=== PATIENT | male | born 1950 | race Caucasian/White ===

== ENCOUNTER → 2016-11-15 | Outpatient (CLI) | payer MEDICARE ==
[~2016-11-15] MED LIST: ALLO100T PO; ASPI81TA85 PO; BENZ100C5 PO; BISO10TA6 PO; BISO5TAB5 PO; CALC600T21 PO; CARV12.5 PO; CLON-412 PO; CO Q10CA PO; COUM1TAB17 PO; CRES20TA PO; DEMA20TA6 PO; DIGO0.12 PO; DILT30TA PO; DOXY100T16 PO; DRIS50002 PO; FURO1TAB15 PO; INSUH10VL SC; INSULANT SC; JANT5TAB PO; LEVO25TA5 PO; LOSA100T36 PO; LOVE0.6I2 SC; MULT1TAB8 PO; NITR4TASL SL; OMEG100011 PO; PANT40TA2 PO; PAXI10TA2 PO; PRED10TA PO; PREG50CA PO; PROA1AER INH; VITA100041 PO
[2016-11-15 13:31] LABS: INR 1.44
== END ==
LOC: M SMT 08:10
PROVIDERS: ATTEND Nurse Practitioner Family
DX: Z51.81 Encounter for therapeutic drug level monitoring (principal); Z79.01 Long term (current) use of anticoagulants; I48.92 Unspecified atrial flutter

== ENCOUNTER → 2017-01-04 | Outpatient (CLI) | payer MEDICARE ==
[2017-01-04 17:58] LABS: INR 1.5
== END ==
LOC: M SMT 13:55
PROVIDERS: ATTEND Internal Medicine Cardiovascular Disease
DX: Z51.81 Encounter for therapeutic drug level monitoring (principal); Z79.01 Long term (current) use of anticoagulants; I48.92 Unspecified atrial flutter

== ENCOUNTER 2017-01-10 18:31 | Emergency (ER) | payer MEDICARE ==
[~2017-01-10] VITALS: Ht 170.2 cm; Wt 117.9 kg
[2017-01-10] MEDS ORDERED: VITA1DRO SL (18:51)
[2017-01-10 19:29] LABS: CALCIUM LEVEL 8.9 MG/DL (8.8-10.2); CREATININE FOR GFR 3.27 MG/DL (0.70-1.30); GLOMERULAR FILTRATION RATE 20.3 (>49); POTASSIUM SERUM 4.5 MEQ/L (3.5-5.1)
[2017-01-10 19:32] LABS: MEAN CORPUSCULAR VOLUME 93.7 fl (80.0-96.0); PLATELET COUNT, AUTOMATED 158 k/mm3 (150-450); RED CELL DISTRIBUTION WIDTH 16.6 % (11.5-14.5); WHITE BLOOD COUNT 2.6 K/mm3 (4.0-10.0)
[2017-01-10] MEDS: IPRATROPIUM 0.5MG/ALBUTEROL 2.5MG INH SOL UD 3ML (DUONEB)(J7620) NEB SCH ×3 (20:04→20:30)
[2017-01-10 20:28] LABS: VENOUS O2 SATURATION 83.7 % (60.0-80.0); VENOUS PARTIAL PRESSURE CO2 62.7 mmHg (38.0-50.0); VENOUS PARTIAL PRESSURE O2 54.9 mmHg (30.0-50.0); VENOUS STANDARD HCO3 28.7 MEQ/L; VENOUS TOTAL CO2 33.9 MEQ/L (24.0-28.0)
[2017-01-10 20:49] LABS: ANISOCYTOSIS 1+; BANDS 1 % (< 11); EOSINOPHILS 3 % (0-5); HYPOCHROMASIA 1+; NUCLEATED RED BLOOD CELL 1 % (0-0); OVALOCYTES 1+; POLYCHROMASIA 1+; TARGET CELLS 1+
[2017-01-10 20:50] LABS: POIKILOCYTOSIS 1+
[2017-01-10] MEDS ORDERED: predniSONE 20 MG TAB PO ONE (22:15)
[2017-01-10 23:06] VITALS: O2SAT 93
[2017-01-10] MEDS ORDERED: PRED10TA PO (23:27)
[2017-01-10] MEDS ORDERED: ALBU83IN INH (23:27)
[2017-01-10 23:37] VITALS: BP 202/82
--- NOTE | 2017-01-11 08:02 | REP ---
Clinical: Shortness of breath. Comparison: 11/16/2015. Technique: PA and lateral. Findings: Stable cardiomegaly and evidence for prior sternotomy CABG and stenting noted. The lung hinojosa demonstrate indistinct pulmonary vasculature and increased interstitial markings as well as subtle basilar infiltrates and small pleural effusions. Differential diagnosis includes multifocal pneumonia and pulmonary vascular congestion. Impression: Multifocal pneumonia with pleural effusion versus pulmonary vascular congestion. Signed by Norman Ty MD 01/11/2017 07:54 A
--- NOTE | 2017-01-11 11:52 | ED PDOC ---
Post-Departure Follow-Up formal CXR noted. spoke to ED typewriter tester - Ventura Osorio. He will contact pt and assess on phone. if symptomatic to recommend fu w pcp and/or return to ED Jonathan Krishna MD Jan 11, 2017 11:51
--- NOTE | 2017-01-11 16:36 | ECGEPIP ---
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
== END 2017-01-10 23:43 | disposition home or self-care (01) ==
LOC: M ED 19:51
DX: J45.901 Unspecified asthma with (acute) exacerbation (principal); Z79.899 Other long term (current) drug therapy; Z79.82 Long term (current) use of aspirin; Z79.4 Long term (current) use of insulin; Z79.01 Long term (current) use of anticoagulants

== ENCOUNTER 2017-01-23 10:42 | Inpatient (IN) | payer MEDICARE ==
[~2017-01-23] VITALS: Ht 170.2 cm; Wt 121.5 kg
[~2017-01-23 10:42] MED LIST changes: +ALBU83IN INH; +VITA1DRO SL
[2017-01-23] MEDS ORDERED: ALBUTEROL SULFATE 2.5 MG/0.5 ML INH NEB SOLN NEB ONE (12:15)
--- NOTE | 2017-01-23 12:39 | REP ---
AP PORTABLE CHEST: 01/23/2017 COMPARISON: 01/10/2017 CLINICAL HISTORY: Dyspnea and cough. FINDINGS: Sternotomy wires and clips from prior CABG noted. Heart size mildly prominent. There is no pulmonary edema. Some underlying interstitial fibrotic changes without dense consolidation. Some minor lateral pleural thickening on the left more than right. No gross effusion. I do not see parenchymal mass or widened mediastinum. Aorta mildly tortuous and calcified without aneurysm. Airway intact. IMPRESSION: 1. Some mild cardiomegaly without pulmonary edema or definite effusion. 2. Minor lateral pleural thickening on the left with some underlying fibrosis and COPD. Prior CABG. 3. No definite consolidation or mass. Signed by Mateo Reyna MD 01/23/2017 01:47 P
[2017-01-23 12:48] LABS: INR 1.88
[2017-01-23 12:50] LABS: DIFF SLIDE NUMBER 213; MEAN CORPUSCULAR HEMOGLOBIN 29.3 pg (27.0-33.0); MEAN CORPUSCULAR VOLUME 91.7 fl (80.0-96.0); PLATELET COUNT, AUTOMATED 141 k/mm3 (150-450); RED CELL DISTRIBUTION WIDTH 16.6 % (11.5-14.5)
[2017-01-23 12:55] LABS: ABG BASE EXCESS 5.6 (-2.0-2.0); ABG HCO3 30.9 MEQ/L (22.0-26.0); ABG PARTIAL PRESSURE CO2 49.1 mmHg (35.0-45.0); ABG PARTIAL PRESSURE O2 59.4 mmHg (75.0-100.0); ABG STANDARD HCO3 29.4 MEQ/L (22.0-26.0); ABG TOTAL CO2 32.4 MEQ/L (23.0-31.0); ABG pH (ARTERIAL) 7.417 UNITS (7.350-7.450)
[2017-01-23 13:14] LABS: ALBUMIN 2.9 GM/DL (3.2-5.2); ALBUMIN/GLOBULIN RATIO 0.94 (1.00-1.93); BILIRUBIN,DIRECT 0.1 MG/DL (0.0-0.2); BILIRUBIN,TOTAL 0.4 MG/DL (0.2-1.0); CALCIUM LEVEL 8.1 MG/DL (8.8-10.2); CREATININE FOR GFR 3.47 MG/DL (0.70-1.30)
[2017-01-23 13:16] LABS: ANISOCYTOSIS 2+; BANDS 4 % (< 11); HYPOCHROMASIA 1+; MICROCYTOSIS 1+
[2017-01-23 13:18] LABS: POIKILOCYTOSIS 1+
[2017-01-23 13:26] LABS: DIGOXIN LEVEL 1.4 NG/ML (0.5-2.0); POTASSIUM SERUM 5.2 MEQ/L (3.5-5.1)
--- NOTE | 2017-01-23 14:03 | ECGEPIP ---
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 Order Number: [id number] Reading MD: Ame Perdomo Measurements Intervals [place] Rate: 54 P: 25 VT: 193 QRS: -4 QRSD: 91 T: 72 QT: 428 QTc: 409 Interpretive Statements SINUS BRADYCARDIA NONSPECIFIC ST & T-WAVE ABNORMALITY SIMILAR 01/10/17 Electronically Signed On 01-23-2017 14:03:38 EDT by Ame Perdomo
[2017-01-23] MEDS ORDERED: WARF-21 PO (15:44)
[2017-01-23] MEDS ORDERED: B-122000 PO (15:48)
[2017-01-23] MEDS ORDERED: ALLO100T PO (15:48)
[2017-01-23] MEDS ORDERED: DIGO0.12 PO (15:49)
[2017-01-23] MEDS ORDERED: DILT30TA PO (15:51)
[2017-01-23] MEDS ORDERED: FISH5CAP PO (15:56)
[2017-01-23] MEDS ORDERED: LEVO75TA34 PO (15:56)
[2017-01-23] MEDS ORDERED: FINA5TAB2 PO (15:56)
[2017-01-23] MEDS ORDERED: FLOM5CAP PO (15:56)
[2017-01-23] MEDS ORDERED: ROCA0.25 PO (15:56)
[2017-01-23] MEDS ORDERED: VITMTA PO (15:56)
[2017-01-23] MEDS ORDERED: TORS20TA2 PO (15:56)
[2017-01-23] MEDS ORDERED: FENT50PA TD (15:59)
[2017-01-23] MEDS ORDERED: PERC10TA17 PO (16:00)
[2017-01-23] MEDS ORDERED: ALBU83IN INH (16:05)
[2017-01-23 20:40] VITALS: BP 182/70
[2017-01-23] MEDS ORDERED: GLUCOSE 4 GM CHEW TABLET PO PRN (20:45)
[2017-01-23] MEDS ORDERED: ALBUTEROL SULFATE 2.5 MG/0.5 ML INH NEB SOLN INH PRN (20:45)
[2017-01-23] MEDS ORDERED: DEXTROSE 50% 50 ML SYRINGE IV PRN (20:45)
[2017-01-23] MEDS ORDERED: NITROGLYCERIN 0.4 MG SUBL TABLET SL PRN (20:45)
[2017-01-23] MEDS ORDERED: IPRATROPIUM 0.5MG/ALBUTEROL 2.5MG INH SOL UD 3ML (DUONEB)(J7620) NEB PRN (20:45)
[2017-01-23] MEDS ORDERED: GLUCAGON FOR INJ 1 MG VIAL (J1610) SC PRN (20:45)
[2017-01-23] MEDS ORDERED: DIGOXIN 0.125 MG TAB PO ONE (21:00)
[2017-01-23] MEDS: BISOPROLOL FUMARATE 10 MG TAB PO SCH (21:40)
[2017-01-23] MEDS: WARFARIN SOD 7.5 MG TAB PO SCH (21:41)
[2017-01-23] MEDS: CYANOCOBALAMIN 500 MCG TAB PO SCH (21:41)
[2017-01-23] MEDS: ROSUVASTATIN 10 MG TAB (CRESTOR) PO SCH (21:41)
[2017-01-23] MEDS: HumaLOG INSULIN (NovoLOG) PER UNIT SC SCH (21:42)
[2017-01-23] MEDS: LEVEMIR (INSULIN DETEMIR) 1 UNITS/0.01ML SC SCH (21:42)
[2017-01-23] MEDS: TAMSULOSIN 0.4 MG CAP PO SCH (21:42)
[2017-01-23] MEDS: PARoxetine 10MG TABLET PO SCH (22:12)
--- NOTE | 2017-01-23 23:12 | HPE ---
DATE OF ADMISSION: 01/23/2017 PRIMARY CARE PROVIDER: Dr. Rubio ATTENDING PHYSICIAN: Dr. Burns REASON FOR ADMISSION: Hypoxia. HISTORY OF PRESENT ILLNESS: Patient is a 66-year-old male with past medical history significant for atrial flutter, coronary artery disease (CAD), cervical nerve impingement, history of hairy cell leukemia, chronic kidney disease, congestive heart failure, diabetes, hypertension, hyperlipidemia, presented to the emergency room complaining of hypoxia. The patient stated he started to feel short of breath a few weeks ago, he went to see his primary care provider and he was found to have a low oxygen saturation. He normally follows up with Dr. Lake. He was admitted here in the past and was seen by Dr. Lake who arranged an outpatient sleep study that showed that he has obstructive sleep apnea and he had BiPap that he uses at home at night with 5 liters of oxygen but no oxygen during the day. Today, upon presentation to the emergency room the patient had a pulse oximetry of 81% on room air. He was admitted under hospitalist service. The patient was also found to be anemic with a hemoglobin of 7.7. Occult blood was negative. He was transfused 1 unit of blood. He denies any chest pain at this time. Denies any nausea, vomiting or diarrhea. Denies any other symptoms. No fevers or cough. Right now he has good oxygen saturation on 2 liters of oxygen saturating at 97%. Chest x-ray was done in the emergency room which showed some mild cardiomegaly without pulmonary edema or effusion, some underlying fibrosis and chronic obstructive pulmonary disease (COPD) but no definite consolidation or mass. The patient was admitted under hospitalist service. REVIEW OF SYSTEMS: 12-point review of systems was obtained all which was negative except for those mentioned above. PAST MEDICAL HISTORY: Significant for atrial flutter, the patient is on Coumadin, bypass surgery, cervical nerve impingement, the patient follows up with neurology, history of hairy cell leukemia, chronic kidney disease, congestive heart failure, hypertension, hyperlipidemia, diabetes. PAST SURGICAL HISTORY: Significant for coronary artery bypass graft (CABG), stents, and cataract surgery. SOCIAL HISTORY: The patient denies alcohol or tobacco use. Lives at home with his . ALLERGIES: No known drug allergies. HOME MEDICATIONS: Include: - albuterol 2.5 mg inhaled every 4 hours as needed for shortness of breath - allopurinol 200 mg by mouth daily - aspirin 81 mg by mouth daily - bisoprolol 10 mg by mouth twice a day - Rocaltrol 0.25 mcg by mouth daily - calcium 600 mg by mouth nightly - vitamin D3 1000 units at bedtime - vitamin B12 2000 mcg by mouth at bedtime - digoxin 0.125 mg three times a week, Saturday, Saturday, Saturday - diltiazem 30 mg by mouth twice a day - Fentanyl patch every third day - finasteride 5 mg daily - fish oil one capsule by mouth twice a day - insulin sliding scale before meals and at bedtime - Lantus 28 units twice a day - Levoxyl 75 mcg by mouth daily - multivitamin one tablet by mouth daily - nitroglycerin 0.4 mg as needed for chest pain - Percocet one tablet as needed for pain - Paxil 10 mg at bedtime - Crestor 20 mg at bedtime - Flomax 0.4 mg at bedtime - torsemide 40 mg by mouth twice a day - vitamin D every 2 weeks - Coumadin 5 mg Wednesdays and Saturdays, 7.5 mg Saturday, Saturday, Saturday, Saturday and Saturday FAMILY HISTORY: Noncontributory. PHYSICAL FINDINGS: VITAL SIGNS: Reviewed. HEENT: Pupils equal, round, reactive to light and accommodation. NECK: Supple. No jugular venous distention (JVD). LUNGS: Clear to auscultation bilaterally. ABDOMEN: Soft, nontender, nondistended. EXTREMITIES: Trace edema bilaterally. LABORATORY FINDINGS: Reviewed. ASSESSMENT/PLAN: 1. Hypoxia which resolved with 2 liters nasal cannula. The patient normally does not use oxygen during the day, he only uses BiPap at 5 liters at night after he was diagnosed with sleep apnea. He follows up with Dr. Lake. We will continue oxygen to keep saturations above 98%. The patient might have history of chronic obstructive pulmonary disease (COPD) but not officially diagnosed with pulmonary function testing. We will defer to primary care team if need for pulmonary services. Continue DuoNebs as needed and scheduled. 2. History of atrial fibrillation, currently sinus rhythm. Continue the patient's digoxin and Coumadin. 3. History of diabetes. Continue the patient's Levemir insulin sliding scale. 4. History of hyperlipidemia. Continue Crestor 20 mg at bedtime. 5. History of congestive heart failure. Will continue the patient's torsemide 40 mg by mouth twice a day. 6. History of hypothyroidism. 7. History of coronary artery disease. Continue diltiazem 30 mg by mouth twice a day. Continue aspirin 81 mg by mouth daily. Continue bisoprolol 10 mg by mouth twice a day. Continue Crestor. 8. History of BPH. Continue the patient's finasteride 5 mg by mouth daily. 9. Deep venous thrombosis (DVT) prophylaxis. The patient is on Coumadin.
[2017-01-23] MEDS: IPRATROPIUM 0.5MG/ALBUTEROL 2.5MG INH SOL UD 3ML (DUONEB)(J7620) NEB SCH (23:24)
[2017-01-24] VITALS (7 sets, daily range): BP systolic 152–195; BP diastolic 62–84
[2017-01-24] MEDS: IPRATROPIUM 0.5MG/ALBUTEROL 2.5MG INH SOL UD 3ML (DUONEB)(J7620) NEB SCH ×5 (02:53→20:00)
[2017-01-24 03:13] LABS: MEAN CORPUSCULAR HEMOGLOBIN 29.2 pg (27.0-33.0); MEAN CORPUSCULAR HGB CONC 31.3 g/dl (32.0-36.5); MEAN CORPUSCULAR VOLUME 93.3 fl (80.0-96.0); RED CELL DISTRIBUTION WIDTH 16.1 % (11.5-14.5); WHITE BLOOD COUNT 4.2 K/mm3 (4.0-10.0)
[2017-01-24 03:16] LABS: INR 1.82
[2017-01-24 03:33] LABS: ALBUMIN 2.8 GM/DL (3.2-5.2); ALBUMIN/GLOBULIN RATIO 0.78 (1.00-1.93); BILIRUBIN,TOTAL 0.4 MG/DL (0.2-1.0); CALCIUM LEVEL 7.6 MG/DL (8.8-10.2); CREATININE FOR GFR 3.75 MG/DL (0.70-1.30); GLOMERULAR FILTRATION RATE 17.4 (>49); MAGNESIUM LEVEL 2.2 MG/DL (1.8-2.4); TOTAL PROTEIN 6.4 GM/DL (6.4-8.2)
[2017-01-24] MEDS: LEVOTHYROXINE 0.075 MG TAB (75 MCG) PO SCH (06:41)
[2017-01-24] MEDS: HumaLOG INSULIN (NovoLOG) PER UNIT SC SCH ×4 (08:14→21:54)
[2017-01-24] MEDS: BISOPROLOL FUMARATE 10 MG TAB PO SCH ×2 (08:17→21:39)
[2017-01-24] MEDS: CALCITRIOL 0.25 MCG CAP (S0169) PO SCH (08:17)
[2017-01-24] MEDS: ASPIRIN 81 MG ENTERIC TAB PO SCH (08:18)
[2017-01-24] MEDS: MULTIVITAMINS/MINERALS THERAP 1 TAB PO SCH (08:18)
[2017-01-24] MEDS: FINASTERIDE 5 MG TAB PO SCH (08:18)
[2017-01-24] MEDS: ALLOPURINOL 100 MG TAB PO SCH (08:18)
[2017-01-24] MEDS: LEVEMIR (INSULIN DETEMIR) 1 UNITS/0.01ML SC SCH ×2 (08:21→21:40)
[2017-01-24] MEDS ORDERED: TORSEMIDE 20 MG TAB PO SCH (09:00)
[2017-01-24] MEDS: PERCOCET 5MG/325MG TAB PO PRN ×3 (09:47→23:14)
[2017-01-24] MEDS: TORSEMIDE 20 MG TAB PO SCH (16:47)
[2017-01-24] MEDS: WARFARIN SOD 7.5 MG TAB PO SCH (16:48)
--- NOTE | 2017-01-24 17:44 | IPN ---
DATE: 01/24/2017 SUBJECTIVE: Patient is seen and examined in the room today. Patient stated his breathing shows significant improvement after the packed red blood cell transfusion. Patient stated he has a history of leukemia and he had treatment and leukemia is in remission, however since the diagnosis of leukemia patient has been having an issue with his blood count. Patient denied any blood in his stool. Colonoscopy was done approximately 1 year ago, but no significant findings. Patient has been having congestive heart failure and patient is on chronic diuretic. Patient is also noted to have increased swelling of bilateral lower extremities and patient is also noted to have increased shortness of breath when patient tries to lay flat. OBJECTIVE: VITAL SIGNS: Temperature 98.1, pulse 67, respirations 22, blood pressure 170/62 , pulse oximetry 95% in room air. GENERAL: No sign of acute distress, alert and oriented times three. HEENT: Unable to assess jugular venous distention (JVD) due to the facial hair, otherwise normocephalic, atraumatic. Extraocular motors grossly intact. CARDIOVASCULAR: Positive S1, S2, positive bradycardia. LUNGS: Minor crackles, no wheezes. ABDOMEN: Soft, nontender, nondistended. Bowel sounds present. EXTREMITIES: 2+ pitting edema bilaterally. LABORATORY DATA: WBC 4.2, hemoglobin 8.1, hematocrit 25.8, platelet count 125. Sodium 139, potassium 5, chloride 101, carbon dioxide 28, BUN 82, creatinine 3.75, GFR 17.4, fasting glucose 438, calcium 7.6, magnesium 2.2, total bilirubin 0.4, AST 16, ALT 29, alkaline phosphatase 74, total CK 140, troponin I is 0.39, total protein 6.4, albumin 2.8. ASSESSMENT AND PLAN: 1. Acute respiratory distress, possibly due to symptomatic anemia and diastolic congestive heart failure (CHF) exacerbation. Patient shows significant improvement after packed red blood cell transfusion. During physical exam, patient showed signs of fluid overload. Will increase the patient's diuretic and patient will be on fluid restriction to try to maintain negative fluid balance. 2. History of atrial fibrillation. Patient is currently in sinus bradycardia. Patient is on digoxin and Coumadin. 3. History of diabetes. Patient is on Levemir with sliding scale. Patient will be on consistent carbohydrate diet. 4. History of hyperlipidemia. Continue on statin. 5. acute on chronic diastolic congestive heart failure. At baseline, patient is taking torsemide 40 mg by mouth twice a day. Echocardiogram was performed in October 2015, however the study is of difficult technical quality and only showed patient has most likely preserved left ventricular (LV) systolic function, unable to estimate diastolic function due to underlying atrial flutter. Currently patient is in sinus bradycardia, does not have any arrhythmia. Will obtain a new echocardiogram to assess the patient's cardiac function. 6. History of hypothyroidism. Patient is on Synthroid. 7. History of coronary artery disease, on diltiazem, aspirin, bisoprolol, and Crestor. 8. History of BPH, on finasteride. 9. Deep venous thrombosis (DVT) prophylaxis. Patient is on Coumadin. Currently his INR is subtherapeutic. Patient will be on thromboembolism deterrents (TEDs) and sequential compression device. 10. History of hairy cell leukemia, in remission per patient. 11. Acute on chronic kidney disease, possibly due to fluid overload. Patient will be on fluid restriction and will increase the diuretic. 12. History of bypass surgery. 13. History of cervical nerve impingement. Patient has chronic left shoulder pain from the nerve impingement. Will start trial of Percocet. 14. Morbidly obesity MTDD
[2017-01-24] MEDS ORDERED: SLF 3 ML SYR IV PRN (17:45)
[2017-01-24] MEDS: CYANOCOBALAMIN 500 MCG TAB PO SCH (21:39)
[2017-01-24] MEDS: ROSUVASTATIN 10 MG TAB (CRESTOR) PO SCH (21:39)
[2017-01-24] MEDS: TAMSULOSIN 0.4 MG CAP PO SCH (21:40)
[2017-01-24] MEDS: PARoxetine 10MG TABLET PO SCH (21:40)
[2017-01-24] MEDS: SLF 3 ML SYR IV SCH (21:40)
[2017-01-25] VITALS (7 sets, daily range): BP systolic 150–184; BP diastolic 70–82; PULSE 59
[2017-01-25 01:43] LABS: CALCIUM LEVEL 8.4 MG/DL (8.8-10.2); CREATININE FOR GFR 3.45 MG/DL (0.70-1.30); GLOMERULAR FILTRATION RATE 19.1 (>49); MAGNESIUM LEVEL 2.4 MG/DL (1.8-2.4); POTASSIUM SERUM 4.5 MEQ/L (3.5-5.1)
[2017-01-25] MEDS: IPRATROPIUM 0.5MG/ALBUTEROL 2.5MG INH SOL UD 3ML (DUONEB)(J7620) NEB SCH ×6 (04:00→21:38)
[2017-01-25] MEDS: SLF 3 ML SYR IV SCH ×3 (05:20→19:56)
[2017-01-25] MEDS: LEVOTHYROXINE 0.075 MG TAB (75 MCG) PO SCH (05:20)
[2017-01-25] MEDS: PERCOCET 5MG/325MG TAB PO PRN ×3 (05:21→19:55)
[2017-01-25 07:31] LABS: MEAN CORPUSCULAR HEMOGLOBIN 29.8 pg (27.0-33.0); MEAN CORPUSCULAR HGB CONC 32.2 g/dl (32.0-36.5); MEAN CORPUSCULAR VOLUME 92.5 fl (80.0-96.0); RED CELL DISTRIBUTION WIDTH 16.3 % (11.5-14.5)
[2017-01-25 07:35] LABS: INR 2.43
[2017-01-25 07:59] LABS: ALBUMIN 2.9 GM/DL (3.2-5.2); CALCIUM LEVEL 8.4 MG/DL (8.8-10.2); CREATININE FOR GFR 3.29 MG/DL (0.70-1.30); GLOMERULAR FILTRATION RATE 20.2 (>49)
[2017-01-25 08:08] LABS: ALBUMIN/GLOBULIN RATIO 0.78 (1.00-1.93); BILIRUBIN,TOTAL 0.4 MG/DL (0.2-1.0); MAGNESIUM LEVEL 2.2 MG/DL (1.8-2.4); TOTAL PROTEIN 6.6 GM/DL (6.4-8.2)
[2017-01-25] MEDS: LEVEMIR (INSULIN DETEMIR) 1 UNITS/0.01ML SC SCH ×2 (08:18→22:48)
[2017-01-25] MEDS: HumaLOG INSULIN (NovoLOG) PER UNIT SC SCH ×4 (08:21→22:47)
[2017-01-25] MEDS: TORSEMIDE 20 MG TAB PO SCH ×2 (08:22→17:10)
[2017-01-25] MEDS: CALCITRIOL 0.25 MCG CAP (S0169) PO SCH (08:22)
[2017-01-25] MEDS: ASPIRIN 81 MG ENTERIC TAB PO SCH (08:22)
[2017-01-25] MEDS: BISOPROLOL FUMARATE 10 MG TAB PO SCH ×2 (08:23→19:59)
[2017-01-25] MEDS: ALLOPURINOL 100 MG TAB PO SCH (08:23)
[2017-01-25] MEDS: MULTIVITAMINS/MINERALS THERAP 1 TAB PO SCH (08:23)
[2017-01-25] MEDS: FINASTERIDE 5 MG TAB PO SCH (08:23)
[2017-01-25] MEDS ORDERED: DIGOXIN 0.125 MG TAB PO SCH (09:00)
[2017-01-25] MEDS ORDERED: INFLUENZA VIRUS VACCINE HIGH DOSE 0.5 ML SYRINGE (90662) IM ONE (09:00)
--- NOTE | 2017-01-25 16:22 | IPN ---
DATE: 01/25/2017 SUBJECTIVE: The patient is seen and examined in the room today. The patient stated his breathing has been improving since admission, and patient also noted to have increased urinary output since adjustment of the Lasix yesterday. The patient understands the importance that he needs to be on fluid restrictions. On telemetry, the patient had five-beat tachycardia that resolved spontaneously. However, it did show recurrence of the 10-beat ventricular tachycardia (V-tach) afterwards. Per patient, the patient does not have any acute distress with both events happened. OBJECTIVE: VITAL SIGNS: Temperature is 97.8, pulse is 54, respirations 18, blood pressure 152/78, pulse oximetry 94% on room air. GENERAL: Morbidly obese, no sign of acute distress. Alert and oriented times three. HEENT: Normocephalic, atraumatic. Extraocular motor grossly intact. CARDIOVASCULAR: Positive S1, S2. Positive bradycardia. LUNGS: Still some crackles. No wheezes. ABDOMEN: Soft, nontender, nondistended. Bowel sounds present. EXTREMITIES: 2+ pitting edema bilaterally. No sign of cyanosis. LABORATORY DATA: WBC 5, hemoglobin 8.4, hematocrit 26, platelet count is 130. Sodium is 142, potassium 4, chloride 105, carbon dioxide 37, BUN 80, creatinine 3.29, GFR is 20.2, fasting glucose 162, calcium 8.4, magnesium 2.2. Total bilirubin 0.4, AST 17, ALT 29, alkaline phosphatase 67. Total CK is 202. Troponin I is 0.45. Total protein is 6.6, albumin 2.9. ASSESSMENT AND PLAN: 1. Acute respiratory failure secondary to symptomatic anemia and diastolic CHF exacerbation. The patient's hemoglobin and hematocrit are stable after one packed red blood cells transfusion. Currently the patient is taking increased dose of torsemide diuresis. We will follow input and output. Currently the patient's breathing is improving. Continue to monitor. 2. History of atrial fibrillation. Currently the patient has sinus tachycardia. The patient is on digoxin and Coumadin. 3. History of diabetes. The patient is on Levemir covering with sliding scale. Continue consistent carbohydrate diet. 4. Hyperlipidemia. On statin. 5. acute on chronic diastolic congestive heart failure. Echocardiogram was done in October 2015; however, the study is not conclusive. I will follow with a new set of echocardiogram. 6. History of hypothyroidism, on Synthroid. 7. History of coronary artery disease on diltiazem, aspirin, bisoprolol, and Crestor. 8. History of benign prostatic hypertrophy (BPH) on finasteride. 9. History of hairy-cell leukemia in remission per patient. 10. Acute on chronic kidney disease secondary to fluid overload. The patient on torsemide diuresis. His renal function is improving. 11. Elevated troponin, most likely secondary to worsening renal function and cardiac stress from the patient's current condition. Will repeat the troponin. 12. History of bypass surgery. 13. History of cervical impingement and chronic shoulder pain. The patient is on Percocet. 14. Morbidly obesity 15. Deep venous thrombosis prophylaxis. The patient is on Coumadin currently. The patient is on thromboembolism deterrent stockings (TEDs) and sequential compression devices. The patient has a therapeutic international normalized ratio (INR) today. MTDD
--- NOTE | 2017-01-25 16:28 | ECHO ---
DATE OF PROCEDURE: 01/24/2017 REFERRING PHYSICIAN: Dr. Estrella Burns INDICATION: Dyspnea HEIGHT: 170 cm. WEIGHT: 123 kg. MEASUREMENTS: Ventricular septum: 1.18 cm Posterior wall: 1.19 cm Left ventricle diastole: 5.2 cm Left atrium: 5.0 cm Aortic root: 3.5 cm LVOT: 2.3 cm Inferior vena cava: 2.8 cm DOPPLER MEASUREMENTS: Aortic valve: 187 cm/s LVOT velocity: 140 cm/s LVOT VTI: 13.4 cm. Very mild mitral regurgitation. No mitral stenosis. Mitral E velocity: 181 cm/s Mitral A velocity: 137 cm/s Mitral E acceleration time: 225 ms Mild tricuspid regurgitation. Estimated right ventricle systolic pressure 55 mmHg assuming a right atrial pressure of 10 mmHg. Mild to moderate regurgitation. MITRAL ANNULAR TISSUE DOPPLER: E-prime septal: 5.6 cm/s E-prime lateral: 6.2 cm/s DESCRIPTION: The rhythm was sinus. This was a moderately technically difficult echocardiogram. No pericardial effusion. CONCLUSIONS: 1. Normal left ventricle internal dimensions and wall thickness. Normal left ventricle (LV) systolic function. Left ventricular ejection fraction (LVEF) 65% by visual estimate. Grade 2 LV diastolic dysfunction (pseudo normal filling pattern). 2. Moderate left atrial dilatation. 3. Suggestive of moderate elevation of estimated right ventricle systolic pressure (50 mmHg). 4. Moderate aortic valve sclerosis of a three-cuspid aortic valve. No aortic regurgitation. No aortic stenosis. 5. Severe mitral annular calcification. No mitral stenosis. Very mild mitral regurgitation.
[2017-01-25] MEDS: WARFARIN SOD 7.5 MG TAB PO SCH (17:10)
[2017-01-25] MEDS: ROSUVASTATIN 10 MG TAB (CRESTOR) PO SCH (19:52)
[2017-01-25] MEDS: TAMSULOSIN 0.4 MG CAP PO SCH (19:53)
[2017-01-25] MEDS: CYANOCOBALAMIN 500 MCG TAB PO SCH (19:53)
[2017-01-25] MEDS: PARoxetine 10MG TABLET PO SCH (19:53)
[2017-01-26] VITALS: PULSE 68
[2017-01-26 04:00] VITALS: PULSE 59
[2017-01-26] MEDS: IPRATROPIUM 0.5MG/ALBUTEROL 2.5MG INH SOL UD 3ML (DUONEB)(J7620) NEB SCH ×3 (04:00→08:12)
[2017-01-26] MEDS: PERCOCET 5MG/325MG TAB PO PRN (04:11)
[2017-01-26 04:45] VITALS: BP 170/78
[2017-01-26 05:37] LABS: MEAN CORPUSCULAR HEMOGLOBIN 29.2 pg (27.0-33.0); MEAN CORPUSCULAR HGB CONC 31.2 g/dl (32.0-36.5); MEAN CORPUSCULAR VOLUME 93.4 fl (80.0-96.0); RED CELL DISTRIBUTION WIDTH 16.2 % (11.5-14.5); WHITE BLOOD COUNT 4.7 K/mm3 (4.0-10.0)
[2017-01-26] MEDS: SLF 3 ML SYR IV SCH (05:47)
[2017-01-26] MEDS: LEVOTHYROXINE 0.075 MG TAB (75 MCG) PO SCH (05:47)
[2017-01-26 05:52] LABS: ALBUMIN 2.7 GM/DL (3.2-5.2); ALBUMIN/GLOBULIN RATIO 0.79 (1.00-1.93); BILIRUBIN,TOTAL 0.4 MG/DL (0.2-1.0); CALCIUM LEVEL 8.5 MG/DL (8.8-10.2); CREATININE FOR GFR 3.23 MG/DL (0.70-1.30); GLOMERULAR FILTRATION RATE 20.6 (>49); MAGNESIUM LEVEL 1.9 MG/DL (1.8-2.4); TOTAL PROTEIN 6.1 GM/DL (6.4-8.2)
[2017-01-26 06:11] LABS: INR 2.71
[2017-01-26 08:00] VITALS: BP 158/92
[2017-01-26 08:46] VITALS: BP 158/92
[2017-01-26] MEDS: HumaLOG INSULIN (NovoLOG) PER UNIT SC SCH (08:46)
[2017-01-26] MEDS: CALCITRIOL 0.25 MCG CAP (S0169) PO SCH (08:46)
[2017-01-26] MEDS: LEVEMIR (INSULIN DETEMIR) 1 UNITS/0.01ML SC SCH (08:46)
[2017-01-26] MEDS: FINASTERIDE 5 MG TAB PO SCH (08:46)
[2017-01-26] MEDS: ALLOPURINOL 100 MG TAB PO SCH (08:46)
[2017-01-26] MEDS: ASPIRIN 81 MG ENTERIC TAB PO SCH (08:46)
[2017-01-26] MEDS: BISOPROLOL FUMARATE 10 MG TAB PO SCH (08:47)
[2017-01-26] MEDS: MULTIVITAMINS/MINERALS THERAP 1 TAB PO SCH (08:47)
[2017-01-26] MEDS: TORSEMIDE 20 MG TAB PO SCH (08:48)
--- NOTE | 2017-01-26 15:10 | DSES ---
DATE OF ADMISSION: 01/23/2017 DATE OF DISCHARGE: 01/26/2017 PRIMARY CARE PROVIDER: Dr. Rubio CONSULTANTS: None. PROCEDURES: None. COMPLICATIONS: None. ADMISSION/DISCHARGE DIAGNOSES: 1. Acute respiratory failure. 2. Symptomatic anemia. 3. Acute on chronic diastolic Congestive heart failure (CHF) exacerbation. 4. History of atrial fibrillation. 5. Diabetes. 6. Hyperlipidemia. 7. History of hypothyroidism. 8. History of coronary artery disease. 9. Benign prostatic hypertrophy. 10. History of hairy cell leukemia, in remission. 11. Chronic kidney disease. 12. Elevated troponin. 13. History of gastric bypass. 14. History of cervical impingement. 15. Obstructive sleep apnea ([place]). 16. Gout. 17. morbidly obesity HOSPITALIZATION COURSE: The patient is a 66-year-old male who presented to [facility] on 01/23/2017 for hypoxia. The patient was admitted to the progressive care unit (PCU). The patient was found to have significant anemia. Blood consent was obtained, and the patient received 1 packed red blood cell transfusion, and the patient also showed to have a sign of fluid overload, and the patient started on diuresis. The patient was monitored on telemetry. The patient noted to have improvement after the blood transfusion, and with a few days of diuresis, the patient gradually returned to his baseline. On 01/26/2017 , the patient is deemed medically stable for discharge with recommendation to follow with the primary care provider within 1 week. OBJECTIVE: Vital signs: Temperature is 98.8, pulse is 62, respirations 18, blood pressure is 158/92, pulse oximetry is 92% in room air. LABORATORY DATA: WBC is 4.7, hemoglobin 8, hematocrit 25.5, platelet count is 121. Sodium is 144, potassium 4, chloride is 107, carbon dioxide 30, BUN 83, creatinine 3.23, GFR is 20.6, fasting glucose 153, calcium is 8.5, magnesium 1.9 , total bilirubin is 0.4, AST 13, ALT 25, alkaline phosphatase is 59, troponin I is 0.45, total protein is 6.1, albumin 2.7. PT is 28.8, INR is 2.71. MICROBIOLOGY: Stool occult blood test is negative. Influenza is negative. IMAGING STUDIES: Chest x-ray shows mild cardiomegaly without pulmonary edema or definite effusion. Mild lateral pleural thickening at the left with some underlying fibrosis and chronic obstructive pulmonary disease (COPD). Prior coronary artery bypass graft (CABG). No definite consolidation or mass. DISCHARGE MEDICATIONS: - albuterol 2.5 mg inhalation every 4 hours as needed - allopurinol 200 mg by mouth every day - bisoprolol 10 mg by mouth twice a day - aspirin 81 mg by mouth every day - calcitriol 0.25 mg by mouth every day - calcium 600 mg by mouth nightly - vitamin D3 1000 units by mouth nightly - vitamin B12 2000 mcg by mouth nightly - digoxin 0.125 mg by mouth three times a week - diltiazem 30 mg by mouth twice a day - fentanyl patch 50 mcg transdermal every 3 days - finasteride 5 mg by mouth every day - insulin NovoLog per sliding scale - Lantus 28 units subcutaneous twice a day - levothyroxine 75 mcg by mouth every day - multivitamin one tablet by mouth every day - nitroglycerin 0.4 mg sublingual every 5 minutes as needed for chest pain - Percocet one tablet by mouth twice a day as needed - Paxil 10 mg by mouth nightly - Crestor 20 mg by mouth nightly - Flomax 0.4 mg by mouth nightly - torsemide 40 mg by mouth twice a day - vitamin D 50,000 units by mouth every 2 weeks - warfarin 5 mg by mouth twice a week - warfarin 7.5 mg by mouth five times a week DISCHARGE INSTRUCTIONS: Discharged home. Activity as tolerated. Low salt diet as tolerated. The patient should be on 2 liter fluid restrictions. The patient should followup with primary care provider, Dr. Rubio, within 1 week. DISCHARGE CONDITION: Stable. Discharge time greater than 30 minutes. [facility]
== END 2017-01-26 10:32 | disposition home or self-care (01) | DRG 291 ==
LOC: M ED 12:17 → M ED INP 17:00 → M PCU 20:34
PROVIDERS: ADMIT Internal Medicine; ATTEND Internal Medicine
PROC: 30233N1 Transfusion of Nonautologous Red Blood Cells into Peripheral Vein, Percutaneous Approach (ICD-10-PCS; principal; 2017-01-23)
DX: I13.0 Hypertensive heart and chronic kidney disease with heart failure and stage 1 through stage 4 chronic kidney disease, or unspecified chronic kidney disease (principal); I50.33 Acute on chronic diastolic (congestive) heart failure; J96.01 Acute respiratory failure with hypoxia; D64.9 Anemia, unspecified; E66.01 Morbid (severe) obesity due to excess calories; M10.9 Gout, unspecified; G47.33 Obstructive sleep apnea (adult) (pediatric); N40.0 Benign prostatic hyperplasia without lower urinary tract symptoms; E78.5 Hyperlipidemia, unspecified; M54.12 Radiculopathy, cervical region; R79.89 Other specified abnormal findings of blood chemistry; E11.9 Type 2 diabetes mellitus without complications; I48.91 Unspecified atrial fibrillation; E03.9 Hypothyroidism, unspecified; I25.10 Atherosclerotic heart disease of native coronary artery without angina pectoris; N18.9 Chronic kidney disease, unspecified; Z98.84 Bariatric surgery status; Z85.6 Personal history of leukemia; Z79.82 Long term (current) use of aspirin; Z79.4 Long term (current) use of insulin; Z79.01 Long term (current) use of anticoagulants; Z79.899 Other long term (current) drug therapy; Z99.81 Dependence on supplemental oxygen; Z95.5 Presence of coronary angioplasty implant and graft

== ENCOUNTER 2017-02-03 14:26 | Inpatient (IN) | payer MEDICARE ==
[~2017-02-03] VITALS: Ht 170.2 cm; Wt 117.2 kg
[~2017-02-03 14:26] MED LIST changes: +B-122000 PO; +FENT50PA TD; +FINA5TAB2 PO; +FISH5CAP PO; +FLOM5CAP PO; +LEVO75TA34 PO; +PERC10TA17 PO; +ROCA0.25 PO; +TORS20TA2 PO; +VITMTA PO; +WARF-21 PO
[2017-02-03 15:19] LABS: ABG BASE EXCESS 4.6 (-2.0-2.0); ABG HCO3 29.5 MEQ/L (22.0-26.0); ABG PARTIAL PRESSURE CO2 46.3 mmHg (35.0-45.0); ABG PARTIAL PRESSURE O2 102.4 mmHg (75.0-100.0); ABG STANDARD HCO3 28.6 MEQ/L (22.0-26.0); ABG TOTAL CO2 30.9 MEQ/L (23.0-31.0); ABG pH (ARTERIAL) 7.422 UNITS (7.350-7.450)
[2017-02-03 15:24] LABS: INR 2.27
[2017-02-03 15:36] LABS: ALBUMIN 2.6 GM/DL (3.2-5.2); ALBUMIN/GLOBULIN RATIO 0.84 (1.00-1.93); BILIRUBIN,DIRECT 0.2 MG/DL (0.0-0.2); BILIRUBIN,TOTAL 0.6 MG/DL (0.2-1.0); CREATININE FOR GFR 2.85 MG/DL (0.70-1.30); GLOMERULAR FILTRATION RATE 23.8 (>49); POTASSIUM SERUM 4.4 MEQ/L (3.5-5.1); TOTAL PROTEIN 5.7 GM/DL (6.4-8.2)
[2017-02-03] MEDS ORDERED: IPRATROPIUM 0.5MG/ALBUTEROL 2.5MG INH SOL UD 3ML (DUONEB)(J7620) NEB ONE (15:45)
[2017-02-03 15:46] LABS: MEAN CORPUSCULAR HEMOGLOBIN 29.4 pg (27.0-33.0); MEAN CORPUSCULAR HGB CONC 32.6 g/dl (32.0-36.5); MEAN CORPUSCULAR VOLUME 90.2 fl (80.0-96.0); PLATELET COUNT, AUTOMATED 170 k/mm3 (150-450); WHITE BLOOD COUNT 3.1 K/mm3 (4.0-10.0)
--- NOTE | 2017-02-03 15:49 | REP ---
Portable chest, single AP view, the patient semi upright: Comparisons are 01/23/2017, 01/10/2017, 10/20/2068, 10/19/2015. There is chronic cardiomegaly and sternotomy wires, unchanged. There is diffuse interstitial coarsening and interstitial indistinctness compatible with diffuse bilateral interstitial infiltrates. No pleural effusions are identified. Impression: Diffuse bilateral interstitial infiltrates. Chronic cardiomegaly. Signed by Abhijit Jacobs MD 02/03/2017 03:40 P
[2017-02-03 16:00] LABS: DIGOXIN LEVEL 0.9 NG/ML (0.5-2.0)
[2017-02-03 16:09] LABS: EOSINOPHILS 2 % (0-5)
[2017-02-03 16:10] LABS: ANISOCYTOSIS 2+; HYPOCHROMASIA 2+; POLYCHROMASIA 2+
[2017-02-03 16:11] LABS: MICROCYTOSIS 1+
[2017-02-03] MEDS ORDERED: FUROSEMIDE 100 MG/10 ML VIAL (J1940) IV ONE ×2 (16:15→20:00)
[2017-02-03] MEDS ORDERED: TORSEMIDE 20 MG TAB PO SCH (17:00)
[2017-02-03] MEDS: HumaLOG INSULIN (NovoLOG) PER UNIT SC SCH ×2 (17:30→20:31)
[2017-02-03] MEDS ORDERED: GLUCAGON FOR INJ 1 MG VIAL (J1610) SC PRN (17:30)
[2017-02-03] MEDS ORDERED: GLUCOSE 4 GM CHEW TABLET PO PRN (17:30)
[2017-02-03] MEDS ORDERED: FENTANYL REMOVAL DOCUMENTATION MISC XX SCH (17:30)
[2017-02-03] MEDS ORDERED: DEXTROSE 50% 50 ML SYRINGE IV PRN (17:30)
[2017-02-03] MEDS: BISOPROLOL FUMARATE 10 MG TAB PO SCH (19:07)
[2017-02-03 20:00] VITALS: BP 194/68
[2017-02-03] MEDS: IPRATROPIUM 0.5MG/ALBUTEROL 2.5MG INH SOL UD 3ML (DUONEB)(J7620) NEB SCH (20:44)
[2017-02-03] MEDS: hydrALAZINE INJ 20 MG/ML VIAL IV SCH (21:10)
[2017-02-03] MEDS: ROSUVASTATIN 10 MG TAB (CRESTOR) PO SCH (21:11)
[2017-02-03] MEDS: TAMSULOSIN 0.4 MG CAP PO SCH (21:11)
[2017-02-03] MEDS: fentaNYL 50 MCG/HR PATCH TD SCH (21:11)
[2017-02-03] MEDS: LEVEMIR (INSULIN DETEMIR) 1 UNITS/0.01ML SC SCH (21:12)
[2017-02-03] MEDS: PARoxetine 10MG TABLET PO SCH (21:12)
--- NOTE | 2017-02-03 21:18 | HPE ---
DATE OF ADMISSION: PRIMARY CARE PROVIDER: Dr. Rubio. REASON FOR ADMISSION: Shortness of breath, anemia. HISTORY OF PRESENT ILLNESS: The patient is a 66-year-old male who was recently admitted and discharged from [facility] due to hypoxemia. The patient returned again to the emergency room today complaining of shortness of breath. On laboratory data, the patient was found to be anemic with a hemoglobin of 7.4. Last admission, the patient was also found to be anemic and he was transfused one unit of packed red blood cells (RBCs). Upon discharge, his hemoglobin was eight on 01/26/2017, Today is was 7.4 which is the same as admission the last time. The patient also underwent chest x-ray which showed diffuse bilateral interstitial infiltrates and chronic cardiomegaly. The patient was given one dose of Lasix 80 mg in the emergency room. He was typed and screened and transfused. Blood transfusion was initiated in the emergency room. The patient is still requiring oxygen to keep saturations above 90%. He is currently on three liters. He denies any chest pressure or any dizziness or lightheadedness. Denies any headaches. Denies any chills, fevers, denies any cough. Denies any black or tarry stools. Denies any red blood in the stool. Hospitalist was called for the admission. REVIEW OF SYSTEMS: 12-point review of systems was obtained, all which was negative except for those mentioned above. PAST MEDICAL HISTORY: 1. Significant for atrial flutter. The patient was on Coumadin. 2. Bypass surgery. 3. Cervical neck impingement. 4. History of hairy cell leukemia back in 2005. 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 5. Chronic kidney disease. 6. Congestive heart failure. 7. Hypertension. 8. Hyperlipidemia. 9. Diabetes. PAST SURGICAL HISTORY: Significant for coronary artery disease status post coronary artery bypass graft (CABG) and stenting, cataract surgery. SOCIAL HISTORY: The patient denies any alcohol or tobacco use. Lives at home with his . ALLERGIES: No known drug allergies. HOME MEDICATIONS: - albuterol as needed - allopurinol 200 mg daily - aspirin 81 mg daily - bisoprolol 10 mg three times a day - Rocaltrol 0.25 mg daily - vitamin D 1000 units by mouth at bedtime - calcium 600 mg by mouth at bedtime - vitamin B12 - digoxin 0.125 mg three times a week - diltiazem 30 mg by mouth twice a day - fish oil by mouth twice a day - finasteride 5 mg daily - fentanyl 50 mg transdermally, change every third day - insulin sliding scale on Lantus 28 units twice a day - Levoxyl 75 mg daily - nitroglycerin as needed for pain - Percocet as needed for pain - Paxil 10 mg by mouth daily - Crestor 20 mg daily - Flomax 0.4 mg at bedtime - torsemide 40 mg by mouth twice a day - vitamin D 50,000 units every two weeks - Coumadin 5 mg and 7.5 mg rotating FAMILY HISTORY: Noncontributory. PHYSICAL FINDINGS: VITAL SIGNS: Temperature on admission 99, pulse 62, respiratory rate 18, blood pressure 232/100, pulse oximetry 90% on three liters nasal cannula. HEENT: Pupils equal, round, reactive to light and accommodation. NECK: Supple. No jugular venous distention (JVD). LUNGS: Diminished breath sounds bilaterally. CARDIAC: Regular rate and rhythm. ABDOMEN: Soft, nontender, nondistended. EXTREMITIES: Bilateral +1 edema in lower extremities. SKIN: No obvious lesions or rashes. LABORATORY FINDINGS: WBC 3.1, hemoglobin 7.4, hematocrit 22.6, platelet count 170. Sodium was 141, potassium 4.4, chloride 102, BUN 52, creatinine 2.85, fasting glucose 241, lactic acid 0.8, troponin 0.36. BNP 930. TSH 3.59. INR 2.27. Digoxin 0.9. Blood gas: The patient was found to be slightly hypercapnic pH 7.4, pCO2 of 46.3, pO2 of 102.4, pCO2 of 29. Bicarbonate is 29.5. ASSESSMENT AND PLAN: 1. Anemia, unknown etiology at this time. The patient has history of chronic anemia and history of hairy cell leukemia. We will order a peripheral smear. The patient had multiple occult blood last admission, all of which were negative. He is getting transfused two units. Will continue to monitor hemoglobin. No obvious signs of bleeding at this time. Will continue patient's Coumadin for his atrial flutter. This patient will likely need to followup with hematology/oncology upon discharge. 2. Hypoxia, unknown etiology. The patient was recently treated for congestive heart failure exacerbation. We will continue to diurese, continue home medications of torsemide, and continue to monitor intake and output and daily weights. The patient underwent an echocardiogram during last admission and was read by Dr. Armstrong. He was found to have grade 2 diastolic dysfunction with normal left ventricular systolic function. 3. Chronic kidney disease. The patient follows up with Dr. Watts. 4. History of hypertension. Patient is currently very hypertensive. Will continue home medications. We will also add hydralazine 10 mg every eight hours, hold for systolic blood pressure less than 160. 5. Hyperlipidemia. Continue home medication. 6. Benign prostatic hypertrophy (BPH). 7. Elevated troponins. The patient has chronically elevated troponins. Will continue to trend and repeat the electrocardiogram (EKG) in the morning.
[2017-02-03 21:24] VITALS: BP 164/70
[2017-02-03 21:41] LABS: REASON FOR REVIEW COMPREHENSIVE REVIEW
[2017-02-03 21:48] VITALS: BP 172/62
[2017-02-03] MEDS ORDERED: PERCOCET 5MG/325MG TAB PO PRN (22:00)
[2017-02-03] MEDS ORDERED: oxyCODONE 5MG TAB PO PRN (22:00)
[2017-02-03] MEDS: PERCOCET 5MG/325MG TAB PO PRN (22:41)
[2017-02-03] MEDS: oxyCODONE 5MG TAB PO PRN (22:41)
[2017-02-03 22:47] VITALS: BP 170/68
[2017-02-03] MEDS: ACETAMINOPHEN 325 MG TAB PO PRN (23:00)
[2017-02-04] VITALS (8 sets, daily range): BP systolic 129–194; BP diastolic 50–94
[2017-02-04] MEDS: IPRATROPIUM 0.5MG/ALBUTEROL 2.5MG INH SOL UD 3ML (DUONEB)(J7620) NEB SCH ×4 (02:03→20:00)
[2017-02-04] MEDS: hydrALAZINE INJ 20 MG/ML VIAL IV SCH ×3 (03:49→20:44)
[2017-02-04 05:24] LABS: MEAN CORPUSCULAR HEMOGLOBIN 29.2 pg (27.0-33.0); MEAN CORPUSCULAR HGB CONC 32.2 g/dl (32.0-36.5); MEAN CORPUSCULAR VOLUME 90.8 fl (80.0-96.0); RED CELL DISTRIBUTION WIDTH 15.7 % (11.5-14.5); WHITE BLOOD COUNT 2.9 K/mm3 (4.0-10.0)
[2017-02-04 05:29] LABS: INR 2.21
[2017-02-04 05:35] LABS: ALBUMIN 2.3 GM/DL (3.2-5.2); ALBUMIN/GLOBULIN RATIO 0.59 (1.00-1.93); BILIRUBIN,TOTAL 0.6 MG/DL (0.2-1.0); CALCIUM LEVEL 8.1 MG/DL (8.8-10.2); CREATININE FOR GFR 2.99 MG/DL (0.70-1.30); GLOMERULAR FILTRATION RATE 22.6 (>49); MAGNESIUM LEVEL 2.1 MG/DL (1.8-2.4); POTASSIUM SERUM 4.2 MEQ/L (3.5-5.1); TOTAL PROTEIN 6.2 GM/DL (6.4-8.2)
[2017-02-04] MEDS: LEVOTHYROXINE 0.075 MG TAB (75 MCG) PO SCH (05:55)
[2017-02-04] MEDS: HumaLOG INSULIN (NovoLOG) PER UNIT SC SCH ×4 (07:50→20:43)
[2017-02-04] MEDS: ENOXAPARIN 30 MG/0.3 ML SYR (J1650) SC SCH (08:07)
[2017-02-04] MEDS: LEVEMIR (INSULIN DETEMIR) 1 UNITS/0.01ML SC SCH ×2 (08:08→20:43)
[2017-02-04] MEDS: CALCITRIOL 0.25 MCG CAP (S0169) PO SCH (08:08)
[2017-02-04] MEDS: ACETAMINOPHEN 325 MG TAB PO PRN (08:09)
[2017-02-04] MEDS: ASPIRIN 81 MG ENTERIC TAB PO SCH (08:12)
[2017-02-04] MEDS: DIGOXIN 0.125 MG TAB PO SCH (08:12)
[2017-02-04] MEDS: BISOPROLOL FUMARATE 10 MG TAB PO SCH ×2 (08:12→20:42)
[2017-02-04] MEDS: FINASTERIDE 5 MG TAB PO SCH (08:13)
--- NOTE | 2017-02-04 08:37 | REP ---
CT of the chest without IV contrast: Comparison is the portable plain film study of 02/03 2017. Portable plain film study. No pleural effusions are identified on the single portable semi upright view. However, by CT today there are bilateral moderate pleural effusions. There are no focal infiltrates. There are bilateral patchy confluent faintly visible infiltrates diffusely bilaterally. There are a few enlarged paratracheal mediastinal nodes measuring up to 13 mm short axis diameter. There are a few other normal-size mediastinal nodes. In the absence of IV contrast the study is insensitive for hilar adenopathy. There is no visible left lobe of the thyroid. Right lobe is unremarkable. Thoracic aorta is unremarkable. Cardiac size is borderline enlarged. There is no per cardial effusion. The visualized upper abdominal contents reveal several small gallbladder calculi but is otherwise unremarkable. Impression: Bilateral pleural effusions. Diffuse confluent patchy infiltrates bilaterally. Borderline cardiac size. Signed by Abhijit Jacobs MD 02/04/2017 08:28 A
[2017-02-04] MEDS ORDERED: TORSEMIDE 20 MG TAB PO SCH (09:00)
[2017-02-04] MEDS ORDERED: FUROSEMIDE 100 MG/10 ML VIAL (J1940) IV ONE (12:45)
--- NOTE | 2017-02-04 16:33 | IPNPDOC ---
Date Seen The patient was seen on 02/04/17. Progress Note Hospitalist Progress Note Subjective: Patient states that he still gets short of breath with activity, but that this is an improvement from before, when he would get short of breath at rest. He denies any blood in his stool. Objective: Physical Exam: Vitals: Vital Sign - Last 24 Hours 02/03/17 02/03/17 02/03/17 02/03/17 16:45 17:00 17:15 17:25 Pulse 62 61 61 B/P 204/90 200/88 206/90 205/91 Pulse Ox 97 98 98 02/03/17 02/03/17 02/03/17 02/03/17 17:30 17:45 17:46 17:48 Pulse 63 60 B/P 204/90 212/79 217/98 217/95 Pulse Ox 98 98 02/03/17 02/03/17 02/03/17 02/03/17 18:00 18:01 18:15 18:26 Pulse 59 60 62 B/P 220/98 223/100 198/96 Pulse Ox 98 99 02/03/17 02/03/17 02/03/17 02/03/17 18:30 18:45 19:00 19:01 Temp 99.0 Pulse 62 59 59 62 B/P 247/107 Pulse Ox 97 98 98 97 O2 Delivery Nasal Cannula O2 Flow Rate 3 02/03/17 02/03/17 02/03/17 02/03/17 19:02 19:07 19:15 19:30 Pulse 68 69 61 60 B/P 231/100 198/96 232/100 Pulse Ox 97 98 02/03/17 02/03/17 02/03/17 02/03/17 20:00 20:40 21:10 21:11 Temp 100.1 Pulse 67 Resp 20 18 B/P 194/68 194/68 Pulse Ox 97 O2 Delivery Nasal Cannula Nasal Cannula O2 Flow Rate 4.0 5.0 02/03/17 02/03/17 02/03/17 02/03/17 21:24 21:41 21:48 22:41 Resp 18 18 B/P 164/70 172/62 02/03/17 02/03/17 02/03/17 02/03/17 22:41 22:47 23:11 23:11 Temp 100.8 Pulse 62 Resp 18 20 18 18 B/P 170/68 Pulse Ox 97 O2 Delivery Nasal Cannula O2 Flow Rate 4.0 02/04/17 02/04/17 02/04/17 02/04/17 00:00 00:15 03:44 03:49 Temp 98.8 97.8 Pulse 60 Resp 20 B/P 164/50 164/50 Pulse Ox 97 O2 Delivery Nasal Cannula NIPPV (BIPAP/CPAP) O2 Flow Rate 2.0 02/04/17 02/04/17 02/04/17 02/04/17 03:52 04:55 07:25 08:00 Temp 98.1 98.5 Pulse 59 66 Resp 18 22 B/P 154/74 180/72 194/84 Pulse Ox 94 96 O2 Delivery Nasal Cannula Nasal Cannula Nasal Cannula O2 Flow Rate 1.5 1.5 1.5 02/04/17 02/04/17 02/04/17 02/04/17 08:00 08:11 08:12 08:12 Pulse 66 66 66 66 Resp 18 B/P 194/84 194/84 O2 Delivery Nasal Cannula O2 Flow Rate 1.5 02/04/17 02/04/17 02/04/17 12:00 13:44 16:00 Temp 97.8 98.8 Pulse 57 60 Resp 20 20 B/P 190/90 190/90 160/58 Pulse Ox 97 91 O2 Delivery Nasal Cannula Room Air O2 Flow Rate 1.5 General: Awake, alert, no acute distress HEENT: Normocephalic, atraumatic, extraocular movements intact CV: Regular rate and rhythm, no murmurs rubs or gallops Lungs: Clear to auscultation bilaterally Abd: Soft, nontender, nondistended Extremities: No edema Neuro: Alert and oriented 3, normal speech Psych: Normal mood and affect Labs and Imaging: Laboratory Tests 02/04/17 05:02 Calcium Level 8.1 L, Aspartate Amino Transf (AST/SGOT) 15, Alanine Aminotransferase (ALT/SGPT) 25, Alkaline Phosphatase 79, Total Bilirubin 0.6, Total Protein 6.2 L, Albumin 2.3 L, Red Blood Count 2.84 L, Mean Corpuscular Volume 90.8, Mean Corpuscular Hemoglobin 29.2, Mean Corpuscular Hemoglobin Concent 32.2, Red Cell Distribution Width 15.7 H Assessment and Plan: 66-year-old male with a flutter on Coumadin, CAD status post CABG, cervical neck impingement, history of hairy cell leukemia in 2005, chronic kidney disease stage IV, chronic grade 2 diastolic CHF, hypertension, hyperlipidemia, diabetes mellitus type 2, hypothyroidism who was recently discharged with hypoxia and anemia. He returns with shortness of breath and anemia, as well as concern for acute CHF exacerbation. 1. Anemia: Patient's hemoglobin on discharge approximately one week ago was 8.0. Upon admission, it had drifted down to 7.4. He received 2 units PRBCs, and has now only come up to 8.3. Fecal occult blood tests on prior admission were all negative. The patient denies seeing any blood from anywhere. We will check another fecal occult blood at this time, but I suspect that he will need an outpatient workup with hematology, as he is nearly pancytopenic. His WBCs are low, his platelets are at the lower end of normal. He does have a history of hairy cell leukemia almost a decade ago, but has not recently seen an oncologist. 2. Acute on chronic diastolic CHF exacerbation: The patient is noted to have bilateral pleural effusions on CT of his chest. We will continue with IV Lasix while holding his home by mouth torsemide. 3. Shortness of breath: I believe this is multifactorial. He may be having some symptoms from his anemia, but surely his CHF exacerbation is contributing. Additionally, with his fever last night and his leukopenia, as well as CT findings showed diffuse patchy infiltrates bilaterally, I'm concerned that he may have an HCAP. We'll treat all underlying causes. 4. HCAP: The patient had a fever last night, and he also was noted to have leukopenia. CT of the chest shows diffuse patchy infiltrates bilaterally, but I' m concerned that he may have a pneumonia. Blood cultures are pending. We will initiate vanc, Levaquin and Zosyn, but I hope to deescalate him quickly if he continues to do well and cultures are negative. We will also order a sputum culture. 5. Chronic kidney disease stage IV: The patient's baseline creatinine appears to be around 3. He is currently at baseline. We will monitor closely with diuresis and antibiotics. Continue home Rocaltrol. 6. Chronic troponin leak: The patient's troponins have been around 0.35, which appears to be his baseline. He denies any chest pain. 7. A flutter on Coumadin: The patient is currently rate controlled. Since he is not bleeding anywhere that we can find, we will continue him on his Coumadin and check daily INRs. INR is currently therapeutic area continue home digoxin and home Cardizem. 8. CAD status post CABG: Continue home aspirin and Coumadin. Continue home beta danitza, statin. 9. Diabetes mellitus type 2: Continue home Levemir. Sliding scale insulin while in-house. 10. Hypothyroidism: Continue home Synthroid. DVT prophylaxis: Lovenox Dispo: pending diuresis, blood cultures, and stability of hemoglobin, as well as respiratory status VS, I&O, 24H, [facility] Vital Signs/I&O Vital Signs Date Time Temp Pulse Resp B/P Pulse Ox O2 Delivery O2 Flow Rate FiO2 02/04/17 16:00 98.8 60 20 160/58 91 Room Air 02/04/17 12:00 1.5 02/03/17 15:06 96 I&O- Last 24 Hours up to 6 AM 02/04/17 06:00 Intake Total 851 ml Output Total 2000 ml Balance -1149 ml Laboratory Data 24H LABS Laboratory Tests 2 02/03/17 19:53: Creatine Kinase MB 2.4, Creatine Kinase MB Relative Index 3.33, Total Creatine Kinase 72, Troponin I 0.33H 02/04/17 01:01: Creatine Kinase MB 1.8, Creatine Kinase MB Relative Index 2.53, Total Creatine Kinase 71, Troponin I 0.32H 02/04/17 05:02: Blood Urea Nitrogen 49H, Creatinine 2.99H, Sodium Level 142, Potassium Level 4.2 , Chloride Level 104, Carbon Dioxide Level 31, Calcium Level 8.1L, Aspartate Amino Transf (AST/SGOT) 15, Alanine Aminotransferase (ALT/SGPT) 25, Alkaline Phosphatase 79, Total Bilirubin 0.6, Total Protein 6.2L, Albumin 2.3L, Albumin/ Globulin Ratio 0.59L, Anion Gap 7L, Glomerular Filtration Rate 22.6L, Magnesium Level 2.1, Prothromb Time International Ratio 2.21, Prothrombin Time 24.6H 02/04/17 10:04: Creatine Kinase MB 2.7, Creatine Kinase MB Relative Index 3.03, Total Creatine Kinase 89, Troponin I 0.32H CBC/BMP Laboratory Tests 02/04/17 05:02 Calcium Level 8.1 L, Aspartate Amino Transf (AST/SGOT) 15, Alanine Aminotransferase (ALT/SGPT) 25, Alkaline Phosphatase 79, Total Bilirubin 0.6, Total Protein 6.2 L, Albumin 2.3 L, Red Blood Count 2.84 L, Mean Corpuscular Volume 90.8, Mean Corpuscular Hemoglobin 29.2, Mean Corpuscular Hemoglobin Concent 32.2, Red Cell Distribution Width 15.7 H Microbiology Microbiology 02/03/17 Blood Culture - Preliminary, Resulted No growth after 24 hours . All specim... 02/03/17 Blood Culture - Preliminary, Resulted No growth after 24 hours . All specim... 02/04/17 Stool Occult Blood ([facility]) - Final, Complete [place] Feb 04, 2017 16:32
--- NOTE | 2017-02-04 16:38 | PHACANCOPD ---
PHARMACY VANCOMYCIN DOSING Pt Demographics Demographics Patient Age:66 , Weight:121.400 , Gender: male Adjusted Body Weight Date: 02/04/17, Adjusted Body Weight: [88.2] Kg Events Past 24 Hours Events Past 24 Hours: NO: Change in CrCl, Dialysis, Diuretic Therapy, Elevation in WBC, Fever, Other, Pending Diagnostics, Pending Procedures Vancomycin Vancomycin indication: HCAP Vancomycin Target Ranges: 15-20 mcg/ml Vancomycin Load Y/N: Yes Load Dose Date Time Vancomycin Load Dose: 2g Date: 02/04/17 Time: 17:00 Vancomycin Dose Date: 02/04/17. Current Vancomycin Dose: [1g iv q24h ] Intermittent Dosing?: No Labs Labs Item Value Date Time White Blood Count 3.1 K/mm3 L 02/03/17 1454 White Blood Count 2.9 K/mm3 L 02/04/17 0502 Creatinine 2.99 MG/DL H 02/04/17 0502 Micro Microbiology 02/03/17 Blood Culture - Preliminary, Resulted No growth after 24 hours . All specim... 02/03/17 Blood Culture - Preliminary, Resulted No growth after 24 hours . All specim... 02/04/17 Stool Occult Blood ([facility]) - Final, Complete Creatinine Clearance Date:02/04/17. Creatinine Clearance: [23.03ml/min.]. Pending Labs blood culture Assessment and Plan Maintaining Current Dose?: Yes Reason for dose change: No Dose Change Pharmacist Note Pharmacist Note Date: 02/04/17. Pharmacist note: Pt is a 66 year old male being treated for HCAP target trough 15-20mcg/ml. Pt has no history of vancomycin therapy here at [facility]. To achieve goal a 2g loading dose will start at 02/0417, followed by maintenance therapy of 1g iv q24h. We will continue to monitor and adjust dose as needed. [facility] Feb 04, 2017 16:38
[2017-02-04] MEDS: VANCOMYCIN HCL 1,000 MG, VIAL MATE ADAPTER 1 EACH in D5W 250 ML IV SCH (17:26)
[2017-02-04] MEDS ORDERED: VANCOMYCIN HCL 1,000 MG, VIAL MATE ADAPTER 1 EACH in D5W 250 ML IV ONE (18:00)
[2017-02-04] MEDS ORDERED: LevoFLOXacin IV 750 MG in APPROPRIATE DILUENT 1 EA IV SCH (19:00)
--- NOTE | 2017-02-04 20:29 | ECGEPIP ---
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
--- NOTE | 2017-02-04 20:33 | ECGEPIP ---
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
[2017-02-04] MEDS: ROSUVASTATIN 10 MG TAB (CRESTOR) PO SCH (20:42)
[2017-02-04] MEDS: TAMSULOSIN 0.4 MG CAP PO SCH (20:44)
[2017-02-04] MEDS: PARoxetine 10MG TABLET PO SCH (20:44)
[2017-02-04] MEDS: PERCOCET 5MG/325MG TAB PO PRN (20:52)
[2017-02-04] MEDS: oxyCODONE 5MG TAB PO PRN (20:52)
[2017-02-04] MEDS: PIPERACILLIN/TAZOBACTAM SOD 2.25 GM in D5W MINI-BAG PLUS 50 ML IV SCH (21:35)
[2017-02-05] MEDS: PIPERACILLIN/TAZOBACTAM SOD 2.25 GM in D5W MINI-BAG PLUS 50 ML IV SCH ×4 (01:50→20:37)
[2017-02-05] MEDS ORDERED: SLF 3 ML SYR IV PRN (02:00)
[2017-02-05] MEDS: IPRATROPIUM 0.5MG/ALBUTEROL 2.5MG INH SOL UD 3ML (DUONEB)(J7620) NEB SCH ×4 (02:00→20:00)
[2017-02-05] MEDS: SLF 3 ML SYR IV SCH ×3 (04:17→22:00)
[2017-02-05] MEDS: hydrALAZINE INJ 20 MG/ML VIAL IV SCH ×3 (04:17→20:38)
[2017-02-05 04:45] VITALS: BP 160/54
[2017-02-05] MEDS: LEVOTHYROXINE 0.075 MG TAB (75 MCG) PO SCH (05:24)
[2017-02-05 06:24] LABS: MEAN CORPUSCULAR HEMOGLOBIN 29.9 pg (27.0-33.0); MEAN CORPUSCULAR HGB CONC 32.8 g/dl (32.0-36.5); MEAN CORPUSCULAR VOLUME 91.3 fl (80.0-96.0); RED CELL DISTRIBUTION WIDTH 15.8 % (11.5-14.5)
[2017-02-05 06:32] LABS: INR 2.08
[2017-02-05 06:37] LABS: ALBUMIN 2.2 GM/DL (3.2-5.2); ALBUMIN/GLOBULIN RATIO 0.56 (1.00-1.93); BILIRUBIN,TOTAL 0.4 MG/DL (0.2-1.0); CALCIUM LEVEL 8.3 MG/DL (8.8-10.2); CREATININE FOR GFR 3.06 MG/DL (0.70-1.30); POTASSIUM SERUM 4.5 MEQ/L (3.5-5.1); TOTAL PROTEIN 6.1 GM/DL (6.4-8.2)
[2017-02-05] MEDS: HumaLOG INSULIN (NovoLOG) PER UNIT SC SCH ×4 (07:40→21:00)
[2017-02-05 08:00] VITALS: BP 148/82
[2017-02-05] MEDS: FUROSEMIDE 100 MG/10 ML VIAL (J1940) IV SCH (08:43)
[2017-02-05] MEDS: CALCITRIOL 0.25 MCG CAP (S0169) PO SCH (08:43)
[2017-02-05] MEDS: oxyCODONE 5MG TAB PO PRN ×2 (08:44→20:40)
[2017-02-05] MEDS: PERCOCET 5MG/325MG TAB PO PRN ×2 (08:46→20:40)
[2017-02-05] MEDS: ACETAMINOPHEN 325 MG TAB PO PRN (08:47)
[2017-02-05] MEDS: BISOPROLOL FUMARATE 10 MG TAB PO SCH ×2 (08:47→20:39)
[2017-02-05] MEDS: ENOXAPARIN 30 MG/0.3 ML SYR (J1650) SC SCH (08:48)
[2017-02-05] MEDS: ASPIRIN 81 MG ENTERIC TAB PO SCH (08:48)
[2017-02-05] MEDS: FINASTERIDE 5 MG TAB PO SCH (08:48)
[2017-02-05] MEDS: LEVEMIR (INSULIN DETEMIR) 1 UNITS/0.01ML SC SCH ×2 (08:49→20:41)
[2017-02-05 12:00] VITALS: BP 150/78
--- NOTE | 2017-02-05 13:37 | IPN ---
DATE OF SERVICE: 02/05/2017 A 66-year-old gentleman seen at bedside, resting comfortably. He denies any overnight issues. No chest pain, shortness of breath, productive sputum, cough. No abdominal pain. Denied any blood in his stool. OBJECTIVE: Temperature is 97.9, pulse 77, respiratory rate 18, blood pressure (BP) 150/78, SpO2 is 96% on 3 liters. General: The patient appears to be in no acute distress. He is alert, oriented , pleasant. HEENT: Unremarkable. Lungs: Clear to auscultation. Heart: Regular rate and rhythm. Abdomen: Soft, obese, nontender. Extremities: 1+ edema at the ankles. LABORATORY DATA: White count is 3.0, hemoglobin 8.5, platelets 173,000. Sodium 139, potassium 4.5, chloride 104, bicarbonate 27, anion gap 8, BUN is 54, creatinine is 3.06, glucose is 164, magnesium is 2.0, AST 15, ALT 24, alkaline phosphatase 73, troponin 0.32, albumin is 2.2. INR 2.08. Blood cultures negative times two for 24 hours. Stool for occult blood is negative. Sputum culture did show a few epithelial cells, good quality, gram positive cocci in pairs, chains, and clusters, a few gram negative rods. The results should be up within the next 2-7 days. ASSESSMENT AND PLAN: 1. Anemia. He did receive 2 units of packed red blood cells previously. He does appear to be stable with his hemoglobin and hematocrit. Will continue to follow. He does have some pancytopenia with underlying history of hairy cell leukemia greater than 10 years ago. He will need outpatient with his oncologist. Presently, he does not demonstrate any signs of bleeding. 2. Acute on chronic diastolic congestive heart failure exacerbation. Bilateral pleural effusions on chest CT. He is continued with Lasix. He has diuresed well. Will continue to follow him. He does still have some lower extremity edema. Will see if this helps his symptomatology to try to diurese him some more. 3. Shortness of breath, likely multifactorial. He remains afebrile. He does have leukopenia. Did have some patchy infiltrates being treated for a possible underlying pneumonia. 4. Healthcare-associated pneumonia. Continue with vancomycin, Levaquin, Zosyn for another 24 hours and likely will deescalate tomorrow. 5. Chronic kidney disease stage IV. Creatinine baseline is around 3. Continue to monitor closely as he diureses. 6. Chronic troponin leak. This appears to be at baseline. He is not having any chest pain. He did not demonstrate any electrocardiogram (EKG) changes on admission. 7. History of atrial flutter. His Coumadin has actually been held. Will continue on Lovenox until we decide to progress him back to his Coumadin dosing. I would like to watch his hemoglobin and hematocrit for another day or two prior to doing so, but he does need to be considered back on his anticoagulation therapy. He does appear to be rate controlled. His international normalized ratio (INR) is therapeutic, and he will continue digoxin and cardizem. 8. Coronary artery disease, status post coronary artery bypass graft (CABG) procedure. Again, on aspirin and continue home beta danitza and statin therapy. Coumadin has been held. 9. Obesity with BMI of 42 which could complicate his medical treatment. 10. DVT prophylaxis: lovenox DISPOSITION: Will see how he progresses over the next 24-48 hours. Monitor hemoglobin and hematocrit and see if he diureses well, and I did request physical therapy to see the patient today, as well, for evaluation and treatment. Anticipate home discharge in the next 24-48 hours, depending on how he is doing. NELLY
[2017-02-05 16:00] VITALS: BP 152/82
[2017-02-05] MEDS: VANCOMYCIN HCL 1,000 MG, VIAL MATE ADAPTER 1 EACH in D5W 250 ML IV SCH (16:29)
[2017-02-05] MEDS: ROSUVASTATIN 10 MG TAB (CRESTOR) PO SCH (20:38)
[2017-02-05] MEDS: PARoxetine 10MG TABLET PO SCH (20:39)
[2017-02-05] MEDS: TAMSULOSIN 0.4 MG CAP PO SCH (20:39)
[2017-02-05 21:00] VITALS: BP 180/90
[2017-02-05 23:44] VITALS: BP 160/72
[2017-02-06] MEDS: PIPERACILLIN/TAZOBACTAM SOD 2.25 GM in D5W MINI-BAG PLUS 50 ML IV SCH ×3 (02:00→13:39)
[2017-02-06] MEDS: IPRATROPIUM 0.5MG/ALBUTEROL 2.5MG INH SOL UD 3ML (DUONEB)(J7620) NEB SCH ×4 (02:00→20:01)
[2017-02-06 03:50] VITALS: BP 150/72
[2017-02-06] MEDS: hydrALAZINE INJ 20 MG/ML VIAL IV SCH ×2 (04:00→12:00)
[2017-02-06] MEDS: SLF 3 ML SYR IV SCH ×3 (05:04→22:00)
[2017-02-06] MEDS: LEVOTHYROXINE 0.075 MG TAB (75 MCG) PO SCH (05:11)
[2017-02-06] MEDS: IPRATROPIUM 0.5MG/ALBUTEROL 2.5MG INH SOL UD 3ML (DUONEB)(J7620) NEB PRN (05:21)
[2017-02-06 05:45] LABS: INR 1.73; MEAN CORPUSCULAR HEMOGLOBIN 29.3 pg (27.0-33.0); MEAN CORPUSCULAR HGB CONC 31.5 g/dl (32.0-36.5); MEAN CORPUSCULAR VOLUME 92.8 fl (80.0-96.0); RED CELL DISTRIBUTION WIDTH 15.9 % (11.5-14.5); WHITE BLOOD COUNT 2.9 K/mm3 (4.0-10.0)
[2017-02-06 06:04] LABS: ALBUMIN 2.3 GM/DL (3.2-5.2); ALBUMIN/GLOBULIN RATIO 0.68 (1.00-1.93); BILIRUBIN,TOTAL 0.4 MG/DL (0.2-1.0); CALCIUM LEVEL 8.1 MG/DL (8.8-10.2); CREATININE FOR GFR 3.7 MG/DL (0.70-1.30); GLOMERULAR FILTRATION RATE 17.6 (>49); MAGNESIUM LEVEL 2.1 MG/DL (1.8-2.4); POTASSIUM SERUM 4.4 MEQ/L (3.5-5.1); TOTAL PROTEIN 5.7 GM/DL (6.4-8.2)
[2017-02-06 07:57] VITALS: BP 158/72
[2017-02-06] MEDS: HumaLOG INSULIN (NovoLOG) PER UNIT SC SCH ×4 (08:06→21:00)
[2017-02-06] MEDS: ASPIRIN 81 MG ENTERIC TAB PO SCH (08:07)
[2017-02-06] MEDS: CALCITRIOL 0.25 MCG CAP (S0169) PO SCH (08:07)
[2017-02-06] MEDS: BISOPROLOL FUMARATE 10 MG TAB PO SCH ×2 (08:07→21:04)
[2017-02-06] MEDS: DIGOXIN 0.125 MG TAB PO SCH (08:07)
[2017-02-06] MEDS: FINASTERIDE 5 MG TAB PO SCH (08:07)
[2017-02-06] MEDS: LEVEMIR (INSULIN DETEMIR) 1 UNITS/0.01ML SC SCH ×2 (08:08→21:03)
[2017-02-06] MEDS: ENOXAPARIN 30 MG/0.3 ML SYR (J1650) SC SCH (08:08)
[2017-02-06] MEDS: FUROSEMIDE 100 MG/10 ML VIAL (J1940) IV SCH ×2 (08:08→21:02)
[2017-02-06] MEDS: oxyCODONE 5MG TAB PO PRN ×2 (08:21→21:05)
[2017-02-06] MEDS: PERCOCET 5MG/325MG TAB PO PRN ×2 (08:22→21:05)
--- NOTE | 2017-02-06 15:53 | IPN ---
DATE: 02/06/2017 A 66-year-old seen at bedside. He states that he is having quite a bit of ankle swelling still, some intermittent short shortness of breath, and I did notice that he has required some increase in his oxygen supplementation. He did inform me that he does require five liters at night when he sleeps with using bilevel positive airway pressure (BiPAP) but he is typically on two liters during the day. He denies hemoptysis. No productive sputum. He is able speak in complete sentences. OBJECTIVE: Temperature 98.2, pulse is 60 and regular, respiratory rate is 18, blood pressure 150/72, SPO2 is 95% on five liters sleeping and three liters while awake. Intake and output are recorded as 1490/700 with positive fluid balance of 790. HEENT: Unremarkable. Difficult to ascertain jugular venous distention (JVD) due to body habitus. LUNGS: Diminished bibasilar breath sounds, occasional wheeze. HEART: Regular rate and rhythm. ABDOMEN: Obese, soft. EXTREMITIES: He does have 2+ edema of the anterior shins. No calf tenderness. LABORATORY DATA: White count 2.9, hemoglobin 8, platelets are 175,000. Sodium 139, potassium 4.4, chloride 105, bicarbonate 27, anion gap 7, BUN 61, creatinine 3.70, glucose is 159, calcium 8.1, AST is 11, ALT 21, alkaline phosphatase 61. He has had an intermediate troponin since 02/03/2017 and his BNP on admission was 930. Again, a CT angiogram of the chest showed bilateral pleural effusions with diffuse confluent patchy infiltrates. ASSESSMENT AND PLAN: 1. Anemia. This appears to be stable. He does have some underlying pancytopenia with history of hairy cell leukemia 10 years ago. He will need outpatient followup with his oncologist. 2. Acute on chronic diastolic congestive heart failure with bilateral pleural effusions on CT. We will continue with some Lasix. I did start a fluid restriction on him. 3. Acute kidney injury superimposed on chronic kidney disease (CKD). I did request Dr. Watts to see the patient on consultation to help out with diuresis and fluid management. 4. Shortness of breath, likely multifactorial. We will continue to follow. 5. Healthcare-associated pneumonia. Blood cultures are negative so far. He does have a sputum culture that is pending with positive cocci in pairs, chains and clusters. He has remained afebrile. No signs of sepsis. I am going to stop the Zosyn, vancomycin, and switch him to oral Levaquin. 6. Chronic troponin leak. No demonstrated abnormalities on EKG. No chest pain. This may be at baseline due to his poor kidney function. 7. History of atrial flutter. He is rate controlled. Coumadin has been on hold due to low hemoglobin and hematocrit. We will continue to follow. 8. Coronary artery disease, status post coronary artery bypass grafting. Continue aspirin, beta danitza, and statin therapy. Again, Coumadin is on hold. We will anticipate resuming within the next couple of days. 9. Obesity with body mass index (BMI) of 42, can complicate his medical treatment. 10. Deep vein thrombosis (DVT) prophylaxis. Thromboembolic-deterrent stockings (TEDS) and sequentials.
[2017-02-06 16:00] VITALS: BP 160/72
[2017-02-06] MEDS: LevoFLOXacin 250 MG TABLET PO SCH (17:36)
[2017-02-06 20:00] VITALS: BP 130/90
[2017-02-06] MEDS ORDERED: metOLazone 5 MG TAB PO ONE (20:00)
[2017-02-06 20:19] VITALS: BP 140/66
[2017-02-06] MEDS: DOCUSATE SODIUM 100 MG CAP PO SCH (21:00)
[2017-02-06 21:01] VITALS: BP 170/72
[2017-02-06] MEDS: fentaNYL 50 MCG/HR PATCH TD SCH (21:04)
[2017-02-06] MEDS: ROSUVASTATIN 10 MG TAB (CRESTOR) PO SCH (21:04)
[2017-02-06] MEDS: TAMSULOSIN 0.4 MG CAP PO SCH (21:05)
[2017-02-06] MEDS: PARoxetine 10MG TABLET PO SCH (21:06)
[2017-02-07] VITALS (7 sets, daily range): BP systolic 138–170; BP diastolic 56–82
[2017-02-07] MEDS: IPRATROPIUM 0.5MG/ALBUTEROL 2.5MG INH SOL UD 3ML (DUONEB)(J7620) NEB SCH ×4 (01:51→19:59)
[2017-02-07] MEDS: FUROSEMIDE 100 MG/10 ML VIAL (J1940) IV SCH (05:08)
[2017-02-07] MEDS: SLF 3 ML SYR IV SCH ×3 (05:08→22:00)
[2017-02-07] MEDS: LEVOTHYROXINE 0.075 MG TAB (75 MCG) PO SCH (05:08)
[2017-02-07 05:51] LABS: MEAN CORPUSCULAR HGB CONC 31.3 g/dl (32.0-36.5); MEAN CORPUSCULAR VOLUME 92.7 fl (80.0-96.0); RED CELL DISTRIBUTION WIDTH 15.7 % (11.5-14.5); WHITE BLOOD COUNT 2.2 K/mm3 (4.0-10.0)
[2017-02-07 05:54] LABS: INR 1.51
[2017-02-07 05:59] LABS: ALBUMIN 2.5 GM/DL (3.2-5.2); ALBUMIN/GLOBULIN RATIO 0.66 (1.00-1.93); BILIRUBIN,TOTAL 0.4 MG/DL (0.2-1.0); CALCIUM LEVEL 8.5 MG/DL (8.8-10.2); CREATININE FOR GFR 4.35 MG/DL (0.70-1.30); GLOMERULAR FILTRATION RATE 14.6 (>49); MAGNESIUM LEVEL 2.4 MG/DL (1.8-2.4); POTASSIUM SERUM 4.8 MEQ/L (3.5-5.1); TOTAL PROTEIN 6.3 GM/DL (6.4-8.2)
[2017-02-07] MEDS ORDERED: metOLazone 5 MG TAB PO ONE (08:00)
[2017-02-07] MEDS: HumaLOG INSULIN (NovoLOG) PER UNIT SC SCH ×4 (08:38→21:00)
[2017-02-07] MEDS: CALCITRIOL 0.25 MCG CAP (S0169) PO SCH (08:39)
[2017-02-07] MEDS: BISOPROLOL FUMARATE 10 MG TAB PO SCH ×2 (08:39→20:31)
[2017-02-07] MEDS: DOCUSATE SODIUM 100 MG CAP PO SCH ×2 (08:39→20:25)
[2017-02-07] MEDS: FINASTERIDE 5 MG TAB PO SCH (08:39)
[2017-02-07] MEDS: ASPIRIN 81 MG ENTERIC TAB PO SCH (08:39)
[2017-02-07] MEDS: ENOXAPARIN 30 MG/0.3 ML SYR (J1650) SC SCH (08:40)
[2017-02-07] MEDS: LEVEMIR (INSULIN DETEMIR) 1 UNITS/0.01ML SC SCH ×2 (08:40→21:00)
[2017-02-07] MEDS: oxyCODONE 5MG TAB PO PRN ×2 (08:47→20:48)
[2017-02-07] MEDS: PERCOCET 5MG/325MG TAB PO PRN ×2 (08:47→20:48)
[2017-02-07] MEDS: FUROSEMIDE injection 250 MG in D5W 225 ML IV SCH (10:03)
--- NOTE | 2017-02-07 10:23 | CR ---
DATE OF CONSULTATION: 02/06/2017 CONSULTATION REPORT FOR: Rolando Coleman D.O. REASON FOR CONSULTATION: Acute renal failure and congestive heart failure. HISTORY OF PRESENT ILLNESS: Mr. Mansfield is a 66-year-old gentleman with multiple chronic medical problems including diabetes, hypertension, congestive heart failure, stage IV of chronic kidney disease, coronary artery disease status post coronary artery bypass graft (CABG), and a history of anemia. He was admitted to [facility] on 02/03/2017 due to shortness of breath. He has been treated with antibiotics for possible pneumonia and diuretics for congestive heart failure. His kidney function has worsened and creatinine is up to 3.7 mg/dL, while it was 2.85 on admission. Nephrology consultation was requested on 02/06/2017 and the patient was seen in the evening of 02/06/2017. PAST MEDICAL AND SURGICAL HISTORY: Significant for: 1. Type 2 diabetes. 2. Hypertension. 3. Hyperlipidemia. 4. Stage III to stage IV of chronic kidney disease. 5. Coronary artery disease, status post coronary artery bypass graft (CABG). 6. History of atrial flutter. 7. History of congestive heart failure. 8. Prior history of hairy cell leukemia, has been in remission. 9. History of anemia. PAST SURGICAL HISTORY: Significant for: 1. Coronary artery bypass graft (CABG). 2. Coronary angioplasty with stents. 3. Cataract surgery. PERSONAL AND SOCIAL HISTORY: The patient is twice and he lives with his . He has a prior history of smoking but currently does not smoke. There is no history of alcohol or drug use. FAMILY HISTORY: Negative for end-stage renal disease. MEDICATIONS: His home medications include allopurinol, aspirin, bisoprolol, Rocaltrol, vitamin D, vitamin B12, digoxin, Diovan, fish oil, finasteride, fentanyl patch, insulin, Levoxyl, Percocet, Paxil, Crestor, Flomax, torsemide, Coumadin, and albuterol. His medications currently in the hospital include: - furosemide 80 mg once a day - levofloxacin 250 mg daily - Lovenox 30 mg daily - aspirin 81 mg daily - Rocaltrol 0.25 mcg daily - digoxin 0.125 mg on Saturday, Saturday and Saturday - Proscar 5 mg daily - levothyroxine 75 mcg daily - Percocet as needed for pain - Zebeta 10 mg twice a day - Cardizem 30 mg twice a day - fentanyl patch 50 mcg every 72 hours - Paxil 10 mg at bedtime - Crestor 20 mg daily - Flomax 0.4 mg at bedtime - Levemir insulin 28 units twice a day - Humalog insulin per sliding scale - DuoNebs every six hours as needed - Tylenol as needed - Zofran as needed ALLERGIES: The patient has no known drug allergies. REVIEW OF SYSTEMS: The patient is generally not feeling very well. He has worsening edema and shortness of breath since admission. He denies any fever or chills at present. Head and neck is significant for a history of obstructive sleep apnea. He denies any headache. Ears, nose and throat are unremarkable. Cardiovascular system is significant for dyspnea and leg edema. He denies any chest pain. He has a history of atrial flutter in the past. Respiratory system is significant for shortness of breath. There is no hemoptysis or pleuritic type of chest pain. He does have some cough. He has been on chronically oxygen use. Gastrointestinal (GI) system is negative for vomiting or diarrhea. He denies any abdominal pain. Appetite is poor. Genitourinary () system is significant for decreased urine output. There is no dysuria or hematuria. Endocrine system is significant for diabetes, hypothyroidism and secondary hyperparathyroidism. Neurological system is negative for seizures or stroke. He does have a history of chronic back pain. Musculoskeletal system is significant for morbid obesity, chronic back pain and leg edema. Skin is negative for rash or ulcers. Psychosocial system is significant for depression. PHYSICAL EXAMINATION: The patient is awake and alert, sitting in the chair at the time of my visit using oxygen via nasal cannula. Temperature 97.6 degrees Fahrenheit, heart rate 60 per minute and respiratory rate 18 per minute. Blood pressure 170/76 mmHg and oxygen saturation 96% on three liters of oxygen. Head is atraumatic. Pupils are equal and reactive to light and sclera is anicteric. Ears, nose and throat are unremarkable. Neck is supple and there is no thyroid enlargement. His neck veins are moderately distended. Heart sounds are distant and regular. Lungs have moderate bilateral air entry with bibasilar rales. Abdomen is obese and nontender. Bowel sounds are present. I could not palpate any organomegaly. Extremities have no cyanosis or clubbing. He has significant peripheral edema with at least 2+ lower extremity edema bilaterally. Neurologically, he is awake, alert and oriented times three. LABORATORY DATA: Today's laboratories show WBC count 2.9, hemoglobin 8.0 and hematocrit 25.3. Platelets 175. Sodium 139 and potassium 4.4. BUN 61 and creatinine 3.70. Yesterday, his BUN was 54 and creatinine 3.06, while on admission his BUN was 52 and creatinine 2.85. A BNP level on admission was 930. His troponin has been 0.36, 0.33 and 0.32 respectively. A TSH level was 3.59 on admission. Digoxin level 0.9 on 02/03/2017. Chest x-ray done on admission showed cardiomegaly and diffuse bilateral interstitial infiltrates. A chest CT scan was also done without IV contrast on 02/04/2017, which again showed a small bilateral pleural effusions and diffuse patchy infiltrates bilaterally. PROBLEMS: 1. Acute on chronic with diastolic congestive heart failure. The patient is known to have at least grade 2 of diastolic congestive heart failure by echocardiogram done earlier in January of 2017. At present, he is quite decompensated. We will try to diurese him with high-dose Lasix 80 mg intravenously every eight hours and also add metolazone 5 mg daily. The patient should remain on fluid restriction of 1500 per day and two-gram sodium diet. If he does not respond to IV Lasix doses given for 24 hours then we can consider a Lasix drip. We will also increase the metolazone dose if needed. Initially, we are giving him 5 mg one dose and will monitor response for the next 12 hours. 2. Acute renal failure superimposed on stage IV of chronic kidney disease. Most likely, this is related to decompensated congestive heart failure. At present, there is no emergent need for dialysis. However, we will have to monitor his kidney function closely as it is worsening. His electrolytes are within normal range and he does not have any metabolic acidosis. 3. Anemia. The patient has chronic anemia which seems to be somewhat worse. This could be related to hemodilution caused by hypervolemia. We will hold off on Aranesp and will transfuse him if and when needed. 4. Hypertension. Blood pressure is somewhat high. He is quite volume overloaded. We will try to aggressively diurese him and see how his blood pressure improves. He should continue with beta danitza and calcium channel danitza. We will certainly not use angiotensin-converting enzyme (DOROTHY) inhibitor or angiotensin-receptor danitza (ARB) due to acute renal failure. 5. History of atrial flutter. At present, he is in sinus rhythm. He remains on digoxin, beta danitza and calcium channel danitza. 6. Secondary hyperparathyroidism. The patient remains on calcitriol at his home dose. We will check his intact parathyroid hormone (PTH) level. 7. Chronic back pain. The patient remains on Percocet and fentanyl. He is not a suitable candidate for nonsteroidal antiinflammatory drugs (NSAIDs). I thank you for involving me in the care of Mr. Mansfield. I will follow him along with you.
--- NOTE | 2017-02-07 12:40 | REP ---
RENAL ULTRASOUND: HISTORY: Acute renal failure The kidneys are normal in echogenicity. The right kidney measures 5.4 cm in transverse by 4.7 cm in AP x 10.6 cm in cephalocaudal dimensions. The left kidney measures 5.5 cm in transverse x 5.9 cm in AP x 12.3 cm in cephalocaudal dimensions. There is no hydronephrosis or mass. There is an increase in the amount of renal pelvis fat. There are no filling defects in the urinary bladder. IMPRESSION: Normal renal ultrasound. Signed by Nawaf Early MD 02/07/2017 12:42 P
--- NOTE | 2017-02-07 13:55 | IPN ---
DATE: 02/07/2017 A 66-year-old gentleman seen at bedside. No overnight issues. He is resting well. No chest pain. No nausea or vomiting. No abdominal pain. OBJECTIVE: Temperature 97.0, pulse 60, respiratory rate is 20, blood pressure 162/73, repeat is 148/56, SpO2 is 95% on 2 liters. GENERAL: The patient appears to be in no acute distress, is pleasant. HEENT: Unremarkable. LUNGS: Clear. HEART: Regular rate and rhythm. ABDOMEN: Soft. EXTREMITIES: No edema. No calf tenderness. LABORATORY DATA: White count 2.2, hemoglobin 7.6 and platelets 164,000. Sodium 141, potassium 4.8, chloride 103, bicarbonate 31, anion gap 7, BUN 67, creatinine 4.35, glucose is 214, calcium 8.5, magnesium 2.4. AST 13, ALT 22, alkaline phosphatase 66, albumin is 2.5. Renal ultrasound is unremarkable. ASSESSMENT/PLAN: 1. Anemia, stable. Past history of hairy cell leukemia. He can followup with his outpatient oncologist. He remains asymptomatic and no further requirement of blood transfusion at this time/ We will go ahead check a reticulocyte count on him in the meantime and guaiac stool. 2. Chronic diastolic congestive heart failure. Appreciate Dr. Allen's assistance. He is on fluid restriction and Dr. Watts will help adjust his Lasix. 3. Acute kidney injury superimposed on chronic kidney disease (CKD). Again, I appreciate Dr. Allen's help with fluid management diuresis 4. Shortness of breath, like likely multifactorial. Continue to follow. This should improve with improved diuresis 5. Healthcare-associated pneumonia. Blood cultures were negative. Sputum culture is still waiting to be resolved. He did have some gram cocci clusters and in pairs. Again, he was de-escalated on Levaquin yesterday and seems to be doing well. 6. Chronic troponin leak with negative EKG. No chest pain. Likely related to his poor kidney function 7. History of atrial flutter. Rate controlled. Coumadin is on hold for now since he has had a low hemoglobin and hematocrit (H and H). 8, Coronary artery disease status post bypass grafting. Continue aspirin and beta danitza, statin. Coumadin is on hold. I anticipate resuming it in the next few days 9. Obesity with body mass index (BMI) of 42. Can complicate his medical treatment. 10. Deep venous thrombosis (DVT) prophylaxis. Thromboembolitic deterrents (TEDs) and sequentials. DISPOSITION: Anticipate that he will be here still a few more days until we get him to a better euvolemic state. I did see that Dr. Watts has started him on a Lasix drip. Will continue to follow his renal function and electrolytes. His chronic back pain appears to be adequately controlled. He is on Percocet and Fentanyl we are avoiding nonsteroidals.
--- NOTE | 2017-02-07 17:19 | IPN ---
DATE: 02/07/2017 I saw Mr. Mansfield last evening for initial consultation. He was admitted with shortness of breath and has been found in decompensated congestive heart failure. He also was treated for possible pneumonia. He has developed worsening kidney function and has not been responding to diuretics. We increased his Lasix dose to 80 mg every 8 hours last evening without much response. This morning he reports worsening leg edema. He denies any nausea or vomiting. His dyspnea is at about baseline and continues to use oxygen. PHYSICAL EXAMINATION: VITALS: Temperature 97 degrees Fahrenheit, heart rate 60 per minute and respiratory rate 20 per minute. Blood pressure 162/73 mmHg and oxygen saturation 95% on 2 liters oxygen. Intake and output records from yesterday showed total intake 1240 and output 700 mL. HEENT: His head is atraumatic. Neck veins are markedly distended. There is no oral thrush or ulcers. Pupils equal and reactive to light and sclera is anicteric. NECK: Supple and without thyroid enlargement. HEART: Sounds are regular and lungs with diminished breath sounds bilaterally. ABDOMEN: Obese and nontender. Bowel sounds are normal. EXTREMITIES: Have no cyanosis or clubbing. Lower extremities have significant edema bilaterally. NEUROLOGIC: He is awake, alert and oriented times three. SKIN: No rash or ulcers. LABORATORY: Today's labs show WBC count 2.2, hemoglobin 7.6 and hematocrit 24.2. Platelets 164. Sodium 141 and potassium 4.8. BUN 67 and creatinine 4.35. Glucose 214 and calcium 8.5. Total protein 6.3 and albumin 2.5. PROBLEMS: 1. Acute renal failure superimposed on chronic kidney disease. We will get a renal ultrasound today to rule out any possibility of obstruction. Most likely his acute renal failure is related to congestive heart failure. At present there is no emergent indication for dialysis. However, he is very much likely to require dialysis within the next 24-48 hours. I have discussed this with the patient and explained to him all options. We will monitor his kidney function closely and discuss further with him tomorrow. 2. Decompensated acute on chronic diastolic congestive heart failure. The patient remains decompensated and did not respond to intravenous (IV) Lasix given through the night. He is being given metolazone 10 mg one dose this morning and then we will also started on IV Lasix drip with 10 mg every hour. His urine output will be monitored closely. The patient will remain on 2 grams sodium diet and fluid restriction of 1500 per day. If he does not respond to Lasix drip in next 24 hours then dialysis will emanate. 3. Anemia. His anemia is worsening partly related to volume overload and partly related to acute renal failure. I would suggest to hold off on transfusion until his volume status is somewhat improved. Should he require dialysis then we can consider to transfuse him during dialysis. If he responds to diuretic therapy and kidney function improves then we will consider giving him Aranesp once his volume status is improved. 4. Hypertension. Blood pressure is slightly high however, I would like to except slightly high blood pressure in this situation while we are trying to aggressively diurese him.
[2017-02-07] MEDS: LevoFLOXacin 250 MG TABLET PO SCH (17:24)
[2017-02-07] MEDS: TAMSULOSIN 0.4 MG CAP PO SCH (20:25)
[2017-02-07] MEDS: PARoxetine 10MG TABLET PO SCH (20:26)
[2017-02-07] MEDS: ROSUVASTATIN 10 MG TAB (CRESTOR) PO SCH (20:26)
[2017-02-08] VITALS: BP 142/52
[2017-02-08] MEDS: IPRATROPIUM 0.5MG/ALBUTEROL 2.5MG INH SOL UD 3ML (DUONEB)(J7620) NEB SCH ×4 (02:00→21:26)
[2017-02-08] MEDS: SLF 3 ML SYR IV SCH ×3 (03:45→21:36)
[2017-02-08 04:00] VITALS: BP 150/70
[2017-02-08] MEDS: LEVOTHYROXINE 0.075 MG TAB (75 MCG) PO SCH (05:01)
[2017-02-08] MEDS: FUROSEMIDE injection 250 MG in D5W 225 ML IV SCH (05:01)
[2017-02-08 05:48] LABS: MEAN CORPUSCULAR HEMOGLOBIN 29.4 pg (27.0-33.0); MEAN CORPUSCULAR HGB CONC 31.6 g/dl (32.0-36.5); MEAN CORPUSCULAR VOLUME 93.2 fl (80.0-96.0); RED CELL DISTRIBUTION WIDTH 15.8 % (11.5-14.5)
[2017-02-08 05:57] LABS: INR 1.25
[2017-02-08 06:09] LABS: ALBUMIN 2.3 GM/DL (3.2-5.2); ALBUMIN/GLOBULIN RATIO 0.58 (1.00-1.93); BILIRUBIN,TOTAL 0.4 MG/DL (0.2-1.0); CREATININE FOR GFR 4.59 MG/DL (0.70-1.30); GLOMERULAR FILTRATION RATE 13.8 (>49); MAGNESIUM LEVEL 2.4 MG/DL (1.8-2.4); POTASSIUM SERUM 4.9 MEQ/L (3.5-5.1); TOTAL PROTEIN 6.3 GM/DL (6.4-8.2)
[2017-02-08 08:00] VITALS: BP 150/82
[2017-02-08] MEDS: FINASTERIDE 5 MG TAB PO SCH (08:36)
[2017-02-08] MEDS: BISOPROLOL FUMARATE 10 MG TAB PO SCH ×2 (08:36→21:33)
[2017-02-08] MEDS: CALCITRIOL 0.25 MCG CAP (S0169) PO SCH (08:37)
[2017-02-08] MEDS: ASPIRIN 81 MG ENTERIC TAB PO SCH (08:37)
[2017-02-08] MEDS: ENOXAPARIN 30 MG/0.3 ML SYR (J1650) SC SCH (08:38)
[2017-02-08] MEDS: DOCUSATE SODIUM 100 MG CAP PO SCH ×2 (08:38→21:00)
[2017-02-08] MEDS: HumaLOG INSULIN (NovoLOG) PER UNIT SC SCH ×4 (08:39→21:00)
[2017-02-08] MEDS: LEVEMIR (INSULIN DETEMIR) 1 UNITS/0.01ML SC SCH ×2 (08:39→21:33)
[2017-02-08 11:55] VITALS: BP 158/70
--- NOTE | 2017-02-08 14:39 | IPN ---
DATE: 02/08/2017 A 66-year-old gentleman seen at bedside. He does continue on a Lasix drip as well as metolazone. He denies any specific complaints at this time. I was called earlier by the patient's nurse because he did have a drop in his hemoglobin and hematocrit and he was ordered for two units of packed red blood cells. Otherwise, he denies any chest pain, nausea, vomiting. He is tolerating his meals. Bowel movements are regular and he is voiding fine. OBJECTIVE: Temperature 97.8, pulse 57, respiratory rate is 20, blood pressure 158/70, SPO2 is 96% on three liters. GENERAL: The patient appears to be in no acute distress. He is alert and oriented. HEENT: Unremarkable. LUNGS: Clear. HEART: Regular rate and rhythm. ABDOMEN: Soft, obese. EXTREMITIES: Trace edema. No calf tenderness. LABORATORY DATA: White count is 3.0, hemoglobin 6.9, hematocrit 21.8, and platelets 171. Sodium 140, potassium 4.9, chloride 103, bicarbonate 28, anion gap 9, BUN is 72, creatinine 4.59, glucose 139, calcium 8, magnesium 2.4, total bilirubin 0.4, AST 15, ALT 30, alkaline phosphatase 70, albumin is 2.3. ASSESSMENT AND PLAN: 1. Anemia. He did have a drop in his hemoglobin and hematocrit. We will transfuse two units of packed red blood cells. Guaiac stool was negative so far. His peripheral smear was only significant for anemia of chronic disease. 2. Acute on chronic renal failure. Appreciate Dr. Watts's assistance. 3. Chronic diastolic congestive heart failure. The patient is grossly still volume overloaded. We have fluid restricted him and he continues on a Lasix drip. Again, appreciate Dr. Watts's input. 4. Shortness breath, likely multifactorial. He does appear to be improving with diuresis 5. Healthcare-associated pneumonia with positive Pseudomonas on sputum culture. He has already been de-escalated to Levaquin and will need to complete a total seven days course. 6. Chronic troponin leak with negative EKG. No chest pain and poor kidney function. 7. Atrial flutter, rate controlled. Coumadin on hold for now with low hemoglobin and hematocrit. 8. Coronary artery disease status post bypass grafting. Continue aspirin and beta danitza. Coumadin on hold. 9. Obesity with body mass index of 42. This can complicate his medical treatment. 10. Deep vein thrombosis (DVT) prophylaxis. Thromboembolic-deterrent stockings (TEDS) and sequential compression device (SCD). DISPOSITION: The patient is diuresing well. Appreciate Dr. Watts's input. He is not anticipating any hemodialysis at this point. However, the patient will still be here for several more days.
[2017-02-08] MEDS: DIGOXIN 0.125 MG TAB PO SCH (17:08)
[2017-02-08] MEDS ORDERED: metOLazone 5 MG TAB PO ONE (17:30)
[2017-02-08] MEDS: oxyCODONE 5MG TAB PO PRN ×2 (17:52→21:35)
[2017-02-08] MEDS: LevoFLOXacin 250 MG TABLET PO SCH (17:52)
[2017-02-08] MEDS: PERCOCET 5MG/325MG TAB PO PRN ×2 (17:53→21:35)
--- NOTE | 2017-02-08 20:12 | IPN ---
DATE: 02/08/2017 Mr. Mansfield is seen this morning on his bedside. He is feeling a little better but still very weak and tired. He denies any nausea or vomiting. He has been on intravenous (IV) Lasix drip with good urine output since yesterday. He remains on chronic oxygen. PHYSICAL EXAMINATION: Temperature 97.5 degrees Fahrenheit, heart rate 60 per minute and respiratory rate 18 per minute. Blood pressure 150/82 mmHg and oxygen saturation 99% on 3 liters oxygen. Intake and output records from yesterday showed total intake 1700 and output 2475. Head is atraumatic. Neck veins are markedly distended. Neck is supple and without thyroid enlargement. Pupils are equal and reactive to light and sclera is anicteric. Ears, nose and throat are unremarkable. Heart sounds are regular and lungs with moderate bilateral air entry and basilar rales. Abdomen: Obese, soft and nontender. Extremities: Without any cyanosis or clubbing. He has significant peripheral edema, which is essentially unchanged. Neurologically, he is awake, alert and oriented times three. Today's labs show WBC count 3.0, hemoglobin 6.9 and hematocrit 21.8. Urinalysis showed 2+ protein and 1+ glucose, only 1 WBC and 3 RBCs noted. Today's chemistry showed sodium level 140, potassium 4.9, CO2 28, BUN 72 and creatinine 4.59. Total protein is 6.3 and albumin 2.3. PROBLEMS: 1. Acute renal failure superimposed on chronic kidney disease. Only slight increase in BUN and creatinine compared with yesterday. His urine output has improved so I am optimistic that his kidney function is likely to improve over the next 24-72 hours. At this point, there is no emergent indication for dialysis, and we will continue to monitor his kidney function closely. 2. Acute on chronic diastolic congestive heart failure. The patient had not responded to large dose intravenous (IV) diuretics. He is currently on Lasix drip and is responding much better. We will continue with the same. He was given a dose of metolazone 10 mg last evening. I will give him another dose of metolazone 10 mg today. At this point, I am optimistic that he will continue to respond to diuretics and we will not need to urgently dialyze him. The patient understands that this is still a possibility that he might need at least temporary dialysis if his kidney function does not improve over the next 24-48 hours. 3. Anemia. His anemia has worsened, and the patient is going to need transfusion. I recommend to transfuse 2 units of packed red blood cells today. The patient also receives iron therapy, which should be continued. 4. Hyperparathyroidism. The patient has been on calcitriol, which should be continued as previously.
[2017-02-08 20:33] VITALS: BP 158/71
[2017-02-08] MEDS: TAMSULOSIN 0.4 MG CAP PO SCH (21:33)
[2017-02-08] MEDS: PARoxetine 10MG TABLET PO SCH (21:34)
[2017-02-08] MEDS: ROSUVASTATIN 10 MG TAB (CRESTOR) PO SCH (21:35)
[2017-02-08 23:55] VITALS: BP 160/72
[2017-02-09] MEDS: FUROSEMIDE injection 250 MG in D5W 225 ML IV SCH ×2 (00:27→20:27)
[2017-02-09] MEDS: IPRATROPIUM 0.5MG/ALBUTEROL 2.5MG INH SOL UD 3ML (DUONEB)(J7620) NEB SCH ×5 (01:46→23:56)
[2017-02-09 04:52] VITALS: BP 158/82
[2017-02-09] MEDS: SLF 3 ML SYR IV SCH ×3 (05:08→21:10)
[2017-02-09] MEDS: LEVOTHYROXINE 0.075 MG TAB (75 MCG) PO SCH (05:11)
[2017-02-09 05:31] LABS: INR 1.22
[2017-02-09 05:36] LABS: MEAN CORPUSCULAR HEMOGLOBIN 30.6 pg (27.0-33.0); MEAN CORPUSCULAR HGB CONC 33.2 g/dl (32.0-36.5); MEAN CORPUSCULAR VOLUME 92.2 fl (80.0-96.0); RED CELL DISTRIBUTION WIDTH 15.4 % (11.5-14.5); WHITE BLOOD COUNT 2.8 K/mm3 (4.0-10.0)
[2017-02-09 05:42] LABS: ALBUMIN 2.7 GM/DL (3.2-5.2); ALBUMIN/GLOBULIN RATIO 0.61 (1.00-1.93); BILIRUBIN,TOTAL 0.5 MG/DL (0.2-1.0); CALCIUM LEVEL 9.1 MG/DL (8.8-10.2); CREATININE FOR GFR 4.47 MG/DL (0.70-1.30); GLOMERULAR FILTRATION RATE 14.2 (>49); MAGNESIUM LEVEL 2.5 MG/DL (1.8-2.4); POTASSIUM SERUM 4.7 MEQ/L (3.5-5.1); TOTAL PROTEIN 7.1 GM/DL (6.4-8.2)
[2017-02-09 08:00] VITALS: BP_SYST 163; BP_SYST 173; BP_DIAS 84
[2017-02-09] MEDS: DOCUSATE SODIUM 100 MG CAP PO SCH ×2 (09:00→21:00)
[2017-02-09] MEDS: FINASTERIDE 5 MG TAB PO SCH (09:14)
[2017-02-09] MEDS: CALCITRIOL 0.25 MCG CAP (S0169) PO SCH (09:14)
[2017-02-09] MEDS: ASPIRIN 81 MG ENTERIC TAB PO SCH (09:14)
[2017-02-09] MEDS: BISOPROLOL FUMARATE 10 MG TAB PO SCH ×2 (09:14→21:09)
[2017-02-09] MEDS: ENOXAPARIN 30 MG/0.3 ML SYR (J1650) SC SCH (09:14)
[2017-02-09] MEDS: HumaLOG INSULIN (NovoLOG) PER UNIT SC SCH ×4 (09:15→21:00)
[2017-02-09] MEDS: LEVEMIR (INSULIN DETEMIR) 1 UNITS/0.01ML SC SCH ×2 (09:15→21:08)
[2017-02-09 12:00] VITALS: BP 171/79
--- NOTE | 2017-02-09 15:07 | IPN ---
DATE: 02/09/2017 66-year-old male seen at bedside. He is sitting in the chair resting comfortably waiting for his breakfast. This morning, he feels less short of breath. Denies chest pain. No abdominal pain. OBJECTIVE: Temperature is 96.9, pulse 58, respiratory rate is 20, blood pressure 158/82, SPO2 is 95% on 3 liters. General: The patient appears to be in no acute distress. Is alert and oriented. HEENT: Unremarkable. Unable to determine jugular venous distention (JVD) due to body habitus. Lungs: Diminished bibasilar breath sounds, occasional wheeze. Heart: Regular rate and rhythm. Abdomen is obese, soft, nontender, nondistended, with positive bowel sounds. Extremities: He does have 2 to 3+ edema to the mid shins. No calf tenderness. LABORATORY DATA: White count is 2.8, hemoglobin 9.3 up from 6.9 and platelets are 173,000. Sodium 140, potassium 4.7, chloride 102, bicarb 32, anion gap 6, BUN 88, creatinine 4.47, glucose 168, magnesium 2.5, AST 16, ALT 25, alkaline phosphatase 76, albumin 2.7, INR 1.22. ASSESSMENT/PLAN: 1. Anemia. He did have a drop yesterday in his hemoglobin and hematocrit (H and H). He received 2 units packed red blood cells. Guaiac stool was negative. Peripheral smear was significant only for anemia of chronic disease and iron deficiency, which he is on iron supplementation for as well. I have held his Coumadin currently since he has had such a low blood count. He will need to be considered for reevaluation of his anticoagulation therapy sometime in the near future. 2. Acute on chronic renal failure. Appreciate Dr. Watts's assistance with fluid management. 3. Chronic diastolic congestive heart failure acute exacerbation. He still is grossly volume overloaded. He is on a Lasix drip and appreciate Dr. Watts's assistance since he does have poor renal function. He does not feel that the patient is in any need of emergent hemodialysis at this point. 4. Shortness of breath, multifactorial in nature. Does appear to be slightly improved. 5. Healthcare associated pneumonia with positive Pseudomonas on sputum culture. We have already de-escalated him to Levaquin and he will need to complete a 7-day course. An end date has been placed in the EMR for the patient for his end date. 6. Chronic troponin leak. Negative electrocardiogram (EKG). No chest pain, but he does have poor kidney function. 7. Atrial flutter versus atrial fibrillation. He is rate controlled. Coumadin is on hold for now since he has had a low H and H. 8. Coronary artery disease status post bypass graft. Continue aspirin and beta danitza. Again, Coumadin is on hold. 9. Obesity with body mass index of 42. This can complicate his medical treatment. 10. Deep vein thrombosis (DVT) prophylaxis. Thromboembolic deterrent stockings (TEDS) and sequentials. DISPOSITION: The patient is continuing to diurese. Appreciate Dr. Watts's input. He is in no emergent need of hemodialysis currently, but will defer this to Dr. Watts. I do anticipate that he is going to be here still for several more days.
[2017-02-09] MEDS: IPRATROPIUM 0.5MG/ALBUTEROL 2.5MG INH SOL UD 3ML (DUONEB)(J7620) NEB PRN (15:15)
--- NOTE | 2017-02-09 15:37 | IPN ---
DATE: 02/09/2017 SUBJECTIVE: The patient was seen and examined at the bedside today in the morning. He was actually sitting on the sofa. He continues to be on intravenous (IV) Lasix drip. The patient's urine output is around 1.5 liters. He is otherwise hemodynamically stable. There is no significant change in the renal function at this time. REVIEW OF SYSTEMS: The patient denies any fevers, chills, rigors, headaches, nausea, vomiting, chest pain. He does report mild shortness of breath. He denies pain abdomen, constipation, or diarrhea. He does report bilateral lower extremity edema. Rest of review of systems is negative. OBJECTIVE: VITAL SIGNS: Temperature is 96.7 degrees Fahrenheit, blood pressure is 179/79, pulse is 55, respiratory rate of 18, saturating 97% on nasal cannula. INTAKE AND OUTPUT: Urine output recorded as 1400 mL yesterday, 750 mL so far today since overnight. Weight in the bed scale is 123.6 kg. PHYSICAL EXAMINATION: GENERAL: The patient is awake, alert, and oriented times three, sitting on the sofa in no apparent distress. HEAD/NECK: Extraocular muscles intact. Pupils equal, round, and reactive to light. Mucous membranes are moist. Neck is supple. There is significantly elevated jugular venous distention (JVD). CARDIOVASCULAR: S1, S2. Regular rate. No murmur, rub, or gallop. RESPIRATORY: Chest is clear to auscultation bilaterally. Bilateral equal air entry. No rales or rhonchi. ABDOMEN: Soft, obese. Positive bowel sounds. Nontender. No organomegaly. EXTREMITIES: No clubbing or cyanosis. The patient has 3+ pitting edema of the bilateral lower extremities. CENTRAL NERVOUS SYSTEM (ASSOCIATE PROFESSOR PHYSICIAN): No focal neurological deficit. Power is 5/5 in all extremities. LABORATORY DATA: CBC showed a WBC of 2.8, hemoglobin 9.3, platelets of 173. INR is 1.22. BMP showed sodium 140, potassium 4.7, chloride 102, bicarbonate 32, BUN 88, creatinine 4.47, GFR is 14.2. Magnesium is 2.5, calcium 9.1, albumin 2.7. CURRENT MEDICATIONS: The patient's medications were all reviewed by me. He continues to be on IV Lasix drip at 0.1 mg/kg per hour. There is no other change in the medications today as compared with yesterday. ASSESSMENT: A 66-year-old male with acute on chronic diastolic congestive heart failure and acute kidney injury superimposed on chronic kidney disease. PLAN: 1. Acute kidney injury superimposed on chronic kidney disease. The patient's baseline creatinine is around 3. At this time he is in acute decompensated congestive heart failure. Continue the Lasix drip at this time. Continue aggressive diuresis. Creatinine is slowly trending down. No signs or symptoms of uremia. Electrolytes are acceptable at this time. No urgent need of hemodialysis at this time. I will continue to evaluate the patient daily for any need to start renal replacement therapy. 2. Acute on chronic diastolic congestive heart failure. The patient has significant lower extremity edema. He did not have negative fluid balance yesterday despite being on Lasix drip. I am going continue the dose of metolazone 10 mg by mouth daily. Continue daily weight and 24-hour intake and output. If patient's renal function does not improve over the next 72 hours, then he would have to start hemodialysis. 3. Anemia. The patient's hemoglobin was 6.9 yesterday. He got two units of packed red blood cells (PRBCs) transfusion. Hemoglobin has improved to 9.3. I am going to check the iron levels in this patient as well. If iron levels are adequate, I will give him a dose of Aranesp. 4. Secondary hyperparathyroidism. Continue current dose of calcitriol. 5. Hypermagnesemia. Magnesium is 2.5, which is acceptable at this time. Diuresis and improvement of the renal function would help improve magnesium level as well.
[2017-02-09 16:00] VITALS: BP 140/66
[2017-02-09] MEDS: LevoFLOXacin 250 MG TABLET PO SCH (17:29)
[2017-02-09 21:01] VITALS: BP 180/88
[2017-02-09] MEDS: PERCOCET 5MG/325MG TAB PO PRN (21:09)
[2017-02-09] MEDS: oxyCODONE 5MG TAB PO PRN (21:09)
[2017-02-09] MEDS: PARoxetine 10MG TABLET PO SCH (21:09)
[2017-02-09] MEDS: ROSUVASTATIN 10 MG TAB (CRESTOR) PO SCH (21:10)
[2017-02-09] MEDS: TAMSULOSIN 0.4 MG CAP PO SCH (21:10)
[2017-02-09] MEDS: fentaNYL 50 MCG/HR PATCH TD SCH (21:16)
[2017-02-10] VITALS (9 sets, daily range): BP systolic 152–190; BP diastolic 68–81
[2017-02-10] MEDS: SLF 3 ML SYR IV SCH ×3 (05:11→22:00)
[2017-02-10] MEDS: LEVOTHYROXINE 0.075 MG TAB (75 MCG) PO SCH (05:11)
[2017-02-10 05:34] LABS: INR 1.15
[2017-02-10 05:36] LABS: MEAN CORPUSCULAR HGB CONC 31.2 g/dl (32.0-36.5); MEAN CORPUSCULAR VOLUME 93.1 fl (80.0-96.0); RED CELL DISTRIBUTION WIDTH 15.3 % (11.5-14.5); WHITE BLOOD COUNT 2.3 K/mm3 (4.0-10.0)
[2017-02-10 05:52] LABS: ALBUMIN 2.6 GM/DL (3.2-5.2); ALBUMIN/GLOBULIN RATIO 0.65 (1.00-1.93); BILIRUBIN,TOTAL 0.4 MG/DL (0.2-1.0); CALCIUM LEVEL 8.4 MG/DL (8.8-10.2); CREATININE FOR GFR 4.61 MG/DL (0.70-1.30); GLOMERULAR FILTRATION RATE 13.7 (>49); MAGNESIUM LEVEL 2.4 MG/DL (1.8-2.4); POTASSIUM SERUM 4.7 MEQ/L (3.5-5.1); TOTAL PROTEIN 6.6 GM/DL (6.4-8.2)
[2017-02-10] MEDS: IPRATROPIUM 0.5MG/ALBUTEROL 2.5MG INH SOL UD 3ML (DUONEB)(J7620) NEB SCH ×3 (07:27→19:46)
[2017-02-10] MEDS: BISOPROLOL FUMARATE 10 MG TAB PO SCH ×2 (08:36→20:45)
[2017-02-10] MEDS: LEVEMIR (INSULIN DETEMIR) 1 UNITS/0.01ML SC SCH ×2 (08:36→20:44)
[2017-02-10] MEDS: CALCITRIOL 0.25 MCG CAP (S0169) PO SCH (08:36)
[2017-02-10] MEDS: ENOXAPARIN 30 MG/0.3 ML SYR (J1650) SC SCH (08:36)
[2017-02-10] MEDS: FINASTERIDE 5 MG TAB PO SCH (08:36)
[2017-02-10] MEDS: ASPIRIN 81 MG ENTERIC TAB PO SCH (08:36)
[2017-02-10] MEDS: DOCUSATE SODIUM 100 MG CAP PO SCH ×2 (08:37→20:46)
[2017-02-10] MEDS: HumaLOG INSULIN (NovoLOG) PER UNIT SC SCH ×4 (08:37→20:44)
[2017-02-10] MEDS: oxyCODONE 5MG TAB PO PRN ×2 (08:46→20:46)
[2017-02-10] MEDS: PERCOCET 5MG/325MG TAB PO PRN ×2 (08:47→20:46)
--- NOTE | 2017-02-10 15:45 | IPNPDOC ---
Date Seen The patient was seen on 02/10/17. Progress Note Hospitalist Progress Note Subjective: The patient states that his breathing is better, but he also seems mildly confused, as he started to tell me something and then could no longer remember what he was talking about Objective: Physical Exam: Vitals: Vital Sign - Last 24 Hours 02/09/17 02/09/17 02/09/17 02/09/17 16:00 16:24 20:15 21:01 Temp 98.0 99.1 Pulse 60 61 Resp 18 18 B/P (MAP) 140/66 (90) 180/88 (118) Pulse Ox 98 96 O2 Delivery Nasal Cannula Nasal Cannula Nasal Cannula Nasal Cannula O2 Flow Rate 3.0 3.0 3.0 3.0 02/09/17 02/09/17 02/09/17 02/09/17 21:09 21:09 21:09 21:10 Temp 99.1 99.1 Pulse 61 61 61 61 Resp 18 18 B/P (MAP) 180/88 180/88 180/88 180/88 Pulse Ox 96 96 O2 Delivery Nasal Cannula Nasal Cannula O2 Flow Rate 3.0 3.0 FiO2 96 96 02/09/17 02/09/17 02/09/17 02/09/17 21:16 21:39 21:39 21:46 Temp 99.1 97.7 97.7 97.7 Pulse 61 56 56 56 Resp 18 18 B/P (MAP) 180/88 160/68 160/68 160/68 Pulse Ox 96 97 97 97 O2 Delivery Nasal Cannula Nasal Cannula Nasal Cannula Nasal Cannula O2 Flow Rate 3.0 3.0 3.0 3.0 FiO2 96 96 96 96 02/10/17 02/10/17 02/10/17 02/10/17 00:56 05:12 08:00 08:30 Temp 97.7 97.8 97.7 Pulse 56 57 55 Resp 18 18 18 B/P (MAP) 160/68 (98) 152/70 (97) 167/78 (107) Pulse Ox 97 97 94 O2 Delivery Nasal Cannula Nasal Cannula Nasal Cannula Nasal Cannula O2 Flow Rate 3.0 3.0 3.0 3.0 02/10/17 02/10/17 02/10/17 02/10/17 08:36 08:46 08:47 09:16 Pulse 61 Resp 18 18 18 B/P (MAP) 167/78 O2 Delivery Nasal Cannula Nasal Cannula O2 Flow Rate 3.0 3.0 02/10/17 02/10/17 09:17 12:00 Temp 97.4 Pulse 56 Resp 18 18 B/P (MAP) 176/77 (110) Pulse Ox 94 O2 Delivery Nasal Cannula O2 Flow Rate 3.0 General: Awake, alert, no acute distress HEENT: Normocephalic, atraumatic, extraocular movements intact CV: Irregularly irregular Lungs: Clear to auscultation bilaterally Abd: Soft, nontender, nondistended Extremities: 2+ pitting edema of the bilateral lower extremities Neuro: Alert and oriented 3, normal speech, but brief intermittent periods of confusion Psych: Normal mood and affect Labs and Imaging: Laboratory Tests 02/10/17 05:09 Red Blood Count 3.01 L, Mean Corpuscular Volume 93.1, Mean Corpuscular Hemoglobin 29.0, Mean Corpuscular Hemoglobin Concent 31.2 L, Red Cell Distribution Width 15.3 H, Calcium Level 8.4 L, Aspartate Amino Transf (AST/SGOT ) 12 L, Alanine Aminotransferase (ALT/SGPT) 23, Alkaline Phosphatase 72, Total Bilirubin 0.4, Total Protein 6.6, Albumin 2.6 L Assessment and Plan: 66-year-old male with a flutter on Coumadin, CAD status post CABG, cervical neck impingement, history of hairy cell leukemia in 2005, chronic kidney disease stage IV, chronic grade 2 diastolic CHF, hypertension, hyperlipidemia, diabetes mellitus type 2, hypothyroidism who was recently discharged with hypoxia and anemia. He returns with shortness of breath and anemia, as well as concern for acute CHF exacerbation. He was also noted to have a HCAP. 1. Anemia: Fecal occult blood testing on last admission as well as this admission have been entirely negative, and there has been no identified bleeding from any source. Since his admission, he has required 4 units of PRBCs. I suspect that this is multifactorial, with exacerbated by his chronic kidney disease, as well as potential concern for an underlying hematologic process, as he is nearly pancytopenic and does have a history of hairy cell leukemia but has not seen an oncologist in several years. He will need outpatient follow-up with her integrity assessor. 2. Acute on chronic diastolic CHF exacerbation: The patient is now on a Lasix drip that is being managed by nephrology, and we greatly appreciate their input. 3. HCAP: Sputum culture grew Pseudomonas, and the patient has now been escalated to oral Levaquin. 4. Acute on chronic kidney disease stage IV: The patient's basic creatinine appears to be around 3. We have seen his kidney function worsen with diuresis. Nephrology is following closely, and we greatly appreciate their input. There are plans to most likely dialyze the patient tomorrow. Continue home Rocaltrol 5. Chronic troponin leak: His troponin appears to be at baseline, and he denies any chest pain. EKG was unremarkable. 6. A flutter: The patient is currently rate controlled. We will continue him on his home digoxin, home Cardizem, and home beta danitza. We are holding his home Coumadin given his anemia. 7. CAD status post CABG: Continue home aspirin, beta danitza, and statin 8. Diabetes mellitus type 2: Continue home Levemir. Sliding scale insulin while in-house. 9. Hypothyroidism: Continue home Synthroid DVT prophylaxis: SCDs Dispo: pending improvement in kidney function, as well as diuresis VS, I&O, 24H, [facility] Vital Signs/I&O Vital Signs Date Time Temp Pulse Resp B/P (MAP) Pulse Ox O2 Delivery O2 Flow Rate FiO2 02/10/17 12:00 97.4 56 18 176/77 (110) 94 Nasal Cannula 3.0 02/09/17 21:46 96 I&O- Last 24 Hours up to 6 AM 02/10/17 06:00 Intake Total 964.5 ml Output Total 2625 ml Balance -1660.5 ml Laboratory Data 24H LABS Laboratory Tests 2 02/09/17 17:00: Bedside Glucose (Misc Panel) 205H 02/09/17 20:48: Bedside Glucose (Misc Panel) 233H 02/10/17 05:09: Prothrombin Time 14.8H, Prothromb Time International Ratio 1.15, Anion Gap 9, Glomerular Filtration Rate 13.7L, Blood Urea Nitrogen 94H, Creatinine 4.61H, Sodium Level 140, Potassium Level 4.7, Chloride Level 102, Carbon Dioxide Level 29, Calcium Level 8.4L, Aspartate Amino Transf (AST/SGOT) 12L, Alanine Aminotransferase (ALT/SGPT) 23, Alkaline Phosphatase 72, Total Bilirubin 0.4, Total Protein 6.6, Albumin 2.6L, Magnesium Level 2.4, Albumin/Globulin Ratio 0.65L 02/10/17 12:00: Bedside Glucose (Misc Panel) 208H CBC/BMP Laboratory Tests 02/10/17 05:09 Red Blood Count 3.01 L, Mean Corpuscular Volume 93.1, Mean Corpuscular Hemoglobin 29.0, Mean Corpuscular Hemoglobin Concent 31.2 L, Red Cell Distribution Width 15.3 H, Calcium Level 8.4 L, Aspartate Amino Transf (AST/SGOT ) 12 L, Alanine Aminotransferase (ALT/SGPT) 23, Alkaline Phosphatase 72, Total Bilirubin 0.4, Total Protein 6.6, Albumin 2.6 L Microbiology Microbiology 02/03/17 Blood Culture - Final, Complete NO GROWTH AFTER 5 DAYS 02/03/17 Blood Culture - Final, Complete NO GROWTH AFTER 5 DAYS 02/04/17 Stool Occult Blood (GERBER) - Final, Complete 02/04/17 Gram Stain - Final, Complete 02/04/17 Sputum Culture - Final, Complete Pseudomonas Fluorescens Yeast Like Organism [place] Feb 10, 2017 15:45
[2017-02-10] MEDS: LevoFLOXacin 250 MG TABLET PO SCH (17:46)
[2017-02-10] MEDS: FUROSEMIDE injection 250 MG in D5W 225 ML IV SCH (17:46)
[2017-02-10] MEDS: TAMSULOSIN 0.4 MG CAP PO SCH (20:44)
[2017-02-10] MEDS: ROSUVASTATIN 10 MG TAB (CRESTOR) PO SCH (20:45)
[2017-02-10] MEDS: PARoxetine 10MG TABLET PO SCH (20:46)
--- NOTE | 2017-02-10 23:57 | IPN ---
DATE: 02/10/2017 SUBJECTIVE: Patient was seen and examined at the bedside, he was actually sitting at the sofa. He continues to be on IV Lasix drip, however urine output is not that significant as we expected and his renal function is not improving at this time. REVIEW OF SYSTEMS: Patient denies any fevers, chills, rigors, nausea, vomiting, chest pain, shortness of breath. He reports that his appetite is okay. He reports persistent lower extremity edema. Rest of review of systems is negative. OBJECTIVE: VITAL SIGNS: Temperature 97.4 degrees Fahrenheit, blood pressure 176/77, pulse 56, respiratory rate 18, saturating at 94% on nasal cannula. Intake and output: Urine output recorded was 1.9 liters yesterday, 1275 mL so far today since overnight. Patient is persistently in negative fluid balance for the last 2 days. Weight in the bed scale is 125.2 kg. PHYSICAL EXAMINATION: GENERAL: Patient is awake and oriented times three, but he is slightly drowsy and confused, laying in the sofa, otherwise no apparent distress. HEAD and NECK EXAM: Extraocular muscles intact. Pupils equally round and reactive to light. Mucous membranes are moist. Neck is supple, there is no jugular venous distention (JVD). CARDIOVASCULAR: S1, S2, regular rate. No murmur, rub, and gallop. RESPIRATORY: Chest is clear to auscultation bilaterally. Bilateral equal air entry. No rales or rhonchi. ABDOMEN: Soft, obese, positive bowel sounds. nontender. No organomegaly. EXTREMITIES: No clubbing or cyanosis. He has 3+ pitting edema of the bilateral lower extremities. CENTRAL NERVOUS SYSTEM (COMMANDING OFFICER GARAGE): Patient is confused, he is unable to do serial 3 subtraction and he has mild asterixis of the bilateral upper extremities as well. LABORATORY REVIEW: CBC showed WBC 2.3, hemoglobin 8.7, platelets 168. BMP showed sodium 140, potassium 4.7, chloride 102, bicarbonate 29, BUN 94, creatinine 4.6, GFR 13.7, calcium 8.4, magnesium 2.4, albumin 2.6. CURRENT MEDICATIONS: Patient's medications were all reviewed by me. He continues to be on IV Lasix drip at 0.1 mg/kg per hour. There is no other change in the medications today as compared with yesterday. ASSESSMENT: 66-year-old male with acute on chronic diastolic congestive heart failure and acute kidney injury superimposed on chronic kidney disease. PLAN: 1. Acute kidney injury superimposed on chronic kidney disease. Patient's baseline creatinine is around 3. His creatinine has plateaued at around 4.5. His renal function is not improving. Patient is showing early signs of uremia. I have ordered a Permacath placement tomorrow morning and patient will be dialyzed tomorrow. 2. Acute on chronic diastolic congestive heart failure. Patient has significant lower extremity edema. He is on IV Lasix drip. He is not responding very well to the Lasix drip at this time. However, I would continue it at this time and patient will get hemodialysis and ultrafiltration tomorrow morning. 3. Anemia. Patient's hemoglobin is 8.7 today. If his hemoglobin drops further tomorrow morning he will be given a dose of packed red blood cell (PRBC) transfusion with hemodialysis as well. 4. Secondary hyperparathyroidism. Continue current dose of calcitriol. The plan of care was discussed with the patient and with patient's registered nurse (RN) at the bedside.
[2017-02-11] VITALS (7 sets, daily range): BP systolic 148–176; BP diastolic 67–74
[2017-02-11] MEDS: IPRATROPIUM 0.5MG/ALBUTEROL 2.5MG INH SOL UD 3ML (DUONEB)(J7620) NEB SCH ×4 (00:41→20:00)
[2017-02-11] MEDS: SLF 3 ML SYR IV SCH ×3 (04:58→20:12)
[2017-02-11] MEDS: LEVOTHYROXINE 0.075 MG TAB (75 MCG) PO SCH (04:58)
[2017-02-11 05:43] LABS: BASO % 0.5 % (0.0-1.0); EOS # 0.1 K/mm3 (0.0-0.50); EOS % 2.8 % (0.0-3.0); LARGE UNSTAINED CELL # 0.1 K/mm3 (0.0-0.4); LARGE UNSTAINED CELL % 4.5 % (0.0-4.0); LYMPH # 0.2 K/mm3 (1.5-4.5); LYMPH % 5.6 % (24.0-44.0); MEAN CORPUSCULAR HEMOGLOBIN 29.3 pg (27.0-33.0); MEAN CORPUSCULAR HGB CONC 32.2 g/dl (32.0-36.5); MEAN CORPUSCULAR VOLUME 91.1 fl (80.0-96.0); MONO # 0.3 K/mm3 (0.0-0.8); MONO % 13.6 % (0.0-5.0); NEUTROPHILS # 1.5 K/mm3 (1.8-7.7); NEUTROPHILS % 73.1 % (36.0-66.0); PLATELET COUNT, AUTOMATED 161 k/mm3 (150-450); RED CELL DISTRIBUTION WIDTH 15.2 % (11.5-14.5)
[2017-02-11 05:44] LABS: ADD MORPHOLOGY? YES
[2017-02-11 05:45] LABS: CALCIUM LEVEL 8.7 MG/DL (8.8-10.2); CREATININE FOR GFR 4.91 MG/DL (0.70-1.30); GLOMERULAR FILTRATION RATE 12.7 (>49); MAGNESIUM LEVEL 2.5 MG/DL (1.8-2.4); POTASSIUM SERUM 4.3 MEQ/L (3.5-5.1)
[2017-02-11 06:42] LABS: ANISOCYTOSIS 1+
[2017-02-11] MEDS: PERCOCET 5MG/325MG TAB PO PRN ×2 (08:02→19:57)
[2017-02-11] MEDS: oxyCODONE 5MG TAB PO PRN ×2 (08:02→19:58)
[2017-02-11] MEDS: LEVEMIR (INSULIN DETEMIR) 1 UNITS/0.01ML SC SCH ×2 (08:03→20:12)
[2017-02-11] MEDS: FINASTERIDE 5 MG TAB PO SCH (08:05)
[2017-02-11] MEDS: ASPIRIN 81 MG ENTERIC TAB PO SCH (08:05)
[2017-02-11] MEDS: BISOPROLOL FUMARATE 10 MG TAB PO SCH ×2 (08:05→20:11)
[2017-02-11] MEDS: CALCITRIOL 0.25 MCG CAP (S0169) PO SCH (08:05)
[2017-02-11] MEDS: DIGOXIN 0.125 MG TAB PO SCH (08:05)
[2017-02-11] MEDS: HumaLOG INSULIN (NovoLOG) PER UNIT SC SCH ×4 (08:06→20:01)
[2017-02-11] MEDS: DOCUSATE SODIUM 100 MG CAP PO SCH ×2 (08:06→20:01)
[2017-02-11] MEDS ORDERED: DARBEPOETIN 300 MCG/0.6 ML *DIALYSIS* SYRINGE (J0882) IV SCH (09:30)
[2017-02-11] MEDS ORDERED: IRON SUCROSE 100 MG/5 ML INJ (J1756) IV SCH (09:30)
[2017-02-11] MEDS ORDERED: HEPARIN 1,000 UNITS/ML 10ML VIAL (FOR RADIOLOGY& DIALYSIS ONLY) IV ONE (10:15)
[2017-02-11] MEDS ORDERED: SODIUM BICARBONATE 8.4% INJ 50MEQ 50 ML VIAL As Ordered ONE (10:24)
[2017-02-11] MEDS ORDERED: HEPARIN 1,000 UNITS/ML 10ML VIAL (FOR RADIOLOGY& DIALYSIS ONLY) As Ordered ONE (10:26)
[2017-02-11] MEDS ORDERED: LIDOCAINE W/EPINEPHRINE 1% 20ML VIAL As Ordered ONE (10:26)
[2017-02-11] MEDS ORDERED: LIDOCAINE 2% MDV 20 ML VIAL As Ordered ONE (10:27)
[2017-02-11 11:21] LABS: HEPATITIS B SURFACE ANTIBODY NEGATIVE (POSITIVE)
[2017-02-11] MEDS: IPRATROPIUM 0.5MG/ALBUTEROL 2.5MG INH SOL UD 3ML (DUONEB)(J7620) NEB PRN (11:40)
[2017-02-11] MEDS ORDERED: HEPARIN 1,000 UNITS/ML 10ML VIAL (FOR RADIOLOGY& DIALYSIS ONLY) XX ONE (12:00)
--- NOTE | 2017-02-11 13:27 | IPN ---
DATE OF SERVICE: 02/11/2017 SUBJECTIVE: The patient was seen and examined at the bedside today in the morning. He continues to be on intravenous (IV) Lasix drip. He is having good urine output, but he continues to have confusion, high blood urea nitrogen (BUN) levels, and his renal function is not improving with the glomerular filtration rate (GFR) of around 13. REVIEW OF SYSTEMS: The patient denies any fevers, chills, rigors, headache, nausea, vomiting, chest pain, or shortness of breath. He reports slightly decreased appetite, and he reports persistent lower extremity edema. Rest of review of systems is negative. OBJECTIVE: VITAL SIGNS: Temperature is 96.7 degrees Fahrenheit, blood pressure is 165/70, pulse is 62, respiratory rate of 18, saturating 96% on nasal cannula at 3 liters. INTAKE AND OUTPUT: The patient's urine output was 2 liters yesterday. He has made 300 mL so far today since overnight. Weight in the bed scale is stable at 125.3 kg. PHYSICAL EXAMINATION: GENERAL: The patient is awake and oriented times three, but he is slightly confused, in no apparent distress at this time. HEAD AND NECK EXAMINATION: Extraocular muscles intact. Pupils equally round and reactive to light. Mucous membranes are moist. Neck is supple. There is no jugular venous distention (JVD). CARDIOVASCULAR: S1, S2, regular rate. No murmur, rub, and gallop. RESPIRATORY: Chest is clear to auscultation bilaterally. Bilateral equal air entry. There are very mild crepitations at bases on deep inspiration. ABDOMEN: Is soft, obese, positive bowel sounds, nontender. No organomegaly. EXTREMITIES: No clubbing or cyanosis. He has 3+ pitting edema of the bilateral lower extremities. CENTRAL NERVOUS SYSTEM (HIDE PULLER): No focal deficits at this time, but he is confused. He is unable to do serial 3 subtraction, and he has mild asterixis of the bilateral upper extremities, as well. LABORATORY REVIEW: CBC showed a WBC of 2, hemoglobin is 8.6, platelets are 161. BMP showed sodium 139, potassium 4.3, chloride 99, bicarbonate 32, BUN is 111, creatinine is 4.9, GFR is 12.7, A1c is 6.6, calcium is 8.7, magnesium is 2.5. CURRENT MEDICATIONS: The patient's medications were all reviewed by me. His Lasix drip has been stopped today. His diltiazem dose has been decreased to 15 mg by mouth twice a day. ASSESSMENT: A 66-year-old male with acute on chronic diastolic congestive heart failure and acute kidney injury superimposed on chronic kidney disease. PLAN: 1. Acute kidney injury, which has progressed to end-stage renal disease. The patient's renal function is not improving. He is getting uremic. The patient will get a PermCath placement today, and he will get first session of hemodialysis for 2 hours today. 2. Acute on chronic diastolic congestive heart failure. The patient still has significant lower extremity edema despite being in negative fluid balance every day with the Lasix drip. I have stopped the patient's Lasix drip. I shall manage the volume with hemodialysis sessions now. The patient will get ultrafiltration of 500 mL with hemodialysis today with the first session. More ultrafiltration with hemodialysis, which will be done tomorrow. 3. Anemia. The patient has anemia and leukopenia. His iron levels are also low. The patient will be given Venofer injections 100 mg intravenous (IV) with each hemodialysis session. The total dose will be 1 gram, and I am going to start him on Aranesp 300 mcg IV with hemodialysis starting today. 4. Secondary hyperparathyroidism. Continue current dose of calcitriol. 5. Healthcare-associated pneumonia. The patient was growing pseudomonas. He is currently on Levaquin.
--- NOTE | 2017-02-11 13:54 | IPNPDOC ---
Date Seen The patient was seen on 02/11/17. Progress Note Hospitalist Progress Note Subjective: The patient has no complaints. Objective: Physical Exam: Vitals: Vital Sign - Last 24 Hours 02/10/17 02/10/17 02/10/17 02/10/17 16:00 16:30 20:15 20:30 Temp 97.3 97.7 Pulse 52 54 Resp 18 20 B/P (MAP) 190/81 (117) 170/79 (109) 182/78 (112) Pulse Ox 97 91 O2 Delivery Nasal Cannula Nasal Cannula NIPPV (BIPAP/CPAP) O2 Flow Rate 3.0 3.0 02/10/17 02/10/17 02/10/17 02/10/17 20:45 20:45 20:46 20:46 Temp 97.7 97.7 Pulse 58 58 54 54 Resp 20 20 B/P (MAP) 182/78 182/78 170/79 170/79 Pulse Ox 91 91 O2 Delivery NIPPV (BIPAP/CPAP) NIPPV (BIPAP/CPAP) O2 Flow Rate 3.0 3.0 FiO2 96 96 02/10/17 02/10/17 02/10/17 02/10/17 22:45 22:45 22:49 23:59 Temp 97.7 97.7 97.0 Pulse 54 54 55 Resp 20 B/P (MAP) 170/79 170/79 170/68 (102) 162/70 (100) Pulse Ox 91 91 91 O2 Delivery NIPPV (BIPAP/CPAP) FiO2 96 96 02/11/17 02/11/17 02/11/17 02/11/17 00:20 04:30 05:15 08:00 Temp 97.6 96.7 Pulse 53 80 Resp 20 18 B/P (MAP) 164/70 (101) 165/70 (101) Pulse Ox 97 96 O2 Delivery BIPAP/CPAP BIPAP/CPAP Nasal Cannula Nasal Cannula O2 Flow Rate 5.0 5.0 3.0 3.0 02/11/17 02/11/17 02/11/17 02/11/17 08:02 08:02 08:05 08:05 Pulse 62 62 Resp 20 20 B/P (MAP) 165/70 O2 Delivery Nasal Cannula Nasal Cannula O2 Flow Rate 3.0 3.0 02/11/17 02/11/17 02/11/17 02/11/17 08:11 08:45 08:45 11:35 Temp 98.6 Pulse 53 Resp 20 20 20 B/P (MAP) 160/70 (100) Pulse Ox 96 O2 Delivery Nasal Cannula Nasal Cannula Nasal Cannula Nasal Cannula O2 Flow Rate 3.0 3.0 3.0 3.0 02/11/17 11:50 Temp 98.6 Pulse 51 Resp 20 B/P (MAP) 150/69 (96) Pulse Ox 99 O2 Delivery Nasal Cannula O2 Flow Rate 3.0 General: Awake, alert, no acute distress HEENT: Normocephalic, atraumatic, extraocular movements intact CV: Irregularly irregular Lungs: Clear to auscultation bilaterally Abd: Soft, nontender, nondistended Extremities: 2+ pitting edema of the bilateral lower extremities Neuro: Alert and oriented 3, normal speech, but brief intermittent periods of confusion Psych: Normal mood and affect Labs and Imaging: Laboratory Tests 02/11/17 04:57 Red Blood Count 2.92 L, Mean Corpuscular Volume 91.1, Mean Corpuscular Hemoglobin 29.3, Mean Corpuscular Hemoglobin Concent 32.2, Red Cell Distribution Width 15.2 H, Neutrophils (%) (Auto) 73.1 H, Lymphocytes (%) (Auto ) 5.6 L, Monocytes (%) (Auto) 13.6 H, Eosinophils (%) (Auto) 2.8, Basophils (%) (Auto) 0.5, Neutrophils # (Auto) 1.5 L, Lymphocytes # (Auto) 0.2 L, Monocytes # (Auto) 0.3, Eosinophils # (Auto) 0.1, Basophils # (Auto) 0.0, Calcium Level 8.7 L Assessment and Plan: 66-year-old male with a flutter on Coumadin, CAD status post CABG, cervical neck impingement, history of hairy cell leukemia in 2006, chronic kidney disease stage IV, chronic grade 2 diastolic CHF, hypertension, hyperlipidemia, diabetes mellitus type 2, hypothyroidism who was recently discharged with hypoxia and anemia. He returns with shortness of breath and anemia, as well as concern for acute CHF exacerbation. He was also noted to have a HCAP. 1. Anemia: Fecal occult blood testing on last admission as well as this admission have been entirely negative, and there has been no identified bleeding from any source. Since his admission, he has required 4 units of PRBCs. I suspect that this is multifactorial, with exacerbated by his chronic kidney disease, as well as potential concern for an underlying hematologic process, as he is nearly pancytopenic and does have a history of hairy cell leukemia but has not seen an oncologist in several years. He will need outpatient follow-up with her service employee. Iron is low, and nephrology will be administering venofer with dialysis, as well as aranesp. 2. Acute on chronic diastolic CHF exacerbation: The patient has been on a lasix drip, and despite net negative balance most days, he continues to have extensive BLE edema. Now that he is starting dialysis, nephrology will manage his fluids through dialysis. 3. HCAP: Sputum culture grew Pseudomonas, and the patient has now been deescalated to oral Levaquin. 4. Acute on chronic kidney disease stage IV: The patient's baseline creatinine appears to be around 3. We have seen his kidney function worsen with diuresis, and he has now progressed to ESRD. Nephrology is following closely, and we greatly appreciate their input. They are starting dialysis today. Continue home Rocaltrol 5. Chronic troponin leak: His troponin appears to be at baseline, and he denies any chest pain. EKG was unremarkable. 6. A flutter: The patient is currently rate controlled. We will continue him on his home digoxin and home beta danitza. We are holding his home Coumadin given his anemia. Given HRs in the 50s, we will decrease his cardizem dose. 7. CAD status post CABG: Continue home aspirin, beta danitza, and statin 8. Diabetes mellitus type 2: Continue home Levemir. Sliding scale insulin while in-house. A1c 6.6. 9. Hypothyroidism: Continue home Synthroid DVT prophylaxis: SCDs Dispo: pending improvement in fluid status VS, I&O, 24H, Fishbone Vital Signs/I&O Vital Signs Date Time Temp Pulse Resp B/P (MAP) Pulse Ox O2 Delivery O2 Flow Rate FiO2 02/11/17 11:50 98.6 51 20 150/69 (96) 99 Nasal Cannula 3.0 02/10/17 22:45 96 I&O- Last 24 Hours up to 6 AM 02/11/17 06:00 Intake Total 874.10 ml Output Total 1500 ml Balance -625.90 ml Laboratory Data 24H LABS Laboratory Tests 2 02/10/17 17:05: Bedside Glucose (Misc Panel) 171H 02/10/17 20:42: Bedside Glucose (Misc Panel) 180H 02/11/17 04:57: White Blood Count 2.0L, Red Blood Count 2.92L, Hemoglobin 8.6L, Hematocrit 26.6L , Mean Corpuscular Volume 91.1, Mean Corpuscular Hemoglobin 29.3, Mean Corpuscular Hemoglobin Concent 32.2, Red Cell Distribution Width 15.2H, Platelet Count 161, Neutrophils (%) (Auto) 73.1H, Lymphocytes (%) (Auto) 5.6L, Monocytes (%) (Auto) 13.6H, Eosinophils (%) (Auto) 2.8, Basophils (%) (Auto) 0.5 , Neutrophils # (Auto) 1.5L, Lymphocytes # (Auto) 0.2L, Monocytes # (Auto) 0.3, Eosinophils # (Auto) 0.1, Basophils # (Auto) 0.0, Large Unclassified Cells % 4.5H, Large Unclassified Cells # 0.1, Platelet Estimate NORMAL, Basophilic Stippling 2+, Anisocytosis 1+, Anion Gap 8, Glomerular Filtration Rate 12.7L, Blood Urea Nitrogen 111H, Creatinine 4.91H, Sodium Level 139, Potassium Level 4.3, Chloride Level 99, Carbon Dioxide Level 32, Calcium Level 8.7L, Magnesium Level 2.5H 02/11/17 09:20: Estimated Mean Plasma Glucose 143H, Hemoglobin A1c 6.6H, Hepatitis B Surface Antigen NEGATIVE, Hepatitis B Surface Antibody NEGATIVE, Hepatitis B Core IgM Antibody NEGATIVE, Hepatitis C Antibody Index 0.1 02/11/17 12:07: Bedside Glucose (Misc Panel) 209H CBC/BMP Laboratory Tests 02/11/17 04:57 Red Blood Count 2.92 L, Mean Corpuscular Volume 91.1, Mean Corpuscular Hemoglobin 29.3, Mean Corpuscular Hemoglobin Concent 32.2, Red Cell Distribution Width 15.2 H, Neutrophils (%) (Auto) 73.1 H, Lymphocytes (%) (Auto ) 5.6 L, Monocytes (%) (Auto) 13.6 H, Eosinophils (%) (Auto) 2.8, Basophils (%) (Auto) 0.5, Neutrophils # (Auto) 1.5 L, Lymphocytes # (Auto) 0.2 L, Monocytes # (Auto) 0.3, Eosinophils # (Auto) 0.1, Basophils # (Auto) 0.0, Calcium Level 8.7 L Microbiology Microbiology 02/03/17 Blood Culture - Final, Complete NO GROWTH AFTER 5 DAYS 02/03/17 Blood Culture - Final, Complete NO GROWTH AFTER 5 DAYS 02/04/17 Stool Occult Blood (GERBER) - Final, Complete 02/04/17 Gram Stain - Final, Complete 02/04/17 Sputum Culture - Final, Complete Pseudomonas Fluorescens Yeast Like Organism [place] February 11, 2017 13:54
--- NOTE | 2017-02-11 15:35 | REPKIM ---
CLINICAL HISTORY: Renal failure, uremia, CHF, AF and diabetes. The referring service has requested a tunneled dialysis catheter placement for hemodialysis. PROCEDURE PERFORMED: Right IJ Tunneled Hemodialysis Catheter Placement INTERVENTIONALIST: Melvin Cavazos MD CONSENT: The risks, benefits and alternatives to the procedure were explained to the patient and informed written consent was obtained. MEDICATIONS: Local Lidocaine EBL: 10 mL DEVICE USED: 14.5-Upper Sorbian 19-cm tip to cuff Palindrome Catheter Lot#[id number] FLUORO TIME: 0.4 minutes PROCEDURE/FINDINGS: The patient was brought to the interventional radiology suite where a timeout procedure was performed. The patient was placed in the supine position. The right neck and upper chest were prepped and draped in the usual sterile fashion. Real time ultrasound was used and permanent image stored. Using ultrasound guidance the internal jugular vein was punctured with a micropunture needle, after infiltration of the skin and deep tissues with local anesthetic. A 19-cm tip to cuff length, 14.5-Upper Sorbian dual lumen Palindrome hemodialysis catheter was inserted. The catheter was placed through a subcutaneous tunnel requiring a second incision. The incision at the base of the neck was closed with 4-0 Vicryl suture and covered with steristrips. The catheter was secured at the skin exit site with 2-0 Prolene suture. The ports of the catheter were locked with heparin (1000 units/mL). A sterile dressing was then applied. Post procedure chest fluoroscopy showed the tip of the catheter at the cavoatrial junction. The patient tolerated the procedure well with no immediate complications. This procedure was performed using ultrasound and fluoroscopy. Dr. Cavazos was present. IMPRESSION: 1. Ultrasound of the neck demonstrates patent right IJ vein and compressible. 2. Successful right IJ tunneled hemodialysis catheter placement as discussed above. There is free aspiration of blood from all ports of the catheter. The catheter is ready for immediate use. cc: MD Sonido Higgins MD [facility]
[2017-02-11] MEDS: ACETAMINOPHEN 325 MG TAB PO PRN (16:56)
[2017-02-11] MEDS: LevoFLOXacin 250 MG TABLET PO SCH (17:07)
[2017-02-11] MEDS ORDERED: MORPHINE 2 MG/ML 1ML SYRINGE IV ONE (17:45)
[2017-02-11] MEDS: TAMSULOSIN 0.4 MG CAP PO SCH (20:10)
[2017-02-11] MEDS: ROSUVASTATIN 10 MG TAB (CRESTOR) PO SCH (20:11)
[2017-02-11] MEDS: PARoxetine 10MG TABLET PO SCH (20:11)
[2017-02-12] MEDS: IPRATROPIUM 0.5MG/ALBUTEROL 2.5MG INH SOL UD 3ML (DUONEB)(J7620) NEB SCH ×4 (03:00→20:00)
[2017-02-12 04:00] VITALS: BP 142/82
[2017-02-12 05:49] LABS: BASO % 0.8 % (0.0-1.0); EOS % 2.4 % (0.0-3.0); LARGE UNSTAINED CELL # 0.1 K/mm3 (0.0-0.4); LARGE UNSTAINED CELL % 5.1 % (0.0-4.0); LYMPH # 0.3 K/mm3 (1.5-4.5); LYMPH % 6.3 % (24.0-44.0); MEAN CORPUSCULAR HEMOGLOBIN 29.6 pg (27.0-33.0); MEAN CORPUSCULAR HGB CONC 32.1 g/dl (32.0-36.5); MEAN CORPUSCULAR VOLUME 92.1 fl (80.0-96.0); MONO # 0.4 K/mm3 (0.0-0.8); MONO % 17.8 % (0.0-5.0); NEUTROPHILS # 1.5 K/mm3 (1.8-7.7); NEUTROPHILS % 67.6 % (36.0-66.0); PLATELET COUNT, AUTOMATED 159 k/mm3 (150-450); RED CELL DISTRIBUTION WIDTH 15.3 % (11.5-14.5); WHITE BLOOD COUNT 2.3 K/mm3 (4.0-10.0)
[2017-02-12 05:59] LABS: CALCIUM LEVEL 8.8 MG/DL (8.8-10.2); CREATININE FOR GFR 4.37 MG/DL (0.70-1.30); GLOMERULAR FILTRATION RATE 14.6 (>49); MAGNESIUM LEVEL 2.4 MG/DL (1.8-2.4)
[2017-02-12 06:00] LABS: POTASSIUM SERUM 5.4 MEQ/L (3.5-5.1)
[2017-02-12] MEDS: SLF 3 ML SYR IV SCH ×3 (06:06→21:08)
[2017-02-12] MEDS: LEVOTHYROXINE 0.075 MG TAB (75 MCG) PO SCH (06:07)
[2017-02-12] MEDS: DOCUSATE SODIUM 100 MG CAP PO SCH ×2 (06:11→21:11)
[2017-02-12] MEDS: CALCITRIOL 0.25 MCG CAP (S0169) PO SCH (06:17)
[2017-02-12] MEDS: BISOPROLOL FUMARATE 10 MG TAB PO SCH ×2 (06:17→21:11)
[2017-02-12] MEDS: ASPIRIN 81 MG ENTERIC TAB PO SCH (06:17)
[2017-02-12] MEDS: FINASTERIDE 5 MG TAB PO SCH (06:17)
[2017-02-12 08:00] VITALS: BP 146/76
--- NOTE | 2017-02-12 08:17 | IPNPDOC ---
Subjective Date Seen The patient was seen on 02/12/17. Subjective Chief Complaint/HPI The patient is a 66-year-old male admitted with a reason for visit of Anemia. General: Denies: ROS Unobtainable, Chills, Night Sweats, Fatigue, Malaise, Normal Appetite, Other Symptoms Constitutional: Denies: Chills, Fever, Malaise, Night Sweats, Weakness, Fatigue , Weight Loss, Lethargy, Other Eyes: Denies: Pain, Vision change, Conjunctivae inflammation, Eyelid inflammation, Redness, Other ENT: Denies: Head Aches, Ear Pain, Dysphagia, Sinus Congestion, Post Nasal Drip , Sore Throat, Epistaxis, Other Symptoms Skin: Denies: Rash, Lesions, Jaundice, Bruising, Itching, Dry, Breakdown, Nail Changes, Other Pulmonary: Reports: Dyspnea, Cough, Denies: Pleuritic Chest Pain, Other Symptoms Cardiovascular: Denies: Chest Pain, Palpitations, Orthopnea, Paroxysmal Noc. Dyspnea, Edema, Lt Headedness, Other Symptoms Gastrointestinal: Denies: Nausea, Vomiting, Abdominal Pain, Diarrhea, Constipation, Melena, Hematochezia, Other Symptoms Genitourinary: Reports: Frequency, Denies: Dysuria, Incontinence, Hematuria, Retention, Other Symptoms Objective Physical Examination General Exam: Positive: Alert, Cooperative, No Acute Distress, Other (sitting comfortably in chair) Eye Exam: Positive: PERRLA, Conjunctiva & lids normal, EOMI, Negative: Sclera icteric ENT Exam: Positive: Atraumatic, Mucous membr. moist/pink Chest Exam: Positive: Clear to auscultation, Diminished Heart Exam: Positive: Rate Normal, Regular Rhythm Abdomen Exam: Positive: Normal bowel sounds, Soft, Other (obese), Negative: Tenderness Assessment /Plan Problems (1) ESRD (end stage renal disease) Status: Acute Response to Treatment: Progressing Discussed With: Air Cargo Specialist, Patient Problem Specific Plan: Consult Specialist, Repeat Labs Problem Text: HD again today. Access via perma cath 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 iron deficiency IV venofer + aranesp with dialysis o/p follow up with oncology s/p 4 units PRBC this admission (4) CHF (congestive heart failure) Status: Acute Response to Treatment: Improving Discussed With: Patient Problem Specific Plan: Monitor Clinically, Repeat Labs Problem Text: s/p lasix drip now volume is being addressed through dialysis still with lower extremity edema although pt states much improved still on 3L O2 - patient states baseline is 2L (5) Hypothyroidism Status: Chronic Discussed With: Patient Problem Specific Plan: Monitor Clinically Problem Text: continue synthroid (6) CAD (coronary artery disease) Status: Chronic Discussed With: Patient Problem Specific Plan: Monitor Clinically Problem Text: s/p cabg continue aspirin, zebeta, crestor (7) Atrial flutter Status: Chronic Discussed With: Patient Problem Specific Plan: Monitor Clinically Problem Text: continue digoxin/BB cardizem dosing decreased given bradycardia (8) Insulin dependent diabetes mellitus Status: Chronic Discussed With: Patient Problem Specific Plan: Repeat Labs (9) BPH (benign prostatic hyperplasia) Status: Chronic Discussed With: Patient Problem Specific Plan: Monitor Clinically Problem Text: flomax Plan/VTE VTE Prophylaxis Ordered?: Yes (mechanical) Plan Diet: Continue Current Activity: Continue Current Therapy: PT, OT Respiratory: Wean Oxygen Diagnostics: Repeat Labs in AM Anticipated Discharge: Home With Services, Assisted Living, [facility] Disposition Monitor heart rate, adjust CCB as needed. Continue dialysis as per nephrology. PT eval / treat. PFS for possible home services vs placement. Anticipate discharge 24-48 hours. VS, I&O, 24H, [facility] Vital Signs/I&O Vital Signs Date Time Temp Pulse Resp B/P (MAP) Pulse Ox O2 Delivery O2 Flow Rate FiO2 02/12/17 07:12 Nasal Cannula 3.0 02/12/17 06:17 52 142/82 02/12/17 04:00 97.3 20 98 02/10/17 22:45 96 I&O- Last 24 Hours up to 6 AM 02/12/17 06:00 Intake Total 1474 ml Output Total 2100 ml Balance -626 ml Laboratory Data 24H LABS Laboratory Tests 2 02/11/17 09:20: Estimated Mean Plasma Glucose 143H, Hemoglobin A1c 6.6H, Hepatitis B Surface Antigen NEGATIVE, Hepatitis B Surface Antibody NEGATIVE, Hepatitis B Core IgM Antibody NEGATIVE, Hepatitis C Antibody Index 0.1 02/11/17 12:07: Bedside Glucose (Misc Panel) 209H 02/11/17 16:58: Bedside Glucose (Misc Panel) 221H 02/12/17 05:18: White Blood Count 2.3L, Red Blood Count 2.93L, Hemoglobin 8.7L, Hematocrit 27.0L , Mean Corpuscular Volume 92.1, Mean Corpuscular Hemoglobin 29.6, Mean Corpuscular Hemoglobin Concent 32.1, Red Cell Distribution Width 15.3H, Platelet Count 159, Neutrophils (%) (Auto) 67.6H, Lymphocytes (%) (Auto) 6.3L, Monocytes (%) (Auto) 17.8H, Eosinophils (%) (Auto) 2.4, Basophils (%) (Auto) 0.8 , Neutrophils # (Auto) 1.5L, Lymphocytes # (Auto) 0.3L, Monocytes # (Auto) 0.4, Eosinophils # (Auto) 0.0, Basophils # (Auto) 0.0, Large Unclassified Cells % 5.1H, Large Unclassified Cells # 0.1, Anion Gap 8, Glomerular Filtration Rate 14.6L, Blood Urea Nitrogen 88H, Creatinine 4.37H, Sodium Level 141, Potassium Level 5.4H, Chloride Level 106, Carbon Dioxide Level 27, Calcium Level 8.8, Magnesium Level 2.4 CBC/BMP Laboratory Tests 02/12/17 05:18 Red Blood Count 2.93 L, Mean Corpuscular Volume 92.1, Mean Corpuscular Hemoglobin 29.6, Mean Corpuscular Hemoglobin Concent 32.1, Red Cell Distribution Width 15.3 H, Neutrophils (%) (Auto) 67.6 H, Lymphocytes (%) (Auto ) 6.3 L, Monocytes (%) (Auto) 17.8 H, Eosinophils (%) (Auto) 2.4, Basophils (%) (Auto) 0.8, Neutrophils # (Auto) 1.5 L, Lymphocytes # (Auto) 0.3 L, Monocytes # (Auto) 0.4, Eosinophils # (Auto) 0.0, Basophils # (Auto) 0.0, Calcium Level 8.8 Microbiology Microbiology 02/03/17 Blood Culture - Final, Complete NO GROWTH AFTER 5 DAYS 02/03/17 Blood Culture - Final, Complete NO GROWTH AFTER 5 DAYS 02/04/17 Stool Occult Blood (GERBER) - Final, Complete 02/04/17 Gram Stain - Final, Complete 02/04/17 Sputum Culture - Final, Complete Pseudomonas Fluorescens Yeast Like Organism DENNIS JOHNSON MD February 12, 2017 08:17
[2017-02-12] MEDS: LEVEMIR (INSULIN DETEMIR) 1 UNITS/0.01ML SC SCH ×2 (08:25→21:10)
[2017-02-12] MEDS: HumaLOG INSULIN (NovoLOG) PER UNIT SC SCH ×4 (08:25→21:00)
[2017-02-12] MEDS ORDERED: HEPARIN 1,000 UNITS/ML 10ML VIAL (FOR RADIOLOGY& DIALYSIS ONLY) IV ONE (11:45)
[2017-02-12] MEDS ORDERED: HEPARIN 1,000 UNITS/ML 10ML VIAL (FOR RADIOLOGY& DIALYSIS ONLY) XX ONE (11:45)
[2017-02-12 12:35] VITALS: BP 140/81
--- NOTE | 2017-02-12 14:45 | IPN ---
DATE: 02/12/2017 SUBJECTIVE: The patient was seen and examined at the bedside today in the morning during hemodialysis procedure. The patient was tolerating the hemodialysis procedure well. The patient was started on hemodialysis for the first time yesterday and ultrafiltration was 1 liter. The patient's neurological status is significantly much better today as compared with yesterday. REVIEW OF SYSTEMS: The patient denies any fevers, chills, rigors, headache, nausea, vomiting, chest pain, shortness of breath, pain in the abdomen, constipation, or diarrhea. He does report persistent lower extremity edema. Rest of review of systems is negative. OBJECTIVE: VITAL SIGNS: Temperature is 97.1 degrees Fahrenheit, blood pressure is 146/76, pulse is 62, respiratory rate of 18, saturating 97% on nasal cannula at 3 liters. INTAKE AND OUTPUT: Urine output recorded was 700 mL yesterday and 400 mL so far today. Ultrafiltration with hemodialysis was 1 liter yesterday. Weight in the bed scale is stable at 123.6 kg. PHYSICAL EXAMINATION: GENERAL: The patient is awake and oriented times three. Lying in bed and getting hemodialysis done. HEAD AND NECK EXAMINATION: Extraocular muscles intact. Pupils equally round and reactive to light. Mucous membranes are moist. Neck is supple. The patient has a tunneled right IJ hemodialysis catheter. CARDIOVASCULAR: S1, S2, regular rate. No murmur, rub, and gallop. RESPIRATORY: Chest is clear to auscultation bilaterally. Bilateral equal air entry. No rales or rhonchi. ABDOMEN: Is soft, obese, positive bowel sounds, nontender. Nontender. No organomegaly. EXTREMITIES: No clubbing or cyanosis. He has 3+ pitting edema of the bilateral lower extremities. CENTRAL NERVOUS SYSTEM (SINTER FEEDER): No focal neurological deficits. No asterixis. The patient is able to do serial 3s subtractions today. LABORATORY REVIEW: CBC showed a WBC of 2.3, hemoglobin is 8.7, platelets are 159. BMP showed sodium 141, potassium 5.4, chloride 106, bicarbonate 27, BUN 88, creatinine is 4.37, calcium is 8.8, magnesium is 2.4. CURRENT MEDICATIONS: The patient's medications were all reviewed by me. He was started on Cardizem 15 mg by mouth twice a day. There is no other change in the medications today. ASSESSMENT: A 66-year-old male with acute kidney injury superimposed on chronic kidney disease secondary to decompensated congestive heart failure (CHF). The patient has progressed to end stage renal disease now. PLAN: 1. Acute kidney injury, which has progressed to end-stage renal disease. The patient was started on dialysis yesterday, 02/11/2017. Today is the second session of hemodialysis. We shall do dialysis for three hours today. Ultrafiltration goal will be 2 liters as tolerated by his blood pressure. 2. Hyperkalemia. The patient is being dialyzed against a 2K bath. His potassium level is expected to improve after hemodialysis. 3. Acute on chronic diastolic congestive heart failure. The patient was initially on Lasix drip. He did not respond very well to the Lasix. We are doing back to back hemodialysis and ultrafiltration. We shall remove 2 liters of fluid today. He will get another session of ultrafiltration in hemodialysis tomorrow and more fluid will be removed. 4. Anemia and end stage renal disease. The patient has been started on Venofer injections and Aranesp. He got his first dose of Aranesp 300 mcg IV yesterday. Hemoglobin is slightly below goal. No urgent need of blood transfusion at this time. 5. Healthcare-associated pneumonia. The patient is currently on Levaquin. The rest of the management is as per primary team. 6. Hypertension. The patient is currently on bisoprolol 10 mg by mouth twice a day, Cardizem 15 mg by mouth twice a day. Blood pressure is acceptable at this time. It is also expected to drop with further hemodialysis and ultrafiltration sessions.
[2017-02-12 16:00] VITALS: BP 148/72
[2017-02-12] MEDS: LevoFLOXacin 250 MG TABLET PO SCH (17:34)
[2017-02-12] MEDS: oxyCODONE 5MG TAB PO PRN (18:55)
[2017-02-12] MEDS: PERCOCET 5MG/325MG TAB PO PRN (18:55)
[2017-02-12 20:00] VITALS: BP 127/60
[2017-02-12] MEDS: fentaNYL 50 MCG/HR PATCH TD SCH (21:09)
[2017-02-12] MEDS: ROSUVASTATIN 10 MG TAB (CRESTOR) PO SCH (21:10)
[2017-02-12] MEDS: PARoxetine 10MG TABLET PO SCH (21:11)
[2017-02-12] MEDS: TAMSULOSIN 0.4 MG CAP PO SCH (21:11)
[2017-02-12 23:59] VITALS: BP 138/77
[2017-02-13] MEDS: IPRATROPIUM 0.5MG/ALBUTEROL 2.5MG INH SOL UD 3ML (DUONEB)(J7620) NEB SCH ×4 (02:00→20:00)
[2017-02-13 04:00] VITALS: BP 153/69
[2017-02-13] MEDS: LEVOTHYROXINE 0.075 MG TAB (75 MCG) PO SCH (05:09)
[2017-02-13] MEDS: SLF 3 ML SYR IV SCH ×3 (05:10→22:05)
[2017-02-13 05:56] LABS: BASO % 0.8 % (0.0-1.0); EOS # 0.1 K/mm3 (0.0-0.50); EOS % 2.4 % (0.0-3.0); LARGE UNSTAINED CELL # 0.1 K/mm3 (0.0-0.4); LARGE UNSTAINED CELL % 5.7 % (0.0-4.0); LYMPH # 0.3 K/mm3 (1.5-4.5); LYMPH % 6.1 % (24.0-44.0); MEAN CORPUSCULAR HEMOGLOBIN 29.8 pg (27.0-33.0); MEAN CORPUSCULAR HGB CONC 32.1 g/dl (32.0-36.5); MEAN CORPUSCULAR VOLUME 92.7 fl (80.0-96.0); MONO # 0.4 K/mm3 (0.0-0.8); MONO % 14.7 % (0.0-5.0); NEUTROPHILS # 1.7 K/mm3 (1.8-7.7); NEUTROPHILS % 70.4 % (36.0-66.0); PLATELET COUNT, AUTOMATED 185 k/mm3 (150-450); RED CELL DISTRIBUTION WIDTH 15.2 % (11.5-14.5); WHITE BLOOD COUNT 2.4 K/mm3 (4.0-10.0)
[2017-02-13 06:04] LABS: CALCIUM LEVEL 7.9 MG/DL (8.8-10.2); CREATININE FOR GFR 3.78 MG/DL (0.70-1.30); GLOMERULAR FILTRATION RATE 17.2 (>49); MAGNESIUM LEVEL 2.1 MG/DL (1.8-2.4); POTASSIUM SERUM 4.7 MEQ/L (3.5-5.1)
[2017-02-13 08:04] VITALS: BP 160/70
[2017-02-13] MEDS: PERCOCET 5MG/325MG TAB PO PRN ×3 (08:25→22:09)
[2017-02-13] MEDS: oxyCODONE 5MG TAB PO PRN ×3 (08:25→22:09)
[2017-02-13] MEDS: CALCITRIOL 0.25 MCG CAP (S0169) PO SCH (08:26)
[2017-02-13] MEDS: LEVEMIR (INSULIN DETEMIR) 1 UNITS/0.01ML SC SCH ×2 (08:26→21:59)
[2017-02-13] MEDS: HumaLOG INSULIN (NovoLOG) PER UNIT SC SCH ×4 (08:26→21:00)
[2017-02-13] MEDS: FINASTERIDE 5 MG TAB PO SCH (08:27)
[2017-02-13] MEDS: ASPIRIN 81 MG ENTERIC TAB PO SCH (08:27)
[2017-02-13] MEDS: DIGOXIN 0.125 MG TAB PO SCH (09:00)
[2017-02-13] MEDS: DOCUSATE SODIUM 100 MG CAP PO SCH ×2 (09:00→21:00)
[2017-02-13] MEDS: BISOPROLOL FUMARATE 10 MG TAB PO SCH ×2 (09:00→22:00)
--- NOTE | 2017-02-13 10:26 | IPNPDOC ---
Subjective Date Seen The patient was seen on 02/13/17. Subjective Chief Complaint/HPI The patient is a 66-year-old male admitted with a reason for visit of Anemia. Events since last encounter Feeling better today. In good spirits, sitting in chair eating breakfast. General: Denies: ROS Unobtainable, Chills, Night Sweats, Fatigue, Malaise, Normal Appetite, Other Symptoms Constitutional: Denies: Chills, Fever, Malaise, Night Sweats, Weakness, Fatigue , Weight Loss, Lethargy, Other Eyes: Denies: Pain, Vision change, Conjunctivae inflammation, Eyelid inflammation, Redness, Other ENT: Denies: Head Aches, Ear Pain, Dysphagia, Sinus Congestion, Post Nasal Drip , Sore Throat, Epistaxis, Other Symptoms Skin: Denies: Rash, Lesions, Jaundice, Bruising, Itching, Dry, Breakdown, Nail Changes, Other Pulmonary: Denies: Dyspnea, Cough, Pleuritic Chest Pain, Other Symptoms Cardiovascular: Denies: Chest Pain, Palpitations, Orthopnea, Paroxysmal Noc. Dyspnea, Edema, Lt Headedness, Other Symptoms Gastrointestinal: Denies: Nausea, Vomiting, Abdominal Pain, Diarrhea, Constipation, Melena, Hematochezia, Other Symptoms Genitourinary: Denies: Dysuria, Frequency, Incontinence, Hematuria, Retention, Other Symptoms Objective Physical Examination General Exam: Positive: Alert, Cooperative, No Acute Distress, Other (sitting comfortably in chair) Eye Exam: Positive: PERRLA, Conjunctiva & lids normal, EOMI, Negative: Sclera icteric ENT Exam: Positive: Atraumatic, Mucous membr. moist/pink Chest Exam: Positive: Clear to auscultation, Diminished Heart Exam: Positive: Bradycardic, Regular Rhythm Telemetry: Positive: Bradycardia Abdomen Exam: Positive: Normal bowel sounds, Soft, Other (obese), Negative: Tenderness Extremity Exam: Positive: Edema Assessment /Plan Problems (1) ESRD (end stage renal disease) Status: Acute Response to Treatment: Progressing Discussed With: Tube Trailer Filler, Patient Problem Specific Plan: Consult Specialist, Repeat Labs Problem Text: 3rd dialysis session today. Next session anticipated for Saturday. HD schedule being set up for outpatient. Access via perma cath. Follow as per nephrology, assistance appreciated. 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 iron deficiency IV venofer + aranesp with dialysis o/p follow up with oncology s/p 4 units PRBC this admission (4) CHF (congestive heart failure) Status: Acute Response to Treatment: Improving Discussed With: Patient Problem Specific Plan: Monitor Clinically, Repeat Labs Problem Text: s/p lasix drip now volume is being addressed through dialysis still with lower extremity edema although pt states much improved still on 3L O2 - patient states baseline is 2L (5) Hypothyroidism Status: Chronic Discussed With: Patient Problem Specific Plan: Monitor Clinically Problem Text: continue synthroid (6) CAD (coronary artery disease) Status: Chronic Discussed With: Patient Problem Specific Plan: Monitor Clinically Problem Text: s/p cabg continue aspirin, zebeta, crestor (7) Atrial flutter Status: Chronic Discussed With: Patient Problem Specific Plan: Monitor Clinically Problem Text: continue digoxin/BB cardizem dosing decreased given bradycardia (8) Insulin dependent diabetes mellitus Status: Chronic Discussed With: Patient Problem Specific Plan: Repeat Labs (9) BPH (benign prostatic hyperplasia) Status: Chronic Discussed With: Patient Problem Specific Plan: Monitor Clinically Problem Text: flomax Plan/VTE VTE Prophylaxis Ordered?: Yes (mechanical) Plan Diet: Continue Current Activity: Continue Current Therapy: PT, OT Respiratory: Wean Oxygen Diagnostics: Repeat Labs in AM Anticipated Discharge: Home With Services, Assisted Living, Senior Care VS, I&O, 24H, Lenin Vital Signs/I&O Vital Signs Date Time Temp Pulse Resp B/P (MAP) Pulse Ox O2 Delivery O2 Flow Rate FiO2 02/13/17 08:27 170/70 02/13/17 08:25 18 02/13/17 08:04 97.5 56 98 Nasal Cannula 3.0 02/10/17 22:45 96 I&O- Last 24 Hours up to 6 AM 02/13/17 05:59 Intake Total 1200 ml Output Total 2800 ml Balance -1600 ml Laboratory Data 24H LABS Laboratory Tests 2 02/12/17 12:40: Bedside Glucose (Misc Panel) 136H 02/12/17 16:35: Bedside Glucose (Misc Panel) 258H 02/12/17 20:58: Bedside Glucose (Misc Panel) 211H 02/13/17 05:06: White Blood Count 2.4L, Red Blood Count 2.90L, Hemoglobin 8.6L, Hematocrit 26.9L , Mean Corpuscular Volume 92.7, Mean Corpuscular Hemoglobin 29.8, Mean Corpuscular Hemoglobin Concent 32.1, Red Cell Distribution Width 15.2H, Platelet Count 185, Neutrophils (%) (Auto) 70.4H, Lymphocytes (%) (Auto) 6.1L, Monocytes (%) (Auto) 14.7H, Eosinophils (%) (Auto) 2.4, Basophils (%) (Auto) 0.8 , Neutrophils # (Auto) 1.7L, Lymphocytes # (Auto) 0.3L, Monocytes # (Auto) 0.4, Eosinophils # (Auto) 0.1, Basophils # (Auto) 0.0, Large Unclassified Cells % 5.7H, Large Unclassified Cells # 0.1, Anion Gap 7L, Glomerular Filtration Rate 17.2L, Blood Urea Nitrogen 63H, Creatinine 3.78H, Sodium Level 140, Potassium Level 4.7, Chloride Level 105, Carbon Dioxide Level 28, Calcium Level 7.9L, Magnesium Level 2.1 CBC/BMP Laboratory Tests 02/13/17 05:06 Red Blood Count 2.90 L, Mean Corpuscular Volume 92.7, Mean Corpuscular Hemoglobin 29.8, Mean Corpuscular Hemoglobin Concent 32.1, Red Cell Distribution Width 15.2 H, Neutrophils (%) (Auto) 70.4 H, Lymphocytes (%) (Auto ) 6.1 L, Monocytes (%) (Auto) 14.7 H, Eosinophils (%) (Auto) 2.4, Basophils (%) (Auto) 0.8, Neutrophils # (Auto) 1.7 L, Lymphocytes # (Auto) 0.3 L, Monocytes # (Auto) 0.4, Eosinophils # (Auto) 0.1, Basophils # (Auto) 0.0, Calcium Level 7.9 L Microbiology Microbiology 02/03/17 Blood Culture - Final, Complete NO GROWTH AFTER 5 DAYS 02/03/17 Blood Culture - Final, Complete NO GROWTH AFTER 5 DAYS 02/04/17 Stool Occult Blood (GERBER) - Final, Complete 02/04/17 Gram Stain - Final, Complete 02/04/17 Sputum Culture - Final, Complete Pseudomonas Fluorescens Yeast Like Organism DENNIS JOHNSON MD February 13, 2017 10:26
[2017-02-13 10:44] LABS: PHOSPHORUS LEVEL 4.9 MG/DL (2.5-4.9)
[2017-02-13] MEDS ORDERED: HEPARIN 1,000 UNITS/ML 10ML VIAL (FOR RADIOLOGY& DIALYSIS ONLY) IV ONE (11:15)
[2017-02-13 13:38] VITALS: BP 150/66
[2017-02-13 16:00] VITALS: BP 148/72
[2017-02-13] MEDS: LevoFLOXacin 250 MG TABLET PO SCH (17:58)
[2017-02-13 20:33] VITALS: BP 158/66
[2017-02-13] MEDS: ROSUVASTATIN 10 MG TAB (CRESTOR) PO SCH (22:01)
[2017-02-13] MEDS: PARoxetine 10MG TABLET PO SCH (22:02)
[2017-02-13] MEDS: TAMSULOSIN 0.4 MG CAP PO SCH (22:02)
--- NOTE | 2017-02-14 01:49 | IPN ---
DATE: 02/13/2017 SUBJECTIVE: Patient was seen and examined at the bedside today in the morning during hemodialysis. He was tolerating the hemodialysis procedure well. He does not have any active complaints. REVIEW OF SYSTEMS: Patient denies any fevers, chills, rigors, headache, nausea, vomiting, chest pain, shortness of breath, pain in abdomen, constipation, or diarrhea. Rest of review of systems is negative. OBJECTIVE: Vital signs: Temperature is 97.5 degrees Fahrenheit, blood pressure is 160/70, pulse is 56, respiratory rate of 18, saturating 98% on nasal cannula at 3 liters. Intake and output: Urine output recorded is 700 mL yesterday, 100 mL so far today. Ultrafiltration with hemodialysis was 2 liters. Weight is stable at 123 kg. PHYSICAL EXAMINATION: GENERAL: Patient is awake, alert, oriented times three, lying in bed getting hemodialysis done. No apparent distress. HEAD AND NECK: Extraocular muscles intact. Pupils equally round and reactive to light. Mucous membranes are moist. Neck is supple. There is no jugular venous distention (JVD). Patient has a tunneled right internal jugular (IJ) hemodialysis catheter. CARDIOVASCULAR: S1, S2, regular rate. No murmur, rub, or gallop. RESPIRATORY: Chest is clear to auscultation bilaterally. Bilateral equal air entry. No rales or rhonchi. ABDOMEN: Obese, soft. Positive bowel sounds. Nontender. No ascites. No organomegaly. EXTREMITIES: No clubbing or cyanosis. Patient has 3+ pitting edema on the bilateral lower extremities. CENTRAL NERVOUS SYSTEM: No focal neurological deficit. No asterixis. Power is 5/5 in all extremities. LABORATORY REVIEW: CBC showed a WBC 2.4, hemoglobin is 8.6, platelets are 185. BMP showed sodium 140, potassium 4.7, chloride 105, bicarbonate 28, BUN is 63, creatinine is 3.7, calcium is 7.9, phosphorus 4.9, magnesium is 2.1. CURRENT MEDICATIONS: Patient's medications were all reviewed by me. There is no change in the medications today as compared with yesterday. ASSESSMENT: A 66-year-old male with acute kidney injury superimposed on chronic kidney disease, which is progressed to end-stage renal disease. Patient is currently hemodialysis dependent. PLAN: 1. End-stage renal disease. Patient is getting [id number] dialysis. Today is the third session of dialysis. We shall try to do an ultrafiltration of 3 liters as tolerated by his blood pressure. Next hemodialysis session will be on 02/15/2017. 2. Acute on chronic diastolic congestive heart failure. Patient was initially on Lasix drip, which was stopped. We are managing the fluid with hemodialysis at this time. Continue low-sodium diet, and daily fluid intake should not be more than 1500 mL. 3. Anemia and end-stage renal disease. Patient is currently getting Venofer and Aranesp. Continue to monitor for improvement. No urgent need of blood transfusion at this time. 4. Healthcare-associated pneumonia. Continue Levaquin at this time. Lasix dose will be on 02/19/2017. 5. Hypertension. Blood pressure is acceptable at this time. Continue bisoprolol 10 mg twice a day, Cardizem 50 mg by mouth twice a day. Hemodialysis and ultrafiltration are also expected to drop the blood pressure. DISPOSITION: Patient has progressed to end-stage renal disease. He needs a placement as outpatient for hemodialysis. I shall continue to do Saturday, Saturday, Saturday hemodialysis for now until we get a chair as outpatient. Plan of care was discussed with the hospitalist team, Dr. Nawaf Myles.
[2017-02-14 04:25] VITALS: BP 140/58
[2017-02-14] MEDS: LEVOTHYROXINE 0.075 MG TAB (75 MCG) PO SCH (05:58)
[2017-02-14] MEDS: SLF 3 ML SYR IV SCH ×3 (05:58→21:19)
[2017-02-14 06:09] LABS: MEAN CORPUSCULAR HEMOGLOBIN 29.3 pg (27.0-33.0); MEAN CORPUSCULAR HGB CONC 32.2 g/dl (32.0-36.5); MEAN CORPUSCULAR VOLUME 90.9 fl (80.0-96.0); PLATELET COUNT, AUTOMATED 194 k/mm3 (150-450); RED CELL DISTRIBUTION WIDTH 15.4 % (11.5-14.5)
[2017-02-14 06:15] LABS: CALCIUM LEVEL 7.9 MG/DL (8.8-10.2); CREATININE FOR GFR 4.11 MG/DL (0.70-1.30); GLOMERULAR FILTRATION RATE 15.6 (>49); POTASSIUM SERUM 4.1 MEQ/L (3.5-5.1)
[2017-02-14 06:43] LABS: BANDS 3 % (< 11); BASOPHILS 2 % (0-4); EOSINOPHILS 2 % (0-5); NUCLEATED RED BLOOD CELL 3 % (0-0)
[2017-02-14 06:44] LABS: ANISOCYTOSIS 1+; HYPOCHROMASIA 1+
[2017-02-14 07:55] VITALS: BP 122/68
[2017-02-14] MEDS: IPRATROPIUM 0.5MG/ALBUTEROL 2.5MG INH SOL UD 3ML (DUONEB)(J7620) NEB SCH ×3 (08:00→20:00)
[2017-02-14] MEDS: LEVEMIR (INSULIN DETEMIR) 1 UNITS/0.01ML SC SCH ×2 (08:55→21:19)
[2017-02-14] MEDS: CALCITRIOL 0.25 MCG CAP (S0169) PO SCH (08:55)
[2017-02-14] MEDS: HumaLOG INSULIN (NovoLOG) PER UNIT SC SCH ×4 (08:55→21:20)
[2017-02-14] MEDS: FINASTERIDE 5 MG TAB PO SCH (08:56)
[2017-02-14] MEDS: ASPIRIN 81 MG ENTERIC TAB PO SCH (08:56)
[2017-02-14] MEDS: DOCUSATE SODIUM 100 MG CAP PO SCH ×2 (08:56→21:00)
--- NOTE | 2017-02-14 10:24 | IPNPDOC ---
Subjective Date Seen The patient was seen on 02/14/17. Subjective Chief Complaint/HPI The patient is a 66-year-old male admitted with a reason for visit of Anemia. Events since last encounter In good spirits, feeling well today. Sleeping on the couch in his room. No new medical complaints. General: Denies: ROS Unobtainable, Chills, Night Sweats, Fatigue, Malaise, Normal Appetite, Other Symptoms Constitutional: Denies: Chills, Fever, Malaise, Night Sweats, Weakness, Fatigue , Weight Loss, Lethargy, Other Eyes: Denies: Pain, Vision change, Conjunctivae inflammation, Eyelid inflammation, Redness, Other ENT: Denies: Head Aches, Ear Pain, Dysphagia, Sinus Congestion, Post Nasal Drip , Sore Throat, Epistaxis, Other Symptoms Skin: Denies: Rash, Lesions, Jaundice, Bruising, Itching, Dry, Breakdown, Nail Changes, Other Pulmonary: Denies: Dyspnea, Cough, Pleuritic Chest Pain, Other Symptoms Cardiovascular: Denies: Chest Pain, Palpitations, Orthopnea, Paroxysmal Noc. Dyspnea, Edema, Lt Headedness, Other Symptoms Gastrointestinal: Denies: Nausea, Vomiting, Abdominal Pain, Diarrhea, Constipation, Melena, Hematochezia, Other Symptoms Objective Physical Examination General Exam: Positive: Alert, Cooperative, No Acute Distress, Other (sitting comfortably in chair) Eye Exam: Positive: PERRLA, Conjunctiva & lids normal, EOMI, Negative: Sclera icteric ENT Exam: Positive: Atraumatic, Mucous membr. moist/pink Chest Exam: Positive: Clear to auscultation, Diminished Heart Exam: Positive: Bradycardic, Regular Rhythm Telemetry: Positive: Bradycardia Abdomen Exam: Positive: Normal bowel sounds, Soft, Other (obese), Negative: Tenderness Extremity Exam: Positive: Edema Psych Exam: Positive: Oriented x 3 Assessment /Plan Problems (1) ESRD (end stage renal disease) Status: Acute Response to Treatment: Progressing Discussed With: Director Medical Safety, Patient Problem Specific Plan: Consult Specialist, Repeat Labs Problem Text: 3rd dialysis session yesterda. Next session anticipated for Saturday. HD schedule set up. Access via perma cath. Follow as per nephrology, assistance appreciated. 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 iron deficiency IV venofer + aranesp with dialysis o/p follow up with oncology s/p 4 units PRBC this admission (4) CHF (congestive heart failure) Status: Chronic Response to Treatment: Improving Discussed With: Patient Problem Specific Plan: Monitor Clinically, Repeat Labs Problem Text: s/p lasix drip diastolic dysfunction now volume is being addressed through dialysis still on 3L O2 - patient states baseline is 2L - will titrate O2 (5) Hypothyroidism Status: Chronic Discussed With: Patient Problem Specific Plan: Monitor Clinically Problem Text: continue synthroid (6) CAD (coronary artery disease) Status: Chronic Discussed With: Patient Problem Specific Plan: Monitor Clinically Problem Text: s/p cabg continue aspirin, zebeta, crestor (7) Atrial flutter Status: Chronic Discussed With: Patient Problem Specific Plan: Monitor Clinically Problem Text: DC digoxin given hypertension with bradycardia continue BB with cardizem - hold parameters coumadin has been on hold - will likely restart today (8) Insulin dependent diabetes mellitus Status: Chronic Discussed With: Patient Problem Specific Plan: Repeat Labs (9) BPH (benign prostatic hyperplasia) Status: Chronic Discussed With: Patient Problem Specific Plan: Monitor Clinically Problem Text: flomax Plan/VTE VTE Prophylaxis Ordered?: Yes (mechanical) Plan Diet: Continue Current Activity: Continue Current Therapy: PT, OT Respiratory: Wean Oxygen Diagnostics: Repeat Labs in AM Anticipated Discharge: Home With Services, Assisted Living, [facility] Continue to monitor on tele for bradycardia - digoxin discontinued. Disposition Discharge home with outpatient dialysis setup for first session on 02/20. Continue to monitor on telemetry - discontinue digoxin. VS, I&O, 24H, Fishbone Vital Signs/I&O Vital Signs Date Time Temp Pulse Resp B/P (MAP) Pulse Ox O2 Delivery O2 Flow Rate FiO2 02/14/17 07:55 98.7 77 18 122/68 (86) 97 Nasal Cannula 3.0 02/14/17 00:05 40 I&O- Last 24 Hours up to 6 AM 02/14/17 06:00 Intake Total 720 ml Output Total 3000 ml Balance -2280 ml Laboratory Data 24H LABS Laboratory Tests 2 02/13/17 13:24: Bedside Glucose (Misc Panel) 131H 02/13/17 16:07: Bedside Glucose (Misc Panel) 289H 02/13/17 17:45: Bedside Glucose (Misc Panel) 275H 02/13/17 21:51: Bedside Glucose (Misc Panel) 207H 02/14/17 05:13: Neutrophils 87H, Band Neutrophils 3, Lymphocytes (Manual) 2L, Monocytes (Manual ) 2, Eosinophils (Manual) 2, Basophils (Manual) 2, Nucleated Red Blood Cells 3H , Atypical Lymphocytes 2, Platelet Estimate NORMAL, Hypochromasia 1+, Anisocytosis 1+, Anion Gap 10, Glomerular Filtration Rate 15.6L, Blood Urea Nitrogen 56H, Creatinine 4.11H, Sodium Level 140, Potassium Level 4.1, Chloride Level 103, Carbon Dioxide Level 27, Calcium Level 7.9L, Magnesium Level 2.0 CBC/BMP Laboratory Tests 02/14/17 05:13 Red Blood Count 3.00 L, Mean Corpuscular Volume 90.9, Mean Corpuscular Hemoglobin 29.3, Mean Corpuscular Hemoglobin Concent 32.2, Red Cell Distribution Width 15.4 H, Calcium Level 7.9 L Microbiology Microbiology 02/04/17 Stool Occult Blood (GERBER) - Final, Complete 02/04/17 Gram Stain - Final, Complete 02/04/17 Sputum Culture - Final, Complete Pseudomonas Fluorescens Yeast Like Organism DENNIS JOHNSON MD February 14, 2017 10:24
[2017-02-14] MEDS: PERCOCET 5MG/325MG TAB PO PRN ×2 (10:32→21:18)
[2017-02-14] MEDS: oxyCODONE 5MG TAB PO PRN ×2 (10:32→21:19)
[2017-02-14 11:28] VITALS: BP 120/68
[2017-02-14 16:00] VITALS: BP 134/62
[2017-02-14 20:00] VITALS: BP 148/66
[2017-02-14] MEDS: TAMSULOSIN 0.4 MG CAP PO SCH (21:14)
[2017-02-14] MEDS: ROSUVASTATIN 10 MG TAB (CRESTOR) PO SCH (21:17)
[2017-02-14] MEDS: BISOPROLOL FUMARATE 10 MG TAB PO SCH (21:17)
[2017-02-14] MEDS: PARoxetine 10MG TABLET PO SCH (21:17)
--- NOTE | 2017-02-14 22:22 | IPN ---
DATE: 02/14/2017 SUBJECTIVE: The patient was seen and examined at the bedside today (morning). He denies any active complaints. He was sitting on the sofa. He got a third consecutive session of hemodialysis yesterday and his adrenal function does not show any signs of improvement in between hemodialysis session. His creatinine continues to climb in between dialysis sessions. It means that the patient has progressed to end-stage renal disease. REVIEW OF SYSTEMS: The patient denies any fever, chills, rigors, headache, nausea, vomiting, chest pain, shortness of breath, pain in abdomen, constipation or diarrhea. He does report persistent lower extremity edema. The rest of the review of systems is negative. OBJECTIVE: VITAL SIGNS: Temperature is 97 degrees Fahrenheit, blood pressure is 134/62, pulse is 53, respiratory rate of 18, saturating 99% on nasal cannula at 3 liters. INTAKE/OUTPUT: Urine output recorded as only 300 mL so far since overnight. Hemodialysis was done yesterday and 3 liters of ultrafiltration was done. Weight on the bed scale is 122 kg. PHYSICAL EXAMINATION: GENERAL: The patient is awake, alert, oriented times three, sitting on the sofa in no apparent distress. HEAD AND NECK EXAM: Extraocular muscles intact. Pupils equally round and reactive to light. Mucous membranes are moist. Neck is supple. There is no jugular venous distention (JVD). The patient has a tunneled right internal jugular (IJ) hemodialysis catheter. CARDIOVASCULAR: S1, S2, regular rate. No murmur, rub or gallop. RESPIRATORY: Chest is clear to auscultation bilaterally. Bilateral equal air entry. No rales or rhonchi. ABDOMEN: Abdomen is soft, obese. Positive bowel sounds. Nontender. No ascites. No organomegaly. EXTREMITIES: No clubbing or cyanosis. Pulses are 2+. The patient has 3+ pitting edema of the bilateral lower extremities. CENTRAL NERVOUS SYSTEM: No focal neurological deficit. Power is 5/5 in all extremities. LAB REVIEW: CBC showed a WBC of 3, hemoglobin 8.8, platelets are 194. BMP shows sodium 140, potassium 4.1, chloride 103, bicarbonate 27, BUN 56, creatinine 4.1, glucose is 195, calcium is 7.9. CURRENT MEDICATIONS: The patient's medications were all reviewed by me. His digoxin has been stopped. There is no other change in the medications today as compared with yesterday. ASSESSMENT: A 66-year-old male with acute kidney injury superimposed on chronic kidney disease. It has progressed to end-stage renal disease. The patient is currently hemodialysis dependent. PLAN: 1. End-stage renal disease. The patient will get Saturday, Saturday, Saturday hemodialysis while he is inpatient. Next hemodialysis session will be tomorrow. We shall try to do more ultrafiltration with hemodialysis session. He is pending outpatient hemodialysis placement. 2. Acute on chronic diastolic congestive heart failure. Diuretics are on hold. Volume will be managed with hemodialysis now. 3. Anemia in end-stage renal disease. Continue Venofer 100 mg intravenously (IV) with each hemodialysis session, total dose would be 1 gram, and continue Aranesp with hemodialysis. 4. Healthcare-associated pneumonia. Continue Levaquin at this time. Last dose will be on 02/19/2017. 5. Bradycardia. The patient's digoxin has been stopped at this time by primary team. 6. Hypertension. Continue Cardizem and continue bisoprolol. Blood pressure is acceptable at this time. It is also expected to drop with further hemodialysis and ultrafiltration. DISPOSITION: The patient is hemodialysis dependent at this time. He is pending placement at outpatient hemodialysis center. He would prefer to come to [place] for hemodialysis at [facility]; whenever he has a placement, he can be discharged from the hospital.
[2017-02-14 23:59] VITALS: BP 142/56
[2017-02-15] MEDS: IPRATROPIUM 0.5MG/ALBUTEROL 2.5MG INH SOL UD 3ML (DUONEB)(J7620) NEB SCH ×4 (02:00→20:00)
[2017-02-15] MEDS: SLF 3 ML SYR IV SCH ×3 (05:18→21:44)
[2017-02-15] MEDS: LEVOTHYROXINE 0.075 MG TAB (75 MCG) PO SCH (05:18)
[2017-02-15 05:26] LABS: BASO % 0.5 % (0.0-1.0); EOS # 0.1 K/mm3 (0.0-0.50); LARGE UNSTAINED CELL # 0.2 K/mm3 (0.0-0.4); LARGE UNSTAINED CELL % 6.5 % (0.0-4.0); LYMPH # 0.4 K/mm3 (1.5-4.5); LYMPH % 6.9 % (24.0-44.0); MEAN CORPUSCULAR HEMOGLOBIN 29.4 pg (27.0-33.0); MEAN CORPUSCULAR HGB CONC 31.9 g/dl (32.0-36.5); MEAN CORPUSCULAR VOLUME 92.2 fl (80.0-96.0); MONO # 0.4 K/mm3 (0.0-0.8); NEUTROPHILS % 69.2 % (36.0-66.0); PLATELET COUNT, AUTOMATED 180 k/mm3 (150-450); RED CELL DISTRIBUTION WIDTH 15.8 % (11.5-14.5); WHITE BLOOD COUNT 2.9 K/mm3 (4.0-10.0)
[2017-02-15 05:44] LABS: CALCIUM LEVEL 8.1 MG/DL (8.8-10.2); CREATININE FOR GFR 5.46 MG/DL (0.70-1.30); GLOMERULAR FILTRATION RATE 11.3 (>49); MAGNESIUM LEVEL 2.3 MG/DL (1.8-2.4); POTASSIUM SERUM 4.7 MEQ/L (3.5-5.1)
[2017-02-15 05:50] VITALS: BP 156/70
[2017-02-15] MEDS: FINASTERIDE 5 MG TAB PO SCH (06:05)
[2017-02-15] MEDS: ASPIRIN 81 MG ENTERIC TAB PO SCH (06:05)
[2017-02-15] MEDS: CALCITRIOL 0.25 MCG CAP (S0169) PO SCH (06:05)
[2017-02-15] MEDS: BISOPROLOL FUMARATE 10 MG TAB PO SCH ×2 (06:05→21:00)
[2017-02-15] MEDS: DOCUSATE SODIUM 100 MG CAP PO SCH ×2 (06:05→21:00)
--- NOTE | 2017-02-15 07:54 | IPNPDOC ---
Subjective Date Seen The patient was seen on 02/15/17. Subjective Chief Complaint/HPI The patient is a 66-year-old male admitted with a reason for visit of Anemia. General: Denies: ROS Unobtainable, Chills, Night Sweats, Fatigue, Malaise, Normal Appetite, Other Symptoms Constitutional: Denies: Chills, Fever, Malaise, Night Sweats, Weakness, Fatigue , Weight Loss, Lethargy, Other Eyes: Denies: Pain, Vision change, Conjunctivae inflammation, Eyelid inflammation, Redness, Other ENT: Denies: Head Aches, Ear Pain, Dysphagia, Sinus Congestion, Post Nasal Drip , Sore Throat, Epistaxis, Other Symptoms Skin: Denies: Rash, Lesions, Jaundice, Bruising, Itching, Dry, Breakdown, Nail Changes, Other Pulmonary: Denies: Dyspnea, Cough, Pleuritic Chest Pain, Other Symptoms Cardiovascular: Denies: Chest Pain, Palpitations, Orthopnea, Paroxysmal Noc. Dyspnea, Edema, Lt Headedness, Other Symptoms Gastrointestinal: Denies: Nausea, Vomiting, Abdominal Pain, Diarrhea, Constipation, Melena, Hematochezia, Other Symptoms Objective Physical Examination General Exam: Positive: Alert, Cooperative, No Acute Distress, Other (sitting comfortably in chair) Eye Exam: Positive: PERRLA, Conjunctiva & lids normal, EOMI, Negative: Sclera icteric ENT Exam: Positive: Atraumatic, Mucous membr. moist/pink Chest Exam: Positive: Clear to auscultation, Normal air movement Heart Exam: Positive: Bradycardic, Regular Rhythm Telemetry: Positive: Bradycardia Abdomen Exam: Positive: Normal bowel sounds, Soft, Other (obese), Negative: Tenderness Extremity Exam: Positive: Edema Psych Exam: Positive: Oriented x 3 Assessment /Plan Problems (1) ESRD (end stage renal disease) Status: Acute Response to Treatment: Progressing Discussed With: Chemical Preparer, Patient Problem Specific Plan: Consult Specialist, Repeat Labs Problem Text: HD today. HD schedule set up for Tuesday 02/20. Access via perma cath. Follow as per nephrology, assistance appreciated. 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 iron deficiency IV venofer + aranesp with dialysis o/p follow up with oncology s/p 4 units PRBC this admission (4) CHF (congestive heart failure) Status: Chronic Response to Treatment: Improving Discussed With: Patient Problem Specific Plan: Monitor Clinically, Repeat Labs Problem Text: s/p lasix drip diastolic dysfunction now volume is being addressed through dialysis still on 3L O2 - patient states baseline is 2L - will titrate O2 (5) Hypothyroidism Status: Chronic Discussed With: Patient Problem Specific Plan: Monitor Clinically Problem Text: continue synthroid (6) CAD (coronary artery disease) Status: Chronic Discussed With: Patient Problem Specific Plan: Monitor Clinically Problem Text: s/p cabg continue aspirin, zebeta, crestor (7) Atrial flutter Status: Chronic Discussed With: Patient Problem Specific Plan: Monitor Clinically Problem Text: DC digoxin given hypertension with bradycardia continue BB with cardizem - hold parameters coumadin has been on hold - will likely restart today (8) Insulin dependent diabetes mellitus Status: Chronic Discussed With: Patient Problem Specific Plan: Repeat Labs (9) BPH (benign prostatic hyperplasia) Status: Chronic Discussed With: Patient Problem Specific Plan: Monitor Clinically Problem Text: flomax Plan/VTE VTE Prophylaxis Ordered?: Yes (mechanical) Plan Diet: Continue Current Activity: Continue Current Therapy: PT, OT Respiratory: Wean Oxygen Diagnostics: Repeat Labs in AM Anticipated Discharge: Home With Services Anticipate discharge home in 24-48 hours. VS, I&O, 24H, Fishbone Vital Signs/I&O Vital Signs Date Time Temp Pulse Resp B/P (MAP) Pulse Ox O2 Delivery O2 Flow Rate FiO2 02/15/17 06:04 58 152/70 02/15/17 05:50 97.2 16 99 Nasal Cannula 3.0 02/14/17 00:05 40 I&O- Last 24 Hours up to 6 AM 02/15/17 05:59 Intake Total 840 ml Output Total 500 ml Balance 340 ml Laboratory Data 24H LABS Laboratory Tests 2 02/14/17 11:21: Bedside Glucose (Misc Panel) 208H 02/14/17 17:37: Bedside Glucose (Misc Panel) 218H 02/14/17 21:04: Bedside Glucose (Misc Panel) 262H 02/15/17 04:58: White Blood Count 2.9L, Red Blood Count 3.01L, Hemoglobin 8.8L, Hematocrit 27.7L , Mean Corpuscular Volume 92.2, Mean Corpuscular Hemoglobin 29.4, Mean Corpuscular Hemoglobin Concent 31.9L, Red Cell Distribution Width 15.8H, Platelet Count 180, Neutrophils (%) (Auto) 69.2H, Lymphocytes (%) (Auto) 6.9L, Monocytes (%) (Auto) 15.0H, Eosinophils (%) (Auto) 2.0, Basophils (%) (Auto) 0.5 , Neutrophils # (Auto) 2.0, Lymphocytes # (Auto) 0.4L, Monocytes # (Auto) 0.4, Eosinophils # (Auto) 0.1, Basophils # (Auto) 0.0, Large Unclassified Cells % 6.5H, Large Unclassified Cells # 0.2, Anion Gap 11, Glomerular Filtration Rate 11.3L, Blood Urea Nitrogen 74H, Creatinine 5.46H, Sodium Level 139, Potassium Level 4.7, Chloride Level 102, Carbon Dioxide Level 26, Calcium Level 8.1L, Magnesium Level 2.3 CBC/BMP Laboratory Tests 02/15/17 04:58 Red Blood Count 3.01 L, Mean Corpuscular Volume 92.2, Mean Corpuscular Hemoglobin 29.4, Mean Corpuscular Hemoglobin Concent 31.9 L, Red Cell Distribution Width 15.8 H, Neutrophils (%) (Auto) 69.2 H, Lymphocytes (%) (Auto ) 6.9 L, Monocytes (%) (Auto) 15.0 H, Eosinophils (%) (Auto) 2.0, Basophils (%) (Auto) 0.5, Neutrophils # (Auto) 2.0, Lymphocytes # (Auto) 0.4 L, Monocytes # ( Auto) 0.4, Eosinophils # (Auto) 0.1, Basophils # (Auto) 0.0, Calcium Level 8.1 L DENNIS JOHNSON MD February 15, 2017 07:54
[2017-02-15 08:00] VITALS: BP 148/78
[2017-02-15] MEDS: HumaLOG INSULIN (NovoLOG) PER UNIT SC SCH ×4 (08:33→21:31)
[2017-02-15] MEDS: LEVEMIR (INSULIN DETEMIR) 1 UNITS/0.01ML SC SCH ×2 (08:33→21:31)
[2017-02-15] MEDS ORDERED: HEPARIN 1,000 UNITS/ML 10ML VIAL (FOR RADIOLOGY& DIALYSIS ONLY) IV ONE (10:30)
[2017-02-15 16:00] VITALS: BP 142/80
[2017-02-15 20:00] VITALS: BP 128/56
[2017-02-15] MEDS: ROSUVASTATIN 10 MG TAB (CRESTOR) PO SCH (21:31)
[2017-02-15] MEDS: PERCOCET 5MG/325MG TAB PO PRN (21:33)
[2017-02-15] MEDS: oxyCODONE 5MG TAB PO PRN (21:33)
[2017-02-15] MEDS: TAMSULOSIN 0.4 MG CAP PO SCH (21:34)
[2017-02-15] MEDS: PARoxetine 10MG TABLET PO SCH (21:34)
[2017-02-15] MEDS: fentaNYL 50 MCG/HR PATCH TD SCH (21:44)
--- NOTE | 2017-02-15 21:46 | IPN ---
DATE: 02/15/2017 SUBJECTIVE: The patient was seen and examined today in the morning during hemodialysis procedure. He was tolerating the hemodialysis procedure well. There were no active complaints. REVIEW OF SYSTEMS: The patient denies any fevers, chills, rigors, headaches, nausea, vomiting, chest pain, shortness of breath, pain abdomen, constipation, or diarrhea. Rest of review of systems is negative. OBJECTIVE: VITAL SIGNS: Temperature is 97.7 degrees Fahrenheit. Blood pressure is 148/78, pulse is 60, respiratory rate of 18, saturating 96% on nasal cannula. INTAKE AND OUTPUT: Urine output recorded as only 200 mL. Weight in the bed scale is 123.1 kg. PHYSICAL EXAMINATION: GENERAL: The patient is awake, alert, oriented times three lying in bed. No apparent distress. Getting hemodialysis done. HEAD/NECK: Extraocular muscles intact. Pupils equal, round, and reactive to light. Mucous membranes are moist. Neck is supple. There is no jugular venous distention (JVD). The patient has a tunneled right internal jugular (IJ) hemodialysis catheter. CARDIOVASCULAR: S1, S2. Regular rate. No murmur, rub, or gallop. RESPIRATORY: Chest is clear to auscultation bilaterally. Bilateral equal air entry. No rales or rhonchi. ABDOMEN: Soft, obese. Positive bowel sounds. Nontender. No ascites, no organomegaly. EXTREMITIES: No clubbing or cyanosis. Pulses are 2+. He has 3+ pitting edema on the bilateral lower extremities. CENTRAL NERVOUS SYSTEM (INFANTRY UNIT LEADER): No focal neurological deficit. Power is 5/5 in all extremities. LABORATORY DATA: CBC showed a WBC of 2.9, hemoglobin 8.8, platelets of 180. BMP showed sodium 139, potassium 4.7, chloride 102, bicarbonate 26, BUN 74, creatinine 5.4, calcium 8.1. CURRENT MEDICATIONS: The patient's medications were all reviewed by me. There is no change in the medications today as compared with yesterday. ASSESSMENT: A 66-year-old male with acute kidney injury superimposed on chronic kidney disease. It has progressed to end-stage renal disease. He is hemodialysis dependent at this time. PLAN: 1. End-stage renal disease. The patient is getting Saturday, Saturday, Saturday dialysis for now. He is tolerating the hemodialysis well. The patient will probably get another session of ultrafiltration tomorrow for fluid removal. 2. Acute on chronic diastolic congestive heart failure. Diuretics are on hold. We shall try to do an ultrafiltration of about 3.5 to 4 liters as tolerated by his blood pressure today. He will get more ultrafiltration tomorrow. 3. Anemia in end-stage renal disease. Continue Venofer 100 mg intravenous (IV) with hemodialysis, and continue Aranesp with hemodialysis as well. 4. Healthcare-acquired pneumonia. Continue Levaquin. Last dose will be 02/19/2017. 5. Hypertension. Blood pressure is acceptable at this time. Continue Cardizem and bisoprolol. DISPOSITION: The patient is Saturday, Saturday, Saturday. [facility] has gotten a spot [email or web address]. He would start hemodialysis next week on Saturday. We shall continue the dialysis inpatient for now. Last hemodialysis session will be on Saturday, and patient can be discharged by Saturday so he can start as outpatient next Saturday.
[2017-02-16] VITALS (7 sets, daily range): BP systolic 134–166; BP diastolic 50–80
[2017-02-16 05:20] LABS: EOS # 0.1 K/mm3 (0.0-0.50); EOS % 2.4 % (0.0-3.0); LARGE UNSTAINED CELL # 0.2 K/mm3 (0.0-0.4); LARGE UNSTAINED CELL % 6.5 % (0.0-4.0); LYMPH # 0.3 K/mm3 (1.5-4.5); LYMPH % 4.9 % (24.0-44.0); MEAN CORPUSCULAR HEMOGLOBIN 29.5 pg (27.0-33.0); MEAN CORPUSCULAR VOLUME 92.2 fl (80.0-96.0); MONO # 0.5 K/mm3 (0.0-0.8); MONO % 17.1 % (0.0-5.0); NEUTROPHILS # 1.9 K/mm3 (1.8-7.7); NEUTROPHILS % 68.1 % (36.0-66.0); PLATELET COUNT, AUTOMATED 174 k/mm3 (150-450); RED CELL DISTRIBUTION WIDTH 15.7 % (11.5-14.5); WHITE BLOOD COUNT 2.8 K/mm3 (4.0-10.0)
[2017-02-16 05:32] LABS: CALCIUM LEVEL 7.9 MG/DL (8.8-10.2); CREATININE FOR GFR 4.69 MG/DL (0.70-1.30); GLOMERULAR FILTRATION RATE 13.4 (>49); MAGNESIUM LEVEL 2.3 MG/DL (1.8-2.4); POTASSIUM SERUM 4.6 MEQ/L (3.5-5.1)
[2017-02-16] MEDS: SLF 3 ML SYR IV SCH ×3 (06:15→22:24)
[2017-02-16] MEDS: LEVOTHYROXINE 0.075 MG TAB (75 MCG) PO SCH (06:15)
[2017-02-16] MEDS: FINASTERIDE 5 MG TAB PO SCH (06:35)
[2017-02-16] MEDS: CALCITRIOL 0.25 MCG CAP (S0169) PO SCH (06:35)
[2017-02-16] MEDS: DOCUSATE SODIUM 100 MG CAP PO SCH ×2 (06:35→21:08)
[2017-02-16] MEDS: ASPIRIN 81 MG ENTERIC TAB PO SCH (06:35)
--- NOTE | 2017-02-16 08:08 | IPNPDOC ---
Subjective Date Seen The patient was seen on 02/16/17. Subjective Chief Complaint/HPI The patient is a 66-year-old male admitted with a reason for visit of Anemia. Events since last encounter No new medical complaints. Frustrated about having to remain in the hospital. General: Denies: ROS Unobtainable, Chills, Night Sweats, Fatigue, Malaise, Normal Appetite, Other Symptoms Constitutional: Denies: Chills, Fever, Malaise, Night Sweats, Weakness, Fatigue , Weight Loss, Lethargy, Other Eyes: Denies: Pain, Vision change, Conjunctivae inflammation, Eyelid inflammation, Redness, Other ENT: Denies: Head Aches, Ear Pain, Dysphagia, Sinus Congestion, Post Nasal Drip , Sore Throat, Epistaxis, Other Symptoms Skin: Denies: Rash, Lesions, Jaundice, Bruising, Itching, Dry, Breakdown, Nail Changes, Other Pulmonary: Denies: Dyspnea, Cough, Pleuritic Chest Pain, Other Symptoms Cardiovascular: Denies: Chest Pain, Palpitations, Orthopnea, Paroxysmal Noc. Dyspnea, Edema, Lt Headedness, Other Symptoms Gastrointestinal: Denies: Nausea, Vomiting, Abdominal Pain, Diarrhea, Constipation, Melena, Hematochezia, Other Symptoms Objective Physical Examination General Exam: Positive: Alert, Cooperative, No Acute Distress, Other (sitting comfortably in chair) Eye Exam: Positive: PERRLA, Conjunctiva & lids normal, EOMI, Negative: Sclera icteric ENT Exam: Positive: Atraumatic, Mucous membr. moist/pink Chest Exam: Positive: Clear to auscultation, Normal air movement Heart Exam: Positive: Bradycardic, Regular Rhythm Telemetry: Positive: Bradycardia Abdomen Exam: Positive: Normal bowel sounds, Soft, Other (obese), Negative: Tenderness Extremity Exam: Positive: Edema Psych Exam: Positive: Oriented x 3 Assessment /Plan Problems (1) ESRD (end stage renal disease) Status: Acute Response to Treatment: Progressing Discussed With: Energy Economist, Patient Problem Specific Plan: Consult Specialist, Repeat Labs Problem Text: Ultrafiltration today. HD schedule set up for Tuesday 02/20. Access via perma cath. Follow as per nephrology, assistance appreciated. 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 iron deficiency IV venofer + aranesp with dialysis o/p follow up with oncology s/p 4 units PRBC this admission (4) CHF (congestive heart failure) Status: Chronic Response to Treatment: Improving Discussed With: Patient Problem Specific Plan: Monitor Clinically, Repeat Labs Problem Text: s/p lasix drip diastolic dysfunction now volume is being addressed through dialysis still on 3L O2 - patient states baseline is 2L - will titrate O2 (5) Hypothyroidism Status: Chronic Discussed With: Patient Problem Specific Plan: Monitor Clinically Problem Text: continue synthroid (6) CAD (coronary artery disease) Status: Chronic Discussed With: Patient Problem Specific Plan: Monitor Clinically Problem Text: s/p cabg continue aspirin, zebeta, crestor (7) Atrial flutter Status: Chronic Discussed With: Patient Problem Specific Plan: Monitor Clinically Problem Text: DC digoxin given hypertension with bradycardia Also discontinued cardizem secondary to bradycardia. continue BB - hold parameters - has not received in 2 days now (8) Insulin dependent diabetes mellitus Status: Chronic Discussed With: Patient Problem Specific Plan: Repeat Labs (9) BPH (benign prostatic hyperplasia) Status: Chronic Discussed With: Patient Problem Specific Plan: Monitor Clinically Problem Text: flomax Plan/VTE VTE Prophylaxis Ordered?: Yes (mechanical) Plan Diet: Continue Current Activity: Continue Current Therapy: PT, OT Respiratory: Wean Oxygen Diagnostics: Repeat Labs in AM Anticipated Discharge: Home With Services Ultrafiltration today. HD on Saturday. Plan D/C Saturday - starts o/p HD on Saturday. Still monitoring heart rate - bradycardic - adjusting cardiac meds. VS, I&O, 24H, Fishbone Vital Signs/I&O Vital Signs Date Time Temp Pulse Resp B/P (MAP) Pulse Ox O2 Delivery O2 Flow Rate FiO2 02/16/17 07:30 98.8 52 20 150/80 (103) 94 Nasal Cannula 3.0 02/14/17 00:05 40 I&O- Last 24 Hours up to 6 AM 02/16/17 06:00 Intake Total 440 ml Output Total 0 ml Balance 440 ml Laboratory Data 24H LABS Laboratory Tests 2 02/15/17 17:59: Bedside Glucose (Misc Panel) 256H 5/5/17 20:49: Bedside Glucose (Misc Panel) 252H 02/16/17 05:06: White Blood Count 2.8L, Red Blood Count 2.97L, Hemoglobin 8.8L, Hematocrit 27.4L , Mean Corpuscular Volume 92.2, Mean Corpuscular Hemoglobin 29.5, Mean Corpuscular Hemoglobin Concent 32.0, Red Cell Distribution Width 15.7H, Platelet Count 174, Neutrophils (%) (Auto) 68.1H, Lymphocytes (%) (Auto) 4.9L, Monocytes (%) (Auto) 17.1H, Eosinophils (%) (Auto) 2.4, Basophils (%) (Auto) 1.0 , Neutrophils # (Auto) 1.9, Lymphocytes # (Auto) 0.3L, Monocytes # (Auto) 0.5, Eosinophils # (Auto) 0.1, Basophils # (Auto) 0.0, Large Unclassified Cells % 6.5H, Large Unclassified Cells # 0.2, Anion Gap 8, Glomerular Filtration Rate 13.4L, Blood Urea Nitrogen 52H, Creatinine 4.69H, Sodium Level 141, Potassium Level 4.6, Chloride Level 106, Carbon Dioxide Level 27, Calcium Level 7.9L, Magnesium Level 2.3 CBC/BMP Laboratory Tests 02/16/17 05:06 Red Blood Count 2.97 L, Mean Corpuscular Volume 92.2, Mean Corpuscular Hemoglobin 29.5, Mean Corpuscular Hemoglobin Concent 32.0, Red Cell Distribution Width 15.7 H, Neutrophils (%) (Auto) 68.1 H, Lymphocytes (%) (Auto ) 4.9 L, Monocytes (%) (Auto) 17.1 H, Eosinophils (%) (Auto) 2.4, Basophils (%) (Auto) 1.0, Neutrophils # (Auto) 1.9, Lymphocytes # (Auto) 0.3 L, Monocytes # ( Auto) 0.5, Eosinophils # (Auto) 0.1, Basophils # (Auto) 0.0, Calcium Level 7.9 L DENNIS JOHNSON MD February 16, 2017 08:08
[2017-02-16] MEDS: LEVEMIR (INSULIN DETEMIR) 1 UNITS/0.01ML SC SCH ×2 (08:15→21:12)
[2017-02-16] MEDS: HumaLOG INSULIN (NovoLOG) PER UNIT SC SCH ×4 (08:15→21:12)
[2017-02-16] MEDS: BISOPROLOL FUMARATE 10 MG TAB PO SCH ×2 (08:15→21:10)
[2017-02-16 09:26] LABS: INR 1.08
[2017-02-16] MEDS: PERCOCET 5MG/325MG TAB PO PRN ×2 (10:14→21:11)
[2017-02-16] MEDS: oxyCODONE 5MG TAB PO PRN ×2 (10:15→21:11)
[2017-02-16] MEDS ORDERED: HEPARIN 1,000 UNITS/ML 10ML VIAL (FOR RADIOLOGY& DIALYSIS ONLY) IV ONE (12:00)
--- NOTE | 2017-02-16 16:19 | IPN ---
DATE: 02/16/2017 Mr. Mansfield is seen this morning on his bedside in the hemodialysis unit. He has been dialysis dependent for the last few days. The patient has been grossly volume overloaded and failed to respond to diuretics. Once he started responding to IV Lasix he had already become uremic due to which dialysis was initiated last week. He has tolerated his dialysis treatments and fluid removal very well so far. PHYSICAL EXAMINATION: Temperature 98.8 degrees Fahrenheit, heart rate 52 per minute and respiratory rate 18 per minute. Blood pressure 150/80 mmHg and oxygen saturation 94% on 2 liters oxygen. Head is atraumatic. Neck veins are still distended. Pupils are equal and reactive to light and sclerae is anicteric. Ears, nose and throat are unremarkable. Neck is supple and without any thyroid enlargement. Heart sounds are regular and lungs with diminished breath sounds at bases. Abdomen obese, soft and nontender. Bowel sounds are normal. Extremities have no cyanosis or clubbing. Skin has no rash or ulcers. Peripheral edema is much improved, however not completely resolved. Today's labs show WBC count 2.8, hemoglobin 8.8 and hematocrit 27.4. Platelets 174. Sodium 141 and potassium 4.6. BUN 52 and creatinine 4.69. PROBLEMS: 1. End-stage renal disease. The patient has known history of advanced stage IV chronic kidney disease at baseline. With acute renal failure now he seems to have reached end-stage renal disease. He is dialysis dependent and is likely to require long-term maintenance hemodialysis. We plan to dialyze him again on Saturday. 2. Congestive heart failure. His volume status has improved but not completely corrected. We will continue with aggressive fluid removal with hemodialysis. Today we are removing 3 liters of fluid and will continue with the same until his volume status is corrected. 3. Anemia. The patient did require transfusions earlier however, anemia has been stable now. He will be treated with intravenous iron and Aranesp in hemodialysis. He is receiving Aranesp 300 mcg once a week. DISPOSITION: I have discussed with outpatient dialysis clinic and have made arrangements for him to have outpatient hemodialysis on Saturday. From a renal standpoint, he can be discharged to home tomorrow and followup in the office as an outpatient.
[2017-02-16] MEDS ORDERED: WARFARIN SOD 7.5 MG TAB PO SCH (17:00)
[2017-02-16] MEDS: TAMSULOSIN 0.4 MG CAP PO SCH (21:08)
[2017-02-16] MEDS: PARoxetine 10MG TABLET PO SCH (21:11)
[2017-02-16] MEDS: ROSUVASTATIN 10 MG TAB (CRESTOR) PO SCH (21:11)
[2017-02-17 02:00] VITALS: BP 152/71
[2017-02-17 05:48] LABS: INR 1.08; MEAN CORPUSCULAR HEMOGLOBIN 29.7 pg (27.0-33.0); MEAN CORPUSCULAR VOLUME 92.7 fl (80.0-96.0); PLATELET COUNT, AUTOMATED 190 k/mm3 (150-450); RED CELL DISTRIBUTION WIDTH 15.7 % (11.5-14.5); WHITE BLOOD COUNT 2.9 K/mm3 (4.0-10.0)
[2017-02-17 05:55] VITALS: BP 131/62
[2017-02-17 06:02] LABS: CALCIUM LEVEL 7.9 MG/DL (8.8-10.2); CREATININE FOR GFR 4.71 MG/DL (0.70-1.30); GLOMERULAR FILTRATION RATE 13.4 (>49); POTASSIUM SERUM 4.3 MEQ/L (3.5-5.1)
[2017-02-17] MEDS: LEVOTHYROXINE 0.075 MG TAB (75 MCG) PO SCH (06:07)
[2017-02-17] MEDS: SLF 3 ML SYR IV SCH (06:07)
[2017-02-17 06:36] LABS: EOSINOPHILS 4 % (0-5); NUCLEATED RED BLOOD CELL 3 % (0-0)
[2017-02-17 06:38] LABS: ANISOCYTOSIS 2+; POLYCHROMASIA 1+
[2017-02-17] MEDS: BISOPROLOL FUMARATE 10 MG TAB PO SCH (08:20)
[2017-02-17] MEDS: ASPIRIN 81 MG ENTERIC TAB PO SCH (08:20)
[2017-02-17] MEDS: DOCUSATE SODIUM 100 MG CAP PO SCH ×2 (08:20→08:22)
[2017-02-17] MEDS: CALCITRIOL 0.25 MCG CAP (S0169) PO SCH (08:20)
[2017-02-17] MEDS: FINASTERIDE 5 MG TAB PO SCH (08:20)
[2017-02-17] MEDS: LEVEMIR (INSULIN DETEMIR) 1 UNITS/0.01ML SC SCH (08:21)
[2017-02-17] MEDS: HumaLOG INSULIN (NovoLOG) PER UNIT SC SCH (08:21)
--- NOTE | 2017-02-17 09:26 | DS.PDOC ---
Discharge Summary General Date of Admission Feb 03, 2017 at 17:28 Date of Discharge 02/17/17 Specialist/Consultants Involve: SHERRILL CONRAD MD Discharge Summary PROCEDURES PERFORMED DURING STAY: Right IJ tunneled HD catheter placement DISCHARGE DIAGNOSES: 1. ESRD - NEW HD. 2. A FLUTTER - COUMADIN. 3. CAD S/P CABG/STENTS. 4. CERVICAL NECK IMPINGEMENT 5. HAIRY CELL LEUKEMIA 6. CHF - diastolic dysfunction 7. HTN 8. HYPERLIPIDEMIA 9. IDDM 10. Significant visual impairment 11. Pseudomonas pneumonia 12. multifactorial anemia 13. BPH COMPLICATIONS/CHIEF COMPLAINT: Anemia. HISTORY OF PRESENT ILLNESS: Presents for shortness of breath, recently discharged for hypoxemia. HOSPITAL COURSE: 66-year old male recently discharged for hypoxemia, returns for worsening SOB. Patient found to anemic with Hg 7.4, with diffuse bilateral infiltrates on CXR. Admitted for volume overload, and transfused PRBC in ER. Patient received total of 4 units of PRBC during hospital stay. Patient did not respond to IV diuretics, which was transitioned to continuous infusion of furosemide. It was determined patient would require dialysis. Right IJ tunneled cather was placed and patient underwent 4 sessions of dialysis thru his hospital stay with significant improvement of his volume overload. Patient was also diagnosed with pseudomonas pneumonia, completing a course of Levofloxacin. Patient scheduled to start outpatient HD tomorrow 02/18/27. Discussed with nursing services and patient, no home services other than volunteer transportation for dialysis. DISCHARGE MEDICATIONS: Please see below. ALLERGIES: Please see below. PHYSICAL EXAMINATION ON DISCHARGE: VITAL SIGNS: Please see below. GENERAL: NAD HEENT: NC/AT, EOMI, PERRL NECK: supple CARDIOVASCULAR EXAMINATION: +S1S2, RRR RESPIRATORY EXAMINATION: CTA B/L ABDOMINAL EXAMINATION: soft, NT, +BS, obese EXTREMITIES: trace peripheral edema PSYCHIATRIC EXAMINATION: AAOx3 LABORATORY DATA: Please see below. ACTIVITY: [As tolerated]. DIET: 2 gram sodium, carb consistent, low fat low cholesterol DISCHARGE PLAN: Home with volunteer transportation services DISPOSITION: D/C home with volunteer transportation services for HD DISCHARGE INSTRUCTIONS: 1. Follow up PCP in 3-5 days. 2. Hemodialysis as scheduled - first outpatient session on 02/18/17. ITEMS TO FOLLOWUP ON ON OUTPATIENT: 1. Recommend follow up CBC/INR in 3-5 days. 2. Recommend re-evaluate utility of beta danitza which was discontinued secondary to bradycardia. 3. Recommend followup with oncology for hairy cell leukemia -multifactorial anemia. DISCHARGE CONDITION: [Stable]. TIME SPENT ON DISCHARGE: Greater than 30 minutes. Vital Signs/I&Os Vital Signs Date Time Temp Pulse Resp B/P (MAP) Pulse Ox O2 Delivery O2 Flow Rate FiO2 02/17/17 08:20 54 02/17/17 05:55 98.0 18 131/62 (85) 99 Nasal Cannula 3.0 02/16/17 21:11 40 I&O- Last 24 Hours up to 6 AM 02/17/17 06:00 Intake Total 480 ml Output Total 3100 ml Balance -2620 ml Laboratory Data Labs 24H Laboratory Tests 2 02/16/17 13:35: Bedside Glucose (Misc Panel) 150H 02/16/17 16:47: Bedside Glucose (Misc Panel) 299H 02/16/17 20:33: Bedside Glucose (Misc Panel) 264H 02/17/17 05:07: Neutrophils 84H, Lymphocytes (Manual) 9L, Eosinophils (Manual) 4, Metamyelocytes 2H, Myelocytes 1H, Nucleated Red Blood Cells 3H, Platelet Estimate NORMAL, Polychromasia 1+, Basophilic Stippling 2+, Anisocytosis 2+, Prothrombin Time 14.1, Prothromb Time International Ratio 1.08, Anion Gap 9, Glomerular Filtration Rate 13.4L, Blood Urea Nitrogen 47H, Creatinine 4.71H, Sodium Level 141, Potassium Level 4.3, Chloride Level 104, Carbon Dioxide Level 28, Calcium Level 7.9L, Magnesium Level 2.0 CBC/BMP Laboratory Tests 02/17/17 05:07 Red Blood Count 2.95 L, Mean Corpuscular Volume 92.7, Mean Corpuscular Hemoglobin 29.7, Mean Corpuscular Hemoglobin Concent 32.0, Red Cell Distribution Width 15.7 H, Calcium Level 7.9 L FSBS Laboratory Tests Test 02/16/17 13:35 02/16/17 16:47 02/16/17 20:33 Range/Units Bedside Glucose (Misc Panel) 150 299 264 80-115 MG/DL Discharge Medications Scheduled (Fish Oil 1200 mg) 1 Cap Cap, 1 CAP PO BID, (Reported) Allopurinol (Allopurinol) 100 Mg Tab, 200 MG PO DAILY, (Reported) Aspirin (Aspir-81) 81 Mg Tab, 81 MG PO DAILY, (Reported) Calcitriol (Rocaltrol) 0.25 Mcg Cap, 0.25 MCG PO DAILY, (Reported) Calcium Carbonate (Calcium) 600 Mg Tab, 600 MG PO QHS, (Reported) Cholecalciferol (Vitamin D3) 1,000 Unit Cap, 1,000 UNIT PO QHS, (Reported) Cyanocobalamin (B-12) 2,000 Mcg Tab, 1,000 MCG PO QHS, (Reported) Fentanyl (Fentanyl) 50 Mcg Tdsy, 50 MCG TD Q3RD, (Reported) DUE TO CHANGE 02/03/17(NOW) Finasteride (Finasteride) 5 Mg Tab, 5 MG PO DAILY, (Reported) Insulin Aspart (Novolog) 100 U/Ml Inj, 1 DOSE SC ACHS, (Reported) PER SLIDING SCALE Insulin Glargine (Lantus) 1 Units/0.01 Ml Susp, 28 UNITS SC BID, (Reported) Levothyroxine Sodium (Levoxyl) 75 Mcg Tab, 75 MCG PO DAILY, (Reported) Multivitamins *[facility] STOCKED* (Thera M Plus *[facility] STOCKED*) 1 Tab Tab, 1 TAB PO DAILY, (Reported) Paroxetine Hydrochloride (Paxil) 10 Mg Tab, 10 MG PO QHS, (Reported) Rosuvastatin Calcium (Crestor) 20 Mg Tab, 20 MG PO QHS, (Reported) Tamsulosin Hydrochloride (Flomax) 0.4 Mg Cap, 0.4 MG PO QHS, (Reported) Vitamin D (Drisdol) 50,000 Unit Cap, 50,000 UNIT PO Q2WK, (Reported) TAKES ON SATURDAY Warfarin Sod (Jantoven) 5 Mg Tab, 5 MG PO 2XW, (Reported) SATURDAY AND SATURDAY Warfarin Sod (Warfarin Sodium) 7.5 Mg Tab, 7.5 MG PO 5XW, (Reported) WVD-YBY-GOTNS-SAT-SUN Scheduled PRN Albuterol Sulfate (Albuterol Sulfate) 2.5 Mg/3 Ml Nebu, 2.5 MG INH Q4H PRN for SHORTNESS OF BREATH, (Reported) Nitroglycerin (Nitrostat) 0.4 Mg Subl, 0.4 MG SL NITRO PRN for CHEST PAIN, ( Reported) Oxycodone/Acetaminophen (Percocet 10-325 mg) 1 Tab Tab, 1 TAB PO BID PRN for PAIN, (Reported) Allergies Coded Allergies: No Known Allergies (Unverified , 12/23/13) DENNIS JOHNSON MD February 17, 2017 09:26
[2017-02-17 09:53] VITALS: BP 158/64
== END 2017-02-17 11:09 | disposition home or self-care (01) | DRG 177 ==
LOC: M ED 16:05 → M ED INP 17:28 → M PCU 20:00 → M MSPAV 02-16 13:34
PROVIDERS: ADMIT Internal Medicine; ATTEND Internal Medicine
PROC: 30233N1 Transfusion of Nonautologous Red Blood Cells into Peripheral Vein, Percutaneous Approach (ICD-10-PCS; principal; 2017-02-03)
PROC: 05HM33Z Insertion of Infusion Device into Right Internal Jugular Vein, Percutaneous Approach (ICD-10-PCS; 2017-02-11)
DX: J15.1 Pneumonia due to Pseudomonas (principal); I50.33 Acute on chronic diastolic (congestive) heart failure; N18.6 End stage renal disease; Z68.41 Body mass index [BMI] 40.0-44.9, adult; D61.818 Other pancytopenia; I48.4 Atypical atrial flutter; I13.2 Hypertensive heart and chronic kidney disease with heart failure and with stage 5 chronic kidney disease, or end stage renal disease; C91.41 Hairy cell leukemia, in remission; N17.9 Acute kidney failure, unspecified; N25.81 Secondary hyperparathyroidism of renal origin; E66.9 Obesity, unspecified; Z79.01 Long term (current) use of anticoagulants; I25.10 Atherosclerotic heart disease of native coronary artery without angina pectoris; E78.5 Hyperlipidemia, unspecified; E11.9 Type 2 diabetes mellitus without complications; N40.0 Benign prostatic hyperplasia without lower urinary tract symptoms; D63.1 Anemia in chronic kidney disease; Z79.82 Long term (current) use of aspirin; Z79.899 Other long term (current) drug therapy; E03.9 Hypothyroidism, unspecified

== ENCOUNTER → 2017-03-19 | Day surgery (SDC) | payer MEDICARE ==
[~2017-03-19] VITALS: Ht 170.2 cm; Wt 113.4 kg
[~2017-03-19] MED LIST changes: +BUPIVACAINE HCL 0.5% 30 ML VIAL As Ordered ONE; +CLINDAMYCIN 600 MG/50 ML PREMIX BAG As Ordered ONE; +COUM7.5T PO; +D5W/0.2% SODIUM CHLORIDE 250 ML IV ONE; +DEXTROSE 50% 50 ML SYRINGE As Ordered ONE; +DEXTROSE 50% 50 ML SYRINGE IV ONE; +DEXTROSE 50% 50 ML SYRINGE IV SCH; +HEPARIN SOD (PORCINE) 5000 UNITS/ML VIAL As Ordered ONE; +ISOVUE-300 61% 50ML VIAL (Q9967) As Ordered ONE; +LIDOCAINE 1% SDV INJ 30 ML VIAL As Ordered ONE; +LIDOCAINE 2% INJ 100 MG/5 ML SDV (FOR ANES.) As Ordered ONE; +LR 1,000 ML IV ONE; +MIDAZOLAM INJ 2 MG/2 ML VIAL (J2250) As Ordered ONE; +NS 1,000 ML IV SCH; +ONDANSETRON 4MG/2ML VIAL (J2405) As Ordered ONE; +PROPOFOL 200 MG/20 ML VIAL As Ordered ONE; +RENV2TAB PO; +fentaNYL 100 MCG/2 ML INJECTION (J3010) As Ordered ONE
[2017-03-19 07:35] LABS: INR 1.71
[2017-03-19 11:25] VITALS: BP 154/68
== END | disposition home or self-care (01) ==
LOC: M SDC 06:55
PROVIDERS: ATTEND Surgery Vascular Surgery
DX: N18.4 Chronic kidney disease, stage 4 (severe) (principal); E11.22 Type 2 diabetes mellitus with diabetic chronic kidney disease; I11.0 Hypertensive heart disease with heart failure; I50.32 Chronic diastolic (congestive) heart failure; D63.1 Anemia in chronic kidney disease; E55.9 Vitamin D deficiency, unspecified; I25.10 Atherosclerotic heart disease of native coronary artery without angina pectoris; N25.81 Secondary hyperparathyroidism of renal origin; N40.1 Benign prostatic hyperplasia with lower urinary tract symptoms; Z79.4 Long term (current) use of insulin; Z79.82 Long term (current) use of aspirin; Z92.21 Personal history of antineoplastic chemotherapy; Z79.01 Long term (current) use of anticoagulants; Z85.79 Personal history of other malignant neoplasms of lymphoid, hematopoietic and related tissues; I48.91 Unspecified atrial fibrillation; Z98.61 Coronary angioplasty status; I25.2 Old myocardial infarction; E78.5 Hyperlipidemia, unspecified; E03.9 Hypothyroidism, unspecified
CPT/HCPCS: 36415; 36901; 84132; 85610; J2250; J2405; J3010

== ENCOUNTER → 2017-03-29 | Outpatient (CLI) | payer MEDICARE ==
[~2017-03-29] MED LIST changes: +ALBU17IN2 INH; +AMLO5TAB2 PO; +ASPI81TAEC PO; -BUPIVACAINE HCL 0.5% 30 ML VIAL As Ordered ONE; +CALC1TAB60 PO; -CALC600T21 PO; +CALC600T60 PO; -CLINDAMYCIN 600 MG/50 ML PREMIX BAG As Ordered ONE; -D5W/0.2% SODIUM CHLORIDE 250 ML IV ONE; -DEXTROSE 50% 50 ML SYRINGE As Ordered ONE; -DEXTROSE 50% 50 ML SYRINGE IV ONE; -DEXTROSE 50% 50 ML SYRINGE IV SCH; +FEBU40TA PO; -FURO1TAB15 PO; +FURO80TA2 PO; +GABA-279 PO; +HEPARIN 1,000 UNITS/ML 10ML VIAL (FOR RADIOLOGY& DIALYSIS ONLY) As Ordered ONE; -HEPARIN SOD (PORCINE) 5000 UNITS/ML VIAL As Ordered ONE; -LIDOCAINE 1% SDV INJ 30 ML VIAL As Ordered ONE; -LIDOCAINE 2% INJ 100 MG/5 ML SDV (FOR ANES.) As Ordered ONE; -LR 1,000 ML IV ONE; +MORP-38 PO; +MORP15TASA PO; +NACCAP2 PO; -NS 1,000 ML IV SCH; -ONDANSETRON 4MG/2ML VIAL (J2405) As Ordered ONE; +OXYC15TA76 PO; +PAXI10TA12 PO; -PAXI10TA2 PO; -PERC10TA17 PO; +PERC10TA26 PO; +PRED10TA2 PO; -PROA1AER INH; +PROAAER10 INH; -PROPOFOL 200 MG/20 ML VIAL As Ordered ONE; +SENN1TAB10 PO; +VITA-182 PO; +VITA10002 PO; -VITA100041 PO; +WARF-22 PO
--- NOTE | 2017-03-29 18:09 | REP ---
IMAGES DURING FISTULOGRAM: Multiple images are obtained during left forearm fistulogram. Contrast is seen in vessels in the forearm. 4.4 minutes fluoroscopy time utilized for the procedure. Signed by Abhjiit Gannon MD 04/01/2017 08:16 P
--- NOTE | 2017-04-04 16:29 | RO ---
DATE OF PROCEDURE: 03/29/2017 PREPROCEDURE DIAGNOSES: End stage renal disease, right internal jugular PermaCath, dysfunctional left radiocephalic atriovenous fistula. POSTPROCEDURE DIAGNOSES: End stage renal disease, right internal jugular PermaCath, dysfunctional left radiocephalic atriovenous fistula. PROCEDURE: Ultrasound guided left cephalic vein cannulation, left radiocephalic arteriovenous fistulagram, retrograde left radial artery angiogram. SURGEON: Tyler Simpson MD IMMIGRATION PARALEGAL: INDICATION: The patient is a 66-year-old male with end stage renal disease who underwent creation of a left radiocephalic arteriovenous fistula and postoperatively the fistula was noted to be pulsatile with absence of thrill and there was concern for thrombosis due to obstructed outflow. Patient will undergo a fistulogram with possible angioplasty and or stent. Risks, benefits and alternative treatment options were discussed with the patient. Alternative treatment options included, but were not limited to, no intervention. Risks included, but were not limited to infection, bleeding, loss of arteriovenous access, possible need for open surgical intervention, steal syndrome, cerebrovascular accident, myocardial infarction, pulmonary embolus, deep vein thrombosis (DVT), loss of limb, loss of life, and poor outcome. The patient understands and accepts these risks and consents to proceed. ANESTHESIA: Local with sedation with 1 mg of versed 50 mg of Fentanyl and 2 mL of 2% lidocaine. CONTRAST: 3 mL. SEDATION TIME: 9:12 a.m. - 9:30 a.m. with the sedation and cardiopulmonary monitoring performed by the RN in room under my direction. COMPLICATIONS: None. DRAINS: None. SPECIMENS: None. IMPLANTS: None. DESCRIPTION OF PROCEDURE: The patient was taken to the angiography suite and placed supine on the angiography room table. The left upper extremity was and prepped and draped in a standard surgical fashion. Ultrasound was used to guide cannulation with a micropuncture needle after anesthetizing the overlying skin with 1% Lidocaine. The micropuncture wire was advanced through the micropuncture needle which was upsized to a micropuncture sheath. A fistulogram and retrograde radial artery angiogram were performed. There was occlusion of the cephalic vein the midforearm with multiple attempt made to recannulize through this area without success. The sheath was then removed and manual compression applied at the puncture site for hemostasis. Dressings were applied. The patient tolerated the procedure well. All instrument, sponge, and needle counts were correct at the end of the case. There were no complications. Dr. Simpson was present for and directed the entire case. The patient was transferred to the holding area and subsequently discharged in stable condition. RADIOLOGIC SUPERVISION AND INTERPRETATION: The ultrasound showed the cephalic vein at the wrist to be widely patent, easily compressible, and free of thrombus with a pulse noted on compression of the cephalic vein. Ultrasound was used to guide cannulation after which a fistulogram was performed showing occlusion of the cephalic vein in the midforearm with large collaterals draining into the deeper venous system and reconstituting the cephalic vein at the antecubital fossa and into the upper arm. Multiple attempts were made to recannulate through the occluded cephalic vein without success. After which the procedure was terminated. The sheath was removed and manual compression applied. The fistula will be allowed to continue to mature spontaneously and reevaluate it with possible intervention once the fistula has spontaneously matured more.
== END ==
LOC: M IRPRO 06:58
PROVIDERS: ATTEND Surgery Vascular Surgery
DX: N18.6 End stage renal disease (principal); I77.0 Arteriovenous fistula, acquired
CPT/HCPCS: 36901; 99152; C1769; C1887; C1894; J2250; J3010; Q9967

== ENCOUNTER → 2017-04-25 | Outpatient (CLI) | payer MEDICARE ==
[~2017-04-25] MED LIST changes: -HEPARIN 1,000 UNITS/ML 10ML VIAL (FOR RADIOLOGY& DIALYSIS ONLY) As Ordered ONE; -ISOVUE-300 61% 50ML VIAL (Q9967) As Ordered ONE; -MIDAZOLAM INJ 2 MG/2 ML VIAL (J2250) As Ordered ONE; -fentaNYL 100 MCG/2 ML INJECTION (J3010) As Ordered ONE
--- NOTE | 2017-04-25 09:36 | REP ---
CT CHEST WITHOUT IV CONTRAST: CT chest is performed without IV contrast, with sagittal and coronal reconstruction images performed. COMPARISON: 02/04/2017. Previously noted pleural effusions and infiltrates have resolved. Multiple tiny calcified granulomas are seen in both lungs with scattered interstitial fibrotic changes. There is no pleural or pericardial effusion. The heart is not significantly enlarged. No significantly enlarged lymph nodes are seen in the axillary regions, mediastinum, or hilar regions. Scattered atherosclerotic calcifications are seen in the thoracic aorta without aneurysm. On the visualized portions of the upper abdomen incidental note is made of a few gallstones in the gallbladder. There are degenerative changes of the spine. IMPRESSION: There has been resolution of bilateral pleural effusions and infiltrates since the prior study of 02/04/2017. Multiple calcified granulomas are present with scattered interstitial fibrotic changes. There are gallstones in the gallbladder. Signed by Abhijit Gannon MD 04/25/2017 10:51 A
== END ==
LOC: M RAD 07:13
PROVIDERS: ATTEND Internal Medicine Nephrology
DX: R06.02 Shortness of breath (principal); J90 Pleural effusion, not elsewhere classified; R07.89 Other chest pain; K80.20 Calculus of gallbladder without cholecystitis without obstruction; J84.10 Pulmonary fibrosis, unspecified

== ENCOUNTER 2017-05-01 17:17 | Inpatient (IN) | payer MEDICARE ==
[~2017-05-01] VITALS: Ht 170.2 cm; Wt 116.2 kg
[2017-05-01] MEDS: PARoxetine 10MG TABLET PO SCH (03:00)
[~2017-05-01 17:17] MED LIST changes: -ALBU17IN2 INH; -AMLO5TAB2 PO; -ASPI81TAEC PO; -CALC1TAB60 PO; -FEBU40TA PO; -GABA-279 PO; -MORP-38 PO; -MORP15TASA PO; -NACCAP2 PO; -OXYC15TA76 PO; -SENN1TAB10 PO; -VITA10002 PO; -WARF-22 PO
[2017-05-01] MEDS ORDERED: GABA-279 PO (17:25)
[2017-05-01] MEDS ORDERED: AMLO5TAB2 PO (17:25)
[2017-05-01 18:26] LABS: BASO % 0.6 % (0.0-1.0); EOS # 0.1 K/mm3 (0.0-0.50); EOS % 2.4 % (0.0-3.0); LARGE UNSTAINED CELL # 0.1 K/mm3 (0.0-0.4); LARGE UNSTAINED CELL % 3.7 % (0.0-4.0); LYMPH % 11.4 % (24.0-44.0); MEAN CORPUSCULAR HEMOGLOBIN 35.8 pg (27.0-33.0); MEAN CORPUSCULAR VOLUME 94.2 fl (80.0-96.0); MONO % 12.5 % (0.0-5.0); NEUTROPHILS % 69.4 % (36.0-66.0); PLATELET COUNT, AUTOMATED 187 k/mm3 (150-450); RED CELL DISTRIBUTION WIDTH 17.5 % (11.5-14.5)
[2017-05-01 18:27] LABS: MEAN CORPUSCULAR HGB CONC 34.6 g/dl (32.0-36.5)
[2017-05-01 18:28] LABS: LYMPH # 0.3 K/mm3 (1.5-4.5); NEUTROPHILS # 2.1 K/mm3 (1.8-7.7)
[2017-05-01 18:29] LABS: MONO # 0.4 K/mm3 (0.0-0.8)
[2017-05-01 18:30] LABS: INR 0.94
[2017-05-01] MEDS ORDERED: MORPHINE 4 MG/ML 1ML SYRINGE IV ONE ×3 (18:30→22:15)
[2017-05-01 18:47] LABS: ANION GAP 6 MEQ/L (8-16); CARBON DIOXIDE LEVEL 30 MEQ/L (21-32); CHLORIDE LEVEL 99 MEQ/L (98-107); CREATININE FOR GFR 3.56 MG/DL (0.70-1.30); GLOMERULAR FILTRATION RATE 18.4 (>49); GLUCOSE, FASTING 221 MG/DL (80-110); POTASSIUM SERUM 4.3 MEQ/L (3.5-5.1); SODIUM LEVEL 135 MEQ/L (136-145)
[2017-05-01 19:10] LABS: BLOOD UREA NITROGEN 28 MG/DL (7-18); CALCIUM LEVEL 8.4 MG/DL (8.8-10.2)
--- NOTE | 2017-05-01 19:30 | REP ---
PA LATERAL CHEST: 05/01/2017. Comparison: CT chest 04/25/2017, portable chest 02/03/2017. Clinical history: Chest pain. Findings: There is an indwelling right jugular dialysis catheter with tip in SVC near the right atrium. Sternotomy wires are again noted. There is no gross cardiomegaly. Some venous hypertension seen without farhan edema. Small effusions to exclude on the lateral view. Some lateral pleural thickening along the right mid chest. No pneumothorax, dense consolidation, farhan edema or parenchymal mass. The aorta is normal. Airway is intact. Bony thorax with some degenerative changes and marginal osteophytes. No acute compression deformity. No free air. Impression: 1. Sternotomy wires and clips in the mediastinum without gross cardiomegaly. There is pulmonary venous hypertension without farhan edema. Small effusions are difficult to exclude on the lateral view. No definite infiltrate .2. Indwelling right jugular dialysis catheter. Some right lateral pleural thickening. Signed by Mateo Reyna MD 05/02/2017 10:50 A
--- NOTE | 2017-05-01 19:54 | ECGEPIP ---
Stationary ECG Study [facility] - ED Test Date: 2017-05-01 Pat Name: ROSIE TEE Department: Room: - Gender: M Kier Tender: andrey : 1950 Requested By: PARTH Mayen Order Number: [id number] Reading MD: Jorge Lopez Measurements Intervals [place] Rate: 78 P: 21 SD: 175 QRS: 19 QRSD: 102 T: 106 QT: 376 QTc: 429 Interpretive Statements SINUS RHYTHM POSSIBLE LEFT ATRIAL ENLARGEMENT NSSTW ABNORMALITIES SIMILAR TO 02/03/17 Electronically Signed On 05-01-2017 19:54:21 EDT by Jorge Lopez
[2017-05-01 20:42] LABS: ALBUMIN 3.4 GM/DL (3.2-5.2); BILIRUBIN,DIRECT < 0.1 MG/DL (0.0-0.2); BILIRUBIN,TOTAL 0.7 MG/DL (0.2-1.0)
[2017-05-01 20:52] LABS: ALBUMIN/GLOBULIN RATIO 0.97 (1.00-1.93); AST/SGOT 37 U/L (15-37); TOTAL PROTEIN 6.9 GM/DL (6.4-8.2)
[2017-05-01 21:13] LABS: ALKALINE PHOSPHATASE 106 U/L (45-117)
[2017-05-01 21:24] LABS: ALT/SGPT 47 U/L (12-78)
[2017-05-01] MEDS ORDERED: HEPARIN SOD (PORCINE) 5000 UNITS/ML VIAL IV ONE (22:15)
[2017-05-01] MEDS ORDERED: WARF-22 PO (22:45)
[2017-05-01] MEDS ORDERED: HEPARIN SOD (PORCINE) 5000 UNITS/ML VIAL IV PRN (22:45)
[2017-05-01] MEDS ORDERED: ASPI81TAEC PO (22:45)
[2017-05-01] MEDS ORDERED: CALC1TAB60 PO (22:45)
[2017-05-01] MEDS ORDERED: VANCOMYCIN HCL 1,000 MG, VIAL MATE ADAPTER 1 EACH in D5W 250 ML IV ONE (22:45)
[2017-05-01] MEDS ORDERED: VITA10002 PO (22:45)
[2017-05-01] MEDS ORDERED: ALBU17IN2 INH (22:45)
[2017-05-01] MEDS ORDERED: WARFARIN SOD 5 MG TAB PO ONE (22:56)
[2017-05-01] MEDS ORDERED: ALBUTEROL 90 MCG/ACT 8GM HFA INHALER INH PRN (23:00)
[2017-05-01] MEDS ORDERED: IPRATROPIUM 0.5MG/ALBUTEROL 2.5MG INH SOL UD 3ML (DUONEB)(J7620) NEB PRN (23:00)
[2017-05-01] MEDS ORDERED: ONDANSETRON 4MG/2ML VIAL (J2405) IV PRN (23:00)
[2017-05-01] MEDS ORDERED: ACETAMINOPHEN TAB 650MG DOSE (2X325MG) PO PRN (23:00)
[2017-05-01] MEDS ORDERED: ISOVUE-370 76% 100ML VIAL (Q9967) As Ordered ONE (23:16)
[2017-05-01] MEDS ORDERED: NACCAP2 PO (23:28)
--- NOTE | 2017-05-01 23:40 | REPUSA ---
CT angiogram of the chest Clinical statement: Chest pain and shortness of breath. Technique: Multiple axial CT images were obtained from the thoracic inlet through the upper abdomen a fter a bolus administration of nonionic intravenous contrast. Coronal and sagittal reconstructions we re also obtained. No comparison is available. Findings: The pulmonary arteries are well-opacified with contrast, with no intraluminal filling defec ts to suggest embolism. The thoracic aorta is unremarkable. Thyroid gland is within normal limits. Th ere is no thoracic lymphadenopathy. There are no pericardial or pleural effusions. The lungs are tahira r. Limited imaging of the upper abdomen is unremarkable. There are no suspicious osseous lesions. Impression: Unremarkable CT examination of the chest. No evidence of pulmonary embolism.
--- NOTE | 2017-05-02 00:05 | HPE ---
DATE OF ADMISSION: 05/01/2017 PRIMARY CARE PROVIDER: Dr. Rubio SPECIAL EDUCATION TEACHING ASSISTANT: Dr. Watts E MARKETING SPECIALIST: Dr. Soto CERAMIC SPRAYER: Dr. Lake NEUROLOGIST: Dr. Rojas VASCULAR SURGEON: Dr. Simpson CHIEF COMPLAINT: Right-sided chest wall pain. HISTORY OF PRESENT ILLNESS: This is a 66-year-old male patient with underlying medical history of atrial flutter, on Coumadin, coronary artery disease with coronary artery bypass graft (CABG), cervical neck impingement, history of hairy cell leukemia in 2005, in remission, end-stage renal disease, on dialysis, congestive heart failure, hypertension, dyslipidemia, type 2 diabetes, chronic obstructive pulmonary disease (COPD), obstructive sleep apnea, on continuous positive airway pressure (CPAP) at night. Patient started hemodialysis in February. Had a tunneled hemodialysis catheter placed. Initially was doing okay. About 6 months afterward patient started developing achy pain at the hemodialysis catheter site that has been progressively getting worse. No redness, subjective fevers or chills, but has been progressively worsening. Has done CT scan before. Reported stabbing pain. Recently has gotten a lot worse. Was referred to pain management for stabbing pain 10/10, radiating to his back. Denies any palpitations, diaphoresis. Exacerbated with movement. No relieving factor. Patient was seeing pain management. Today subsequently was sent to the hospital. Was on Coumadin. Last INR check last week was 2.8. Patient denies any coughing, urinary complaint, abdominal pain. Reported right-sided chest pain to be chronic. ALLERGIES: No known drug allergies. PAST MEDICAL HISTORY: 1. Atrial flutter, on anticoagulation. 2. Coronary artery disease. 3. Congestive heart failure (CHF). 4. Cervical neck impingement. 5. History of hairy cell leukemia, in remission. 6. End-stage renal disease. 7. Obstructive sleep apnea. 8. Hypertension. 9. Obesity. 10. Diabetes, type 2. 11. COPD. 12. Dyslipidemia. PAST SURGICAL HISTORY: 1. CABG and cardiac stent. 2. Cataract surgery. 3. Failed arteriovenous (AV) fistula recently. SOCIAL HISTORY: Denies smoking. Drinking wine occasionally once a week. FAMILY HISTORY: Denies family history of clotting disorder, coronary artery disease. REVIEW OF SYSTEMS: Negative except for right-sided chest pain. All other review of systems is negative. HOME MEDICATIONS: - albuterol 2.5 mg inhalation every 4 hours - Proventil every 4 hours as needed - allopurinol 200 mg by mouth daily - Norvasc 5 mg by mouth daily - aspirin 81 mg by mouth daily - calcium with vitamin D one tablet by mouth at bedtime - vitamin D 1000 units by mouth at bedtime - vitamin B12 at 1000 mcg by mouth daily - digoxin 0.125 mg by mouth three times a week - fentanyl patch 15 mcg transdermal every 3 days - finasteride 5 mg by mouth at bedtime - fish oil 1200 mg by mouth twice a day - gabapentin 100 mg by mouth three times a day - insulin NovoLog mealtime - Lantus insulin 30 units subcutaneous twice a day - Synthroid 75 mcg by mouth daily - multivitamin one tablet by mouth daily - sublingual nitroglycerine 0.4 mg sublingual as needed - Percocet 10/325 by mouth twice a day as needed - Paxil 10 mg by mouth at bedtime - Crestor 20 mg by mouth at bedtime - Renvela 800 mg by mouth with meals - Flomax 0.4 mg by mouth at bedtime - Coumadin up to 10 mg by mouth daily PHYSICAL EXAMINATION: VITAL SIGNS: Temperature 98.9, pulse 78, blood pressure 140/65, pulse oximetry 92% on room air. GENERAL: Patient obese, alert, oriented times three in no acute distress. HEENT: Normocephalic, atraumatic. PULMONARY: Bilaterally clear to auscultation. CARDIAC: Regular rate and rhythm. S1, S2. ABDOMEN: Soft, nontender, obese. Positive bowel sounds. EXTREMITIES: Trace edema, bilateral lower extremities. SKIN: Perm-A-Cath area tender to palpation. No erythema or swelling. No exudates. EKG: Sinus rhythm at 78. No ST-segment changes. LABORATORY DATA: WBC 3, hemoglobin and hematocrit 10.7/31, platelets 187. Chemistry: Sodium 135, potassium 4.3, chloride 99, bicarbonate 30, BUN 28, creatinine 3.56. Cardiac enzymes negative. ESR 140. CRP 1.98. Troponin 0.39. ASSESSMENT AND PLAN: This is a 66-year-old male patient with underlying medical history of end-stage renal disease, on dialysis Saturday, Saturday, Saturday, atrial flutter, on Coumadin, coronary artery bypass graft (CABG), cervical neck impingement, hairy cell leukemia 2008, end-stage renal disease, congestive heart failure (CHF), hypertension, sleep apnea, dyslipidemia, diabetes, chronic obstructive pulmonary disease (COPD) presented with right-sided chest wall pain surrounding the dialysis catheter. 1. Right-sided chest wall pain, unknown etiology. Followup cardiac enzymes. EKG is appreciated. No transaminitis. No elevated bilirubin. Case discussed with Dr. Watts. On physical exam seems to be pain mostly associated with the hemodialysis catheter. Nephrology consulted. Vascular surgery consulted. Will place the patient empirically on antibiotics given elevated C-reactive protein (CRP). Followup cultures. Patient on cefepime and vancomycin for now. Followup CT angiogram with contrast to rule out any clots. Place the patient on heparin drip. Given patient's subtherapeutic on Coumadin. Recommend removing the hemodialysis catheter tomorrow and replacing it on Saturday. Case discussed with vascular surgery, Dr. Simpson, as well as reed worker, Dr. Watts. 2. End-stage renal disease. Nephrology consulted. Vascular surgery, Dr. Simpson, consulted. Patient currently on Saturday, Saturday, schedule. Will place the patient on antibiotics, possibly removal of tunneled hemodialysis catheter tomorrow. Continue home medication as ordered. 3. Hypothyroidism. Continue Synthroid. Followup thyroid function tests. 4. Atrial flutter, Continue Coumadin for anticoagulation. Patient on heparin drip given patient subtherapeutic. 5. Coronary artery disease. Patient on anticoagulation, heparin bridged to Coumadin. Continue Norvasc. Monitor blood pressure. Continue statin. 6. Atrial flutter. Continue digoxin. Patient on anticoagulation, heparin bridged to Coumadin. 7. Hypertension. Continue current medication. 8. Dyslipidemia. Continue statin. 9. Diabetes. Basal bolus insulin. Follow fingersticks/ 10. Chronic neck pain. Pain medication as ordered. 11. CHF. Strict intake and output. Patient currently compensated. 12. Obstructive sleep apnea. Continue bilevel positive airway pressure (BiPAP) at night. 13. COPD. Continue current medication. Nebulizer treatment as needed. BiPAP at night. 14. Deep vein thrombosis (DVT) prophylaxis. Patient on full-dose anticoagulation. DISPOSITION: Pending nephrology and vascular surgery consultation. Pending further work, CT angiogram, cultures. Continue antibiotics as ordered.
[2017-05-02] MEDS ORDERED: WARFARIN SOD 5 MG TAB PO ONE (00:12)
[2017-05-02] MEDS ORDERED: VANCOMYCIN HCL 1,000 MG, VIAL MATE ADAPTER 1 EACH in D5W 250 ML IV ONE ×2 (00:12→09:00)
[2017-05-02 01:40] VITALS: BP 165/72
[2017-05-02] MEDS: IPRATROPIUM 0.5MG/ALBUTEROL 2.5MG INH SOL UD 3ML (DUONEB)(J7620) NEB SCH ×4 (01:46→19:13)
--- NOTE | 2017-05-02 02:00 | PHACANCOPD ---
PHARMACY VANCOMYCIN DOSING Pt Demographics Demographics Patient Age:66 , Weight:116.870 , Gender: male Adjusted Body Weight Date: 05/02/17, Adjusted Body Weight: [87] Kg Events Past 24 Hours Events Past 24 Hours: NO: Dialysis, Diuretic Therapy, Change in CrCl, Fever, Elevation in WBC, Pending Diagnostics, Pending Procedures, Other Vancomycin Vancomycin Target Ranges: 15-20 mcg/ml Vancomycin Load Y/N: Yes Load Dose Date Time Vancomycin Load Dose: 1000MG given 0100 in er followed by q24h dosing started at 0900 Vancomycin Dose Date: 05/02/17. Current Vancomycin Dose: Intermittent Dosing?: No Labs Labs Item Value Date Time White Blood Count 3.0 K/mm3 L 05/01/17 1805 Creatinine 3.56 MG/DL H 05/01/17 1805 Blood Urea Nitrogen 28 MG/DL H 05/01/17 1805 Micro Microbiology 05/01/17 Blood Culture, Received Pending Creatinine Clearance Date:05/02/17. Creatinine Clearance: [19]. Pending Labs Trough 07-21 @0800 Assessment and Plan Maintaining Current Dose?: Yes Reason for dose change: No Dose Change Pharmacist Note Pharmacist Note Date: 05/02/17. Pharmacist note:Dosed at 1000mg q24h with a trough ordered for 07 -21 @0800. Will continue to monitor and make adjustments as needed. [facility] May 02, 2017 02:00
[2017-05-02] MEDS: SENOKOT S TAB PO SCH ×3 (02:10→20:20)
[2017-05-02] MEDS: VITAMIN D 1,000 INTERNATIONAL UNITS TABLET PO SCH ×2 (02:10→20:19)
[2017-05-02] MEDS: GABAPENTIN 100 MG CAP PO SCH ×4 (02:10→20:19)
[2017-05-02] MEDS: ROSUVASTATIN 10 MG TAB (CRESTOR) PO SCH ×2 (02:10→20:19)
[2017-05-02] MEDS: FINASTERIDE 5 MG TAB PO SCH ×2 (02:11→20:19)
[2017-05-02] MEDS: TAMSULOSIN 0.4 MG CAP PO SCH ×2 (02:11→20:19)
[2017-05-02] MEDS: LEVEMIR (INSULIN DETEMIR) 1 UNITS/0.01ML SC SCH ×3 (02:12→21:00)
[2017-05-02] MEDS ORDERED: GLUCAGON FOR INJ 1 MG VIAL (J1610) SC PRN (02:15)
[2017-05-02] MEDS ORDERED: GLUCOSE 4 GM CHEW TABLET PO PRN (02:15)
[2017-05-02] MEDS ORDERED: SLF 3 ML SYR IV PRN (02:15)
[2017-05-02] MEDS ORDERED: DEXTROSE 50% 50 ML SYRINGE IV PRN (02:15)
[2017-05-02] MEDS: HEPARIN DRIP 25,000 UNITS in APPROPRIATE DILUENT 1 EA IV SCH ×2 (02:40→19:50)
[2017-05-02] MEDS: MORPHINE 2 MG/ML 1ML SYRINGE IV PRN ×5 (02:47→22:51)
[2017-05-02] MEDS: CEFEPIME HCL 1 GM in D5W MINI-BAG PLUS 50 ML IV SCH (03:01)
[2017-05-02 05:45] LABS: MEAN CORPUSCULAR HEMOGLOBIN 33.1 pg (27.0-33.0); MEAN CORPUSCULAR HGB CONC 34.6 g/dl (32.0-36.5); MEAN CORPUSCULAR VOLUME 95.5 fl (80.0-96.0); RED CELL DISTRIBUTION WIDTH 17.3 % (11.5-14.5); WHITE BLOOD COUNT 2.6 K/mm3 (4.0-10.0)
[2017-05-02 05:46] LABS: INR 1.08
[2017-05-02] MEDS: SLF 3 ML SYR IV SCH ×3 (05:58→21:17)
[2017-05-02 06:05] LABS: ALBUMIN/GLOBULIN RATIO 0.83 (1.00-1.93); BILIRUBIN,TOTAL 0.4 MG/DL (0.2-1.0); CALCIUM LEVEL 8.3 MG/DL (8.8-10.2); CREATININE FOR GFR 4.59 MG/DL (0.70-1.30); GLOMERULAR FILTRATION RATE 13.8 (>49); MAGNESIUM LEVEL 2.1 MG/DL (1.8-2.4); POTASSIUM SERUM 4.3 MEQ/L (3.5-5.1); THYROXINE (T4) 9.1 UG/DL (4.5-12.0); TOTAL PROTEIN 6.6 GM/DL (6.4-8.2)
[2017-05-02] MEDS: PERCOCET 5MG/325MG TAB PO PRN ×2 (06:47→15:52)
[2017-05-02] MEDS: HumaLOG INSULIN (NovoLOG) PER UNIT SC SCH ×4 (07:30→21:00)
[2017-05-02 07:50] VITALS: BP 115/60
[2017-05-02] MEDS: ASPIRIN 81 MG ENTERIC TAB PO SCH (08:08)
[2017-05-02] MEDS: ALLOPURINOL 100 MG TAB PO SCH (08:08)
[2017-05-02] MEDS: CYANOCOBALAMIN 500 MCG TAB PO SCH (08:08)
[2017-05-02] MEDS: LEVOTHYROXINE 75MCG TABLET (0.075MG) PO SCH (08:09)
[2017-05-02] MEDS: (RENVELA) SEVELAMER **CARBONate** 800 MG TAB PO SCH ×3 (08:09→17:16)
[2017-05-02] MEDS: MULTIVITAMINS/MINERALS THERAP 1 TAB PO SCH (08:09)
[2017-05-02] MEDS: amLODIPine 5 MG TAB PO SCH (08:09)
[2017-05-02] MEDS ORDERED: VANCOMYCIN HCL 1,000 MG, VIAL MATE ADAPTER 1 EACH in D5W 250 ML IV SCH (09:00)
[2017-05-02] MEDS ORDERED: LIDOCAINE 1% MDV 20ML VIAL As Ordered ONE (10:22)
[2017-05-02] MEDS ORDERED: LIDOCAINE 1% MDV 20ML VIAL SC ONE (10:30)
[2017-05-02 11:51] VITALS: BP 126/57
--- NOTE | 2017-05-02 13:29 | ROOPDOC ---
[facility] Report Of Operation Report of Operation DATE OF PROCEDURE: 05/02/17 PREPROCEDURE DIAGNOSES: End-stage renal disease, right neck and chest pain. POSTPROCEDURE DIAGNOSES: End-stage renal disease, right neck and chest pain. PROCEDURE: Right internal jugular vein perm catheter removal with cut down. SURGEON: Dr. Gisela Simpson MD CARVER AND CHECKERER SPECIALS: None INDICATION: Patient is a 66-year-old male with end-stage renal disease who dialyzes through a right internal jugular vein perm catheter. Patient has pain in the neck and chest region associated with the perm catheter. The patient will undergo removal of the perm catheter from the right internal jugular vein and placement of a new access on the left side. Risks benefits and alternative treatment options were discussed with the patient. Alternative treatment options including but were not limited to no intervention. Risks included but were not limited to infection, bleeding, pneumothorax, hemothorax, possibly for the surgical intervention, cerebrovascular accident, myocardial infarction, pulmonary embolus, DVT, loss of limb, loss of leg and poor outcome. All of the patient's questions were answered, patient understands and accepts these risks, and will proceed with removal of the right internal jugular vein perm catheter. ANESTHESIA: Local with 10 cc of 1% lidocaine. ESTIMATED BLOOD LOSS: Minimal. COMPLICATIONS: None DRAINS: None SPECIMENS: None CONTRAST: None IMPLANTS: None PROCEDURE: Patient was prepped and draped in a standard surgical fashion after a time out was completed confirming the correct patient and procedure. Manual traction was applied to the catheter which did not release the subcutaneous cuff spontaneously. The skin and tissue overlying the catheter and cuff were then anesthetized with 1% lidocaine. The cuff was then sharply and bluntly dissected free through the entry site in the right chest. The catheter was then removed and manual compression applied at the exit site for hemostasis. Dressings were then applied. Patient tolerated the procedure well. Dr. Simpson was present for and draped in the entire case. Patient was stable at the completion of the procedure. Tyler Simpson MD May 02, 2017 13:29
[2017-05-02] MEDS: WARFARIN SOD 7.5 MG TAB PO SCH (15:51)
[2017-05-02 16:00] VITALS: BP 184/80
--- NOTE | 2017-05-02 16:51 | IPNPDOC ---
Date Seen The patient was seen on 05/02/17. Progress Note Hospitalist Progress Note Subjective: Patient reports pain at the site of his permacath. He states he otherwise is doing well Objective: Physical Exam: Vitals: Vital Sign - Last 24 Hours 05/01/17 05/01/17 05/01/17 05/01/17 17:18 18:02 18:04 18:11 Temp 98.9 Pulse 81 78 Resp 18 B/P (MAP) 140/64 (89) 140/65 (90) 138/66 (90) Pulse Ox 97 94 O2 Delivery Room Air 05/01/17 05/01/17 05/01/17 05/01/17 18:17 18:26 18:30 18:32 Pulse 76 84 Resp 18 B/P (MAP) 144/68 (93) Pulse Ox 92 95 O2 Delivery Room Air 05/01/17 05/01/17 05/01/17 05/01/17 18:40 18:41 18:47 18:56 Pulse 74 Resp 16 B/P (MAP) 145/75 (98) 139/67 (91) Pulse Ox 96 05/01/17 05/01/17 05/01/17 05/01/17 19:02 19:11 19:17 19:26 Pulse 74 74 B/P (MAP) 145/70 (95) 139/63 (88) Pulse Ox 93 92 05/01/17 05/01/17 05/01/17 05/01/17 19:32 19:41 19:47 19:56 Pulse 74 74 B/P (MAP) 140/65 (90) 144/65 (91) Pulse Ox 95 94 05/01/17 05/01/17 05/01/17 05/01/17 20:02 20:11 20:17 20:30 Pulse 74 76 B/P (MAP) 156/72 (100) Pulse Ox 94 97 O2 Delivery Room Air 05/01/17 05/01/17 05/01/17 05/01/17 20:32 20:41 20:47 20:56 Pulse 74 74 B/P (MAP) 146/72 (96) 142/65 (90) Pulse Ox 96 96 05/01/17 05/01/17 05/01/17 05/01/17 21:02 21:11 21:17 21:26 Pulse 74 74 B/P (MAP) 143/63 (89) 138/62 (87) Pulse Ox 94 95 05/01/17 05/01/17 05/01/17 05/01/17 21:32 21:41 21:47 21:56 Pulse 76 76 B/P (MAP) 133/63 (86) 145/65 (91) Pulse Ox 94 92 05/01/17 05/01/17 05/01/17 05/01/17 22:02 22:11 22:17 22:20 Pulse 76 76 Resp 14 B/P (MAP) 144/67 (92) Pulse Ox 91 95 05/01/17 05/01/17 05/01/17 05/01/17 22:26 22:32 22:41 22:47 Pulse 74 74 B/P (MAP) 153/70 (97) 146/57 (86) Pulse Ox 94 92 05/01/17 05/01/17 05/01/17 05/01/17 22:56 23:02 23:11 23:17 Pulse 82 B/P (MAP) 144/61 (88) 145/65 (91) Pulse Ox 95 95 05/01/17 05/01/17 05/01/17 05/01/17 23:29 23:32 23:47 23:56 Pulse 74 76 B/P (MAP) 174/74 (107) 174/74 (107) Pulse Ox 93 90 05/02/17 05/02/17 05/02/17 05/02/17 00:02 00:17 00:26 00:32 Pulse 74 80 80 B/P (MAP) 160/69 (99) Pulse Ox 86 92 91 05/02/17 05/02/17 05/02/17 05/02/17 00:47 00:56 01:02 01:03 Pulse 78 74 Resp 18 B/P (MAP) 164/70 (101) Pulse Ox 92 80 93 O2 Delivery Room Air 05/02/17 05/02/17 05/02/17 05/02/17 01:17 01:32 01:40 01:47 Temp 98.0 98.1 Pulse 78 76 76 79 Resp 18 20 B/P (MAP) 165/72 (103) Pulse Ox 91 80 93 O2 Delivery Room Air 05/02/17 05/02/17 05/02/17 05/02/17 02:47 04:00 05:58 06:08 Resp 18 18 Pulse Ox 96 94 94 O2 Delivery Room Air Nasal Cannula Nasal Cannula O2 Flow Rate 2.0 2.0 05/02/17 05/02/17 05/02/17 05/02/17 06:47 07:17 07:50 08:00 Temp 98.0 Pulse 72 Resp 18 20 B/P (MAP) 115/60 (78) Pulse Ox 96 95 96 O2 Delivery Nasal Cannula Nasal Cannula Nasal Cannula O2 Flow Rate 2.0 2.0 2.0 05/02/17 05/02/17 05/02/17 05/02/17 08:09 09:34 09:44 11:51 Temp 97.5 Pulse 72 70 Resp 20 20 18 B/P (MAP) 115/60 126/57 (80) Pulse Ox 95 O2 Delivery Nasal Cannula Nasal Cannula Nasal Cannula O2 Flow Rate 2.0 2.0 2.0 05/02/17 05/02/17 05/02/17 12:00 15:52 16:22 Resp 20 18 Pulse Ox 95 O2 Delivery Nasal Cannula Nasal Cannula Nasal Cannula O2 Flow Rate 2.0 2.0 2.0 General: Awake, alert, in mild discomfort secondary to his permacath HEENT: Normocephalic, atraumatic, extraocular movements intact CV: Regular rate and rhythm Lungs: Clear to auscultation bilaterally Abd: Soft, nontender, nondistended Extremities: No edema Neuro: Alert and oriented 3, normal speech Psych: Normal mood and affect Labs and Imaging: Laboratory Tests 05/01/17 18:05 Red Blood Count 3.29 L, Mean Corpuscular Volume 94.2, Mean Corpuscular Hemoglobin 35.8 H, Mean Corpuscular Hemoglobin Concent 34.6, Red Cell Distribution Width 17.5 H, Neutrophils (%) (Auto) 69.4 H, Lymphocytes (%) (Auto ) 11.4 L, Monocytes (%) (Auto) 12.5 H, Eosinophils (%) (Auto) 2.4, Basophils (% ) (Auto) 0.6, Neutrophils # (Auto) 2.1, Lymphocytes # (Auto) 0.3 L, Monocytes # (Auto) 0.4, Eosinophils # (Auto) 0.1, Basophils # (Auto) 0.0, Calcium Level 8.4 L, Total Creatine Kinase 253 7/20/17 04:44 Red Blood Count 3.04 L, Mean Corpuscular Volume 95.5, Mean Corpuscular Hemoglobin 33.1 H, Mean Corpuscular Hemoglobin Concent 34.6, Red Cell Distribution Width 17.3 H, Calcium Level 8.3 L, Aspartate Amino Transf (AST/SGOT ) 25, Alanine Aminotransferase (ALT/SGPT) 31, Alkaline Phosphatase 83, Total Bilirubin 0.4, Total Protein 6.6, Albumin 3.0 L Assessment and Plan: 66-year-old male with a flutter on Coumadin, CAD status post CABG, history of cervical neck impingement, history of hairy cell leukemia in remission, end- stage renal disease on hemodialysis, hypertension, hyperlipidemia, diabetes mellitus type 2, hypothyroidism, COPD, KELTON on CPAP, grade 2 chronic dCHF who presented to the emergency department with right-sided chest wall pain located at his permacath. 1. Right-sided chest wall pain: Appears to be mechanical in nature secondary to his permacath. There is no erythema or other signs of infection and the patient has not had any fevers. At this time, we will plan for vascular surgery to remove this permacath and place a new one. In the meantime, there are blood cultures pending, and he was empirically started on Vanco and cefepime. 2. A flutter on Coumadin: The patient's INR is subtherapeutic. We will continue him on his home Coumadin and will use a heparin drip in the meantime for anticoagulation until he is therapeutic. He also received an extra dose of warfarin last night. 3. CAD status post CABG, hyperlipidemia: The patient's only chest pain is the one located on the right chest wall by his permacath. Troponins were mildly elevated at 0.39, but are trending down, and I suspect that this is skewed by his end-stage renal disease. Upon review of the EMR, he appears to have a chronic troponin leak in the 0.3-0.4 range. Additionally, an EKG is not consistent with acute infarct or ischemia. Continue home aspirin, statin, digoxin. The patient does not report a beta danitza at home. 4. End-stage renal disease on hemodialysis. Nephrology has been consulted, and we appreciate their aid with dialysis. Continue home Renvela. 5. Diabetes mellitus type 2: Continue home Levemir 20 units twice a day. Sliding scale insulin while in-house. 6. Hypothyroidism: Continue home Synthroid 7. COPD: Stable. Continue DuoNeb's. 8. Hypertension: Continue home Norvasc. 9. Grade 2 chronic diastolic CHF: Patient currently appears euvolemic. His fluid status is managed with dialysis. DVT prophylaxis: Heparin drip VS, I&O, 24H, Fishbone Vital Signs/I&O Vital Signs Date Time Temp Pulse Resp B/P (MAP) Pulse Ox O2 Delivery O2 Flow Rate FiO2 05/02/17 16:22 18 Nasal Cannula 2.0 05/02/17 15:52 95 05/02/17 11:51 97.5 70 126/57 (80) Laboratory Data 24H LABS Laboratory Tests 2 05/01/17 18:05: White Blood Count 3.0L, Red Blood Count 3.29L, Hemoglobin 10.7L, Hematocrit 31.0L, Mean Corpuscular Volume 94.2, Mean Corpuscular Hemoglobin 35.8H, Mean Corpuscular Hemoglobin Concent 34.6, Red Cell Distribution Width 17.5H, Platelet Count 187, Neutrophils (%) (Auto) 69.4H, Lymphocytes (%) (Auto) 11.4L, Monocytes (%) (Auto) 12.5H, Eosinophils (%) (Auto) 2.4, Basophils (%) (Auto) 0.6 , Neutrophils # (Auto) 2.1, Lymphocytes # (Auto) 0.3L, Monocytes # (Auto) 0.4, Eosinophils # (Auto) 0.1, Basophils # (Auto) 0.0, Large Unclassified Cells % 3.7 , Large Unclassified Cells # 0.1, Erythrocyte Sedimentation Rate > 140H, Prothrombin Time 12.7, Prothromb Time International Ratio 0.94, Activated Partial Thromboplast Time 31.1, D-Dimer, Quantitative 936.6H, Anion Gap 6L, Glomerular Filtration Rate 18.4L, Blood Urea Nitrogen 28H, Creatinine 3.56H, Sodium Level 135L, Potassium Level 4.3, Chloride Level 99, Carbon Dioxide Level 30, Calcium Level 8.4L, Total Creatine Kinase 253, Aspartate Amino Transf (AST/ SGOT) 37, Alanine Aminotransferase (ALT/SGPT) 47, Alkaline Phosphatase 106, Total Bilirubin 0.7, Direct Bilirubin < 0.1, Creatine Kinase MB 3.3, Creatine Kinase MB Relative Index 1.30, Troponin I 0.39H, C-Reactive Protein, Quantitative 1.98H, Total Protein 6.9, Albumin 3.4, Albumin/Globulin Ratio 0.97L , Lipase 129 05/02/17 01:53: Activated Partial Thromboplast Time 29.5, Total Creatine Kinase 186, Creatine Kinase MB 3.1, Creatine Kinase MB Relative Index 1.66, Troponin I 0.36H 05/02/17 02:06: Bedside Glucose (Misc Panel) 227H 05/02/17 04:44: Erythrocyte Sedimentation Rate 128H, Prothrombin Time 14.2, Prothromb Time International Ratio 1.08, Anion Gap 8, Glomerular Filtration Rate 13.8L, Blood Urea Nitrogen 36H, Creatinine 4.59H, Sodium Level 138, Potassium Level 4.3, Chloride Level 103, Carbon Dioxide Level 27, Calcium Level 8.3L, Aspartate Amino Transf (AST/SGOT) 25, Alanine Aminotransferase (ALT/SGPT) 31, Alkaline Phosphatase 83, Total Bilirubin 0.4, C-Reactive Protein, Quantitative 1.97H, Total Protein 6.6, Albumin 3.0L, Albumin/Globulin Ratio 0.83L, Magnesium Level 2.1, Thyroid Stimulating Hormone (TSH) 4.140H, Free Thyroxine Index 3.5, Thyroxine (T4) 9.1, Triiodothyronine (T3) Uptake 38 05/02/17 08:07: Activated Partial Thromboplast Time 73.4H, Total Creatine Kinase 149, Creatine Kinase MB 2.7, Creatine Kinase MB Relative Index 1.81, Troponin I 0.34H 05/02/17 11:35: Bedside Glucose (Misc Panel) 244H 05/02/17 13:49: Activated Partial Thromboplast Time 37.5 05/02/17 16:30: Bedside Glucose (Misc Panel) 250H CBC/BMP Laboratory Tests 05/01/17 18:05 Red Blood Count 3.29 L, Mean Corpuscular Volume 94.2, Mean Corpuscular Hemoglobin 35.8 H, Mean Corpuscular Hemoglobin Concent 34.6, Red Cell Distribution Width 17.5 H, Neutrophils (%) (Auto) 69.4 H, Lymphocytes (%) (Auto ) 11.4 L, Monocytes (%) (Auto) 12.5 H, Eosinophils (%) (Auto) 2.4, Basophils (% ) (Auto) 0.6, Neutrophils # (Auto) 2.1, Lymphocytes # (Auto) 0.3 L, Monocytes # (Auto) 0.4, Eosinophils # (Auto) 0.1, Basophils # (Auto) 0.0, Calcium Level 8.4 L, Total Creatine Kinase 253 05/02/17 04:44 Red Blood Count 3.04 L, Mean Corpuscular Volume 95.5, Mean Corpuscular Hemoglobin 33.1 H, Mean Corpuscular Hemoglobin Concent 34.6, Red Cell Distribution Width 17.3 H, Calcium Level 8.3 L, Aspartate Amino Transf (AST/SGOT ) 25, Alanine Aminotransferase (ALT/SGPT) 31, Alkaline Phosphatase 83, Total Bilirubin 0.4, Total Protein 6.6, Albumin 3.0 L Microbiology Microbiology 05/01/17 Blood Culture, Received Pending [place] May 02, 2017 16:51
[2017-05-02 17:30] VITALS: BP 166/70
[2017-05-02 20:00] VITALS: BP 164/75
[2017-05-02] MEDS: PARoxetine 10MG TABLET PO SCH (21:05)
[2017-05-02] MEDS ORDERED: DARBEPOETIN 100 MCG/0.5 ML *DIALYSIS* SYRINGE (J0882) IV SCH (23:15)
[2017-05-03] VITALS (7 sets, daily range): BP systolic 134–170; BP diastolic 64–76
[2017-05-03] MEDS: MORPHINE 2 MG/ML 1ML SYRINGE IV PRN ×4 (02:43→11:25)
[2017-05-03] MEDS: CEFEPIME HCL 1 GM in D5W MINI-BAG PLUS 50 ML IV SCH (02:49)
[2017-05-03 04:20] LABS: MEAN CORPUSCULAR HEMOGLOBIN 32.4 pg (27.0-33.0); MEAN CORPUSCULAR HGB CONC 33.9 g/dl (32.0-36.5); MEAN CORPUSCULAR VOLUME 95.6 fl (80.0-96.0); RED CELL DISTRIBUTION WIDTH 17.2 % (11.5-14.5); WHITE BLOOD COUNT 3.1 K/mm3 (4.0-10.0)
[2017-05-03 04:30] LABS: INR 1.15
[2017-05-03 04:38] LABS: ALBUMIN 3.1 GM/DL (3.2-5.2); ALBUMIN/GLOBULIN RATIO 0.89 (1.00-1.93); BILIRUBIN,TOTAL 0.4 MG/DL (0.2-1.0); CALCIUM LEVEL 9.2 MG/DL (8.8-10.2); CREATININE FOR GFR 6.35 MG/DL (0.70-1.30); GLOMERULAR FILTRATION RATE 9.5 (>49); MAGNESIUM LEVEL 2.4 MG/DL (1.8-2.4); TOTAL PROTEIN 6.6 GM/DL (6.4-8.2)
[2017-05-03 04:44] LABS: POTASSIUM SERUM 4.8 MEQ/L (3.5-5.1)
[2017-05-03] MEDS: SLF 3 ML SYR IV SCH ×3 (05:04→21:16)
[2017-05-03] MEDS: HEPARIN DRIP 25,000 UNITS in APPROPRIATE DILUENT 1 EA IV SCH ×2 (05:29→12:45)
[2017-05-03] MEDS: ASPIRIN 81 MG ENTERIC TAB PO SCH (05:31)
[2017-05-03] MEDS: amLODIPine 5 MG TAB PO SCH (05:31)
[2017-05-03] MEDS: GABAPENTIN 100 MG CAP PO SCH ×3 (05:32→20:30)
[2017-05-03] MEDS: MULTIVITAMINS/MINERALS THERAP 1 TAB PO SCH (05:32)
[2017-05-03] MEDS: LEVOTHYROXINE 75MCG TABLET (0.075MG) PO SCH (05:32)
[2017-05-03] MEDS: ALLOPURINOL 100 MG TAB PO SCH (05:32)
[2017-05-03] MEDS: CYANOCOBALAMIN 500 MCG TAB PO SCH (05:32)
[2017-05-03] MEDS: SENOKOT S TAB PO SCH ×2 (05:32→20:29)
[2017-05-03] MEDS: (RENVELA) SEVELAMER **CARBONate** 800 MG TAB PO SCH ×3 (05:39→16:48)
--- NOTE | 2017-05-03 06:52 | CR ---
DATE OF CONSULTATION: 05/02/2017 REQUESTING PHYSICIAN:Dr Vivi Ellis REASON FOR CONSULTATION: Management of end-stage renal disease on hemodialysis. CHIEF COMPLAINT: Persistent right-sided chest wall pain at the tunneled hemodialysis catheter site. HISTORY OF PRESENT ILLNESS: Mr. Phill Mansfield is a 66-year-old male with past medical history of end-stage renal disease on hemodialysis every Saturday, Saturday, Saturday. Last hemodialysis session was yesterday, and multiple other comorbidities as mentioned below. The patient has a tunneled right internal jugular (IJ) hemodialysis catheter. He has been complaining of persistent ache and pain at the right IJ hemodialysis catheter site, which is getting worse for the last six months almost. The patient is stabbing in nature, 10/10 in intensity, radiating to back. No associated with any nausea, vomiting or diaphoresis. The patient got a CT scan of the chest done as well, which did not show any acute pathology. The patient has been admitted now for removal of the PermaCath and placement of a new tunneled hemodialysis catheter on the left side, and he will be dialyzed through left catheter tomorrow. PAST MEDICAL HISTORY: The patient has a past medical history of: 1. End-stage renal disease on hemodialysis every Saturday, Saturday, Saturday. 2. Atrial flutter on anticoagulation. 3. Coronary artery disease. 4. Congestive heart failure. 5. History of cervical spine impingement. 6. History of hair-cell leukemia, currently in remission. 7. Obstructive sleep apnea. 8. Hypertension. 9. Diabetes mellitus type 2. 10. Chronic obstructive pulmonary disease (COPD). 11. Hyperlipidemia. PAST SURGICAL HISTORY: 1. History of coronary artery bypass grafting and cardiac stents in the past. 2. Status post cataract surgery. 3. History of arteriovenous (AV) fistula in the past which is occluded now. ALLERGIES: No known drug allergies. FAMILY HISTORY: No significant family history of end-stage renal disease requiring hemodialysis. SOCIAL HISTORY: The patient denies any smoking or drug abuse. The patient drinks socially. REVIEW OF SYSTEMS: CONSTITUTIONAL: The patient denies any fever, chills, rigors. EYES: He denies any blurry vision or double vision. ENT: He denies any dysphagia or odynophagia. CARDIOVASCULAR: He denies any chest pain or palpitations. RESPIRATORY: Denies any shortness of breath, wheezing or rhonchi. GASTROINTESTINAL (GI): He denies any pain abdomen, constipation or diarrhea. GENITOURINARY: He denies any dysuria, hematuria. MUSCULOSKELETAL: The patient reports severe right IJ tunneled hemodialysis catheter back pain. PSYCHIATRIC: He denies any depression or anxiety. CENTRAL NERVOUS SYSTEM (ULTRASOUND TECH): He denies any seizures or strokes or weakness recently. SKIN: He denies any rashes or ulcers. All other review of systems is found to be negative. PHYSICAL EXAMINATION: GENERAL: The patient is awake, alert, and oriented times three. Lying in bed in no apparent distress. VITAL SIGNS: Temperature is 97.5 degrees Fahrenheit, blood pressure is 126/57, pulse is 70, respiratory rate of 18, saturating 95% on nasal cannula at two liters. INTAKE AND OUTPUT: Urine output recorded is 300 mL so far since overnight. Weight in the bed scale is 107.5 kg. HEAD/NECK: Extraocular muscles intact. Pupils equal, round, and reactive to light. Mucous membranes are moist. Neck is supple. There is no jugular venous distention (JVD). AV axis: The patient has a right IJ tunneled hemodialysis catheter. CARDIOVASCULAR: S1, S2. Regular rate. No murmur, rub, or gallop. RESPIRATORY: Clear to auscultation bilaterally. Bilateral equal air entry. No rales or rhonchi. ABDOMEN: Soft. Positive bowel sounds. Nontender. No ascites. No organomegaly. EXTREMITIES: No clubbing or cyanosis. The patient has trace edema of the bilateral lower extremities. ULTRASOUND TECH: No focal neurological deficit. Power is 5/5 in bilateral upper extremities. SKIN: No rashes or ulcers. PSYCHIATRIC: Normal mood and affect. LABORATORY DATA: CBC showed a WBC of 2.5, hemoglobin 10.1, platelets are 137. BMP showed sodium 138, potassium 4.3, chloride 103, bicarbonate 27, BUN 36, creatinine 4.5, calcium 8.3. MICROBIOLOGY: Blood cultures so far are negative. IMAGING: CT angiogram of the chest was done last night, which showed unremarkable exam. No evidence of pulmonary embolism. No acute pathology. CURRENT INPATIENT MEDICATIONS: The patient's medications are all reviewed by me. He is currently on: - heparin subcutaneous - cefepime 1 gram IV every 24 hours - vancomycin 1 gram IV one dose was given, and now he is on 1 gram IV to be given with hemodialysis - DuoNeb as needed - allopurinol 200 mg daily - amlodipine 5 mg daily - aspirin 81 mg by mouth daily - vitamin B12 1000 mcg daily - digoxin 0.125 mg by mouth Saturday, Saturday, Saturday - Colace one tablet by mouth twice a day - Proscar 5 mg at bedtime - gabapentin 100 mg by mouth three times a day - insulin Levemir 20 units subcutaneous twice a day - insulin lispro sliding scale - levothyroxine 75 mcg by mouth daily - morphine IV as needed - paroxetine 10 mg at bedtime - Crestor 20 mg at bedtime - Renvela 800 mg by mouth three times a day with meals - Flomax 0.4 mg by mouth at bedtime - vitamin D 1000 units by mouth at bedtime - warfarin 7.5 mg by mouth daily ASSESSMENT: A 66-year-old male with past medical history of end-stage renal disease on hemodialysis, hypothyroidism, atrial flutter on anticoagulation, hypertension, diabetes mellitus, admitted this time because of persistent right internal jugular (IJ) tunneled hemodialysis catheter site pain. PLAN: 1. Right-sided chest wall pain in the tunneled hemodialysis catheter site: The patient's cultures were sent. He has been started on empiric antibiotics vancomycin and cefepime. The patient has been seen by vascular surgery. He will get his tunneled catheter removed today. Another catheter will be placed tomorrow morning on the left side. Then he will be dialyzed through that catheter. 2.End-stage renal disease on hemodialysis. The patient's regular dialysis days are Saturday, Saturday, and Saturday. Next hemodialysis session will be tomorrow in the afternoon after placement of new tunneled dialysis catheter on the left side. No urgent need of hemodialysis today. 3. Atrial flutter. Continue rate control. Continue Coumadin at this time. International normalized ratio (INR) is subtherapeutic. He should be able to get his procedure done tomorrow morning. 4. 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 Continue current dose of allopurinol 200 mg by mouth daily. 5. Hypertension. Blood pressure is currently well controlled with current regimen. Continue the home dose of antihypertensive medications. 6. Diabetes mellitus type two. Continue home insulin dose of Levemir and lispro. 7. Chronic kidney disease, mineral bone disease. Continue current dose of Renvela 800 mg by mouth three times a day with meals. 8. Anemia in end-stage renal disease. The patient has a history of leukemia in the past as well, which is currently in remission. Hemoglobin is 10.1 which is acceptable. The patient will be given a dose of Aranesp with hemodialysis tomorrow. Thank you for involving us in the care of this patient. We shall be happy to follow the patient along with you tomorrow morning. MTDD
[2017-05-03] MEDS ORDERED: HEPARIN 1,000 UNITS/ML 10ML VIAL (FOR RADIOLOGY& DIALYSIS ONLY) As Ordered ONE (07:03)
[2017-05-03] MEDS ORDERED: fentaNYL 100 MCG/2 ML INJECTION (J3010) As Ordered ONE (07:03)
[2017-05-03] MEDS: IPRATROPIUM 0.5MG/ALBUTEROL 2.5MG INH SOL UD 3ML (DUONEB)(J7620) NEB SCH ×3 (07:22→19:54)
[2017-05-03] MEDS ORDERED: LIDOCAINE 2% MDV 20 ML VIAL As Ordered ONE (08:11)
[2017-05-03] MEDS ORDERED: DIGOXIN 0.125 MG TAB PO SCH (09:00)
[2017-05-03] MEDS: LEVEMIR (INSULIN DETEMIR) 1 UNITS/0.01ML SC SCH ×2 (09:33→21:15)
[2017-05-03] MEDS: HumaLOG INSULIN (NovoLOG) PER UNIT SC SCH ×4 (09:33→21:14)
--- NOTE | 2017-05-03 10:25 | PHACANCOPD ---
PHARMACY VANCOMYCIN DOSING Pt Demographics Demographics Patient Age:66 , Weight:108.400 , Gender: male Adjusted Body Weight Date: 05/02/17, Adjusted Body Weight: [87] Kg Events Past 24 Hours Events Past 24 Hours: YES: Dialysis, NO: Diuretic Therapy, Change in CrCl, Fever, Elevation in WBC, Pending Diagnostics, Pending Procedures, Other Vancomycin Vancomycin Target Ranges: 10-20 mcg/ml Vancomycin Load Y/N: Yes Load Dose Date Time Vancomycin Load Dose: 1000MG given 0100 in er followed by q24h dosing started at 0900 Vancomycin Dose Date: 05/02/17. Current Vancomycin Dose: [Pt receives HD. Changed to Vanco IV 1G HD (HD on mon, wed, fri] Intermittent Dosing?: No Labs Labs Item Value Date Time Creatinine 3.56 MG/DL H 05/01/17 1805 Creatinine 4.59 MG/DL H 05/02/17 0444 Vancomycin Level Trough 24.8 UG/ML H 05/03/17 0910 White Blood Count 3.0 K/mm3 L 05/01/17 1805 White Blood Count 2.6 K/mm3 L 05/02/17 0444 White Blood Count 3.1 K/mm3 L 05/03/17 0413 Micro Microbiology 05/01/17 Blood Culture - Preliminary, Resulted No growth after 24 hours . All specim... Creatinine Clearance Date:05/02/17. Creatinine Clearance: [19]. Pending Labs Trough 07- @0800 Assessment and Plan Maintaining Current Dose?: Yes Reason for dose change: No Dose Change Pharmacist Note Pharmacist Note 05/03/17: Patient is a 66 year old male who presented with pain and possible infection at dialysis port. Pt has no history of MRSA at our facility. They will be placing a new port and resuming dialysis as scheduled sat. The scheduled trough works as a good random after loading dose and came back at 24.8. We will start today pt on Vanco 1G IV HD. We will continue to monitor and makes changes as needed. Date: 05/02/17. Pharmacist note:Dosed at 1000mg q24h with a trough ordered for 07 - @0800. Will continue to monitor and make adjustments as needed. [facility] May 03, 2017 10:20
--- NOTE | 2017-05-03 11:47 | ROOPDOC ---
[facility] Report Of Operation Report of Operation DATE OF PROCEDURE: 05/03/17 PREPROCEDURE DIAGNOSES: End-stage renal disease, status post removal of right internal jugular vein PermCath due to pain. POSTPROCEDURE DIAGNOSES: End-stage renal disease, status post removal of right internal jugular vein PermCath due to pain. PROCEDURE: Ultrasound and fluoroscopic guided left internal jugular vein 23 cm tip to cuff tunneled central venous catheter placement. SURGEON: Dr. León Simpson MD COMPENSATION EXPERT: Poonam Kelly, processing technologist INDICATION: Patient is a 66-year-old male with end-stage renal disease, who underwent removal of his right internal jugular vein PermCath due to pain and who requires access for hemodialysis. Patient was evaluated and will undergo a left internal jugular vein PermCath placement. Risks benefits and alternative treatment options were discussed with the patient. Alternative treatment options included but were not limited to no intervention. The risks included but were not limited to infection, bleeding, pneumothorax, hemothorax, possible need for open surgical intervention, cerebrovascular accident, myocardial infarction, pulmonary embolus, DVT, loss of limb, loss of life and her outcome. All the patient's questions were answered, the patient understands the risks benefits and alternative treatment options, patient agrees to proceed with a left internal jugular vein PermCath placement. ANESTHESIA: Local with sedation: 50 g of fentanyl and 18 cc of 2% lidocaine. ESTIMATED BLOOD LOSS: Minimal. IVF: 100 cc FLUOROSCOPIC TIME: 0.2 min. CONTRAST: None COMPLICATIONS: None IMPLANTS: Left internal jugular vein and 23 cm tip to cuff PermCath with use of an EvenMore catheter. PROCEDURE: Patient was taken to the angiography suite, placed supine on the angiography room table and after performing a time out confirming the correct patient and procedure, the patient was prepped and draped in a standard surgical fashion. Ultrasound was used to evaluate the left internal jugular vein, which was noted to be easily compressible free of thrombus and widely patent. Ultrasound was then used to guide cannulation of the left internal jugular vein with a micro-puncture needle after anesthetizing the overlying skin with 2% lidocaine, and a hard copy image was preserved. The micropuncture wire was then advanced to the micropuncture needle which was upsized to a micropuncture sheath. An Amplatz wire was then advanced to the micropuncture sheath under fluoroscopic guidance. The left internal jugular vein was then sequentially dilated under fluoroscopic guidance and an introducer sheath was positioned. A 23 cm tip to cuff cuff catheter was then tunneled through a puncture wound in the left chest and brought out at the puncture wound at the left internal jugular vein entry site after anesthetizing the overlying skin with 2% lidocaine. The catheter was advanced through the introducer sheath and positioned with the tip in the superior vena cava right atrial junction under fluoroscopic guidance. Both ports of the catheter were then aspirated, noted to aspirate easily and then flushed with heparinized saline. The catheter was secured to the anterior chest wall using 2-0 Prolene suture after anesthetizing the overlying skin with 2% lidocaine. The puncture wound in the left neck was closed using a 4-0 Vicryl suture in an inverted interrupted fashion. All instrument, sponge and needle counts were correct at the end of the case. There were no complications. Dr. Simpson was present for and directed the entire case. The PermCath is stable for use for hemodialysis access. RADIOLOGIC SUPERVISION AND INTERPRETATION: The initial ultrasound of the left internal jugular vein showed the vein to be widely patent, easily compressible and free of thrombus. Ultrasound was then used to guide cannulation of the left internal jugular vein with a hard copy image preserved. The left internal jugular vein was sequentially dilated under fluoroscopic guidance. The final fluoroscopic image showed the catheter to be in good position and good alignment with the tip in the superior vena cava right atrial junction, with no pneumothorax or hemothorax present. The catheter is stable for used for hemodialysis access. Tyler Simpson MD May 03, 2017 11:47
[2017-05-03] MEDS: PERCOCET 5MG/325MG TAB PO PRN ×3 (12:04→20:30)
[2017-05-03] MEDS: MORPHINE 4 MG/ML 1ML SYRINGE IV PRN ×4 (14:18→22:18)
--- NOTE | 2017-05-03 14:56 | IPNPDOC ---
Date Seen The patient was seen on 05/03/17. Progress Note Hospitalist Progress Note Subjective: Patient reports he is still having pain at the site of his previous right permacath Objective: Physical Exam: Vitals: Vital Sign - Last 24 Hours 05/02/17 05/02/17 05/02/17 05/02/17 15:52 16:00 16:22 17:22 Temp 97.8 Pulse 77 Resp 20 19 20 B/P (MAP) 184/80 (114) Pulse Ox 95 95 95 O2 Delivery Nasal Cannula Nasal Cannula Nasal Cannula O2 Flow Rate 2.0 2.0 2.0 2.0 05/02/17 05/02/17 05/02/17 05/02/17 17:30 17:32 20:00 20:00 Temp 97.8 Pulse 73 Resp 20 B/P (MAP) 166/70 (102) 164/75 (104) Pulse Ox 96 98 O2 Delivery Nasal Cannula Room Air O2 Flow Rate 2.0 2.0 05/02/17 05/03/17 05/03/17 05/03/17 22:51 00:00 02:43 04:00 Temp 97.4 97.6 Pulse 75 74 Resp 22 20 22 18 B/P (MAP) 134/67 (89) 164/68 (100) Pulse Ox 96 96 O2 Delivery NIPPV (BIPAP/CPAP) Room Air 05/03/17 05/03/17 05/03/17 05/03/17 05:04 05:31 09:14 09:15 Temp 97.6 Pulse 74 78 Resp 17 18 B/P (MAP) 164/74 149/67 (94) Pulse Ox 94 O2 Delivery Room Air Room Air Nasal Cannula O2 Flow Rate 2.0 05/03/17 05/03/17 05/03/17 05/03/17 09:32 09:34 09:44 11:25 Pulse 80 Resp 20 20 O2 Delivery Room Air Room Air Room Air 05/03/17 05/03/17 05/03/17 05/03/17 11:35 12:00 12:04 12:45 Temp 97.8 Pulse 73 Resp 20 18 20 20 B/P (MAP) 138/71 (93) Pulse Ox 95 O2 Delivery Room Air Room Air Room Air 05/03/17 14:18 Resp 20 O2 Delivery Room Air General: Awake, alert, no acute distress HEENT: Normocephalic, atraumatic, extraocular movements intact CV: Regular rate and rhythm Lungs: Clear to auscultation bilaterally Abd: Soft, nontender, nondistended Extremities: Trace BL edema Neuro: Alert and oriented 3, normal speech Psych: Normal mood and affect Labs and Imaging: Laboratory Tests 05/03/17 04:13 Red Blood Count 3.19 L, Mean Corpuscular Volume 95.6, Mean Corpuscular Hemoglobin 32.4, Mean Corpuscular Hemoglobin Concent 33.9, Red Cell Distribution Width 17.2 H Assessment and Plan: 66-year-old male with Aflutter on Coumadin, CAD status post CABG, history of cervical neck impingement, history of hairy cell leukemia in remission, end- stage renal disease on hemodialysis, hypertension, hyperlipidemia, diabetes mellitus type 2, hypothyroidism, COPD, KELTON on CPAP, grade 2 chronic dCHF who presented to the emergency department with right-sided chest wall pain located at his permacath. 1. Right-sided chest wall pain: Appears to be mechanical in nature secondary to his permacath. There is no erythema or other signs of infection and the patient has not had any fevers. Vascular surgery has removed the original permacath on the right and placed a new one on the left.. Blood cultures are pending, and he was empirically started on Vanco and cefepime. 2. A flutter on Coumadin: The patient's INR is subtherapeutic. We will continue him on his home Coumadin and follow daily INR; he received an extra dose of coumadin on admission. He was started on a heparin drip on admission, however, standard of care does not require bridging if the indication is Aflutter/Afib. I will confirm with patient that he does not have any concerning history I have not been made aware of (prior stroke from Aflutter, recent VTE, underlying clotting disorder, mechanical valve) but if indeed none of these apply to him, we will be able to stop the bridging heparin and allow his INR to rise with the oral coumadin. Continue digoxin. 3. CAD status post CABG, hyperlipidemia: The patient's only chest pain is the one located on the right chest wall by his permacath. Troponins were mildly elevated at 0.39, but are trending down, and I suspect that this is skewed by his end-stage renal disease. Upon review of the EMR, he appears to have a chronic troponin leak in the 0.3-0.4 range. Additionally, EKG is not consistent with acute infarct or ischemia. Continue home aspirin, statin, digoxin. The patient does not report a beta danitza at home. 4. End-stage renal disease on hemodialysis. Nephrology has been consulted, and we appreciate their aid with dialysis. Continue home Renvela. 5. Diabetes mellitus type 2: Continue home Levemir 20 units twice a day. Sliding scale insulin while in-house. 6. Hypothyroidism: Continue home Synthroid 7. COPD: Stable. Continue DuoNeb's. 8. Hypertension: Continue home Norvasc. 9. Grade 2 chronic diastolic CHF: Patient currently appears euvolemic. His fluid status is managed with dialysis. DVT prophylaxis: Heparin drip Dispo: potentially home tomorrow; receiving dialysis today VS, I&O, 24H, Fishbone Vital Signs/I&O Vital Signs Date Time Temp Pulse Resp B/P (MAP) Pulse Ox O2 Delivery O2 Flow Rate FiO2 05/03/17 14:18 20 Room Air 05/03/17 12:00 97.8 73 138/71 (93) 95 05/03/17 09:15 2.0 I&O- Last 24 Hours up to 6 AM 05/03/17 06:00 Intake Total 2210 ml Output Total 300 ml Balance 1910 ml Laboratory Data 24H LABS Laboratory Tests 2 05/02/17 16:30: Bedside Glucose (Misc Panel) 250H 05/02/17 21:08: Bedside Glucose (Misc Panel) 314H 05/02/17 21:16: Activated Partial Thromboplast Time 86.0H 05/03/17 04:13: Activated Partial Thromboplast Time 61.3H, Prothrombin Time 14.9H, Prothromb Time International Ratio 1.15, Anion Gap 7L, Glomerular Filtration Rate 9.5L, Sodium Level 132L, Potassium Level 4.8, Magnesium Level 2.4, C-Reactive Protein , Quantitative 3.15H, Albumin/Globulin Ratio 0.89L 05/03/17 09:10: Erythrocyte Sedimentation Rate 81H, Vancomycin Level Trough 24.8H 05/03/17 11:15: Activated Partial Thromboplast Time 87.4H 05/03/17 11:35: Bedside Glucose (Misc Panel) 300H CBC/BMP Laboratory Tests 05/03/17 04:13 Red Blood Count 3.19 L, Mean Corpuscular Volume 95.6, Mean Corpuscular Hemoglobin 32.4, Mean Corpuscular Hemoglobin Concent 33.9, Red Cell Distribution Width 17.2 H Microbiology Microbiology 05/01/17 Blood Culture - Preliminary, Resulted No growth after 24 hours . All specim... [place] May 03, 2017 14:56
[2017-05-03] MEDS ORDERED: VANCOMYCIN HCL 1,000 MG, VIAL MATE ADAPTER 1 EACH in D5W 250 ML IV SCH (16:00)
[2017-05-03] MEDS ORDERED: CHECK TO SEE IF PATIENT IS RECEIVING DIALYSIS TODAY AND REFER TO THE VANCOMYCIN ORDER XX SCH (16:00)
[2017-05-03] MEDS: WARFARIN SOD 7.5 MG TAB PO SCH (16:28)
[2017-05-03] MEDS ORDERED: HEPARIN 1,000 UNITS/ML 10ML VIAL (FOR RADIOLOGY& DIALYSIS ONLY) XX ONE (17:15)
[2017-05-03] MEDS ORDERED: HEPARIN 1,000 UNITS/ML 10ML VIAL (FOR RADIOLOGY& DIALYSIS ONLY) IV ONE (17:15)
[2017-05-03] MEDS: TAMSULOSIN 0.4 MG CAP PO SCH (20:29)
[2017-05-03] MEDS: ROSUVASTATIN 10 MG TAB (CRESTOR) PO SCH (20:29)
[2017-05-03] MEDS: FINASTERIDE 5 MG TAB PO SCH (20:29)
[2017-05-03] MEDS: PARoxetine 10MG TABLET PO SCH (20:30)
[2017-05-03] MEDS: VITAMIN D 1,000 INTERNATIONAL UNITS TABLET PO SCH (20:30)
[2017-05-04] MEDS: PERCOCET 5MG/325MG TAB PO PRN ×2 (00:46→05:31)
[2017-05-04] MEDS: IPRATROPIUM 0.5MG/ALBUTEROL 2.5MG INH SOL UD 3ML (DUONEB)(J7620) NEB SCH ×2 (01:50→08:00)
[2017-05-04] MEDS: MORPHINE 4 MG/ML 1ML SYRINGE IV PRN (02:27)
[2017-05-04] MEDS: CEFEPIME HCL 1 GM in D5W MINI-BAG PLUS 50 ML IV SCH (02:28)
[2017-05-04] MEDS: HEPARIN DRIP 25,000 UNITS in APPROPRIATE DILUENT 1 EA IV SCH (04:29)
[2017-05-04 05:07] VITALS: BP 152/64
[2017-05-04] MEDS: SLF 3 ML SYR IV SCH (05:32)
[2017-05-04 06:34] LABS: MEAN CORPUSCULAR HEMOGLOBIN 32.9 pg (27.0-33.0); MEAN CORPUSCULAR HGB CONC 34.1 g/dl (32.0-36.5); MEAN CORPUSCULAR VOLUME 96.4 fl (80.0-96.0); RED CELL DISTRIBUTION WIDTH 17.3 % (11.5-14.5); WHITE BLOOD COUNT 4.4 K/mm3 (4.0-10.0)
--- NOTE | 2017-05-04 06:48 | REP ---
C-ARM VIEW CHEST: A C-ARM view of the chest is performed during placement of a left central venous catheter. The tip is in the right atrium. Radiation dose is 0.1 milligray. Signed by Abhijit Gannon MD 05/04/2017 03:18 P
[2017-05-04 06:53] LABS: INR 1.39
[2017-05-04 07:04] LABS: ALBUMIN 3.1 GM/DL (3.2-5.2); ALBUMIN/GLOBULIN RATIO 0.84 (1.00-1.93); BILIRUBIN,TOTAL 0.4 MG/DL (0.2-1.0); CALCIUM LEVEL 8.9 MG/DL (8.8-10.2); CREATININE FOR GFR 6.55 MG/DL (0.70-1.30); GLOMERULAR FILTRATION RATE 9.1 (>49); MAGNESIUM LEVEL 2.4 MG/DL (1.8-2.4); POTASSIUM SERUM 4.7 MEQ/L (3.5-5.1); TOTAL PROTEIN 6.8 GM/DL (6.4-8.2)
[2017-05-04] MEDS: HumaLOG INSULIN (NovoLOG) PER UNIT SC SCH ×2 (07:33→12:00)
[2017-05-04 08:00] VITALS: BP 160/58
[2017-05-04 08:30] VITALS: BP 160/58
[2017-05-04] MEDS: CYANOCOBALAMIN 500 MCG TAB PO SCH (08:30)
[2017-05-04] MEDS: amLODIPine 5 MG TAB PO SCH (08:30)
[2017-05-04] MEDS: LEVOTHYROXINE 75MCG TABLET (0.075MG) PO SCH (08:30)
[2017-05-04] MEDS: MULTIVITAMINS/MINERALS THERAP 1 TAB PO SCH (08:31)
[2017-05-04] MEDS: ASPIRIN 81 MG ENTERIC TAB PO SCH (08:31)
[2017-05-04] MEDS: GABAPENTIN 100 MG CAP PO SCH (08:31)
[2017-05-04] MEDS: (RENVELA) SEVELAMER **CARBONate** 800 MG TAB PO SCH ×2 (08:31→12:00)
[2017-05-04] MEDS: SENOKOT S TAB PO SCH (08:31)
[2017-05-04] MEDS: ALLOPURINOL 100 MG TAB PO SCH (08:31)
[2017-05-04] MEDS: LEVEMIR (INSULIN DETEMIR) 1 UNITS/0.01ML SC SCH (08:32)
[2017-05-04] MEDS: PREVNAR 13 VACCINE SYRINGE (CPT CODE:90670) IM ONE (09:00)
[2017-05-04] MEDS ORDERED: PNEUMOCOCCAL VACCINE 0.5ML SYRINGE(90732) PNEUMOVAX 23 IM ONE (10:30)
--- NOTE | 2017-05-04 11:57 | DS.PDOC ---
Discharge Summary General Date of Admission May 01, 2017 at 22:53 Date of Discharge 05/04/2017 Discharge Summary DISCHARGE SUMMARY DATE OF ADMISSION: 05/01/2017 DATE OF DISCHARGE: 05/04/2017 PRIMARY CARE PHYSICIAN: Dr. Rubio DISCHARGE DIAGNOS(E)S: Mechanical pain at site of right permacath Removal of right permacath Placement of left permacath HPI & HOSPITAL COURSE: 66-year-old male with Aflutter on Coumadin, CAD status post CABG, history of cervical neck impingement, history of hairy cell leukemia in remission, end- stage renal disease on hemodialysis, hypertension, hyperlipidemia, diabetes mellitus type 2, hypothyroidism, COPD, KELTON on CPAP, grade 2 chronic dCHF who presented to the emergency department with right-sided chest wall pain located at his permacath. 1. Right-sided chest wall pain: Appears to be mechanical in nature secondary to his permacath. There is no erythema or other signs of infection and the patient has not had any fevers. Vascular surgery has removed the original permacath on the right and placed a new one on the left. He was empirically placed on vanco and cefepime until blood culture was negative. On day of discharge, pain was much improved. 2. A flutter on Coumadin: The patient's INR is subtherapeutic. We will continue him on his home Coumadin and follow daily INR; he received an extra dose of coumadin on admission. He was started on a heparin drip on admission, however, standard of care does not require bridging if the indication is Aflutter/Afib. The patient denies prior stroke from Aflutter, recent VTE, underlying clotting disorder, mechanical valve so we stopped the bridging heparin and will allow his INR to rise with the oral coumadin. Continue digoxin. He states he checks his INR at home himself; he was instructed to call this value in to his PCP on Saturday for further adjustment. INR on the day of discharge was 1.39. 3. CAD status post CABG, hyperlipidemia: The patient's only chest pain is the one located on the right chest wall by his permacath. Troponins were mildly elevated at 0.39, but are trending down, and I suspect that this is skewed by his end-stage renal disease. Upon review of the EMR, he appears to have a chronic troponin leak in the 0.3-0.4 range. Additionally, EKG is not consistent with acute infarct or ischemia. Continue home aspirin, statin, digoxin. The patient does not report a beta danitza at home. 4. End-stage renal disease on hemodialysis. Nephrology has been consulted, and we appreciate their aid with dialysis. Continue home Renvela. 5. Diabetes mellitus type 2: Continue home Levemir 20 units twice a day. Sliding scale insulin while in-house; will resume home prandial insulin at discharge. 6. Hypothyroidism: Continue home Synthroid 7. COPD: Stable. Continue DuoNeb's. 8. Hypertension: Continue home Norvasc. 9. Grade 2 chronic diastolic CHF: Patient currently appears euvolemic. His fluid status is managed with dialysis. PHYSICAL EXAMINATION ON DISCHARGE: VITAL SIGNS: Vital Sign - Last 24 Hours 05/03/17 05/03/17 05/03/17 05/03/17 12:00 12:04 12:45 14:18 Temp 97.8 Pulse 73 Resp 18 20 20 20 B/P (MAP) 138/71 (93) Pulse Ox 95 O2 Delivery Room Air Room Air Room Air Room Air 05/03/17 05/03/17 05/03/17 05/03/17 15:22 15:55 16:30 16:40 Resp 18 20 O2 Delivery Room Air Room Air Room Air Room Air 05/03/17 05/03/17 05/03/17 05/03/17 19:22 19:38 20:20 20:30 Temp 98.5 Pulse 83 Resp 20 18 18 B/P (MAP) 170/76 (107) Pulse Ox 95 O2 Delivery Room Air Nasal Cannula Room Air O2 Flow Rate 2.0 05/03/17 05/03/17 05/03/17 05/04/17 22:06 22:18 23:34 00:00 Temp 97.5 Pulse 75 Resp 18 18 B/P (MAP) 150/64 (92) 158/70 (99) Pulse Ox 93 O2 Delivery Nasal Cannula NIPPV (BIPAP/CPAP) BIPAP/CPAP O2 Flow Rate 2.0 05/04/17 05/04/17 05/04/17 05/04/17 00:46 02:27 02:37 04:00 Resp 18 18 18 O2 Delivery BIPAP/CPAP O2 Flow Rate 2.0 05/04/17 05/04/17 05/04/1722/17 05:07 05:31 06:01 07:30 Temp 97.6 Pulse 74 Resp 18 18 18 B/P (MAP) 152/64 (93) Pulse Ox 97 O2 Delivery NIPPV (BIPAP/CPAP) BIPAP/CPAP O2 Flow Rate 2.0 2.0 05/04/17 05/04/17 08:00 08:30 Temp 98.3 Pulse 75 74 Resp 18 B/P (MAP) 160/58 (92) 160/58 Pulse Ox 95 O2 Delivery NIPPV (BIPAP/CPAP) O2 Flow Rate 2.0 General: Awake, alert, no acute distress HEENT: Normocephalic, atraumatic, extraocular movements intact CV: Regular rate and rhythm Lungs: Clear to auscultation bilaterally Abd: Soft, nontender, nondistended Extremities: Trace BL edema Neuro: Alert and oriented 3, normal speech Psych: Normal mood and affect DISPOSITION: Home DISCHARGE INSTRUCTIONS: Follow-up with PCP within one week. Patient states that he checks his INR at home. He was instructed to call the value into his PCP on Saturday for further adjustment of Coumadin. Keep all dialysis appointments If symptoms return, or if you experience worsening of your symptoms, please call your doctor or return to the emergency department. ITEMS THAT NEED OUTPATIENT FOLLOWUP: Repeat INR with further adjustment of Coumadin Patient was seen and examined by me on the day of discharge, and I spent a total time of greater than 30 minutes on this discharge. Vital Signs/I&Os Vital Signs Date Time Temp Pulse Resp B/P (MAP) Pulse Ox O2 Delivery O2 Flow Rate FiO2 05/04/17 08:30 74 160/58 05/04/17 08:00 98.3 18 95 NIPPV (BIPAP/CPAP) 2.0 I&O- Last 24 Hours up to 6 AM 05/04/17 06:00 Intake Total 1496 ml Output Total 1960 ml Balance -464 ml Laboratory Data Labs 24H Laboratory Tests 2 05/03/17 16:57: Activated Partial Thromboplast Time 86.8H 05/03/17 21:08: Bedside Glucose (Misc Panel) 332H 05/04/17 05:25: Activated Partial Thromboplast Time 99.0H, Erythrocyte Sedimentation Rate 106H, Prothrombin Time 17.4H, Prothromb Time International Ratio 1.39, Anion Gap 10, Glomerular Filtration Rate 9.1L, Blood Urea Nitrogen 46H, Creatinine 6.55H, Sodium Level 130L, Potassium Level 4.7, Chloride Level 95L, Carbon Dioxide Level 25, Calcium Level 8.9, Aspartate Amino Transf (AST/SGOT) 18, Alanine Aminotransferase (ALT/SGPT) 28, Alkaline Phosphatase 83, Total Bilirubin 0.4, Total Protein 6.8, Albumin 3.1L, Magnesium Level 2.4, C-Reactive Protein, Quantitative 5.52H, Albumin/Globulin Ratio 0.84L CBC/BMP Laboratory Tests 05/04/17 05:25 Red Blood Count 2.86 L, Mean Corpuscular Volume 96.4 H, Mean Corpuscular Hemoglobin 32.9, Mean Corpuscular Hemoglobin Concent 34.1, Red Cell Distribution Width 17.3 H, Calcium Level 8.9, Aspartate Amino Transf (AST/SGOT) 18, Alanine Aminotransferase (ALT/SGPT) 28, Alkaline Phosphatase 83, Total Bilirubin 0.4, Total Protein 6.8, Albumin 3.1 L FSBS Laboratory Tests Test 05/03/17 21:08 Range/Units Bedside Glucose (Misc Panel) 332 80-115 MG/DL Microbiology Microbiology 05/01/17 Blood Culture - Preliminary, Resulted No Growth after 48 hours. All Specime... Discharge Medications Scheduled (Fish Oil 1200 mg) 1 Cap Cap, 1 CAP PO BID, (Reported) Acetylcysteine Injection (Nac 600) 600 Mg Cap, 600 MG PO DAILY, (Reported) Allopurinol (Allopurinol) 100 Mg Tab, 200 MG PO DAILY, (Reported) Amlodipine Besylate (Amlodipine Besylate) 5 Mg Tab, 5 MG PO DAILY, (Reported) Aspirin (Aspirin EC) 81 Mg Tabec, 81 MG PO DAILY, (Reported) Calcium/Vitamin D (Calcium 600+D 600-200 mg-Unit) 1 Tab Tab, 1 TAB PO QHS, ( Reported) Cholecalciferol (Vitamin D3) 1,000 Unit Cap, 1,000 UNIT PO QHS, (Reported) Cyanocobalamin (Vitamin B-12) 1,000 Mcg Tab, 1,000 MCG PO DAILY, (Reported) Digoxin (Digoxin) 0.125 Mg Tab, 0.125 MG PO 3XW, (Reported) Saturday, Saturday, Saturday Fentanyl (Fentanyl) 50 Mcg Tdsy, 50 MCG TD Q3RD, (Reported) Finasteride (Finasteride) 5 Mg Tab, 5 MG PO QHS, (Reported) Gabapentin (Gabapentin) 100 Mg Cap, 100 MG PO TID, (Reported) Insulin Aspart (Novolog) 100 U/Ml Inj, 1 DOSE SC AC, (Reported) PER SLIDING SCALE-same as hospital scale-in addition to scheduled doses Insulin Aspart (Novolog) 100 U/Ml Inj, 12 UNITS SC ACB, (Reported) Insulin Aspart (Novolog) 100 U/Ml Inj, 14 UNITS SC DAILY, (Reported) TAKES BEFORE LUNCH Insulin Aspart (Novolog) 100 U/Ml Inj, 16 UNITS SC ACS, (Reported) Insulin Glargine (Lantus) 1 Units/0.01 Ml Susp, 30 UNITS SC BID, (Reported) Levothyroxine Sodium (Levoxyl) 75 Mcg Tab, 75 MCG PO DAILY, (Reported) Multivitamins *[facility] STOCKED* (Thera M Plus *[facility] STOCKED*) 1 Tab Tab, 1 TAB PO DAILY, (Reported) Paroxetine Hydrochloride (Paxil) 10 Mg Tab, 10 MG PO QHS, (Reported) Rosuvastatin Calcium (Crestor) 20 Mg Tab, 20 MG PO QHS, (Reported) Sevelamer Carbonate (Renvela) 800 Mg Tab, 800 MG PO with meals, (Reported) Tamsulosin Hydrochloride (Flomax) 0.4 Mg Cap, 0.4 MG PO QHS, (Reported) Warfarin Sod (Coumadin) 7.5 Mg Tab, 7.5 MG PO 4XWK, (Reported) TAKES EVERY OTHER DAY AT 1900 Warfarin Sod (Warfarin Sodium) 10 Mg Tab, 10 MG PO 3XW, (Reported) TAKES OPPOSITE DAYS OF 7.5MG AT 1900 Scheduled PRN Albuterol Sulfate (Albuterol Sulfate) 2.5 Mg/3 Ml Nebu, 2.5 MG INH Q4H PRN for SHORTNESS OF BREATH, (Reported) Albuterol Sulfate (Proventil Hfa) 167 Puff/6.7 Gm Aers, 2 PUFFS INH Q4H PRN for SHORTNESS OF BREATH, (Reported) Nitroglycerin (Nitrostat) 0.4 Mg Subl, 0.4 MG SL NITRO PRN for CHEST PAIN, ( Reported) Oxycodone/Acetaminophen (Percocet 10-325 mg) 1 Tab Tab, 1 TAB PO BID PRN for PAIN, (Reported) Allergies Coded Allergies: No Known Allergies (Unverified , 03/15/17) [place] May 04, 2017 11:57
--- NOTE | 2017-05-04 15:26 | IPN ---
DATE: 05/03/2017 SUBJECTIVE: The patient was seen and examined at the bedside today morning during work rounds and again during hemodialysis. The patient got the left internal jugular permanent tunneled dialysis catheter placed this morning. The patient reports a moderate amount of pain at the catheter site. REVIEW OF SYSTEMS: The patient denies any fevers, chills, rigors, headache, nausea, vomiting, chest pain. He does report pain at the catheter site. He denies any pain in the abdomen, constipation or diarrhea. He reports mild tremors of the hands. Otherwise, rest of the review of systems is negative. OBJECTIVE: VITAL SIGNS: Temperature is 97.8 degrees Fahrenheit, blood pressure is 138/71, pulse is 73, respiratory rate of 18, saturating 95% on room air. Intake and output: Urine output recorded yesterday is 300 mL. No urine output is recorded for today. Weight on the bed scale is 108.4 kg. PHYSICAL EXAMINATION: GENERAL: The patient is awake, alert, oriented times three. Sitting on the sofa. No apparent distress. HEAD AND NECK EXAM: Extraocular muscles intact. Pupils are equally round and reactive to light. Mucous membranes are moist. Neck is supple. There is no jugular venous distention (JVD). AV ACCESS: The patient has a left internal jugular tunneled hemodialysis catheter. CARDIOVASCULAR: S1, S2. Regular rate. No murmur, rub or gallop. RESPIRATORY: Chest is clear to auscultation bilaterally. Bilateral equal air entry. No rales or rhonchi. ABDOMEN: Soft. Positive bowel sounds. Nontender. No ascites. No organomegaly. EXTREMITIES: No clubbing or cyanosis. He has trace edema of the bilateral lower extremities. Pulses are 2+. NEUROLOGIC: No focal neurological deficits. Power is 5/5 in all extremities. SKIN: No rashes or ulcers. PSYCHIATRIC: Normal mood and affect. LABORATORY REVIEW: Complete blood count (CBC) showed a WBC of 3.1, hemoglobin 10.4, platelets of 115. Basic metabolic panel (BMP) showed sodium 132, potassium 4.8, creatinine was 4.59. CURRENT INPATIENT MEDICATIONS: The patient's medications were all reviewed by me. He continues to be on IV cefepime and IV vancomycin 1 gram with hemodialysis. He is currently on heparin drip as well. He is being bridged to Coumadin as well. ASSESSMENT: 66-year-old male with past medical history of end stage renal disease on hemodialysis, hypothyroidism, atrial flutter on anticoagulation, hypertension, diabetes mellitus type 2 admitted this time because of severe right IJ tunneled hemodialysis catheter site pain. Right IJ catheter was removed yesterday. The patient got a left IJ tunneled hemodialysis catheter placed today. PLAN: 1. Right sided chest wall pain. The patient got his catheter removed yesterday. He has a catheter on the left side as well. He is complaining of pain at the left sided catheter as well, but this is a new catheter. The patient had to get IV morphine during hemodialysis because of the pain at the catheter site. 2. End stage renal disease. On hemodialysis. The patient is being dialyzed according to his regular schedule today. 3. Atrial flutter. The patient's heart rate is well controlled at this time. He is currently on IV heparin and being bridged to Coumadin to make his INR therapeutic. 4. Hypertension. Blood pressure is acceptable at this time. Continue current dose of amlodipine 5 mg by mouth daily. 5. Chronic kidney disease, mineral bone disease. Continue current dose of Renvela 800 mg by mouth three times a day with meals. DISCHARGE PLANNING: If the patient is able to finish his hemodialysis without any problems, then he should be able to be discharged by tomorrow morning.
--- NOTE | 2017-05-05 14:24 | IPN ---
DATE: 05/04/2017 SUBJECTIVE: Patient was seen and examined at the bedside today morning. He is sitting in the sofa. Last 24 hour events were noted. Patient was dialyzed yesterday. However, he requested to be taken off earlier. He only got 2.5 hours of dialysis. He denies any active complaints today. REVIEW OF SYSTEMS: Patient denies any fevers, chills, rigors, headache, nausea, vomiting, chest pain. He reports that left-sided catheter pain is significantly better today. He denies any pain in abdomen, constipation or diarrhea. Rest of the review of systems is negative. OBJECTIVE: VITAL SIGNS: Temperature is 98 degrees Fahrenheit, blood pressure is 160/58, pulse is 74, respiratory rate of 18, saturating 92% on room air. INTAKE AND OUTPUT: Urine output recorded is 150 mL yesterday. Ultrafiltration with hemodialysis was 1.8 liters yesterday. Weight on the bed scale is not accurate. PHYSICAL EXAMINATION: GENERAL: Patient is awake, alert, oriented times three, sitting on sofa, no apparent distress. HEAD AND NECK EXAM: Extraocular muscles intact. Pupils equally round and reactive to light. Mucous membranes are moist. Neck is supple. There is no jugular venous distention (JVD). CARDIOVASCULAR: S1, S2. Regular rate. No murmur, rub or gallop. RESPIRATORY: Chest is clear to auscultation bilaterally. Bilateral equal air entry. No rales or rhonchi. AV ACCESS: Patient has a left internal jugular (IJ) tunneled hemodialysis catheter. ABDOMEN: Is soft, positive bowel sounds, nontender. No ascites. No organomegaly. EXTREMITIES: No clubbing or cyanosis. Patient has trace edema of the bilateral lower extremities. Pulses are 2+. CENTRAL NERVOUS SYSTEM (TAPE STRINGER): No focal neurological deficit. Power is 5/5 in bilateral upper extremities. PSYCHIATRIC: Normal mood and affect. LABORATORY REVIEW: CBC showed a WBC of 4.4, hemoglobin 9.4, platelets of 127. BMP showed sodium 130, potassium is 4.7, chloride 95, bicarbonate 25, BUN 46, creatinine is 6.5, magnesium 2.4. CURRENT INPATIENT MEDICATIONS: Patient's medications were all reviewed by me. There is no change in the medications today as compared with yesterday. However, his intravenous (IV) antibiotics have been stopped. ASSESSMENT: 66-year-old male with past medical history of end-stage renal disease on hemodialysis, hypothyroidism, atrial flutter on anticoagulation, hypertension, diabetes mellitus type 2, admitted this time because of persistent and chronic right internal jugular tunneled hemodialysis catheter site pain. PLAN: 1. Pain at the catheter site. Patient's right IJ tunneled hemodialysis catheter was removed. Cultures are negative so far. There is a new catheter on the left IJ site. Pain is optimized at this time. Patient would seen now an AV fistula placement so we can get rid of the catheter. 2. End-stage renal disease. On hemodialysis. Patient's regular dialysis days are Saturday/Saturday/Saturday. However, he was dialyzed yesterday after placement of catheter, but it was not a full dialysis. However, there is no urgent need to do another hemodialysis today. Patient can get next hemodialysis as per his regular schedule on 05/06/2017. 3. Hypertension. Blood pressure is acceptable at this time. Continue current dose of amlodipine 5 mg by mouth daily. DISCHARGE PLANNING: It is okay to discharge the patient from nephrology standpoint. The plan of care was discussed with the hospitalist, Dr. Vivi Ellis.
[2017-06-07] MEDS ORDERED: OXYC15TA76 PO (13:13)
[2017-06-07] MEDS ORDERED: FEBU40TA PO (13:13)
[2017-06-07] MEDS ORDERED: MORP-38 PO (13:13)
[2017-06-07] MEDS ORDERED: NACCAP2 PO (13:13)
== END 2017-05-04 13:36 | disposition home or self-care (01) | DRG 314 ==
LOC: M ED 17:17 → M ED INP 22:53 → M PCU 05-02 01:39
PROVIDERS: ADMIT Hospitalist; ATTEND Hospitalist
PROC: 02PY33Z Removal of Infusion Device from Great Vessel, Percutaneous Approach (ICD-10-PCS; 2017-05-02)
PROC: 02H733Z Insertion of Infusion Device into Left Atrium, Percutaneous Approach (ICD-10-PCS; principal; 2017-05-03)
PROC: 0JH63XZ Insertion of Tunneled Vascular Access Device into Chest Subcutaneous Tissue and Fascia, Percutaneous Approach (ICD-10-PCS; 2017-05-03)
DX: T82.848A Pain due to vascular prosthetic devices, implants and grafts, initial encounter (principal); N18.6 End stage renal disease; I48.92 Unspecified atrial flutter; I13.2 Hypertensive heart and chronic kidney disease with heart failure and with stage 5 chronic kidney disease, or end stage renal disease; I50.32 Chronic diastolic (congestive) heart failure; C91.41 Hairy cell leukemia, in remission; Z79.01 Long term (current) use of anticoagulants; I25.10 Atherosclerotic heart disease of native coronary artery without angina pectoris; E11.9 Type 2 diabetes mellitus without complications; J44.9 Chronic obstructive pulmonary disease, unspecified; G47.33 Obstructive sleep apnea (adult) (pediatric); E78.5 Hyperlipidemia, unspecified; Z79.899 Other long term (current) drug therapy; Z79.82 Long term (current) use of aspirin; Z79.4 Long term (current) use of insulin; E66.9 Obesity, unspecified; M54.2 Cervicalgia; D63.1 Anemia in chronic kidney disease; M10.9 Gout, unspecified

== ENCOUNTER → 2017-05-01 | Outpatient (CLI) | payer MEDICARE ==
--- NOTE | 2017-05-28 01:19 | ECWPNPC ---
PATIENT NAME: ROSIE TEE : 1950 GENDER: MALE VISIT DATE: 05/01/2017 DISCHARGE DATE: 05/01/17 1709 VISIT LOCKED DATE TIME: PHYSICIAN: ANDREW OTTO RESOURCE: ANDREW OTTO HISTORY OF PRESENT ILLNESS FALL RISK SCREENIN66 Y/O MALR REFERRED BY DR. MARIEE FOR RIGHT CHEST WALL PAIN S/P RIGHT CHEST CATHETER PLACEMENT FOR DIALYSIS IN MARCH,ONE MONTH AGO.DUE TO INCREASING RIGHT ANTERIOR/POSTERIOR CHEST PAIN A CT SCAN OF CHEST WAS DONE LAST WEEK WHICH WAS NORMAL.PAIN HAS BEEN INCREASING OVER THE PAST 3 DAYS AND TODAY HE IS EXTREMELY UNCOMFORTABLE.RATING PAIN VAS 10/10.THERE IS REDNESS AT INSERTION SITE. SCREENING :NO FALLS IN THE PAST YEAR PAIN SCREENING: PATIENT HAS A COMPLAINT OF ACUTE OR CHRONIC PAIN :YES CURRENT MEDICATIONS TAKING AMLODIPINE BESYLATE 5 MG TABLET 1 TABLET ORALLY ONCE A DAY TAKING ASPIR-81 81 MG TABLET DELAYED RELEASE 1 TABLET ORALLY ONCE A DAY TAKING ALLOPURINOL 100 MG TABLET 2 TABLET ORALLY ONCE A DAY TAKING PAROXETINE HCL 10 MG TABLET 1 TABLET IN THE MORNING ORALLY ONCE A DAY TAKING LEVOTHYROXINE SODIUM 75 MCG TABLET 1 TABLET ON AN EMPTY STOMACH IN THE MORNING ORALLY ONCE A DAY TAKING DIGOXIN 125 MCG TABLET 1 TABLET ORALLY ONCE A DAY, NOTES: M,W,F TAKING CRESTOR 20 MG TABLET 1 TABLET ORALLY ONCE A DAY TAKING FINASTERIDE 5 MG TABLET 1 TABLET ORALLY ONCE A DAY TAKING TAMSULOSIN HCL 0.4 MG CAPSULE 1 CAPSULE ORALLY ONCE A DAY TAKING VITAMIN D 1000 UNIT TABLET 1 TABLET ORALLY ONCE A DAY TAKING OMEGA 3 1200 MG CAPSULE 1 CAPSULE ORALLY ONCE A DAY TAKING COUMADIN 5 MG TABLET 1 TABLET ORALLY ONCE A DAY, NOTES: QOD TAKING COUMADIN 7.5 MG TABLET 1 TABLET ORALLY ONCE A DAY, NOTES: QOD TAKING NITROGLYCERIN 0.4 MG TABLET SUBLINGUAL SUBLINGUAL TAKING NOVOLOG 100 UNIT/ML SOLUTION SUBCUTANEOUS , NOTES: SLIDING SCALE TAKING LANTUS 100 UNIT/ML SOLUTION 28 UNITS SUBCUTANEOUS BID TAKING ALBUTEROL SULFATE HFA 108 (90 BASE) MCG/ACT AEROSOL SOLUTION 2 PUFFS NEEDED INHALATION EVERY 4 HRS TAKING ALBUTEROL SULFATE (2.5 MG/3ML) 0.083% NEBULIZATION SOLUTION 3 ML INHALATION THREE TIMES A DAY MEDICATION LIST REVIEWED AND RECONCILED WITH THE PATIENT PAST MEDICAL HISTORY A FLUTTER HYPOTHYROIDISM RENAL FAILURE COPD CHF BIPAP AT HIGH CHOLESTEROL ME HTN HAIRY CELL LEUKEMIA ANXIETY ALLERGIES N.K.D.A. SURGICAL HISTORY TDC QUINTOUPLE CARDIAC BIPASS 2 CARDIAC STENTS BILAT CATARACT REMOVAL VITREOUS RETINAL SURGERY LEFT EYE FAMILY HISTORY FATHER: 51 YRS, DIAGNOSED WITH CANCER MOTHER: 48 YRS SIBLINGS: ALIVE 1 BROTHER(S) . BROTHER HAS DIABETES & PROSTATE CA. SOCIAL HISTORY GENERAL: TOBACCO USE ARE YOU A:NONSMOKER LUNG CANCER SCREENING SMOKING STATUS:NON SMOKER ALCOHOL SCREENING POINTS1 INTERPRETATIONNEGATIVE CHRISTIANITY [id number] NONE LANGUAGE LANGUAGES SPOKEN:DIVEHI EDUCATION LEVEL OF EDUCATION:COLLEGE LEARNING BARRIERS / SPECIAL NEEDS VISION IMPAIRED?YES :CORRECTIVE LENSES COGNITIVELY IMPAIRED?NO READINESS TO LEARN?YES LEARNING PREFERENCES?YES :BOOKLETS, HANDOUTS ADVANCE DIRECTIVES HEALTH CARE PROXY?YES NAME OF HCP YVETTE TEE- CONTACT # FOR HCP [phone] DO YOU HAVE A DNR?NO WOULD YOU LIKE MORE INFORMATION?NO LIVING WILL?NO WOULD YOU LIKE MORE INFORMATION?NO POWER OF BATCH PLANT SUPERVISOR?NO WOULD YOU LIKE MORE INFORMATION?NO HOSPITALIZATION/MAJOR DIAGNOSTIC PROCEDURE SURGERY RELATED REVIEW OF SYSTEMS REVIEWED BY: PROVIDER: ANDREW HENRY . CONSTITUTIONAL: ANY CHANGE IN YOUR MEDICAL CONDITION? NO . CHILLS NO . FEVER NO . INFECTION: DO YOU HAVE NEW INFECTIONS? NO . DO YOU HAVE HISTORY OF MRSA? NO . MUSCULOSKELETAL: ANY NEW PATTERNS OF PAIN OR NUMBNESS? YES, PT HAS TUNNEL DIALYSIS CATHETER, PLACED 01/2017. PT BEGAN HAVING PAIN UNDER SITE, SLOWLY PROGRESSIVELY GROWNING IN INTENSITY AND PATTERN. PAIN BEGAN UNDER TDC, BUT HAS NOW GROWN TO AROUND THORACIC AREA. PT STATES CT SCAN DONE AT [facility], AND RESULTED WNL. . SYTEMIC LUPUS NO . GASTROENTEROLOGY: ANY NEW CHANGE IN BOWEL CONTROL? NO . BARRETTS ESOPHAGUS NO . CIRRHOSIS NO . HEPATITIS NO . LIVER FAILURE NO . ACID REFLUX NO . UNEXPLAINED WEIGHT LOSS NO . GENITOURINARY: ANY NEW CHANGE IN BLADDER CONTROL? YES, PT IS ON DIALYSIS, BEGAN 01/2017. NOW HE IS A ROUTINELY SCHEDULED FOR HD Q M,W,F. LAST HD TODAY, DRAWING 4.3 TODAY FROM DIALYSIS. PT STATES HE URINATES NORMAL . IS THERE A CHANCE YOU COULD BE ? NO . HEMATOLOGY/LYMPH: DO YOU TAKE ANY BLOOD THINNERS? (FOR EXAMPLE- COUMADIN, PLAVIX, AGGRENOX, PLATEL, PRADAXA, OR XARELTO) YES, COUMADIN . WHEN WAS YOUR LAST DOSE? DATE: TIME: . LOW PLATELET COUNT NO . SICKLE CELL DISEASE NO . VON WILLIEBRANDS NO . FACTOR V LEIDEN NO . THALLASEMIA NO . ANEMIA NO . EASY BRUISING NO . NEUROLOGY: HAVE YOU FALLEN IN THE PAST 6 MONTHS? NO . ANY NEW EXTREMITY NUMBNESS OR WEAKNESS? NO . HEAD INJURY NO . DEMENTIA NO . CEREBRAL PALSY NO . MULTIPLE SCLEROSIS NO . DIZZINESS NO . HEADACHE NO . STROKES NO . VERTIGO NO . CARDIOLOGY: DO YOU HAVE A PACEMAKER OR DEFIBRILLATOR? NO . ANGINA NO . HEART ATTACK NO . HEART SURGERY NO . CONGESTIVE HEART FAILURE/FLUID OVERLOAD NO . CHEST PAIN NO . HIGH BLOOD PRESSURE NO . IRREGULAR HEART BEAT NO . RESPIRATORY: HAVE YOU BEEN SICK IN THE PAST WEEK? NO . FEVER NO . FLU LIKE SYMPTOMS? NO . CPAP NO . BYPAP NO . ASTHMA NO . EMPHYSEMA NO . CHRONIC LUNG DISEASES NO . SHORTNESS OF BREATH ON EXERTION NO . COUGH NO . SNORING NO . INTEGUMENTARY: DO YOU HAVE ANY RASHES OR OPEN SORES? NO . ALLERGIC/IMMUNO: ARE YOU ALLERGIC TO SHELLFISH OR IV DYE? NO . ANY NEW ALLERGIES? NO . PSYCHIATRIC: DO YOU HAVE THOUGHTS OF HURTING YOURSELF OR SOMEONE ELSE? NO . ARE YOU ABUSED, NEGLECTED, OR IN AN UNSAFE ENVIRONMENT? NO . ENDOCRINOLOGY: ARE YOU DIABETIC? YES . THYROID DISORDER HYPOTHYROID . OTHER: DO YOU NEED ANY PRESCRIPTIONS? YES, OXYCODONE ER . IF YES, PLEASE LIST: ____ . ANY NEW PROBLEMS WITH YOUR MEDICATIONS? NO . WHEN DID YOU LAST EAT? ____ . WHEN DID YOU LAST DRINK? ____ . WHAT DID YOU LAST DRINK? ____ . NAME OF PERSON DRIVING YOU HOME? ____ . DO YOU HAVE ANY OTHER QUESTIONS OR CONCERNS NO . VITAL SIGNS WT 257.0 LBS, HT 67", BMI 40.25 INDEX, BP 156/71 MM HG, HR 85 /MIN, RR 16 /MIN, TEMP 97.9 F, OXYGEN SAT % 96%, SAFE IN ENV? (Y/N) Y, NA INITIALS TL 1531, REVIEWED BY: EM. EXAMINATION GENERAL EXAMINATION: GENERAL APPEARANCE:LAYING FLAT ON STRETCHER WRITHING IN PAIN.. PSYCHORIENTED TO PERSON, ORIENTED TO PLACE, ORIENTED TO TIME. NECK:TRACHEA MIDLINE. NO CERVICAL OR SUPRACLAVICULAR LYMPHADENOPATHY NOTED. LUNGS:LUNG BERRY ARE CLEAR TO AUSCULTATION BILATERALLY. GOOD MOVEMENT OF AIR. HEART:S1, S2 IN A REGULAR RATE AND RHYTHM. NO SIGNIFICANT MURMURS, RUBS OR GALLOPS NOTED. ABDOMEN:SOFT, NON-TENDER, NO ORGANOMEGALY, BOWEL SOUNDS ARE NORMAL. RIGHT TESSIO CATH INSERTION SITE TENDER,RED AND SWOLLEN. ASSESSMENTS ACUTE CHEST WALL PAIN - R07.89 (PRIMARY) TREATMENT ACUTE CHEST WALL PAIN NOTES: TO ER FOR EVALUATION. PROCEDURE CODES FA211 ESTABILISHED PATIENT [facility] CHARGE G8730 PAIN ASSESS POS TOOL F/U PLAN DOC G8427 DOC MEDS VERIFIED W/PT OR RE DISPOSITION & COMMUNICATION FOLLOW UP 2 WEEKS ELECTRONICALLY SIGNED BY ELAINE COLLAZO ON 05/27/2017 AT 08:15 PM EDT DISCLAIMER : THIS IS A VISIT SUMMARY EXTRACTED FROM THE [employer] CHART. IT IS NOT A COPY OF THE [employer] PROGRESS NOTE. NELLY
== END ==
LOC: M PAIN 15:20
PROVIDERS: ATTEND Nurse Practitioner Family
DX: G89.29 Other chronic pain (principal); R07.89 Other chest pain; I10 Essential (primary) hypertension; E11.9 Type 2 diabetes mellitus without complications; E03.9 Hypothyroidism, unspecified; J44.9 Chronic obstructive pulmonary disease, unspecified; E78.00 Pure hypercholesterolemia, unspecified; I25.2 Old myocardial infarction; F41.9 Anxiety disorder, unspecified; Z79.01 Long term (current) use of anticoagulants; Z79.82 Long term (current) use of aspirin; Z79.4 Long term (current) use of insulin; Z79.899 Other long term (current) drug therapy; Z99.2 Dependence on renal dialysis; Z98.890 Other specified postprocedural states

== ENCOUNTER → 2017-05-13 | Outpatient (CLI) | payer MEDICARE ==
[~2017-05-13] MED LIST changes: +ALBU17IN2 INH; +AMLO5TAB2 PO; +ASPI81TAEC PO; +CALC1TAB60 PO; +FEBU40TA PO; +GABA-279 PO; +ISOVUE-370 76% 100ML VIAL (Q9967) As Ordered ONE; +MORP-38 PO; +MORP15TASA PO; +NACCAP2 PO; +OXYC15TA76 PO; +SENN1TAB10 PO; +VITA10002 PO; +WARF-22 PO
--- NOTE | 2017-05-13 12:08 | REP ---
CT ANGIOGRAM CHEST: 05/13/2017 COMPARISON: 05/01/2017 CLINICAL HISTORY: Status post left IJ dialysis catheter right neck and chest pain post IJ Perma-Cath insertion. Helical scanning through the chest was conducted after the patient already had a CT angiogram. This is not optimal for opacification of chest vessels. However, the aorta is without aneurysm or dissection and has calcifications in its arch and descending portion. There is cardiomegaly with some left atrial enlargement and heavily calcified mitral annulus. No pericardial thickening or effusion. No pathologic sized mediastinal or hilar adenopathy. Right lobe of the thyroid is larger than the left but homogeneous. No gross mass. Esophagus unremarkable. Course of the left IJ dialysis catheter terminating in the SVC above the right atrium is noted. There is no evidence of mediastinal hematoma or leak. Some underlying interstitial fibrotic change and dependent atelectatic changes in the lower lung zones. No calcified granulomas, parenchymal masses or acute infiltrates. Some minor fibrotic changes are seen. The pulmonary vasculature is not well opacified. There is no gross vessel cutoff or filling defects centrally. Caliber vessels unchanged from the previous study within the lung. No comment can be made about the possibility of thrombus in any of these vessels. No pneumothorax, pneumomediastinum or pleural effusion on either side. Bone windows show sternotomy wires intact with the sternum, manubrium, largely healed and with the clavicles, right AC joint, glenohumeral joints, humeral heads, scapulae and ribs without fracture. There are marginal osteophytes at multiple thoracic levels throughout. Mild splenomegaly up to 13 cm vertical diameter of the liver. No gross hepatomegaly but the liver is incompletely evaluated. There is a calcified gallstone in the dependent gallbladder. Calcified aorta and branches noted. Stomach, small bowel loops. Colon in the upper abdomen. And adrenal glands are intact. IMPRESSION: 1. The left jugular dialysis catheter courses into the SVC terminating above the right atrium. There is no evidence of contrast leak or mediastinal hematoma. 2. Cardiomegaly with left atrial and ventricular enlargement and heavily calcified mitral annulus. 3. No central pulmonary emboli. The lobar and segmental arteries are not well opacified due to this exam following the CT neck angiogram opacification is not optimal. No vessel cutoff or gross abnormality. 4. Minor fibrotic changes, dependent atelectasis. No pleural effusion. 5. No pneumothorax, pneumomediastinum, pleural effusion or other acute finding. Signed by Mateo Reyna MD 05/13/2017 09:18 P
--- NOTE | 2017-05-13 13:17 | REP ---
CT ANGIO NECK: HISTORY: Right neck pain. CONTRAST: Isovue 370, 100 mL. Calcified atherosclerotic plaques are present at the distal right common carotid artery and origin of the right internal carotid artery. There is mild stenosis of 20% of the right common carotid artery immediately proximal to the carotid bifurcation. There is mild stenosis of 20% of the right internal carotid artery at its origin. There is mild stenosis of 15% of the right internal carotid artery 18 mm from its origin. The origin of the right external carotid artery is normal. Calcified atherosclerotic plaque is present at the origin of the left internal carotid artery. There is moderate stenosis of 30% of the left internal carotid artery at origin. There is moderate stenosis of 45% of the left internal carotid artery 15 mm from its origin. The origin of the left external carotid artery is normal. Calcified atherosclerotic plaques are present in the cavernous and supraclinoid internal carotid arteries. These produce moderate stenosis. Calcified atherosclerotic plaque is present in the distal left vertebral artery at the craniovertebral junction. This produces at least mild stenosis. Calcified atherosclerotic plaques are present in the vertebral arteries at the C5-6 level. These produce at least mild stenosis. Calcified atherosclerotic plaques are present at the origins of the subclavian , innominate and left common carotid arteries . There is at least mild stenosis of the left subclavian artery at its origin. There is no significant stenosis at the origins of innominate , right subclavian orl left common carotid arteries . There is aneurysmal dilatation of the distal right internal carotid artery measuring approximately 8 mm at the C1-2 level. There is aneurysmal dilatation of the distal left internal carotid artery immediately proximal to the skull base measuring approximately 8 mm. IMPRESSION: 1. Mild stenosis of 20% of the right internal carotid artery at its origin. There is mild stenosis of 15% of the right internal carotid artery 18 mm from its origin. 2. Moderate stenosis of 30% of the left internal carotid artery at its origin. There is moderate stenosis of 45% of the left internal carotid artery 15 mm from its origin. 3. 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 Signed by Nawaf Early MD 05/13/2017 01:30 P
== END ==
LOC: M RAD 10:20
PROVIDERS: ATTEND Surgery Vascular Surgery
DX: R07.9 Chest pain, unspecified (principal); N18.6 End stage renal disease; I65.23 Occlusion and stenosis of bilateral carotid arteries; Z99.2 Dependence on renal dialysis; I51.7 Cardiomegaly
CPT/HCPCS: 70498; 71275; Q9967

== ENCOUNTER → 2017-05-17 | Outpatient (CLI) | payer MEDICARE ==
[~2017-05-17] MED LIST changes: -ISOVUE-370 76% 100ML VIAL (Q9967) As Ordered ONE
--- NOTE | 2017-06-19 02:35 | ECWPNPC ---
PATIENT NAME: ROSIE TEE : 1950 GENDER: MALE VISIT DATE: 05/17/2017 DISCHARGE DATE: 05/17/17 1515 VISIT LOCKED DATE TIME: PHYSICIAN: ANDREW OTTO RESOURCE: ANDREW OTTO HISTORY OF PRESENT ILLNESS HISTORY OF PRESENT ILLNESS: HERE FOR EVALUATION OF RIGHT THORACIC PAIN.HIS LAST AND INITIAL VISIT WAS 05-01-17 AT WHICH TIME WE SENT HIM TO ER FOR EVALUATION OF ACUTE INFECTION AT CATHETER SITE.HE WAS ADMITTED AND STATES HE WAS DISCHARGED AFTER ONE WEEK AND HAS BEEN USING PERCOCET 5/325 UP TO 4 TABS PER DAY WHICH IS INEFFECTIVE.DISCUSSED MEDICATION AND TRESTMENT OPTIONS.STATES THEY REMOVED RIGHT ANTERIOR CHEST CATHETER DUE TO INFECTION AT THE LAST HOSPITAL VISIT.NOW HAS LEFT ANTERIOR CHEST TESSIO CATH. PLACED.HAVING LESS RIGHT SIDED PAIN BUT CONTINUES WITH UNCONTROLLED PAIN WITH CURRENT REGIMEN. PAIN THE PATIENT DESCRIBES THE PAIN... FALL RISK SCREENING: SCREENING :NO FALLS IN THE PAST YEAR CURRENT MEDICATIONS TAKING AMLODIPINE BESYLATE 5 MG TABLET 1 TABLET ORALLY ONCE A DAY TAKING ASPIR-81 81 MG TABLET DELAYED RELEASE 1 TABLET ORALLY ONCE A DAY TAKING ALLOPURINOL 100 MG TABLET 2 TABLET ORALLY ONCE A DAY TAKING PAROXETINE HCL 10 MG TABLET 1 TABLET IN THE MORNING ORALLY ONCE A DAY TAKING LEVOTHYROXINE SODIUM 75 MCG TABLET 1 TABLET ON AN EMPTY STOMACH IN THE MORNING ORALLY ONCE A DAY TAKING DIGOXIN 125 MCG TABLET 1 TABLET ORALLY ONCE A DAY, NOTES: M,W,F TAKING CRESTOR 20 MG TABLET 1 TABLET ORALLY ONCE A DAY TAKING FINASTERIDE 5 MG TABLET 1 TABLET ORALLY ONCE A DAY TAKING TAMSULOSIN HCL 0.4 MG CAPSULE 1 CAPSULE ORALLY ONCE A DAY TAKING VITAMIN D 1000 UNIT TABLET 1 TABLET ORALLY ONCE A DAY TAKING OMEGA 3 1200 MG CAPSULE 1 CAPSULE ORALLY ONCE A DAY TAKING COUMADIN 10 MG TABLET 1 TABLET ORALLY ONCE A DAY, NOTES: QOD TAKING COUMADIN 7.5 MG TABLET 1 TABLET ORALLY ONCE A DAY, NOTES: QOD TAKING NITROGLYCERIN 0.4 MG TABLET SUBLINGUAL SUBLINGUAL TAKING NOVOLOG 100 UNIT/ML SOLUTION SUBCUTANEOUS , NOTES: SLIDING SCALE TAKING LANTUS 100 UNIT/ML SOLUTION 28 UNITS SUBCUTANEOUS BID TAKING ALBUTEROL SULFATE HFA 108 (90 BASE) MCG/ACT AEROSOL SOLUTION 2 PUFFS NEEDED INHALATION EVERY 4 HRS TAKING ALBUTEROL SULFATE (2.5 MG/3ML) 0.083% NEBULIZATION SOLUTION 3 ML INHALATION THREE TIMES A DAY MEDICATION LIST REVIEWED AND RECONCILED WITH THE PATIENT PAST MEDICAL HISTORY A FLUTTER HYPOTHYROIDISM RENAL FAILURE COPD CHF BIPAP AT HS HIGH CHOLESTEROL WI HTN HAIRY CELL LEUKEMIA ANXIETY ALLERGIES N.K.D.A. SURGICAL HISTORY TDC QUINTOUPLE CARDIAC BIPASS 2 CARDIAC STENTS BILAT CATARACT REMOVAL VITREOUS RETINAL SURGERY LEFT EYE HOSPITALIZATION/MAJOR DIAGNOSTIC PROCEDURE SURGERY RELATED REVIEW OF SYSTEMS REVIEWED BY: PROVIDER: ANRDEW HENRY . CONSTITUTIONAL: ANY CHANGE IN YOUR MEDICAL CONDITION? NO . CHILLS NO . FEVER NO . INFECTION: DO YOU HAVE NEW INFECTIONS? NO . DO YOU HAVE HISTORY OF MRSA? NO . MUSCULOSKELETAL: ANY NEW PATTERNS OF PAIN OR NUMBNESS? NO . GASTROENTEROLOGY: ANY NEW CHANGE IN BOWEL CONTROL? NO . GENITOURINARY: ANY NEW CHANGE IN BLADDER CONTROL? NO . IS THERE A CHANCE YOU COULD BE ? NO . HEMATOLOGY/LYMPH: DO YOU TAKE ANY BLOOD THINNERS? (FOR EXAMPLE- COUMADIN, PLAVIX, AGGRENOX, PLATEL, PRADAXA, OR XARELTO) YES, COUMADIN . WHEN WAS YOUR LAST DOSE? DATE: TIME: . NEUROLOGY: HAVE YOU FALLEN IN THE PAST 6 MONTHS? NO . ANY NEW EXTREMITY NUMBNESS OR WEAKNESS? NO . CARDIOLOGY: DO YOU HAVE A PACEMAKER OR DEFIBRILLATOR? NO . RESPIRATORY: HAVE YOU BEEN SICK IN THE PAST WEEK? NO . FEVER NO . FLU LIKE SYMPTOMS? NO . COUGH NO . INTEGUMENTARY: DO YOU HAVE ANY RASHES OR OPEN SORES? NO . ALLERGIC/IMMUNO: ARE YOU ALLERGIC TO SHELLFISH OR IV DYE? NO . ANY NEW ALLERGIES? NO . PSYCHIATRIC: DO YOU HAVE THOUGHTS OF HURTING YOURSELF OR SOMEONE ELSE? NO . ARE YOU ABUSED, NEGLECTED, OR IN AN UNSAFE ENVIRONMENT? NO . ENDOCRINOLOGY: ARE YOU DIABETIC? YES . OTHER: DO YOU NEED ANY PRESCRIPTIONS? YES, PAIN MEDS . IF YES, PLEASE LIST: ____ . ANY NEW PROBLEMS WITH YOUR MEDICATIONS? NO . WHEN DID YOU LAST EAT? ____ . WHEN DID YOU LAST DRINK? ____ . WHAT DID YOU LAST DRINK? ____ . NAME OF PERSON DRIVING YOU HOME? ____ . DO YOU HAVE ANY OTHER QUESTIONS OR CONCERNS NO . VITAL SIGNS WT 254 LBS, HT 67", BMI 39.78 INDEX, BP 142/67 MM HG, HR 88 /MIN, RR 16 /MIN, TEMP 98.9 F, OXYGEN SAT % 93%, NA INITIALS SC 14:54, REVIEWED BY: EM. EXAMINATION GENERAL EXAMINATION: GENERAL APPEARANCE:MILD DISCOMFORT NOTED. PSYCHORIENTED TO PERSON, ORIENTED TO PLACE, ORIENTED TO TIME. NECK:TRACHEA MIDLINE. NO CERVICAL OR SUPRACLAVICULAR LYMPHADENOPATHY NOTED. LUNGS:LUNG BERRY ARE CLEAR TO AUSCULTATION BILATERALLY. GOOD MOVEMENT OF AIR. HEART:S1, S2 IN A REGULAR RATE AND RHYTHM. NO SIGNIFICANT MURMURS, RUBS OR GALLOPS NOTED. ABDOMEN:SOFT, NON-TENDER, NO ORGANOMEGALY, BOWEL SOUNDS ARE NORMAL. NO SWELLING OR REDNESS NOTED OVER LEFT TESSIO CATH SITE. ASSESSMENTS CHEST WALL PAIN - R07.89 (PRIMARY) TREATMENT CHEST WALL PAIN START MS CONTIN TABLET EXTENDED RELEASE, 15 MG, 1 TABLET, ORALLY, EVERY 12 HRS MDD2, 30 DAY(S), 60, REFILLS 0 START OXYCODONE HCL TABLET, 15 MG, 1 TABLET NEEDED, ORALLY, EVERY 6 HRS PRN MDD4, 30 DAY(S), 120, REFILLS 0 PROCEDURE CODES FA211 ESTABILISHED PATIENT [facility] FAC[facility] CHARGE G8730 PAIN ASSESS POS TOOL F/U PLAN DOC G8427 DOC MEDS VERIFIED W/PT OR RE DISPOSITION & COMMUNICATION FOLLOW UP 2WK SQUEEZE IN ELECTRONICALLY SIGNED BY ELAINE COLLAZO ON 06/18/2017 AT 08:00 PM EDT DISCLAIMER : THIS IS A VISIT SUMMARY EXTRACTED FROM THE [facility] CHART. IT IS NOT A COPY OF THE [facility] PROGRESS NOTE. NELLY
== END ==
LOC: M PAIN 14:40
PROVIDERS: ATTEND Nurse Practitioner Family
DX: G89.29 Other chronic pain (principal); R07.89 Other chest pain; I48.92 Unspecified atrial flutter; E03.9 Hypothyroidism, unspecified; J44.9 Chronic obstructive pulmonary disease, unspecified; I50.9 Heart failure, unspecified; E78.00 Pure hypercholesterolemia, unspecified; I11.0 Hypertensive heart disease with heart failure; F41.9 Anxiety disorder, unspecified; Z95.5 Presence of coronary angioplasty implant and graft; Z79.82 Long term (current) use of aspirin; Z79.01 Long term (current) use of anticoagulants; Z79.4 Long term (current) use of insulin; Z79.899 Other long term (current) drug therapy; Z85.6 Personal history of leukemia

== ENCOUNTER → 2017-05-21 | Outpatient (CLI) | payer MEDICARE ==
[~2017-05-21] MED LIST changes: +HEPARIN 1,000 UNITS/ML 10ML VIAL (FOR RADIOLOGY& DIALYSIS ONLY) As Ordered ONE; +ISOVUE-300 61% 50ML VIAL (Q9967) As Ordered ONE
--- NOTE | 2017-06-18 08:07 | REPKIM ---
DATE OF PROCEDURE: 05/21/2017 PREPROCEDURE DIAGNOSIS: End stage renal disease, dysfunctional left internal jugular vein PermCath. POSTPROCEDURE DIAGNOSIS: End stage renal disease, dysfunction left internal jugular vein PermCath. PROCEDURE: Left internal jugular vein PermCath flow study, left internal jugular vein PermCath removal, insertion of a new left internal jugular vein PermCath with a 28 cm tipped cuff Vaxcel plus catheter. SURGEON: Dr. Tyler Simpson. CHANGEOVER OPERATOR: Keren Nguyen and Poonam Kelly, RT ANESTHESIA: Local with 3 mL of 2% lidocaine. FLUORO TIME: 0.2 minutes. CONTRAST: 5 mL. Heparin: None. COMPLICATIONS: None. DRAINS: None. SPECIMENS: None. IMPLANTS: 28 cm tipped cuff Vaxcel plus central venous catheter via the left internal jugular vein. INDICATION: Patient is a 66-year-old male with a left internal jugular vein PermCath which has been unable to be used for dialysis due to dysfunction. Patient will undergo a catheter flow study with possible new placement of a catheter and/or exchange. Risks, benefits and alternative treatment options were discussed with the patient. Benefits included but were not limited to functioning PermCath with the ability to undergo hemodialysis successfully. Alternative treatment options included but were not limited to no intervention. Risks included but were not limited to infection, bleeding, pneumothorax, hemothorax, possible need for open surgical intervention, cerebrovascular accident, myocardial infarction, pulmonary embolus, deep venous thrombosis (DVT), loss of limb, loss of life and poor outcome. Patient's questions were answered. Patient voices understanding of these risks, benefits and alternative treatment options and agrees to proceed and accepts the risks of the procedure. PROCEDURE: The patient was taken to the angiography suite and placed supine on the angiography room table and then prepped and draped in a standard surgical fashion. The time out was then completed by myself and the members in the room confirming the correct patient, procedure and laterality. A wire was then advanced through the existing PermCath which was partially removed with the tip pulled back into the left internal jugular vein and a catheter flow study was performed showing the internal jugular vein, innominate vein and superior vena cava to be widely patent. The initial fluoroscopic evaluation of the catheter showed the catheter to be in the left innominate vein and this was the most likely cause of the dysfunction of the catheter. The catheter was then removed over the wire and a new 28 cm tipped cuff Vaxcel plus catheter was inserted over the wire with the tip in the superior vena cava right atrial junction. Both ports were aspirated and noted to aspirate easily and then flushed with heparinized saline. The catheter was secured to the left anterior chest wall with #2-0 Prolene suture after anesthetizing the overlying skin with 2% lidocaine. Dressings were then applied. Patient tolerated the procedure well. All instrument, sponge and needle counts were correct at the end of the case. There were no complications. Dr. Simpson was present for and directed the entire case. Patient was transferred to the holding area and then subsequently to the floor in stable condition. The PermCath is stable for use for dialysis access. RADIOLOGIC SUPERVISION AND INTERPRETATION: The initial fluoroscopic evaluation showed the tip of the catheter to be pulled back in the left innominate vein. The catheter was removed after a catheter flow study showed the left innominate vein, superior vena cava to be widely patent. A new longer catheter was placed with a 28 cm tipped cuff Vaxcel plus catheter which is positioned with the tip in the superior vena cava/right atrial junction. Catheter is stable for use for hemodialysis access. Final fluoroscopic image showed the tip to be in the superior vena cava/right atrial junction with no pneumo- or hemothorax noted.
== END | disposition home or self-care (01) ==
LOC: M IRPRO 08:42
PROVIDERS: ATTEND Surgery Vascular Surgery
DX: T82.42XA Displacement of vascular dialysis catheter, initial encounter (principal); N18.6 End stage renal disease
CPT/HCPCS: 36581; 36598; C1750; C1769; Q9967

== ENCOUNTER → 2017-05-30 | Outpatient (CLI) | payer MEDICARE ==
[~2017-05-30] MED LIST changes: -HEPARIN 1,000 UNITS/ML 10ML VIAL (FOR RADIOLOGY& DIALYSIS ONLY) As Ordered ONE; -ISOVUE-300 61% 50ML VIAL (Q9967) As Ordered ONE
--- NOTE | 2017-06-19 01:44 | ECWPNPC ---
PATIENT NAME: ROSIE TEE : 1950 GENDER: MALE VISIT DATE: 05/30/2017 DISCHARGE DATE: 05/30/17 1544 VISIT LOCKED DATE TIME: PHYSICIAN: ANDREW OTTO RESOURCE: ANDREW OTTO REASON FOR APPOINTMENT 1. RIGHT CHEST WALL-PATIENT NEEDS ASSISTANCE WITH READING AND WRITING HISTORY OF PRESENT ILLNESS HISTORY OF PRESENT ILLNESS: HERE FOR F/U OF CHRONIC CHEST WALL PAIN.STATES THAT MS CONTIN 15MG BID AND OXYCODONE 15MG Q6H PRN IS HELPFUL FOR CHEST WALL PAIN.STATES HE WAS FINALLY ABLE TO SLEEP.HE IS NOT REALLY NEEDING ANY BREAKTHROUGH PAIN MEDICATION FOR HIS CHEST WALLPAIN BUT OVER THE PAST 3 DAYS HE HAS BEEN HAVING EXCRUCIATING RIGHT KNEE PAIN.DENIES INJURY.HE HAS BEEN USING OXYCODONE 15MG FOR THIS PAIN AND THAT IT IS NOT HELPING.INFORMED HIM THAT HE WILL HAVE TO GET THIS LOOKED AT URGENT CARE TO RULE OUT ANY STRUCTURAL PROBLEMS.I DONT WANT HIM USING OXYCODONE 15MG FOR A NEW PROBLEM THAT HAS NOT BEEN EVALUATED BY URGENT CARE OR PRIMARY CARE.HIS SITUATION IS COMPLICATED DUE TO THE FACT THAT HE HAS KIDNEY FAILURE AND IS ON DIALYSIS SO NO NSAIDS.RATING CHEST WALL PAIN 0/10.RATING RIGHT KNEE PAIN 10/10.COMPLAINING OF CONSTIPATION. PAIN THE PATIENT DESCRIBES THE PAIN... FALL RISK SCREENING: SCREENING :NO FALLS IN THE PAST YEAR CURRENT MEDICATIONS TAKING AMLODIPINE BESYLATE 5 MG TABLET 1 TABLET ORALLY ONCE A DAY TAKING ASPIR-81 81 MG TABLET DELAYED RELEASE 1 TABLET ORALLY ONCE A DAY TAKING ALLOPURINOL 100 MG TABLET 2 TABLET ORALLY ONCE A DAY TAKING PAROXETINE HCL 10 MG TABLET 1 TABLET IN THE MORNING ORALLY ONCE A DAY TAKING LEVOTHYROXINE SODIUM 75 MCG TABLET 1 TABLET ON AN EMPTY STOMACH IN THE MORNING ORALLY ONCE A DAY TAKING DIGOXIN 125 MCG TABLET 1 TABLET ORALLY ONCE A DAY, NOTES: M,W,F TAKING CRESTOR 20 MG TABLET 1 TABLET ORALLY ONCE A DAY TAKING FINASTERIDE 5 MG TABLET 1 TABLET ORALLY ONCE A DAY TAKING TAMSULOSIN HCL 0.4 MG CAPSULE 1 CAPSULE ORALLY ONCE A DAY TAKING VITAMIN D 1000 UNIT TABLET 1 TABLET ORALLY ONCE A DAY TAKING OMEGA 3 1200 MG CAPSULE 1 CAPSULE ORALLY ONCE A DAY TAKING COUMADIN 10 MG TABLET 1 TABLET ORALLY ONCE A DAY, NOTES: QOD TAKING COUMADIN 7.5 MG TABLET 1 TABLET ORALLY ONCE A DAY, NOTES: QOD TAKING NITROGLYCERIN 0.4 MG TABLET SUBLINGUAL SUBLINGUAL TAKING NOVOLOG 100 UNIT/ML SOLUTION SUBCUTANEOUS , NOTES: SLIDING SCALE TAKING LANTUS 100 UNIT/ML SOLUTION 28 UNITS SUBCUTANEOUS BID TAKING ALBUTEROL SULFATE HFA 108 (90 BASE) MCG/ACT AEROSOL SOLUTION 2 PUFFS NEEDED INHALATION EVERY 4 HRS TAKING ALBUTEROL SULFATE (2.5 MG/3ML) 0.083% NEBULIZATION SOLUTION 3 ML INHALATION THREE TIMES A DAY TAKING MS CONTIN 15 MG TABLET EXTENDED RELEASE 1 TABLET ORALLY EVERY 12 HRS MDD2 TAKING OXYCODONE HCL 15 MG TABLET 1 TABLET NEEDED ORALLY EVERY 6 HRS PRN MDD4 MEDICATION LIST REVIEWED AND RECONCILED WITH THE PATIENT PAST MEDICAL HISTORY A FLUTTER HYPOTHYROIDISM RENAL FAILURE COPD CHF BIPAP AT HS HIGH CHOLESTEROL VA HTN HAIRY CELL LEUKEMIA ANXIETY ALLERGIES N.K.D.A. REVIEW OF SYSTEMS REVIEWED BY: PROVIDER: ANDREW HENRY . CONSTITUTIONAL: ANY CHANGE IN YOUR MEDICAL CONDITION? NO . CHILLS NO . FEVER NO . INFECTION: DO YOU HAVE NEW INFECTIONS? NO . DO YOU HAVE HISTORY OF MRSA? NO . MUSCULOSKELETAL: ANY NEW PATTERNS OF PAIN OR NUMBNESS? YES . GASTROENTEROLOGY: ANY NEW CHANGE IN BOWEL CONTROL? YES . GENITOURINARY: ANY NEW CHANGE IN BLADDER CONTROL? NO . IS THERE A CHANCE YOU COULD BE ? NO . HEMATOLOGY/LYMPH: DO YOU TAKE ANY BLOOD THINNERS? (FOR EXAMPLE- COUMADIN, PLAVIX, AGGRENOX, PLATEL, PRADAXA, OR XARELTO) YES . WHEN WAS YOUR LAST DOSE? DATE: TIME: . NEUROLOGY: HAVE YOU FALLEN IN THE PAST 6 MONTHS? NO . ANY NEW EXTREMITY NUMBNESS OR WEAKNESS? NO . CARDIOLOGY: DO YOU HAVE A PACEMAKER OR DEFIBRILLATOR? NO . RESPIRATORY: HAVE YOU BEEN SICK IN THE PAST WEEK? NO . FEVER NO . FLU LIKE SYMPTOMS? NO . COUGH NO . INTEGUMENTARY: DO YOU HAVE ANY RASHES OR OPEN SORES? NO . ALLERGIC/IMMUNO: ARE YOU ALLERGIC TO SHELLFISH OR IV DYE? NO . ANY NEW ALLERGIES? NO . PSYCHIATRIC: DO YOU HAVE THOUGHTS OF HURTING YOURSELF OR SOMEONE ELSE? NO . ARE YOU ABUSED, NEGLECTED, OR IN AN UNSAFE ENVIRONMENT? NO . ENDOCRINOLOGY: ARE YOU DIABETIC? YES . OTHER: DO YOU NEED ANY PRESCRIPTIONS? NO . IF YES, PLEASE LIST: ____ . ANY NEW PROBLEMS WITH YOUR MEDICATIONS? YES,TREMORS HAVE GOTTEN WORSE . WHEN DID YOU LAST EAT? ____ . WHEN DID YOU LAST DRINK? ____ . WHAT DID YOU LAST DRINK? ____ . NAME OF PERSON DRIVING YOU HOME? ____ . DO YOU HAVE ANY OTHER QUESTIONS OR CONCERNS NO . VITAL SIGNS WT 255 LBS, HT 67", BMI 39.93 INDEX, BP 180/50 MANUAL BP, HR 88 /MIN, RR 18 /MIN, TEMP 98.0 F, OXYGEN SAT % 95%, NA INITIALS AW 1457LET NURSE KNOW ABOUT BP. EXAMINATION GENERAL EXAMINATION: GENERAL APPEARANCE:UNCOMFORTABLE,RUBBING RIGHT KNEE.. PSYCHAFFECT NORMAL. LUNGS:LUNG BERRY ARE CLEAR TO AUSCULTATION BILATERALLY. GOOD MOVEMENT OF AIR. HEART:S1, S2 IN A REGULAR RATE AND RHYTHM. NO SIGNIFICANT MURMURS, RUBS OR GALLOPS NOTED. TESSIO LINE INTACT RIGHT ANTERIOR CHEST-NO SIGNS OF INFECTION /NON TENDERRIGHT ANTERIOR CHEST NONTENDER WITH PALPATION/NO REDDNESS OR SWELLING. ASSESSMENTS CHEST WALL PAIN - R07.89 (PRIMARY) CHRONIC PRESCRIPTION OPIATE USE - Z79.891 TREATMENT CHEST WALL PAIN REFILL MS CONTIN TABLET EXTENDED RELEASE, 15 MG, 1 TABLET, ORALLY, EVERY 12 HRS MDD2, 30 DAY(S), 60, REFILLS 0 REFILL OXYCODONE HCL TABLET, 15 MG, 1 TABLET NEEDED, ORALLY, EVERY 6 HRS PRN MDD4, 30 DAY(S), 120, REFILLS 0 START COLACE CAPSULE, 100 MG, 2, ORALLY, TID, 30 DAY(S), 180, REFILLS 2 PROCEDURE CODES FA211 ESTABILISHED PATIENT [facility] CHARGE G8730 PAIN ASSESS POS TOOL F/U PLAN DOC G8427 DOC MEDS VERIFIED W/PT OR RE DISPOSITION & COMMUNICATION FOLLOW UP NEXT AVAILABLE IN JUN. ELECTRONICALLY SIGNED BY ELAINE COLLAZO ON 06/18/2017 AT 08:05 PM EDT DISCLAIMER : THIS IS A VISIT SUMMARY EXTRACTED FROM THE [employer] CHART. IT IS NOT A COPY OF THE [employer] PROGRESS NOTE. NELLY
== END ==
LOC: M PAIN 14:40
PROVIDERS: ATTEND Nurse Practitioner Family
DX: G89.29 Other chronic pain (principal); R07.89 Other chest pain; Z79.891 Long term (current) use of opiate analgesic; I48.92 Unspecified atrial flutter; E03.9 Hypothyroidism, unspecified; J44.9 Chronic obstructive pulmonary disease, unspecified; I50.9 Heart failure, unspecified; E78.00 Pure hypercholesterolemia, unspecified; I25.2 Old myocardial infarction; I11.0 Hypertensive heart disease with heart failure; F41.9 Anxiety disorder, unspecified; Z85.6 Personal history of leukemia; Z79.01 Long term (current) use of anticoagulants; Z79.82 Long term (current) use of aspirin; Z79.4 Long term (current) use of insulin; Z79.899 Other long term (current) drug therapy

== ENCOUNTER 2017-06-11 08:27 | Day surgery (SDC) | payer MEDICARE ==
[~2017-06-11] VITALS: Ht 170.2 cm; Wt 115.2 kg
[~2017-06-11 08:27] MED LIST changes: -MORP15TASA PO; -SENN1TAB10 PO
[2017-06-11] MEDS ORDERED: DEXTROSE 50% 50 ML SYRINGE ONE (08:28)
[2017-06-11 08:59] LABS: INR 1.11
[2017-06-11] MEDS ORDERED: NS 1,000 ML IV ONE (09:00)
[2017-06-11] MEDS ORDERED: NS 1,000 ML IV SCH (09:00)
[2017-06-11] MEDS ORDERED: ISOVUE-300 61% 50ML VIAL (Q9967) As Ordered ONE (09:36)
[2017-06-11] MEDS ORDERED: LIDOCAINE 1% SDV INJ 30 ML VIAL As Ordered ONE (09:36)
[2017-06-11] MEDS ORDERED: HEPARIN SOD (PORCINE) 5000 UNITS/ML VIAL As Ordered ONE (09:37)
[2017-06-11] MEDS ORDERED: BUPIVACAINE HCL 0.5% 30 ML VIAL As Ordered ONE (09:37)
[2017-06-11] MEDS ORDERED: PROPOFOL 500 MG/50 ML VIAL As Ordered ONE (10:52)
[2017-06-11] MEDS ORDERED: fentaNYL 100 MCG/2 ML INJECTION (J3010) As Ordered ONE (10:52)
[2017-06-11] MEDS ORDERED: ONDANSETRON 4MG/2ML VIAL (J2405) As Ordered ONE (10:52)
[2017-06-11] MEDS ORDERED: MIDAZOLAM INJ 2 MG/2 ML VIAL (J2250) As Ordered ONE (10:52)
[2017-06-11 12:15] VITALS: BP 134/63
--- NOTE | 2017-06-19 12:44 | RO ---
DATE OF PROCEDURE: 06/11/2017 PREPROCEDURE DIAGNOSIS: End stage renal disease. POSTPROCEDURE DIAGNOSIS: End stage renal disease. PROCEDURE: Left brachiocephalic arteriovenous fistula. SURGEON: Tyler Simpson MD INSPECTOR CONVEYOR LINE: ANESTHESIA: Local MAC. ESTIMATED BLOOD LOSS: 20 mL. INTRAVENOUS FLUID: 150 mL. SPECIMENS: None. COMPLICATIONS: None. DRAINS: None. IMPLANTS: None. INDICATION: The patient is a 66-year-old male with end stage renal disease who requires access for dialysis and will undergo creation of a left brachiocephalic arteriovenous fistula. PROCEDURE: The patient was taken to the operating room, placed supine on the operating room table and the left upper extremity was prepped and draped in a standard surgical fashion. Incision was made transversely at the antecubital fossa. The cephalic vein and brachial artery were identified and sharply dissected free. The cephalic was then anastomosed to the brachial artery in an end to side fashion using #6-0 Prolene suture. There was good flow through the fistula. At the completion of the anastomosis, the incision was closed using #3-0 Monocryl to approximate the skin in a running subcuticular fashion. Steri-Strips and dressings were applied. The patient tolerated the procedure well. All instrument, sponge and needle counts were correct at the end of the case. There were no complications. Dr. Simpson was present for and directed the entire case. The patient was transferred to the recovery room, awake, alert, extubated and in stable condition.
== END 2017-06-11 12:30 | disposition home or self-care (01) ==
LOC: M SDC 08:27
PROVIDERS: ATTEND Surgery Vascular Surgery
DX: N18.6 End stage renal disease (principal); I48.91 Unspecified atrial fibrillation; I10 Essential (primary) hypertension; Z98.61 Coronary angioplasty status; I25.10 Atherosclerotic heart disease of native coronary artery without angina pectoris; E11.9 Type 2 diabetes mellitus without complications; Z79.4 Long term (current) use of insulin; I25.2 Old myocardial infarction; E78.5 Hyperlipidemia, unspecified; E03.9 Hypothyroidism, unspecified; D64.9 Anemia, unspecified; F41.9 Anxiety disorder, unspecified; F32.9 Major depressive disorder, single episode, unspecified; Z79.899 Other long term (current) drug therapy
CPT/HCPCS: 36415; 36821; 84132; 85610; J2250; J2405; J3010

== ENCOUNTER → 2017-07-02 | Outpatient (CLI) | payer MEDICARE ==
[~2017-07-02] MED LIST changes: +ISOVUE-300 61% 50ML VIAL (Q9967) As Ordered ONE; +LIDOCAINE 2% MDV 20 ML VIAL As Ordered ONE; +MIDAZOLAM INJ 2 MG/2 ML VIAL (J2250) As Ordered ONE; +MORP15TASA PO; +SENN1TAB10 PO; +fentaNYL 100 MCG/2 ML INJECTION (J3010) As Ordered ONE
--- NOTE | 2017-07-02 12:05 | REPKIM ---
DATE OF PROCEDURE: 07/02/2017 ATTENDING SURGEON: Dr. Gisela Simpson ASSISTANTS: Keren Bower and Poonam Kelly. PREOPERATIVE DIAGNOSIS: End-stage renal disease. Left internal jugular vein PermCath. Dysfunctional left brachiocephalic arteriovenous fistula with non-maturation and pulsatility. POSTOPERATIVE DIAGNOSIS: End-stage renal disease. Left internal jugular vein PermCath. Dysfunctional left brachiocephalic arteriovenous fistula with non-maturation and pulsatility. PROCEDURE: Left brachiocephalic arteriovenous fistulogram. Retrograde left brachial artery angiogram. Left cephalic vein angioplasty with 7 x 150 mm balloon. INDICATION: Patient is a 66-year-old male with end-stage renal disease who currently dialyses through a left internal jugular vein PermCath. Patient underwent creation of a left radiocephalic arteriovenous fistula which thrombosed and has now undergone creation of a left brachiocephalic arteriovenous fistula which is non-maturing and shows pulsatility with physical exam. Patient will undergo a fistulogram with possible angioplasty and stent. Risks, benefits, and alternative treatment options were discussed with the patient. Alternative treatment options included, but were not limited to no intervention. Benefits included, but were not limited to maintenance of patency of the fistula with increased size in flow resulting in a functioning fistula and subsequent removal of the PermCath. Risks included, but were not limited to infection, bleeding, loss of arterial venous access, steal syndrome, possible need for open surgical intervention, cerebrovascular accident, myocardial infarction, pulmonary embolism, deep venous thrombosis (DVT), loss of limb, loss of life, and poor outcome. Patient's questions were answered. Patient voices understand of these risks, benefits, and alternative treatment options. Patient accepts these risks and agrees to proceed with a left brachiocephalic arteriovenous fistulogram with possible angioplasty and/or stent. ANESTHESIA: Was local with sedation with 1 mg of versed, 50 mcg of fentanyl, and 2 mL of lidocaine. SEDATION TIME: Was from 11:05 to 11:16 a.m. with the sedation administered by myself. The cardiopulmonary monitoring performed by the nurse in the room. The entire procedure was performed under my supervision and direction. FLUOROSCOPIC TIME: 0.9 minutes. CONTRAST: 6 mL. COMPLICATIONS: None. DRAINS: None. SPECIMENS: None. IMPLANTS: None. PROCEDURE: Patient was taken to the angiography suite, placed supine on the angiography room table and the left arm was prepped and draped in a standard surgical fashion. A time-out was then conducted by myself and all the team members in the room confirming the correct patient, procedure, and laterality. The left brachiocephalic arteriovenous fistula was then cannulated with a micropuncture needle after anesthetizing the overlying skin with 2% lidocaine. The micropuncture wire was advanced through the micropuncture needle which was upsized to a micropuncture sheath. A fistulogram was performed showing a stenosis in the mid upper arm of approximately 60% within the cephalic vein with a large branch below this coursing into the deeper venous system with the remainder of the cephalic vein above this patient in its subclavian vein. The subclavian vein, innominate vein, and superior vena cava were widely patent with the left internal jugular vein PermCath in place. The left cephalic vein was then angioplastied with a 7 x 150 mm balloon during which time a retrograde left brachial artery angiogram was performed. At the completion of fistulogram showed resolution of the stenosis in the left cephalic vein with good flow through the fistula. Catheters and wires were removed. A #2-0 Prolene suture was placed at the puncture site for hemostasis. Dressings were then applied. Patient tolerated the procedure well. All instruments, sponge, and needle counts were correct at the end of the case. There were no complications. Dr. Simpson was present for and directed the entire case. The patient was transferred to the holding area in stable condition and subsequently discharged home. The left brachiocephalic arteriovenous fistula had a stronger thrill with no pulsatility at the completion of the intervention. RADIOLOGIC SUPERVISION INTERPRETATION: The initial fistulogram shows the cephalic vein to be patent for a short distance from the antecubital fossa where there was a stenosis of approximately 60% in the cephalic vein. Just below this was a large collateral coursing off the cephalic vein into the deeper venous system with good filling of the deeper venous system. The cephalic vein above this stenosis was patent in the subclavian vein. The subclavian vein, innominate vein, and superior vena cava were all widely patent. Cephalic vein was angioplastied with a 7 x 150 mm balloon with a completion fistulogram showing resolution of the stenosis and excellent flow through the cephalic vein into the central venous system with less filling of the collateral into the deeper venous system. The retrograde brachial artery angiogram was performed during inflation of the 7 x 150 mm balloon within the cephalic vein and this showed the remainder of the cephalic vein to be patent into the brachial artery with good flow in the brachial artery proximal distal to the arterial venous anastomosis there was small collateral originating off the cephalic vein at the antecubital fossa and coursing into the deeper venous system. CONCLUSION: The patient underwent successful angioplasty of the cephalic vein with holiness of a thrill to the arteriovenous fistula and improved flow and size to the cephalic.
== END | disposition home or self-care (01) ==
LOC: M IRPRO 09:31
PROVIDERS: ATTEND Surgery Vascular Surgery
DX: T82.858A Stenosis of other vascular prosthetic devices, implants and grafts, initial encounter (principal); N18.6 End stage renal disease
CPT/HCPCS: 36902; C1725; C1769; C1894; J2250; J3010; Q9967

== ENCOUNTER → 2017-07-08 | Outpatient (CLI) | payer MEDICARE ==
[~2017-07-08] MED LIST changes: -ISOVUE-300 61% 50ML VIAL (Q9967) As Ordered ONE; -LIDOCAINE 2% MDV 20 ML VIAL As Ordered ONE; -MIDAZOLAM INJ 2 MG/2 ML VIAL (J2250) As Ordered ONE; -fentaNYL 100 MCG/2 ML INJECTION (J3010) As Ordered ONE
--- NOTE | 2017-07-09 00:37 | ECWPNPC ---
PATIENT NAME: ROSIE TEE : 1950 GENDER: MALE VISIT DATE: 07/08/2017 DISCHARGE DATE: 07/08/17 164 VISIT LOCKED DATE TIME: PHYSICIAN: ANDREW OTTO RESOURCE: ANDREW OTTO REASON FOR APPOINTMENT 1. CHRONIC PAIN HISTORY OF PRESENT ILLNESS HISTORY OF PRESENT ILLNESS: HERE FOR F/U OF CHRONIC CHEST WALL PAIN.DOING WELL.USING MS CONTIN 15MG PRN FOR SEVERE PAIN AND OXYCODONE PERIODICALLY FOR MODERATE PAIN.ACCOMPANIED IN EXAM ROOM WITH HIS .HE FELL ON WAY INTO HOSPITAL FOR APPOINTMENT 2 WEEKS AGO.INJURED HIS RIGHT FOREARM.DISCUSSED MEDICATION OPTIONS TO REDUCE USE OF OPIODS TO AVOID SIDE EFFECTS.RATING PAIN VAS 5/10. PAIN THE PATIENT DESCRIBES THE PAIN... FALL RISK SCREENING: SCREENING :NO FALLS IN THE PAST YEAR CURRENT MEDICATIONS TAKING AMLODIPINE BESYLATE 5 MG TABLET 1 TABLET ORALLY ONCE A DAY TAKING ASPIR-81 81 MG TABLET DELAYED RELEASE 1 TABLET ORALLY ONCE A DAY TAKING PAROXETINE HCL 10 MG TABLET 1 TABLET IN THE MORNING ORALLY ONCE A DAY TAKING LEVOTHYROXINE SODIUM 75 MCG TABLET 1 TABLET ON AN EMPTY STOMACH IN THE MORNING ORALLY ONCE A DAY TAKING DIGOXIN 125 MCG TABLET 1 TABLET ORALLY ONCE A DAY, NOTES: M,W,F TAKING CRESTOR 20 MG TABLET 1 TABLET ORALLY ONCE A DAY TAKING FINASTERIDE 5 MG TABLET 1 TABLET ORALLY ONCE A DAY TAKING TAMSULOSIN HCL 0.4 MG CAPSULE 1 CAPSULE ORALLY ONCE A DAY TAKING VITAMIN D 1000 UNIT TABLET 1 TABLET ORALLY ONCE A DAY TAKING OMEGA 3 1000 MG CAPSULE 1 CAPSULE ORALLY BID TAKING COUMADIN 10 MG TABLET 1 TABLET ORALLY ONCE A DAY, NOTES: QOD TAKING COUMADIN 7.5 MG TABLET 1 TABLET ORALLY ONCE A DAY, NOTES: QOD TAKING NITROGLYCERIN 0.4 MG TABLET SUBLINGUAL SUBLINGUAL TAKING NOVOLOG 100 UNIT/ML SOLUTION SUBCUTANEOUS , NOTES: SLIDING SCALE TAKING LANTUS 100 UNIT/ML SOLUTION 30 UNITS SUBCUTANEOUS BID TAKING ALBUTEROL SULFATE HFA 108 (90 BASE) MCG/ACT AEROSOL SOLUTION 2 PUFFS NEEDED INHALATION EVERY 4 HRS TAKING ALBUTEROL SULFATE (2.5 MG/3ML) 0.083% NEBULIZATION SOLUTION 3 ML INHALATION THREE TIMES A DAY TAKING COLACE 100 MG CAPSULE 2 ORALLY TID TAKING MS CONTIN 15 MG TABLET EXTENDED RELEASE 1 TABLET ORALLY EVERY 12 HRS MDD2 TAKING OXYCODONE HCL 15 MG TABLET 1 TABLET NEEDED ORALLY EVERY 6 HRS PRN MDD4 TAKING ULORIC 40 MG TABLET 1 TABLET ORALLY ONCE A DAY TAKING CALCIUM 600 MG TABLET 1 TABLET WITH MEALS ORALLY TWICE A DAY TAKING RENVELA 800 MG TABLET 1 TABLET WITH MEALS ORALLY THREE TIMES A DAY DISCONTINUED ALLOPURINOL 100 MG TABLET 2 TABLET ORALLY ONCE A DAY MEDICATION LIST REVIEWED AND RECONCILED WITH THE PATIENT PAST MEDICAL HISTORY A FLUTTER HYPOTHYROIDISM RENAL FAILURE COPD CHF BIPAP AT HS HIGH CHOLESTEROL [place] HTN HAIRY CELL LEUKEMIA ANXIETY ALLERGIES N.K.D.A. REVIEW OF SYSTEMS REVIEWED BY: PROVIDER: ANDREW HENRY . CONSTITUTIONAL: ANY CHANGE IN YOUR MEDICAL CONDITION? YES GOUT IMPROVED . CHILLS NO . FEVER NO . INFECTION: DO YOU HAVE NEW INFECTIONS? NO . DO YOU HAVE HISTORY OF MRSA? NO . MUSCULOSKELETAL: ANY NEW PATTERNS OF PAIN OR NUMBNESS? YES PT REPORTS IMPROVEMENT OF PAIN IN CHEST WALL, AND PAIN IN FEET R/T GOUT. . GASTROENTEROLOGY: ANY NEW CHANGE IN BOWEL CONTROL? NO . GENITOURINARY: ANY NEW CHANGE IN BLADDER CONTROL? NO . IS THERE A CHANCE YOU COULD BE ? NO . HEMATOLOGY/LYMPH: DO YOU TAKE ANY BLOOD THINNERS? (FOR EXAMPLE- COUMADIN, PLAVIX, AGGRENOX, PLATEL, PRADAXA, OR XARELTO) YES COUMADIN . WHEN WAS YOUR LAST DOSE? DATE: TIME: . NEUROLOGY: HAVE YOU FALLEN IN THE PAST 6 MONTHS? YES PT TRIPPED OVER A CURB AND FELL IN THE PARKING LOT 2 WEEKS AGO. CURRENTLY HAS A LARGE HEMATOMA ON HIS RIGHT FOREARM. ALSO SUSTAINED BUMPS AND BRUISES ON BOTH LEGS AND KNEES. . ANY NEW EXTREMITY NUMBNESS OR WEAKNESS? NO . CARDIOLOGY: DO YOU HAVE A PACEMAKER OR DEFIBRILLATOR? NO . RESPIRATORY: HAVE YOU BEEN SICK IN THE PAST WEEK? NO . FEVER NO . FLU LIKE SYMPTOMS? NO . COUGH NO . INTEGUMENTARY: DO YOU HAVE ANY RASHES OR OPEN SORES? NO . ALLERGIC/IMMUNO: ARE YOU ALLERGIC TO SHELLFISH OR IV DYE? NO . ANY NEW ALLERGIES? NO . PSYCHIATRIC: DO YOU HAVE THOUGHTS OF HURTING YOURSELF OR SOMEONE ELSE? NO . ARE YOU ABUSED, NEGLECTED, OR IN AN UNSAFE ENVIRONMENT? NO . ENDOCRINOLOGY: ARE YOU DIABETIC? YES . OTHER: DO YOU NEED ANY PRESCRIPTIONS? NO . IF YES, PLEASE LIST: ____ . ANY NEW PROBLEMS WITH YOUR MEDICATIONS? NO . WHEN DID YOU LAST EAT? ____ . WHEN DID YOU LAST DRINK? ____ . WHAT DID YOU LAST DRINK? ____ . NAME OF PERSON DRIVING YOU HOME? ____ . DO YOU HAVE ANY OTHER QUESTIONS OR CONCERNS NO . VITAL SIGNS WT 256.2 LBS, HT 67", BMI 40.12 INDEX, BP 165/76 MM HG, HR 86 /MIN, RR 18 /MIN, TEMP 97.3 F, OXYGEN SAT % 96%, SAFE IN ENV? (Y/N) YES, NA INITIALS SC 15:41, REVIEWED BY: AZAR. EXAMINATION GENERAL EXAMINATION: GENERAL APPEARANCE:UNCOMFORTABLE,RUBBING RIGHT KNEE.. PSYCHAFFECT NORMAL. LUNGS:LUNG BERRY ARE CLEAR TO AUSCULTATION BILATERALLY. GOOD MOVEMENT OF AIR. HEART:S1, S2 IN A REGULAR RATE AND RHYTHM. NO SIGNIFICANT MURMURS, RUBS OR GALLOPS NOTED. TESSIO LINE INTACT RIGHT ANTERIOR CHEST-NO SIGNS OF INFECTION /NON TENDERRIGHT ANTERIOR CHEST NONTENDER WITH PALPATION/NO REDDNESS OR SWELLING. ASSESSMENTS CHEST WALL PAIN - R07.89 (PRIMARY) CHRONIC PRESCRIPTION OPIATE USE - Z79.891 TREATMENT CHEST WALL PAIN STOP MS CONTIN TABLET EXTENDED RELEASE, 15 MG, 1 TABLET, ORALLY, EVERY 12 HRS MDD2 CONTINUE OXYCODONE HCL TABLET, 15 MG, 1 TABLET NEEDED, ORALLY, EVERY 6 HRS PRN MDD4, 30 DAY(S), 45, REFILLS 0 NOTES: ISTOP REGISTRY REVIEWED [id number] DEMNOSTRATES COMPLLIANCE. URINE TOX TODAY. PROCEDURE CODES FA211 ESTABILISHED PATIENT [facility] FACILITY CHARGE G8730 PAIN ASSESS POS TOOL F/U PLAN DOC G8427 DOC MEDS VERIFIED W/PT OR RE DISPOSITION & COMMUNICATION FOLLOW UP 4 WEEKS ELECTRONICALLY SIGNED BY ELAINE COLLAZO ON 07/08/2017 AT 04:53 PM EDT DISCLAIMER : THIS IS A VISIT SUMMARY EXTRACTED FROM THE [employer] CHART. IT IS NOT A COPY OF THE [employer] PROGRESS NOTE. NELLY
== END ==
LOC: M PAIN 15:15
PROVIDERS: ATTEND Nurse Practitioner Family
DX: G89.29 Other chronic pain (principal); R07.89 Other chest pain; E03.9 Hypothyroidism, unspecified; J44.9 Chronic obstructive pulmonary disease, unspecified; E78.00 Pure hypercholesterolemia, unspecified; I25.2 Old myocardial infarction; I10 Essential (primary) hypertension; F41.9 Anxiety disorder, unspecified; M10.00 Idiopathic gout, unspecified site; E11.9 Type 2 diabetes mellitus without complications; Z79.01 Long term (current) use of anticoagulants; Z79.82 Long term (current) use of aspirin; Z79.4 Long term (current) use of insulin; Z79.891 Long term (current) use of opiate analgesic; Z79.899 Other long term (current) drug therapy

== ENCOUNTER 2017-07-16 00:08 | Emergency (ER) | payer MEDICARE ==
[~2017-07-16] VITALS: Ht 170.2 cm; Wt 115.9 kg
[~2017-07-16 00:08] MED LIST changes: -MORP15TASA PO; -SENN1TAB10 PO
[2017-07-16 00:46] LABS: EOS % 0.5 % (0.0-3.0); IMMATURE GRANULOCYTE % 0.5 % (0-0); LYMPH % 4.6 % (24.0-44.0); MEAN CORPUSCULAR HEMOGLOBIN 32.7 pg (27.0-33.0); MEAN CORPUSCULAR HGB CONC 31.4 g/dl (32.0-36.5); MONO # 0.1 10^3/uL (0.0-0.8); MONO % 2.7 % (0.0-5.0); NEUTROPHILS # 3.4 10^3/uL (1.8-7.7); NEUTROPHILS % 91.7 % (36.0-66.0); RED CELL DISTRIBUTION WIDTH 17.3 % (11.5-14.5); WHITE BLOOD COUNT 3.7 10^3/uL (4.0-10.0)
[2017-07-16 01:10] LABS: CALCIUM LEVEL 8.3 MG/DL (8.8-10.2); CREATININE FOR GFR 2.65 MG/DL (0.70-1.30); GLOMERULAR FILTRATION RATE 25.9 (>49)
[2017-07-16 01:13] LABS: LYMPH # 0.2 10^3/uL (1.5-4.5); PLATELET COUNT, AUTOMATED 88 10^3/uL (150-450)
[2017-07-16 01:17] LABS: POTASSIUM SERUM 5.7 MEQ/L (3.5-5.1)
[2017-07-16] MEDS ORDERED: NITROGLYCERIN 0.4 MG SUBL TABLET SL PRN (01:30)
[2017-07-16 01:51] VITALS: BP 173/69
[2017-07-16 05:07] VITALS: BP 176/79
--- NOTE | 2017-07-16 08:11 | REP ---
Portable chest, 12:41 a.m., single AP view, patient sitting: Comparison is 05/01/2017. There is a left IJ central venous catheter with the tip in the superior vena cava/right atrial confluence in satisfactory location. There are sternotomy wires and cardiomegaly. Lung hinojosa are clear. The [place], mediastinum, and bony thorax are unremarkable. Impression: Cardiomegaly. Left IJ central venous catheter. Sternotomy wires. Signed by Abhijit Jacobs MD 07/16/2017 08:02 A
--- NOTE | 2017-07-16 09:22 | ECGEPIP ---
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
--- NOTE | 2017-07-17 06:17 | ECGEPIP ---
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
[2017-07-24 12:48] LABS: IMMATURE PLATELET FRACTION % 2.2 % (0.0-10.9)
== END 2017-07-16 05:18 | disposition home or self-care (01) ==
LOC: M ED 00:08
DX: R07.9 Chest pain, unspecified (principal); I25.10 Atherosclerotic heart disease of native coronary artery without angina pectoris; N18.9 Chronic kidney disease, unspecified; I25.2 Old myocardial infarction; Z79.4 Long term (current) use of insulin; Z79.899 Other long term (current) drug therapy; Z95.1 Presence of aortocoronary bypass graft; Z82.49 Family history of ischemic heart disease and other diseases of the circulatory system

== ENCOUNTER 2017-07-22 05:56 | Inpatient (IN) | payer MEDICARE ==
[~2017-07-22] VITALS: Ht 170.2 cm; Wt 114.9 kg
[2017-07-22 06:50] LABS: ABG BASE EXCESS 2.6 (-2.0-2.0); ABG HCO3 26.1 MEQ/L (22.0-26.0); ABG PARTIAL PRESSURE CO2 35.9 mmHg (35.0-45.0); ABG PARTIAL PRESSURE O2 66.3 mmHg (75.0-100.0); ABG STANDARD HCO3 26.7 MEQ/L (22.0-26.0); ABG TOTAL CO2 27.2 MEQ/L (23.0-31.0); ABG pH (ARTERIAL) 7.479 UNITS (7.350-7.450)
[2017-07-22 07:07] LABS: BASO % 0.3 % (0.0-1.0); EOS % 0.8 % (0.0-3.0); IMMATURE GRANULOCYTE % 0.3 % (0-0); LYMPH % 3.9 % (24.0-44.0); MEAN CORPUSCULAR HEMOGLOBIN 32.3 pg (27.0-33.0); MEAN CORPUSCULAR HGB CONC 31.8 g/dl (32.0-36.5); MEAN CORPUSCULAR VOLUME 101.4 fl (80.0-96.0); MONO % 1.1 % (0.0-5.0); NEUTROPHILS # 3.4 10^3/uL (1.8-7.7); NEUTROPHILS % 93.6 % (36.0-66.0); PLATELET COUNT, AUTOMATED 126 10^3/uL (150-450); RED CELL DISTRIBUTION WIDTH 15.7 % (11.5-14.5); WHITE BLOOD COUNT 3.6 10^3/uL (4.0-10.0)
[2017-07-22 07:26] LABS: INR 2.05
[2017-07-22 07:31] LABS: CREATININE FOR GFR 3.57 MG/DL (0.70-1.30); GLOMERULAR FILTRATION RATE 18.4 (>49); POTASSIUM SERUM 5.1 MEQ/L (3.5-5.1)
[2017-07-22 07:36] LABS: ADD MANUAL DIFFER NO; ALBUMIN 2.4 GM/DL (3.2-5.2); ALBUMIN/GLOBULIN RATIO 0.71 (1.00-1.93); BILIRUBIN,DIRECT 0.1 MG/DL (0.0-0.2); BILIRUBIN,TOTAL 0.5 MG/DL (0.2-1.0); DIFF SLIDE NUMBER 93; LYMPH # 0.1 10^3/uL (1.5-4.5); TOTAL PROTEIN 5.8 GM/DL (6.4-8.2)
[2017-07-22 07:42] LABS: DIGOXIN LEVEL 0.6 NG/ML (0.5-2.0)
--- NOTE | 2017-07-22 07:59 | REP ---
Portable chest, 06:40 a.m., single AP view, patient sitting: A comparison is 07/16/2017. Cardiomegaly, sternotomy wires, and left IJ central venous catheter are all unchanged. There are no focal infiltrates or effusions. Lung hinojosa appear clear and unchanged. The parish, mediastinum, and bony thorax are unremarkable. Impression: There is no interval change. Signed by Abhijit Jacobs MD 07/22/2017 07:51 A MTDD
[2017-07-22] MEDS ORDERED: ONDANSETRON 4MG/2ML VIAL (J2405) IV PRN (08:45)
[2017-07-22] MEDS: SENOKOT S TAB PO SCH ×2 (09:00→20:38)
--- NOTE | 2017-07-22 09:18 | ECGEPIP ---
Stationary ECG Study [facility] - ED Test Date: 2017-07-22 Pat Name: ROSIE TEE Department: Room: - Gender: M Patient Care Technician: RiveraB: 1950 Requested By: EMILY HENRY Order Number: [id number] Reading MD: Jorge Lopez Measurements Intervals [place] Rate: 94 P: 25 HI: 158 QRS: 18 QRSD: 84 T: 110 QT: 313 QTc: 392 Interpretive Statements SINUS RHYTHM POSSIBLE LEFT ATRIAL ENLARGEMENT NONSPECIFIC T-WAVE ABNORMALITY SIMILAR TO 07/16/17 Electronically Signed On 07-22-2017 9:18:27 EDT by Jorge Lopez
[2017-07-22] MEDS ORDERED: COUM7.5T PO (09:19)
[2017-07-22] MEDS ORDERED: SENN1TAB10 PO (09:22)
[2017-07-22] MEDS ORDERED: MORP15TASA PO (09:22)
[2017-07-22] MEDS: HEPARIN SOD (PORCINE) 5000 UNITS/ML VIAL SC SCH ×2 (09:55→20:39)
[2017-07-22] MEDS: (RENVELA) SEVELAMER **CARBONate** 800 MG TAB PO SCH ×2 (12:00→20:38)
[2017-07-22] MEDS ORDERED: NITROGLYCERIN 0.4 MG SUBL TABLET SL PRN (12:00)
[2017-07-22] MEDS ORDERED: SENNA 8.6 MG TAB (SENOKOT) PO PRN (12:00)
[2017-07-22] MEDS ORDERED: MORPHINE 15 MG SA TAB PO PRN (12:00)
[2017-07-22] MEDS ORDERED: oxyCODONE 5MG TAB PO PRN (12:00)
[2017-07-22] MEDS: HumaLOG INSULIN (NovoLOG) PER UNIT SC SCH (13:11)
[2017-07-22] MEDS ORDERED: HEPARIN 1,000 UNITS/ML 10ML VIAL (FOR RADIOLOGY& DIALYSIS ONLY) XX ONE ×2 (14:30)
--- NOTE | 2017-07-22 16:48 | HPEPDOC ---
General Date of Admission Jul 22, 2017 at 08:32 Other Providers Cruz Rubio Attending Physician: MEL SAMANIEGO MD Chief Complaint The patient is a 66-year-old male admitted with a reason for visit of Chf Exacerbation,Esrd(End Stage Renal Disease). Source: Patient Exam Limitations: No limitations History of Present Illness Mr. Mansfield is a 66-year-old male who presented to the emergency department due to increased shortness of breath. He states that he has been feeling significantly more fatigued, he would've the point that he can only take a few steps. He normally does get dialysis every Saturday, however because of his severe weakness and shortness of breath he felt that he would not be able to endure hemodialysis today, therefore he came to the emergency department instead. 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 Home Medications Scheduled (Fish Oil 1200 mg) 1 Cap Cap, 1 CAP PO BID, (Reported) Acetylcysteine Injection (Nac 600) 600 Mg Cap, 600 MG PO DAILY, (Reported) Amlodipine Besylate (Amlodipine Besylate) 5 Mg Tab, 5 MG PO DAILY, (Reported) Aspirin (Aspirin EC) 81 Mg Tabec, 81 MG PO DAILY, (Reported) Calcium/Vitamin D (Calcium 600+D 600-200 mg-Unit) 1 Tab Tab, 1 TAB PO DAILY, ( Reported) Cholecalciferol (Vitamin D3) 1,000 Unit Cap, 1,000 UNIT PO DAILY, (Reported) Cyanocobalamin (Vitamin B-12) 1,000 Mcg Tab, 1,000 MCG PO DAILY, (Reported) Digoxin (Digoxin) 0.125 Mg Tab, 0.125 MG PO 3XW, (Reported) SAT,SAT,FRI EVENINGS AFTER DIALYSIS Febuxostat (Uloric) 40 Mg Tab, 40 MG PO DAILY, (Reported) Finasteride (Finasteride) 5 Mg Tab, 5 MG PO QHS, (Reported) Insulin Aspart (Novolog) 100 U/Ml Inj, 12 UNITS SC ACB, (Reported) Insulin Aspart (Novolog) 100 U/Ml Inj, 14 UNITS SC DAILY, (Reported) TAKES BEFORE LUNCH Insulin Aspart (Novolog) 100 U/Ml Inj, 16 UNITS SC ACS, (Reported) Insulin Glargine (Lantus) 1 Units/0.01 Ml Susp, 30 UNITS SC BID, (Reported) Levothyroxine Sodium (Levoxyl) 75 Mcg Tab, 75 MCG PO DAILY, (Reported) Multivitamins *[facility] STOCKED* (Thera M Plus *[facility] STOCKED*) 1 Tab Tab, 1 TAB PO DAILY, (Reported) Paroxetine Hydrochloride (Paxil) 10 Mg Tab, 10 MG PO QHS, (Reported) Rosuvastatin Calcium (Crestor) 20 Mg Tab, 20 MG PO QHS, (Reported) Sevelamer Carbonate (Renvela) 800 Mg Tab, 800 MG PO with meals, (Reported) Tamsulosin Hydrochloride (Flomax) 0.4 Mg Cap, 0.4 MG PO QHS, (Reported) Warfarin Sod (Warfarin Sodium) 10 Mg Tab, 10 MG PO 3XW, (Reported) MON, WED, FRI EVENINGS Warfarin Sod (Coumadin) 7.5 Mg Tab, 7.5 MG PO 4XWK, (Reported) SUN,TUES,THURS,SAT EVENINGS Scheduled PRN Morphine Sulfate (Morphine Sulfate ER) 15 Mg Tabcr, 15 MG PO BID PRN for PAIN, ( Reported) Nitroglycerin (Nitrostat) 0.4 Mg Subl, 0.4 MG SL NITRO PRN for CHEST PAIN, ( Reported) Oxycodone Hcl (Oxycodone HCl) 15 Mg Tab, 15 MG PO Q4HP PRN for PAIN, (Reported) Senna (Senna Lax) 8.6 Mg Tab, 1 TAB PO DAILY PRN for CONSTIPATION, (Reported) Allergies Coded Allergies: No Known Allergies (Unverified , 06/11/17) Past Medical History Medical History Atrial flutter Coronary artery disease status post 2 stents and quintuple coronary artery bypass graft Diastolic congestive heart failure Cervical neck impingement History of hairy cell leukemia, in remission End-stage renal disease on hemodialysis Obstructive sleep apnea, compliant with CPAP at home Hypertension Obesity Diabetes mellitus type 2 Dyslipidemia Questionable history of COPD Surgical History Quintuple CABG Cardiac stent 2 Cataract surgery AV fistula surgery (not successful) Family History His father had lung cancer, he has a brother with diabetes mellitus type 2. Otherwise no additional family history of cancer, diabetes, stroke, or myocardial infarction. Social History * Smoker: Denies Alcohol: occationally Drugs: denies Recent Travel/Sick Contacts: Denies: Recent travel Psychosocial History: No pertinent psych hx Review of Symptoms Constitutional: Reports: Malaise, Weakness, Fatigue, Denies: Chills, Fever, Night Sweats Eyes: Denies: Pain, Vision change ENT: Denies: Head Aches, Ear Pain, Dysphagia Skin: Denies: Rash, Lesions, Breakdown Pulmonary: Reports: Dyspnea, Denies: Cough Cardiovascular: Reports: Orthopnea, Denies: Chest Pain, Palpitations, Lt Headedness Gastrointestinal: Denies: Nausea, Vomiting, Abdominal Pain, Diarrhea, Constipation Genitourinary: Reports: Other Symptoms (although being on hemodialysis, he does urinate, he feels that he has not had any changes), Denies: Dysuria, Frequency, Incontinence, Retention Hematologic: Denies: Bruising, Bleeding Excessively Neurological: Denies: Weakness, Numbness, Change in speech, Confusion Psych: Reports: Mood Normal, Denies: Depression, Memory Issues Physical Examination General Exam: Positive: Alert, Cooperative, Moderate Distress Eye Exam: Positive: PERRLA, Conjunctiva & lids normal, EOMI, Negative: Sclera icteric ENT Exam: Positive: Atraumatic, Mucous membr. moist/pink, Pharynx Normal Neck Exam: Positive: Supple, JVD, Negative: thyromegaly Chest Exam: Positive: Clear to auscultation, Normal air movement Heart Exam: Positive: Rate Normal, Regular Rhythm, Normal S1, Normal S2, Negative: Murmurs, Rubs Telemetry: Positive: No significant arrhythmia Abdomen Exam: Positive: Normal bowel sounds, Soft, Negative: Tenderness, Hepatospenomegaly Extremity Exam: Positive: Edema (1+ pitting edema to the midshin), Normal pulses, Negative: Clubbing, Cyanosis Skin Exam: Positive: Nl turgor and temperature, Negative: Breakdown, Lesion Psych Exam: Positive: Mental status NL, Mood NL, Oriented x 3 Vital Signs Vital Signs Date Time Temp Pulse Resp B/P (MAP) Pulse Ox O2 Delivery O2 Flow Rate FiO2 07/22/17 13:14 144/74 (97) 07/22/17 13:11 90 07/22/17 12:56 91 07/22/17 12:37 97.8 18 Room Air Laboratory Data Labs 24H Laboratory Tests 2 07/22/17 06:39: Blood Gas Bicarbonate Standard 26.7H, Arterial Blood pH 7.479H, Arterial Blood Partial Pressure CO2 35.9, Arterial Blood Partial Pressure O2 66.3L, Arterial Blood Total CO2 27.2, Arterial Blood HCO3 26.1H, Arterial Blood Base Excess 2.6H , Arterial Blood Oxygen Saturation 93.9L 07/22/17 06:59: Immature Granulocyte % (Auto) 0.3H, White Blood Count 3.6L, Red Blood Count 2.82L, Hemoglobin 9.1L, Hematocrit 28.6L, Mean Corpuscular Volume 101.4H, Mean Corpuscular Hemoglobin 32.3, Mean Corpuscular Hemoglobin Concent 31.8L, Red Cell Distribution Width 15.7H, Platelet Count 126L, Neutrophils (%) (Auto) 93.6H , Lymphocytes (%) (Auto) 3.9L, Monocytes (%) (Auto) 1.1, Eosinophils (%) (Auto) 0.8, Basophils (%) (Auto) 0.3, Neutrophils # (Auto) 3.4, Lymphocytes # (Auto) 0.1L, Monocytes # (Auto) 0.0, Eosinophils # (Auto) 0.0, Basophils # (Auto) 0.0, Immature Granulocyte # (Auto) 0.0, Nucleated Red Blood Cells % (auto) 0.0, Prothrombin Time 23.8H, Prothromb Time International Ratio 2.05, Anion Gap 9, Glomerular Filtration Rate 18.4L, Blood Urea Nitrogen 57H, Creatinine 3.57H, Sodium Level 140, Potassium Level 5.1, Chloride Level 104, Carbon Dioxide Level 27, Calcium Level 9.0, Total Creatine Kinase 110, Aspartate Amino Transf (AST/ SGOT) 30, Alanine Aminotransferase (ALT/SGPT) 35, Alkaline Phosphatase 74, Total Bilirubin 0.5, Direct Bilirubin 0.1, Creatine Kinase MB 3.9H, Creatine Kinase MB Relative Index 3.54, Troponin I 0.43H, HQ-Yga-W-Type Natriuretic Peptide 4493H, Total Protein 5.8L, Albumin 2.4L, Albumin/Globulin Ratio 0.71L, Thyroid Stimulating Hormone (TSH) 0.295L, Digoxin Level 0.6 07/22/17 07:00: Lactic Acid Level 1.0 07/22/17 08:34: Bedside Glucose (Misc Panel) 101 07/22/17 12:30: Bedside Glucose (Misc Panel) 134H CBC/BMP Laboratory Tests 07/22/17 06:59 Red Blood Count 2.82 L, Mean Corpuscular Volume 101.4 H, Mean Corpuscular Hemoglobin 32.3, Mean Corpuscular Hemoglobin Concent 31.8 L, Red Cell Distribution Width 15.7 H, Neutrophils (%) (Auto) 93.6 H, Lymphocytes (%) (Auto ) 3.9 L, Monocytes (%) (Auto) 1.1, Eosinophils (%) (Auto) 0.8, Basophils (%) ( Auto) 0.3, Neutrophils # (Auto) 3.4, Lymphocytes # (Auto) 0.1 L, Monocytes # ( Auto) 0.0, Eosinophils # (Auto) 0.0, Basophils # (Auto) 0.0, Calcium Level 9.0, Total Creatine Kinase 110 Microbiology Microbiology 07/22/17 Blood Culture, Received Pending 07/22/17 Blood Culture, Received Pending 07/22/17 Influenza Virus Type A Antigen - Final, Complete 07/22/17 Influenza Virus Type B Antigen - Final, Complete Problems (1) CHF exacerbation Status: Acute (2) Gout Status: Chronic (3) Anxiety Status: Chronic (4) GERD (gastroesophageal reflux disease) Status: Chronic (5) Atrial flutter Status: Chronic (6) Insulin dependent diabetes mellitus Status: Chronic (7) CAD (coronary artery disease) Status: Chronic (8) Hypothyroidism Status: Chronic (9) Anemia Status: Chronic (10) BPH (benign prostatic hyperplasia) Status: Chronic (11) CHF (congestive heart failure) Status: Chronic (12) ESRD (end stage renal disease) Status: Chronic Plan / VTE VTE Prophylaxis Ordered?: Yes Plan Plan Given his progressively worsening, and profound shortness of breath and weakness , we have ordered blood cultures to make sure that he does not have an infected catheter, as well as a peripheral smear just to be sure that he is not having the beginnings of leukemia once again. His BNP is elevated and he is clearly fluid overloaded, he is also scheduled for dialysis today, therefore nephrology has been consulted, and they are ready planning to schedule him for dialysis later today. Otherwise, we will recheck daily labs, as well as check an INR tomorrow morning, and we will monitor him clinically after dialysis and adjust treatment as necessary. GME ATTESTATION GME ATTESTATION My preceptor for this patient encounter was physically present in the building during the encounter and was fully available. As needed, all aspects of the patient interview, examination, medical decision making process, and medical care plan development were reviewed and approved by the preceptor. Preceptor is aware and concurs with the plan as stated in the body of this note and will attest to such by his/her cosignature. PRIYA TAVERAS DO Jul 22, 2017 16:48
[2017-07-22] MEDS ORDERED: WARFARIN SOD 3 MG TAB PO SCH (17:00)
[2017-07-22] MEDS ORDERED: HumaLOG INSULIN (NovoLOG) PER UNIT SC SCH (17:30)
[2017-07-22] MEDS ORDERED: DIGOXIN 0.125 MG TAB PO SCH (18:00)
[2017-07-22 20:00] VITALS: BP 160/72
--- NOTE | 2017-07-22 20:06 | REP ---
CT chest without IV contrast: History: Shortness of breath. Comparison is made with today's portable chest x-ray. Comparison chest CT study is from May 13, 2017. CT findings: There is a fine reticular pattern of interstitial disease with centrilobular nodules in a patchy distribution bilaterally involving the upper and lower lobes and right middle lobe. This is a new finding when compared with the prior study. There is no evidence of pleural effusion. No confluent consolidation is seen. There is no hilar or mediastinal mass or new adenopathy. Extensive vascular calcification is noted. The patient is status post median sternotomy and coronary bypass grafting. Extensive mitral annular calcification is seen. There is a left internal jugular central venous catheter terminating in the superior vena cava. Scattered granulomatous calcifications are again seen throughout the lung [place] as before. Impression: New pattern of reticulonodular interstitial disease extensively and bilaterally in a patchy distribution involving all lobes of the lungs. Nonspecific. Acute infection, immune or allergic reaction, fluid overload, and drug reaction are possibilities. Signed by Renaldo Pires MD 07/23/2017 05:25 P
[2017-07-22] MEDS: LEVEMIR (INSULIN DETEMIR) 1 UNITS/0.01ML SC SCH (20:39)
[2017-07-22] MEDS ORDERED: FINASTERIDE 5 MG TAB PO SCH (21:00)
[2017-07-22] MEDS ORDERED: ROSUVASTATIN 10 MG TAB (CRESTOR) PO SCH (21:00)
[2017-07-22] MEDS ORDERED: PARoxetine 10MG TABLET PO SCH (21:00)
[2017-07-22] MEDS ORDERED: TAMSULOSIN 0.4 MG CAP PO SCH (21:00)
[2017-07-23] VITALS: BP 167/78
[2017-07-23] MEDS ORDERED: CALCIUM CARBONATE 500 MG CHEW U/D PO ONE
[2017-07-23 04:00] VITALS: BP 136/57
[2017-07-23] MEDS ORDERED: LEVOTHYROXINE 75MCG TABLET (0.075MG) PO SCH (06:00)
[2017-07-23] MEDS: (RENVELA) SEVELAMER **CARBONate** 800 MG TAB PO SCH ×2 (06:31→13:00)
[2017-07-23 07:17] LABS: EOS # 0.1 10^3/uL (0.0-0.50); EOS % 1.9 % (0.0-3.0); LYMPH % 5.1 % (24.0-44.0); MEAN CORPUSCULAR HEMOGLOBIN 31.5 pg (27.0-33.0); MEAN CORPUSCULAR HGB CONC 31.3 g/dl (32.0-36.5); MEAN CORPUSCULAR VOLUME 100.7 fl (80.0-96.0); MONO # 0.1 10^3/uL (0.0-0.8); MONO % 1.6 % (0.0-5.0); NEUTROPHILS # 2.9 10^3/uL (1.8-7.7); NEUTROPHILS % 91.4 % (36.0-66.0); PLATELET COUNT, AUTOMATED 156 10^3/uL (150-450); RED CELL DISTRIBUTION WIDTH 15.7 % (11.5-14.5); WHITE BLOOD COUNT 3.2 10^3/uL (4.0-10.0)
[2017-07-23 07:19] LABS: LYMPH # 0.2 10^3/uL (1.5-4.5)
--- NOTE | 2017-07-23 07:24 | CR ---
DATE OF CONSULTATION: 07/22/2017 REQUESTING PHYSICIAN: Dr. Lina Jenkins REASON FOR CONSULTATION: Management of end-stage renal disease on hemodialysis. CHIEF COMPLAINT: Progressive shortness of breath, dyspnea on exertion and extreme fatigue over the past week. HISTORY OF PRESENT ILLNESS: This patient is a 66-year-old male with a past medical history of end-stage renal disease on hemodialysis every Saturday, Saturday, and Saturday via a internal jugular (IJ) PermCath. He also has a history of coronary artery disease status post coronary artery bypass grafting (CABG) and cardiac stent, congestive heart failure, atrial flutter on Coumadin , history of cervical spine impingement, history of hairy cell leukemia currently in remission, hypertension, obstructive sleep apnea, type 2 diabetes, chronic pulmonary obstructive disease (COPD)and dyslipidemia. The patient started chronic hemodialysis about six months ago and has been doing fairly well. He is now seen in the emergency room (ER) with complaint of progressive fatigue, shortness of breath, and dyspnea on exertion. The patient thinks that the symptoms have been going on for several weeks and steadily have been getting worse. For the past few days he has been short of breath and fatigued even just going around doing simple tasks at home. He tried to vacuum a couple of days ago and had to stop and rest with each room that he cleaned. This is new for him. This morning he found it difficult to even get out of bed and go to the bathroom due to increased fatigue and shortness of breath. He denies any fevers or chills at home, denies any nausea, vomiting, diarrhea. He denies any localizing signs or symptoms. There are no sick contacts reported. He denies cough, chest pain or palpitations. He does have some minor lower extremity edema. PAST MEDICAL HISTORY: 1. End-stage renal disease on hemodialysis Saturday, Saturday and Saturday, via left IJ PermCath. 2. Atrial flutter on Coumadin. 3. Coronary artery disease status post CABG. 4. Congestive heart failure. 5. Cervical spine impingement. 6. History of hairy cell leukemia currently in remission, was diagnosed about ten years prior. 7. Obstructive sleep apnea. 8. Hypertension. 9. Type 2 diabetes. 10. COPD. 11. Dyslipidemia. PAST SURGICAL HISTORY: 1. Coronary artery bypass grafting and history of cardiac stents. 2. Cataract surgery. 3. History of arteriovenous (AV) fistula which occluded. 4. History of left IJ PermCath. ALLERGIES: No known drug allergies. FAMILY HISTORY: Both his parents when the patient was 14 years old. His father is from lung cancer. SOCIAL HISTORY: The patient is a never smoker. He drinks alcohol occasionally. No drugs. REVIEW OF SYSTEMS: Negative as per HPI. HOME MEDICATIONS: - Acetylcysteine 600 mg by mouth daily - amlodipine 5 mg by mouth daily - aspirin 81 mg daily - calcium with vitamin D daily. - vitamin B12 1000 mcg by mouth daily - digoxin 0.125 mg Saturday, Saturday and Saturday evenings after dialysis - Uloric 40 mg daily - finasteride 5 mg at bedtime - insulin - fish oil one capsule twice a day - Levoxyl 75 mcg by mouth daily - oxycodone taken as needed - paroxetine 10 mg at bedtime - rosuvastatin 20 mg at bedtime - Renvela 800 mg with meals - Flomax 0.4 mg by mouth at bedtime - Coumadin. VITAL SIGNS: Temperature 99, pulse 104, respiratory rate 20, blood pressure 157/74, saturating 92% on room air. PHYSICAL EXAMINATION: Examination is done while the patient is seen in the emergency room and he is seen again later on hemodialysis. GENERAL: He is in good spirits and in no acute distress. He is speaking in full sentences without issues. HEAD/NECK: Extraocular muscles intact. Moist mucous membranes. There is no cervical lymphadenopathy. CARDIAC: S1, S2, 2+ radial pulses. 1+ pitting edema in the lower extremities. LUNGS: The patient is seen comfortable on room air, speaking in full sentences, in no acute respiratory distress. I do not appreciate any crackle at the base. ABDOMEN: Soft, obese, nontender. NEUROLOGIC: No focal deficits, oriented times four. Conversational and appropriately interactive. PSYCHIATRIC: Normal mood and affect. LABORATORY DATA: White count 3.6, hemoglobin 9.1, platelets 126. Sodium 140, potassium 5.1, bicarbonate 27, brain natriuretic peptide (BNP) 4400. Normal liver function tests (LFTs), troponin 0.4. MICROBIOLOGY: Blood cultures are pending. IMAGING: CT of the chest July 22; there is a new, nonspecific pattern of reticular nodular interstitial disease in a patchy distribution bilaterally involving all lobes of both lungs. This is new compared to prior. No pleural effusion, no new adenopathy. INPATIENT MEDICATIONS: Reviewed by myself. - amlodipine 5 mg p daily - aspirin 81 mg by mouth daily - calcium with vitamin D 500 mg by mouth daily - vitamin B12 1000 mcg by mouth daily - digoxin 0.125 mg by mouth three days a week - Uloric 40 mg by mouth daily - finasteride 5 mg by mouth at bedtime - insulin - levothyroxine 75 mcg by mouth daily - Paxil 10 mg by mouth at bedtime - rosuvastatin 20 mg by mouth at bedtime - Renvela 800 mg by mouth with meals - Flomax 0.4 mg by mouth at bedtime - vitamin D 1000 units daily - Coumadin. ASSESSMENT AND PLAN: The patient is a 66-year-old male with a past medical history of end-stage renal disease on hemodialysis for about the past six months who notes a several insidious history of progressive worsening fatigue and shortness of breath which has recently started to affect his ability to complete his tasks of daily life. 1. Shortness of breath. I saw the patient in the emergency room predialysis and it has been 72 hours since his last hemodialysis session. He did have some extra volume on him; however the patient is relatively new to dialysis, about six months since he started, and he does have residual renal function. His currently volume status was not significantly hypovolemic and does not correlate with the history he is providing for his progressive shortness of breath. My initial concern was for pulmonary embolism; however he is on Coumadin with a therapeutic INR and hence that is fairly easy to rule out. I ordered a CT scan of the chest and it is significant for a new finding of extensive bilateral reticular nodular changes in both lungs. This is a nonspecific finding, he may benefit from a pulmonary evaluation if his shortness of breath does not significantly improve with ultrafiltration on hemodialysis. He had 3500 mL ultrafiltrated with hemodialysis today. I have not had a chance to exam him post dialysis. Other investigations that are ordered and pending include erythrocyte sedimentation rate (ESR) C-reactive protein (CRP), blood cultures, peripheral blood smear. 2. Coronary artery disease (CAD) status post coronary artery bypass grafting (CABG), history of cardiomyopathy. Continue with volume regulation via ultrafiltration on hemodialysis. The patient does also have residual renal function. I will check and see if intradialytic weight gains have been an issue for him in the past, if they have he would benefit from oral diuretics on nondialysis days for further management of his volume status. 3. Atrial flutter on Coumadin anticoagulation with a therapeutic INR. 4. Hypothyroidism with low TSH. Check T4. 5. End-stage renal disease. On maintenance hemodialysis via left internal jugular PermCath. The patient was dialyzed today per his maintenance schedule. Plan of care was discussed with Dr. Lina Jenkins. NELLY
[2017-07-23 07:30] LABS: INR 1.74
[2017-07-23] MEDS ORDERED: HumaLOG INSULIN (NovoLOG) PER UNIT SC SCH (07:30)
[2017-07-23 07:40] LABS: CALCIUM LEVEL 8.6 MG/DL (8.8-10.2); CREATININE FOR GFR 2.89 MG/DL (0.70-1.30); GLOMERULAR FILTRATION RATE 23.5 (>49); POTASSIUM SERUM 4.4 MEQ/L (3.5-5.1)
[2017-07-23 08:00] VITALS: BP 144/80
[2017-07-23] MEDS: HEPARIN SOD (PORCINE) 5000 UNITS/ML VIAL SC SCH (08:11)
[2017-07-23] MEDS: SENOKOT S TAB PO SCH (08:11)
[2017-07-23 08:12] VITALS: BP 148/82
[2017-07-23] MEDS: LEVEMIR (INSULIN DETEMIR) 1 UNITS/0.01ML SC SCH (08:13)
[2017-07-23] MEDS ORDERED: ACETYLCYSTEINE 600 MG PO SCH (09:00)
[2017-07-23] MEDS ORDERED: amLODIPine 5 MG TAB PO SCH (09:00)
[2017-07-23] MEDS ORDERED: MULTIVITAMINS/MINERALS THERAP 1 TAB PO SCH (09:00)
[2017-07-23] MEDS ORDERED: ASPIRIN 81 MG ENTERIC TAB PO SCH (09:00)
[2017-07-23] MEDS ORDERED: VITAMIN D 1,000 INTERNATIONAL UNITS TABLET PO SCH (09:00)
[2017-07-23] MEDS ORDERED: CYANOCOBALAMIN 500 MCG TAB PO SCH (09:00)
[2017-07-23] MEDS ORDERED: CALCIUM/VITAMIN D 500 MG TAB PO SCH (09:00)
[2017-07-23] MEDS ORDERED: FEBUXOSTAT 40 MG TABLET (ULORIC) PO SCH (09:00)
[2017-07-23 10:01] LABS: REASON FOR REVIEW COMPREHENSIVE REVIEW
[2017-07-23 10:11] LABS: ERYTHROCYTE SEDIMENTATION RATE 126 mm/hr (0-20)
[2017-07-23 12:00] VITALS: BP 152/76
[2017-07-23] MEDS: HumaLOG INSULIN (NovoLOG) PER UNIT SC SCH (13:00)
--- NOTE | 2017-07-23 21:05 | DS.PDOC ---
Discharge Summary General Date of Admission Jul 22, 2017 at 08:32 Date of Discharge 07/23/2017 Discharge Summary PRIMARY CARE PHYSICIAN: Cruz Rubio ATTENDING AT TIME OF DISCHARGE: Dr. Ellis DISCHARGE DIAGNOS(E)S: 1. Acute decompensation of diastolic congestive heart failure 2. End-stage renal disease on hemodialysis 3. Chronic atrial flutter 4. Diabetes mellitus type 2 using insulin 5. Coronary artery disease status post 2 stents and a can sabianism coronary artery bypass graft 6. History of hairy cell leukemia, in remission 7. Obstructive sleep apnea, compliant with CPAP 8. Hypertension 9. Obesity 10. Dyslipidemia 11. Gout HPI & HOSPITAL COURSE: Mr. Mansfield is a 66-year-old male who presented to the emergency department with profound fatigue and weakness as well as shortness of breath. He was noted to be fluid overloaded on exam, therefore nephrology was consulted and he was dialyzed the same day. Blood cultures were obtained to verify that he did not have a bacteremia from an infected dialysis catheter, these were negative after 24 hours. A peripheral blood smear was also obtained to ensure that he does not have a recurrence of his hairy cell leukemia, this is still pending and will need outpatient follow-up. Otherwise, he did show remarkable improvement after dialysis, he was seen and evaluated by physical therapy who deemed him safe for discharge. Upon my evaluation he does appear to be stable and appropriate for discharge at this time. His shortness of breath has significantly improved, he was dialyzed 3.5 L off, and the remainder of his review of systems is negative. PHYSICAL EXAMINATION ON DISCHARGE: GENERAL: Awake, alert, oriented 3. He appears to be in no acute distress. CARDIOVASCULAR EXAMINATION: Regular rate and rhythm, with no rubs, gallops, or murmur. RESPIRATORY EXAMINATION: Clear to auscultation bilaterally with no wheezes, rales, or rhonchi. ABDOMINAL EXAMINATION: Soft, nontender, nondistended. Bowel sounds present. EXTREMITIES: No clubbing or edema noted. 2+ pulses in the radial bilaterally. Only trace edema is noted in the feet bilaterally at this time. Scars in his left arm from AV fistula surgeries 2. DISPOSITION: Home DISCHARGE INSTRUCTIONS: Follow-up with primary care provider within 7-10 days. Follow-up with nephrology a previously scheduled appointment. Obviously it is recommended that he continue to attend his dialysis sessions. Recommend a renal diet. Activity as tolerated. If symptoms return, or if you experience worsening of your symptoms, please call your doctor or return to the emergency department. DISCHARGE MEDICATIONS: He should take an extra dose of warfarin tonight and then follow-up with another INR within the next 2-3 days. Otherwise no change to his home regimen. ITEMS THAT NEED OUTPATIENT FOLLOWUP: Recommend that his primary care provider follow-up on peripheral blood smear results. My preceptor for this patient encounter was physically present in the building during the encounter and was fully available. As needed, all aspects of the patient interview, examination, medical decision making process, and medical care plan development were reviewed and approved by the preceptor. Preceptor is aware and concurs with the plan as stated in the body of this note and will attest to such by his/her cosignature. Vital Signs/I&Os Vital Signs Date Time Temp Pulse Resp B/P (MAP) Pulse Ox O2 Delivery O2 Flow Rate FiO2 07/23/17 12:00 98.2 89 18 152/76 (101) 94 Room Air I&O- Last 24 Hours up to 6 AM 07/24/17 06:00 Intake Total 600 ml Output Total 440 ml Balance 160 ml Laboratory Data Labs 24H Laboratory Tests 2 07/23/17 06:44: Differential Slide Review Report, Differential Pathologist's Review COMPREHENSIVE REVIEW, Peripheral Blood Smear Path Consult PERIPHERAL SMEAR 07/23/17 06:48: Immature Granulocyte % (Auto) 0.0, White Blood Count 3.2L, Red Blood Count 2.98L , Hemoglobin 9.4L, Hematocrit 30.0L, Mean Corpuscular Volume 100.7H, Mean Corpuscular Hemoglobin 31.5, Mean Corpuscular Hemoglobin Concent 31.3L, Red Cell Distribution Width 15.7H, Platelet Count 156, Neutrophils (%) (Auto) 91.4H , Lymphocytes (%) (Auto) 5.1L, Monocytes (%) (Auto) 1.6, Eosinophils (%) (Auto) 1.9, Basophils (%) (Auto) 0.0, Neutrophils # (Auto) 2.9, Lymphocytes # (Auto) 0.2L, Monocytes # (Auto) 0.1, Eosinophils # (Auto) 0.1, Basophils # (Auto) 0.0, Immature Granulocyte # (Auto) 0.0, Nucleated Red Blood Cells % (auto) 0.0, Erythrocyte Sedimentation Rate 126H, Prothrombin Time 20.9H, Prothromb Time International Ratio 1.74, Anion Gap 9, Glomerular Filtration Rate 23.5L, Blood Urea Nitrogen 35H, Creatinine 2.89H, Sodium Level 141, Potassium Level 4.4, Chloride Level 103, Carbon Dioxide Level 29, Calcium Level 8.6L, C-Reactive Protein, Quantitative 17.20H 07/23/17 12:07: Bedside Glucose (Misc Panel) 134H CBC/BMP Laboratory Tests 07/23/17 06:48 Red Blood Count 2.98 L, Mean Corpuscular Volume 100.7 H, Mean Corpuscular Hemoglobin 31.5, Mean Corpuscular Hemoglobin Concent 31.3 L, Red Cell Distribution Width 15.7 H, Neutrophils (%) (Auto) 91.4 H, Lymphocytes (%) (Auto ) 5.1 L, Monocytes (%) (Auto) 1.6, Eosinophils (%) (Auto) 1.9, Basophils (%) ( Auto) 0.0, Neutrophils # (Auto) 2.9, Lymphocytes # (Auto) 0.2 L, Monocytes # ( Auto) 0.1, Eosinophils # (Auto) 0.1, Basophils # (Auto) 0.0, Calcium Level 8.6 L FSBS Laboratory Tests Test 07/23/17 12:07 Range/Units Bedside Glucose (Misc Panel) 134 80-115 MG/DL Microbiology Microbiology 07/22/17 Blood Culture - Preliminary, Resulted No growth after 24 hours . All specim... 07/22/17 Blood Culture - Preliminary, Resulted No growth after 24 hours . All specim... 07/22/17 Influenza Virus Type A Antigen - Final, Complete 07/22/17 Influenza Virus Type B Antigen - Final, Complete Discharge Medications Scheduled (Fish Oil 1200 mg) 1 Cap Cap, 1 CAP PO BID, (Reported) Acetylcysteine Injection (Nac 600) 600 Mg Cap, 600 MG PO DAILY, (Reported) Amlodipine Besylate (Amlodipine Besylate) 5 Mg Tab, 5 MG PO DAILY, (Reported) Aspirin (Aspirin EC) 81 Mg Tabec, 81 MG PO DAILY, (Reported) Calcium/Vitamin D (Calcium 600+D 600-200 mg-Unit) 1 Tab Tab, 1 TAB PO DAILY, ( Reported) Cholecalciferol (Vitamin D3) 1,000 Unit Cap, 1,000 UNIT PO DAILY, (Reported) Cyanocobalamin (Vitamin B-12) 1,000 Mcg Tab, 1,000 MCG PO DAILY, (Reported) Digoxin (Digoxin) 0.125 Mg Tab, 0.125 MG PO 3XW, (Reported) MON,WED,FRI EVENINGS AFTER DIALYSIS Febuxostat (Uloric) 40 Mg Tab, 40 MG PO DAILY, (Reported) Finasteride (Finasteride) 5 Mg Tab, 5 MG PO QHS, (Reported) Insulin Aspart (Novolog) 100 U/Ml Inj, 12 UNITS SC ACB, (Reported) Insulin Aspart (Novolog) 100 U/Ml Inj, 14 UNITS SC DAILY, (Reported) TAKES BEFORE LUNCH Insulin Aspart (Novolog) 100 U/Ml Inj, 16 UNITS SC ACS, (Reported) Insulin Glargine (Lantus) 1 Units/0.01 Ml Susp, 30 UNITS SC BID, (Reported) Levothyroxine Sodium (Levoxyl) 75 Mcg Tab, 75 MCG PO DAILY, (Reported) Multivitamins *[facility] STOCKED* (Thera M Plus *[facility] STOCKED*) 1 Tab Tab, 1 TAB PO DAILY, (Reported) Paroxetine Hydrochloride (Paxil) 10 Mg Tab, 10 MG PO QHS, (Reported) Rosuvastatin Calcium (Crestor) 20 Mg Tab, 20 MG PO QHS, (Reported) Sevelamer Carbonate (Renvela) 800 Mg Tab, 800 MG PO with meals, (Reported) Tamsulosin Hydrochloride (Flomax) 0.4 Mg Cap, 0.4 MG PO QHS, (Reported) Warfarin Sod (Warfarin Sodium) 10 Mg Tab, 10 MG PO 3XW, (Reported) SAT, SAT, FRI EVENINGS Warfarin Sod (Coumadin) 7.5 Mg Tab, 7.5 MG PO 4XWK, (Reported) SUN,TUES,THURS,SAT EVENINGS Scheduled PRN Morphine Sulfate (Morphine Sulfate ER) 15 Mg Tabcr, 15 MG PO BID PRN for PAIN, ( Reported) Nitroglycerin (Nitrostat) 0.4 Mg Subl, 0.4 MG SL NITRO PRN for CHEST PAIN, ( Reported) Oxycodone Hcl (Oxycodone HCl) 15 Mg Tab, 15 MG PO Q4HP PRN for PAIN, (Reported) Senna (Senna Lax) 8.6 Mg Tab, 1 TAB PO DAILY PRN for CONSTIPATION, (Reported) Allergies Coded Allergies: No Known Allergies (Unverified , 06/11/17) Attending Note Attending Note I have seen and examined the above patient and agree with the above documentation. Time spent on discharge: >30 min PRIYA TAVERAS DO Jul 23, 2017 21:05 ALLYSON ELLIS Jul 24, 2017 18:31
--- NOTE | 2017-07-24 06:48 | IPN ---
DATE: 07/23/2017 SUBJECTIVE: The patient is seen this morning at the bedside in the emergency room. He was dialyzed yesterday with 3.5 kg ultrafiltration removed. He reports significant improvement in his shortness of breath with hemodialysis and improvement in fatigue as well. He ambulated with physical therapy without any reported shortness of breath or dyspnea on exertion. He is discharge pending this morning. I discussed the results of his CT scan with him. REVIEW OF SYSTEMS: Positive for improvement of shortness of breath and fatigue. Negative for chest pain, palpitations, nausea, vomiting, diarrhea, fever, dysuria, abdominal pain. Remainder or review of systems is negative. OBJECTIVE: VITAL SIGNS: Temperature 98.0, pulse 92, respiratory rate 18, blood pressure 144/80, saturating 94% on room air. INTAKE AND OUTPUT: Hemodialysis yesterday removed 3.5 kg ultrafiltration. Weight in the bed scale today 114.9 kg. PHYSICAL EXAMINATION: Seen at the bedside in the emergency room, sitting out of bed to chair in no acute distress. Awake, alert, and oriented times four, conversational. HEENT: Extraocular muscles are intact. Mucous membranes are moist. There is no jugular venous distention. No lymphadenopathy. LUNGS: Clear to auscultation bilaterally with symmetric air entry and without any crackle or rale. CARDIAC: S1, S2. Two plus radial pulse. Trace pedal edema in the extremities. ABDOMEN: Soft, obese, nontender. NEUROLOGIC: No focal deficits. Appropriately interactive and conversational. PSYCHIATRIC: Appropriate mood and affect. LABORATORY DATA: White count 3.2, hemoglobin 9.4, platelets 156. Sodium 141, potassium 4.4, bicarbonate 29, calcium 8.6, glucose 134. MICROBIOLOGY: Blood cultures with no growth for 24 hours. Peripheral smear: Microcytic anemia and mild leukopenia. IMAGING: CT chest without contrast: New pattern of reticular nodular interstitial disease extensively and bilaterally in a patchy distribution involving all lobes of the lungs. Nonspecific finding. INPATIENT MEDICATIONS: No change from prior. ASSESSMENT AND PLAN: A 66-year-old male with past medical history of end-stage renal disease on hemodialysis for about the past six months, who presented with complaint of fatigue and shortness of breath. 1. Shortness of breath. Significantly improved after hemodialysis with ultrafiltration of 3.5 kg. The patient ambulated with physical therapy without any reported dyspnea on exertion. He feels well and the symptoms that brought him into the emergency room have resolved. He is being discharged per the primary care team. I discussed with him regarding his CT scan findings and their nonspecific nature. If his shortness of breath is simply due to volume overload, we can start him on oral diuretics on non-dialysis days as an outpatient, given that he has significant residual renal function having had started dialysis only within the past six months. I discussed with the patient that if he noticed shortness of breath or dyspnea on exertion while being at his estimated dry weight (EDW), then we would refer him to pulmonology for evaluation. 2. Coronary artery disease status post coronary artery bypass graft (CABG). History of cardiomyopathy. Continue with volume regulation by ultrafiltration on hemodialysis. Will review EDW and interdialytic weight gains on dialysis rounds and see if the patient needs oral diuretics on non-dialysis days for further management of his volume status. 3. End-stage renal disease on maintenance dialysis via PermaCath. The patient was dialyzed yesterday per his maintenance schedule. He should have a fistula placed. His prior one occluded. We will pursue this in the outpatient setting.
[2017-07-24] MEDS ORDERED: WARFARIN SOD 7.5 MG TAB PO SCH (17:00)
== END 2017-07-23 13:57 | disposition home or self-care (01) | DRG 291 ==
LOC: M ED 05:56 → M ED INP 08:32
PROVIDERS: ADMIT Internal Medicine Nephrology; ATTEND Hospitalist
DX: I13.2 Hypertensive heart and chronic kidney disease with heart failure and with stage 5 chronic kidney disease, or end stage renal disease (principal); I50.33 Acute on chronic diastolic (congestive) heart failure; N18.6 End stage renal disease; I48.92 Unspecified atrial flutter; C91.41 Hairy cell leukemia, in remission; M10.9 Gout, unspecified; E78.5 Hyperlipidemia, unspecified; E66.9 Obesity, unspecified; G47.33 Obstructive sleep apnea (adult) (pediatric); I25.10 Atherosclerotic heart disease of native coronary artery without angina pectoris; E11.9 Type 2 diabetes mellitus without complications; Z79.4 Long term (current) use of insulin; Z79.899 Other long term (current) drug therapy; Z79.82 Long term (current) use of aspirin; Z95.2 Presence of prosthetic heart valve; Z80.1 Family history of malignant neoplasm of trachea, bronchus and lung; Z83.3 Family history of diabetes mellitus; N40.0 Benign prostatic hyperplasia without lower urinary tract symptoms; Z79.01 Long term (current) use of anticoagulants; J44.9 Chronic obstructive pulmonary disease, unspecified; E03.9 Hypothyroidism, unspecified

== ENCOUNTER → 2017-07-31 | Outpatient (REF) | payer MEDICARE ==
[~2017-07-31] MED LIST changes: +MORP15TASA PO; +SENN1TAB10 PO
[2017-07-31 17:16] LABS: MEAN CORPUSCULAR HEMOGLOBIN 30.9 pg (27.0-33.0); MEAN CORPUSCULAR HGB CONC 30.9 g/dl (32.0-36.5); RED CELL DISTRIBUTION WIDTH 15.1 % (11.5-14.5); WHITE BLOOD COUNT 2.6 10^3/uL (4.0-10.0)
[2017-07-31 17:45] LABS: HYPOCHROMASIA 1+
[2017-07-31 17:52] LABS: ERYTHROCYTE SEDIMENTATION RATE 126 mm/hr (0-20)
[2017-07-31 18:42] LABS: FREE T4 1.3 NG/DL (0.76-1.46)
[2017-08-06 00:08] LABS: BLASTOMYCES ANTIBODY LEVEL Negative (Neg:<1:1); CRYPTOCOCCUS ANTIGEN SER Negative (Negative); HISTOPLASMOSIS ANTIBODY Negative (Neg:<1:1); SJOGREN'S ANTI SS-A <0.2 AI (0.0-0.9); SJOGREN'S ANTI SS-B <0.2 AI (0.0-0.9)
[2017-08-07 07:17] LABS: COCCIDIOMYCOSIS ANTIBODY NEGATIVE (NEGATIVE)
== END ==
LOC: M LAB REF 16:55
PROVIDERS: ATTEND Internal Medicine Pulmonary Disease
DX: R06.00 Dyspnea, unspecified (principal); R91.8 Other nonspecific abnormal finding of lung field

== ENCOUNTER → 2017-08-06 | Outpatient (CLI) | payer MEDICARE ==
--- NOTE | 2017-08-07 01:23 | ECWPNPC ---
PATIENT NAME: ROSIE TEE : 1950 GENDER: MALE VISIT DATE: 08/06/2017 DISCHARGE DATE: 08/06/17 1628 VISIT LOCKED DATE TIME: PHYSICIAN: ANDREW OTTO RESOURCE: ANDREW OTTO REASON FOR APPOINTMENT 1. CHRONIC PAIN HISTORY OF PRESENT ILLNESS HISTORY OF PRESENT ILLNESS: HERE FOR F/U OF CHRONIC PAIN.PAIN HAS BEEN ESCALATED IN SHOULDERS AND KNEES.HAS BEEN USING OXYCODONE 15MG ONE TAB Q6-8H PRN FOR PAIN THAT IS HELPFUL.RATING PAIN 8/10.HAS STOPPED MS CONTIN 15MG BID BUT IS HAVING MORE UP AND DOWN PAIN LATELY. PAIN THE PATIENT DESCRIBES THE PAIN... FALL RISK SCREENING: SCREENING :NO FALLS IN THE PAST YEAR CURRENT MEDICATIONS TAKING AMLODIPINE BESYLATE 5 MG TABLET 1 TABLET ORALLY ONCE A DAY TAKING ASPIR-81 81 MG TABLET DELAYED RELEASE 1 TABLET ORALLY ONCE A DAY TAKING PAROXETINE HCL 10 MG TABLET 1 TABLET IN THE MORNING ORALLY ONCE A DAY TAKING LEVOTHYROXINE SODIUM 75 MCG TABLET 1 TABLET ON AN EMPTY STOMACH IN THE MORNING ORALLY ONCE A DAY TAKING DIGOXIN 125 MCG TABLET 1 TABLET ORALLY ONCE A DAY, NOTES: M,W,F TAKING CRESTOR 20 MG TABLET 1 TABLET ORALLY ONCE A DAY TAKING FINASTERIDE 5 MG TABLET 1 TABLET ORALLY ONCE A DAY TAKING TAMSULOSIN HCL 0.4 MG CAPSULE 1 CAPSULE ORALLY ONCE A DAY TAKING VITAMIN D 1000 UNIT TABLET 1 TABLET ORALLY ONCE A DAY TAKING OMEGA 3 1000 MG CAPSULE 1 CAPSULE ORALLY BID TAKING COUMADIN 10 MG TABLET 1 TABLET ORALLY ONCE A DAY TAKING NITROGLYCERIN 0.4 MG TABLET SUBLINGUAL SUBLINGUAL TAKING NOVOLOG 100 UNIT/ML SOLUTION 12 UNITS IN AM , 14 UNITS AT 12NOON AND 16 UNITS AT DINNER AND SLIDING SCALE SUBCUTANEOUS THREE TIMES A DAY, NOTES: SLIDING SCALE TAKING LANTUS 100 UNIT/ML SOLUTION 30 UNITS SUBCUTANEOUS BID TAKING ALBUTEROL SULFATE HFA 108 (90 BASE) MCG/ACT AEROSOL SOLUTION 2 PUFFS NEEDED INHALATION EVERY 4 HRS TAKING ALBUTEROL SULFATE (2.5 MG/3ML) 0.083% NEBULIZATION SOLUTION 3 ML INHALATION THREE TIMES A DAY TAKING COLACE 100 MG CAPSULE 1 TAB ORALLY DIRECTED AND NEEDED TAKING CALCIUM 600 MG TABLET 1 TABLET WITH MEALS ORALLY DAILY TAKING RENVELA 800 MG TABLET 1 TABLET WITH MEALS ORALLY THREE TIMES A DAY TAKING OXYCODONE HCL 15 MG TABLET 1 TABLET NEEDED ORALLY EVERY 6 HRS PRN MDD4 TAKING CALCITRIOL 0.25 MCG CAPSULE 1 CAPSULE ORALLY ONCE A DAY TAKING PREDNISONE (GLORIA) 10 MG TABLET ORALLY TAPERING DOSAGE NOT-TAKING COUMADIN 7.5 MG TABLET 1 TABLET ORALLY ONCE A DAY, NOTES: QOD NOT-TAKING ULORIC 40 MG TABLET 1 TABLET ORALLY ONCE A DAY MEDICATION LIST REVIEWED AND RECONCILED WITH THE PATIENT PAST MEDICAL HISTORY A FLUTTER HYPOTHYROIDISM RENAL FAILURE COPD CHF BIPAP AT HS HIGH CHOLESTEROL LA HTN HAIRY CELL LEUKEMIA ANXIETY ALLERGIES N.K.D.A. SOCIAL HISTORY GENERAL: TOBACCO USE ARE YOU A:NONSMOKER LUNG CANCER SCREENING SMOKING STATUS:NON SMOKER ALCOHOL SCREENING DID YOU HAVE A DRINK CONTAINING ALCOHOL IN THE PAST YEAR?YES HOW OFTEN DID YOU HAVE A DRINK CONTAINING ALCOHOL IN THE PAST YEAR?MONTHLY OR LESS (1 POINT) HOW MANY DRINKS DID YOU HAVE ON A TYPICAL DAY WHEN YOU WERE DRINKING IN THE PAST YEAR?1 OR 2 (0 POINTS) POINTS1 INTERPRETATIONNEGATIVE SIKH [id number] NONE LANGUAGE LANGUAGES SPOKEN:GHANAIAN EDUCATION LEVEL OF EDUCATION:COLLEGE LEARNING BARRIERS / SPECIAL NEEDS BARRIERS TO LEARNING?NO HEARING IMPAIRED?NO VISION IMPAIRED?YES :CORRECTIVE LENSES COGNITIVELY IMPAIRED?NO READINESS TO LEARN?YES LEARNING PREFERENCES?YES :BOOKLETS, HANDOUTS LEARNING CAPABILITIES PRESENT?YES EMOTIONAL BARRIERS?NO SPECIAL DEVICES?NO ROCKET 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 CLINIC PFS, CLERGY, PUBLIC HEALTH REFERRALS PFS REFERRAL NEEDED?NO CLERGY REFERRAL NEEDED?NO PUBLIC HEALTH REFERRAL NEEDED?NO HAS THE PATIENT BEEN EDUCATED REGARDING HIS/HER PLAN OF CARE?YES HAS THE PATIENT BEEN EDUCATED REGARDING PAIN, THE RISK FOR PAIN, THE IMPORTANCE OF EFFECTIVE PAIN MANAGEMENT, AND THE PAIN ASSESSMENT PROCESS?YES ADVANCE DIRECTIVES HEALTH CARE PROXY?YES NAME OF HCP YVETTE TEE- CONTACT # FOR HCP [phone] DO YOU HAVE A DNR?NO WOULD YOU LIKE MORE INFORMATION?NO LIVING WILL?NO WOULD YOU LIKE MORE INFORMATION?NO POWER OF VASCULAR NURSE?NO WOULD YOU LIKE MORE INFORMATION?NO REVIEW OF SYSTEMS REVIEWED BY: PROVIDER: ANDREW HENRY . CONSTITUTIONAL: ANY CHANGE IN YOUR MEDICAL CONDITION? YES, SHORTNESS OF BREATH RESULTING IN SEEING DR. LOVETT WITH ADDITIONAL TESTING AND PREDNISONE STARTED . CHILLS NO . FEVER NO . INFECTION: DO YOU HAVE NEW INFECTIONS? NO . DO YOU HAVE HISTORY OF MRSA? NO . MUSCULOSKELETAL: ANY NEW PATTERNS OF PAIN OR NUMBNESS? NO . GASTROENTEROLOGY: ANY NEW CHANGE IN BOWEL CONTROL? NO . GENITOURINARY: ANY NEW CHANGE IN BLADDER CONTROL? NO . IS THERE A CHANCE YOU COULD BE ? NO . HEMATOLOGY/LYMPH: DO YOU TAKE ANY BLOOD THINNERS? (FOR EXAMPLE- COUMADIN, PLAVIX, AGGRENOX, PLATEL, PRADAXA, OR XARELTO) YES, COUMADIN . WHEN WAS YOUR LAST DOSE? DATE:08/06/17 TIME: 1800 . NEUROLOGY: HAVE YOU FALLEN IN THE PAST 6 MONTHS? YES . ANY NEW EXTREMITY NUMBNESS OR WEAKNESS? NO . CARDIOLOGY: DO YOU HAVE A PACEMAKER OR DEFIBRILLATOR? NO . RESPIRATORY: HAVE YOU BEEN SICK IN THE PAST WEEK? YES, COUGH WITH OCCASIONAL PRODUCTION OF SPUTUM . FEVER NO . FLU LIKE SYMPTOMS? NO . COUGH NO . INTEGUMENTARY: DO YOU HAVE ANY RASHES OR OPEN SORES? NO . ALLERGIC/IMMUNO: ARE YOU ALLERGIC TO SHELLFISH OR IV DYE? NO . ANY NEW ALLERGIES? NO . PSYCHIATRIC: DO YOU HAVE THOUGHTS OF HURTING YOURSELF OR SOMEONE ELSE? NO . ARE YOU ABUSED, NEGLECTED, OR IN AN UNSAFE ENVIRONMENT? NO . ENDOCRINOLOGY: ARE YOU DIABETIC? YES . OTHER: DO YOU NEED ANY PRESCRIPTIONS? YES . IF YES, PLEASE LIST: OXYCODONE . ANY NEW PROBLEMS WITH YOUR MEDICATIONS? NO . WHEN DID YOU LAST EAT? ____ . WHEN DID YOU LAST DRINK? ____ . WHAT DID YOU LAST DRINK? ____ . NAME OF PERSON DRIVING YOU HOME? ____ . DO YOU HAVE ANY OTHER QUESTIONS OR CONCERNS NO . VITAL SIGNS WT 257.2 LBS, HT 67", BMI 40.28 INDEX, BP 162/70 MM HG, HR 83 /MIN, RR 16 /MIN, TEMP 97.2 F, OXYGEN SAT % 91%, SAFE IN ENV? (Y/N) YES, NA INITIALS VA 15:53, REVIEWED BY: SULMA. EXAMINATION GENERAL EXAMINATION: GENERAL APPEARANCE:UNCOMFORTABLE,RUBBING RIGHT KNEE. . PSYCHAFFECT NORMAL . LUNGS:LUNG BERRY ARE CLEAR TO AUSCULTATION BILATERALLY. GOOD MOVEMENT OF AIR . HEART:S1, S2 IN A REGULAR RATE AND RHYTHM. NO SIGNIFICANT MURMURS, RUBS OR GALLOPS NOTED . ASSESSMENTS ARTHROPATHY - M12.9 (PRIMARY) MYALGIA - M79.1 TREATMENT ARTHROPATHY NOTES: ISTOP REGISTRY REVIEWED [id number] RISKS AND BENEFITS OF NARCOTIC/OPIOD MEDICATIONS WERE REVIEWED WITH PATIENT - THIS INCLUDES BUT IS NOT LIMITED TO RISK OF DEPENDANCE/DEVELOPMENT OF ADDICTION, MOOD DISTURBANCE AND DEPRESSION, OSTEOPOROSIS, HORMONAL AND LABIDAL CHANGES, RESPIRATORY DEPRESSION AND . PATIENT IS ADVISED NOT TO DRIVE WHILE ON THESE MEDICATIONS, AND DEMNOSTRATES COMPLLIANCE. BRINGS IN MEDICATIONS WHICH IS APPROPRIATE FOR WHAT WAS DISPENSED. RECENT URINE TOXICOLOGY REVIEWED. NO UNAUTHORIZED MEDICATIONS. NO ILLICIT SUBSTANCES AND PRESCRIBED MEDICATIONS WERE PRESENT. OTHERS REFILL OXYCODONE HCL TABLET, 15 MG, 1 TABLET NEEDED, ORALLY, EVERY 6 HRS PRN MDD4, 30 DAY(S), 45, REFILLS 0 START MS CONTIN TABLET EXTENDED RELEASE, 15 MG, 1 TABLET, ORALLY, EVERY 12 HRS BID MDD2, 30 DAY(S), 60, REFILLS 0 PROCEDURE CODES FA211 ESTABILISHED PATIENT [facility] FACILITY CHARGE G8730 PAIN ASSESS POS TOOL F/U PLAN DOC G8427 DOC MEDS VERIFIED W/PT OR RE DISPOSITION & COMMUNICATION FOLLOW UP 3 MONTHS ELECTRONICALLY SIGNED BY ELAINE COLLAZO ON 08/06/2017 AT 04:34 PM EDT DISCLAIMER : THIS IS A VISIT SUMMARY EXTRACTED FROM THE [employer] CHART. IT IS NOT A COPY OF THE [employer] PROGRESS NOTE. NELLY
== END ==
LOC: M PAIN 15:15
PROVIDERS: ATTEND Nurse Practitioner Family
DX: G89.29 Other chronic pain (principal); M12.9 Arthropathy, unspecified; M25.519 Pain in unspecified shoulder; M25.569 Pain in unspecified knee; M79.1 Myalgia; E11.9 Type 2 diabetes mellitus without complications; E03.9 Hypothyroidism, unspecified; E78.00 Pure hypercholesterolemia, unspecified; I25.2 Old myocardial infarction; I51.9 Heart disease, unspecified; I12.9 Hypertensive chronic kidney disease with stage 1 through stage 4 chronic kidney disease, or unspecified chronic kidney disease; N18.9 Chronic kidney disease, unspecified; F41.9 Anxiety disorder, unspecified; Z79.01 Long term (current) use of anticoagulants; Z79.82 Long term (current) use of aspirin; Z79.4 Long term (current) use of insulin; Z79.899 Other long term (current) drug therapy

== ENCOUNTER → 2017-08-07 | Outpatient (CLI) | payer MEDICARE ==
--- NOTE | 2017-08-08 09:05 | REP ---
CT study of the chest without contrast: History: Dyspnea. Comparison study July 22, 2017. This showed a new pattern of reticulonodular interstitial disease. CT findings: Preliminary digital track coach radiographs demonstrate the tunnel catheter and prior median sternotomy wires. There are scattered granulomatous calcifications again seen throughout the lung parenchyma. The reticulonodular interstitial changes noted on the recent prior study of July 22, 2017 are resolved. No focal infiltrate is seen today. There are some scattered mild fibrotic changes. No pleural or pericardial effusion is seen. Coronary artery vascular calcification is seen. Mitral annular calcification is seen. No bony destructive lesion is seen. No adrenal lesion is observed. Impression: Interstitial changes noted on July 22, 2017 are radiographically resolved. Old granulomatous changes. Prior sternotomy. Central venous tunnel catheter. Signed by Renaldo Pires MD 08/08/2017 01:16 P
== END ==
LOC: M RAD 17:09
PROVIDERS: ATTEND Internal Medicine Pulmonary Disease
DX: R06.00 Dyspnea, unspecified (principal)

== ENCOUNTER → 2017-08-13 | Outpatient (CLI) | payer MEDICARE ==
[~2017-08-13] MED LIST changes: +ISOVUE-300 61% 50ML VIAL (Q9967) As Ordered ONE; +MIDAZOLAM INJ 2 MG/2 ML VIAL (J2250) As Ordered ONE; +fentaNYL 100 MCG/2 ML INJECTION (J3010) As Ordered ONE
--- NOTE | 2017-08-22 13:49 | REPIR ---
DATE OF PROCEDURE: 08/13/2017 ATTENDING SURGEON: Dr. Gisela Simpson ASSISTANTS: Krzysztof Salazar and Poonam Kelly. PREOPERATIVE DIAGNOSES: End-stage renal disease, dysfunctional left brachiocephalic arterial venous fistula. POSTOPERATIVE DIAGNOSES: End-stage renal disease, dysfunctional left brachiocephalic arterial venous fistula. PROCEDURE: Left brachiocephalic arteriovenous fistulogram, retrograde left brachial artery angiogram, left cephalic vein angioplasty with 10 x 8 balloon. INDICATION: Patient is a 66-year-old male with end-stage renal disease who dialyzes currently through a PermCath and underwent creation of a left brachiocephalic arteriovenous fistula, is nonmaturing and unable to be used successfully for hemodialysis access. The patient will undergo a fistulogram with possibly angioplasty and/or stent. Risks, benefits, and alternative treatment options were discussed with the patient. ANESTHESIA: Local with sedation with 1 mg Versed, 50 mcg of fentanyl, and 2 mL of 2% lidocaine. FLUOROSCOPY TIME: 2.2 minutes. CONTRAST: 4 mL. SEDATION TIME: Was from 8:35 a.m. to 8:50 a.m. for a total of 15 minutes. COMPLICATIONS: None. DRAINS: None. SPECIMENS: None. IMPLANTS: None. PROCEDURE: Patient was taken to the angiography suite, placed flat on the angiography room table, and the left upper extremity was prepped and draped in a standard surgical fashion. A time-out was completed confirming the correct patient, procedure, and laterality. The left brachiocephalic arteriovenous fistula was then cannulated with a micropuncture needle after anesthetizing the overlying skin with 2% lidocaine. The micropuncture wire was advanced through the micropuncture needle which was upsized to a micropuncture sheath. A fistulogram was performed showing approximately 60% stenosis in the mid cephalic vein in the upper arm. The micropuncture sheath was upsized to a #6-Syriac sheath, after which, the lesion was crossed with a Bentson wire and then angioplastied with 10 x 8 balloon. During inflation of the 10 x 8 balloon, a retrograde left brachial artery angiogram was performed showing no intervention required. A completion fistulogram was performed showing the resolution of the stenosis in the cephalic vein with good flow through the cephalic vein into the central venous system with no stenosis noted. Catheters and wires were removed. The sheath was removed, and a #2-0 Prolene suture placed at the puncture site for hemostasis. Dressings were then applied. Patient tolerated the procedure well. All instruments, sponge, and needle counts were correct at the end of the case. There were no complications. Dr. Simpson was present for and directed the entire case. Patient was discharged in stable condition once the #2-0 Prolene suture was removed and good hemostasis was noted. RADIOLOGIC SUPERVISION AND INTERPRETATION: The initial fistulogram showed a stenosis of approximately 60% in the cephalic vein in the mid upper arm. This was angioplastied with a 10 x 8 balloon with followup fistulogram showing resolution of the stenosis with the remainder of the cephalic vein being widely patent in the central venous system with no stenosis or occlusion noted. The retrograde brachial artery angiogram showed the remainder of the cephalic vein to be patent to the brachial artery with good flow in the brachial artery proximal/distal to the arteriovenous anastomosis and no stenosis at the arteriovenous anastomosis.
== END | disposition home or self-care (01) ==
LOC: M IRPRO 07:19
PROVIDERS: ATTEND Surgery Vascular Surgery
DX: T82.858A Stenosis of other vascular prosthetic devices, implants and grafts, initial encounter (principal); N18.6 End stage renal disease; Z99.2 Dependence on renal dialysis
CPT/HCPCS: 36902; C1725; C1769; C1894; J2250; J3010; Q9967

== ENCOUNTER 2017-09-11 13:03 | Outpatient (CLI) | payer MEDICARE ==
[2017-09-11 13:30] VITALS: BP 138/60
[2017-09-11 22:00] VITALS: BP 140/64
== END 2017-09-11 23:05 | disposition home or self-care (01) ==
LOC: M OPCLI5PR 13:03 → M MS5PR 13:06 → M OPCLI5PR 23:05
PROVIDERS: ATTEND Internal Medicine Nephrology
DX: D62 Acute posthemorrhagic anemia (principal)

== ENCOUNTER → 2017-09-11 | Outpatient (CLI) | payer MEDICARE ==
[~2017-09-11] MED LIST changes: -ISOVUE-300 61% 50ML VIAL (Q9967) As Ordered ONE; -MIDAZOLAM INJ 2 MG/2 ML VIAL (J2250) As Ordered ONE; -fentaNYL 100 MCG/2 ML INJECTION (J3010) As Ordered ONE
== END ==
LOC: M SMT 11:37
PROVIDERS: ATTEND Internal Medicine Nephrology
DX: N18.9 Chronic kidney disease, unspecified (principal); D63.1 Anemia in chronic kidney disease; D62 Acute posthemorrhagic anemia
CPT/HCPCS: 36415; 36430; 86850; 86900; 86901; 86920; P9016

== ENCOUNTER → 2017-10-15 | Outpatient (CLI) | payer MEDICARE | LOC: M PAIN 15:15 | DX: M12.9 Arthropathy, unspecified (principal); M79.1 Myalgia; M54.2 Cervicalgia; M25.50 Pain in unspecified joint; E03.9 Hypothyroidism, unspecified; I12.9 Hypertensive chronic kidney disease with stage 1 through stage 4 chronic kidney disease, or unspecified chronic kidney disease; N18.9 Chronic kidney disease, unspecified; E11.22 Type 2 diabetes mellitus with diabetic chronic kidney disease; J44.9 Chronic obstructive pulmonary disease, unspecified; I25.2 Old myocardial infarction; F41.9 Anxiety disorder, unspecified; Z79.01 Long term (current) use of anticoagulants; Z79.82 Long term (current) use of aspirin; Z79.4 Long term (current) use of insulin; Z79.891 Long term (current) use of opiate analgesic; Z79.899 Other long term (current) drug therapy; Z85.6 Personal history of leukemia | CPT/HCPCS: G0463 ==

== ENCOUNTER → 2017-10-24 | Outpatient (REF) | payer MEDICARE | LOC: M LAB REF 18:56 | DX: D37.09 Neoplasm of uncertain behavior of other specified sites of the oral cavity (principal) | CPT/HCPCS: 88305 ==

== ENCOUNTER 2017-11-05 07:54 | Inpatient (IN) | payer MEDICARE ==
[2017-11-05 09:07] LABS: BASO % 0.6 % (0.0-1.0); EOS % 0.9 % (0.0-3.0); HEMATOCRIT 28.1 % (42.0-52.0); HEMOGLOBIN 9.2 g/dl (14.0-18.0); IMMATURE GRANULOCYTE % 0.9 % (0-0); LYMPH % 4.6 % (24.0-44.0); MEAN CORPUSCULAR HEMOGLOBIN 33.6 pg (27.0-33.0); MEAN CORPUSCULAR HGB CONC 32.7 g/dl (32.0-36.5); MEAN CORPUSCULAR VOLUME 102.6 fl (80.0-96.0); MONO # 0.1 10^3/uL (0.0-0.8); MONO % 3.7 % (0.0-5.0); NEUTROPHILS # 2.9 10^3/uL (1.8-7.7); NEUTROPHILS % 89.3 % (36.0-66.0); PLATELET COUNT, AUTOMATED 122 10^3/uL (150-450); RED BLOOD COUNT 2.74 10^6/uL (4.30-6.10); RED CELL DISTRIBUTION WIDTH 17.8 % (11.5-14.5); WHITE BLOOD COUNT 3.3 10^3/uL (4.0-10.0)
[2017-11-05] MEDS: IPRATROPIUM 0.5MG/ALBUTEROL 2.5MG INH SOL UD 3ML (DUONEB)(J7620) NEB ×3 (09:26→09:55)
[2017-11-05 09:27] LABS: LYMPH # 0.2 10^3/uL (1.5-4.5); POSITIVE DIFF POS FLAG
[2017-11-05 09:27] LABS: LACTIC ACID SEPSIS PROTOCOL 0.9 MMOL/L (0.4-2.0)
[2017-11-05 09:30] LABS: ABG BASE EXCESS 2.3 (-2.0-2.0); ABG HCO3 28.9 MEQ/L (22.0-26.0); ABG O2 SATURATION 95.2 % (95.0-99.0); ABG PARTIAL PRESSURE CO2 55.1 mmHg (35.0-45.0); ABG PARTIAL PRESSURE O2 84.5 mmHg (75.0-100.0); ABG STANDARD HCO3 26.5 MEQ/L (22.0-26.0); ABG TOTAL CO2 30.6 MEQ/L (23.0-31.0); ABG pH (ARTERIAL) 7.337 UNITS (7.350-7.450)
[2017-11-05 09:31] LABS: ANION GAP 8 MEQ/L (8-16); BLOOD UREA NITROGEN 48 MG/DL (7-18); CALCIUM LEVEL 8.3 MG/DL (8.8-10.2); CARBON DIOXIDE LEVEL 30 MEQ/L (21-32); CHLORIDE LEVEL 100 MEQ/L (98-107); CPK CREATINE PHOSPHOKINASE 344 U/L (39-308); CREATININE FOR GFR 5.08 MG/DL (0.70-1.30); GLOMERULAR FILTRATION RATE 12.2 (>49); GLUCOSE, FASTING 194 MG/DL (70-100); POTASSIUM SERUM 4.6 MEQ/L (3.5-5.1); SODIUM LEVEL 138 MEQ/L (136-145); TROPONIN I 0.27 NG/ML (< 0.10)
[2017-11-05 09:32] LABS: CK-MB VALUE MASS 6.7 NG/ML (0.0-3.6); MB/CK RELATIVE INDEX 1.94 (< OR =4)
[2017-11-05 09:39] LABS: ALBUMIN 3.4 GM/DL (3.2-5.2); ALBUMIN/GLOBULIN RATIO 0.85 (1.00-1.93); ALKALINE PHOSPHATASE 73 U/L (45-117); ALT/SGPT 24 U/L (12-78); AST/SGOT 22 U/L (7-37); BILIRUBIN,DIRECT < 0.1 MG/DL (0.0-0.2); BILIRUBIN,TOTAL 0.5 MG/DL (0.2-1.0); NT-PRO BNP 3641 PG/ML (<125); TOTAL PROTEIN 7.4 GM/DL (6.4-8.2)
[2017-11-05 09:44] LABS: INR 1.59; PROTHROMBIN TIME 19.4 SECONDS (12.4-14.5)
[2017-11-05 10:25] LABS: DIGOXIN LEVEL 0.8 NG/ML (0.5-2.0)
[2017-11-05 11:06] LABS: INR 1.67; PROTHROMBIN TIME 20.2 SECONDS (12.4-14.5)
[2017-11-05] MEDS ORDERED: SENNA 8.6 MG TAB (SENOKOT) PO (11:45)
[2017-11-05] MEDS ORDERED: ACETAMINOPHEN TAB 650MG DOSE (2X325MG) PO (11:45)
[2017-11-05] MEDS ORDERED: DEXTROSE 50% 50 ML SYRINGE IV (12:00)
[2017-11-05] MEDS ORDERED: GLUCOSE 4 GM CHEW TABLET PO (12:00)
[2017-11-05] MEDS ORDERED: GLUCAGON FOR INJ 1 MG VIAL (J1610) SC (12:00)
[2017-11-05] MEDS: (RENVELA) SEVELAMER **CARBONate** 800 MG TAB PO ×2 (12:30→17:27)
[2017-11-05] MEDS: MOXIFLOXACIN HCL 400 MG in APPROPRIATE DILUENT 1 EA IV (12:34)
[2017-11-05] MEDS: HumaLOG INSULIN (NovoLOG) PER UNIT SC ×4 (12:35→20:19)
[2017-11-05 13:20] LABS: BEDSIDE GLUCOSE 228 MG/DL (80-115)
[2017-11-05 14:34] LABS: CPK CREATINE PHOSPHOKINASE 317 U/L (39-308); TROPONIN I 0.26 NG/ML (< 0.10)
[2017-11-05 14:35] LABS: CK-MB VALUE MASS 5.8 NG/ML (0.0-3.6); MB/CK RELATIVE INDEX 1.82 (< OR =4)
[2017-11-05] MEDS: hydrALAZINE INJ 20 MG/ML VIAL IV (15:45)
[2017-11-05] MEDS ORDERED: WARFARIN SOD 5 MG TAB PO (17:00)
[2017-11-05 17:25] LABS: BEDSIDE GLUCOSE 212 MG/DL (80-115)
[2017-11-05] MEDS: amLODIPine 5 MG TAB PO (17:28)
[2017-11-05] MEDS: WARFARIN SOD 5 MG TAB PO (17:29)
[2017-11-05] MEDS: WARFARIN SOD 7.5 MG TAB PO (17:29)
[2017-11-05] MEDS: MORPHINE 15 MG SA TAB PO (20:15)
[2017-11-05] MEDS: guaiFENesin ER 600 MG TAB PO (20:15)
[2017-11-05] MEDS: LEVEMIR (INSULIN DETEMIR) 1 UNITS/0.01ML SC (20:16)
[2017-11-05] MEDS: TAMSULOSIN 0.4 MG CAP PO (20:16)
[2017-11-05] MEDS: PARoxetine 10MG TABLET PO (20:16)
[2017-11-05] MEDS: ROSUVASTATIN 10 MG TAB (CRESTOR) PO (20:16)
[2017-11-05] MEDS: FINASTERIDE 5 MG TAB PO (20:16)
[2017-11-05] MEDS: BENZONATATE 100 MG CAP PO (20:21)
[2017-11-05 20:47] LABS: BEDSIDE GLUCOSE 140 MG/DL (80-115)
[2017-11-06] MEDS: oxyCODONE 5MG TAB PO ×3 (02:04→17:37)
[2017-11-06] MEDS: BENZONATATE 100 MG CAP PO ×2 (02:10→21:40)
[2017-11-06] MEDS: LEVOTHYROXINE 75MCG TABLET (0.075MG) PO (06:40)
[2017-11-06 07:03] LABS: BASO % 0.4 % (0.0-1.0); EOS # 0.1 10^3/uL (0.0-0.50); EOS % 3.8 % (0.0-3.0); HEMATOCRIT 27.3 % (42.0-52.0); HEMOGLOBIN 8.9 g/dl (14.0-18.0); IMMATURE GRANULOCYTE % 0.4 % (0-0); LYMPH # 0.3 10^3/uL (1.5-4.5); LYMPH % 11.4 % (24.0-44.0); MEAN CORPUSCULAR HEMOGLOBIN 33.7 pg (27.0-33.0); MEAN CORPUSCULAR HGB CONC 32.6 g/dl (32.0-36.5); MEAN CORPUSCULAR VOLUME 103.4 fl (80.0-96.0); MONO # 0.2 10^3/uL (0.0-0.8); MONO % 6.4 % (0.0-5.0); NEUTROPHILS # 2.1 10^3/uL (1.8-7.7); NEUTROPHILS % 77.6 % (36.0-66.0); PLATELET COUNT, AUTOMATED 126 10^3/uL (150-450); RED BLOOD COUNT 2.64 10^6/uL (4.30-6.10); RED CELL DISTRIBUTION WIDTH 17.6 % (11.5-14.5); WHITE BLOOD COUNT 2.6 10^3/uL (4.0-10.0)
[2017-11-06 07:15] LABS: INR 1.78; PROTHROMBIN TIME 21.3 SECONDS (12.4-14.5)
[2017-11-06 07:26] LABS: ALBUMIN 3.3 GM/DL (3.2-5.2); ALBUMIN/GLOBULIN RATIO 0.79 (1.00-1.93); ALKALINE PHOSPHATASE 71 U/L (45-117); ALT/SGPT 23 U/L (12-78); ANION GAP 11 MEQ/L (8-16); AST/SGOT 23 U/L (7-37); BILIRUBIN,TOTAL 0.5 MG/DL (0.2-1.0); BLOOD UREA NITROGEN 65 MG/DL (7-18); CALCIUM LEVEL 8.1 MG/DL (8.8-10.2); CARBON DIOXIDE LEVEL 25 MEQ/L (21-32); CHLORIDE LEVEL 101 MEQ/L (98-107); CREATININE FOR GFR 6.62 MG/DL (0.70-1.30); GLUCOSE, FASTING 128 MG/DL (70-100); MAGNESIUM LEVEL 2.4 MG/DL (1.8-2.4); POTASSIUM SERUM 4.5 MEQ/L (3.5-5.1); SODIUM LEVEL 137 MEQ/L (136-145); TOTAL PROTEIN 7.5 GM/DL (6.4-8.2)
[2017-11-06] MEDS: IPRATROPIUM 0.5MG/ALBUTEROL 2.5MG INH SOL UD 3ML (DUONEB)(J7620) NEB ×4 (08:00→20:00)
[2017-11-06] MEDS: LEVEMIR (INSULIN DETEMIR) 1 UNITS/0.01ML SC ×2 (08:10→21:00)
[2017-11-06] MEDS: (RENVELA) SEVELAMER **CARBONate** 800 MG TAB PO ×3 (08:11→17:31)
[2017-11-06] MEDS: HumaLOG INSULIN (NovoLOG) PER UNIT SC ×5 (08:11→21:00)
[2017-11-06] MEDS: amLODIPine 5 MG TAB PO (08:12)
[2017-11-06] MEDS: MORPHINE 15 MG SA TAB PO ×2 (08:13→21:40)
[2017-11-06] MEDS: CALCITRIOL 0.25 MCG CAP (S0169) PO (08:13)
[2017-11-06] MEDS: DIGOXIN 0.125 MG TAB PO (08:13)
[2017-11-06] MEDS: ASPIRIN 81 MG ENTERIC TAB PO (08:13)
[2017-11-06] MEDS: MULTIVITAMINS/MINERALS THERAP 1 TAB PO (08:13)
[2017-11-06] MEDS: guaiFENesin ER 600 MG TAB PO ×2 (08:13→21:41)
[2017-11-06] MEDS: CYANOCOBALAMIN 500 MCG TAB PO (08:13)
[2017-11-06] MEDS ORDERED: ALBUTEROL SULFATE 2.5 MG/0.5 ML INH NEB SOLN INH (08:15)
[2017-11-06 08:45] LABS: C REACTIVE PROTEIN QUANTITATIV 8.15 MG/DL (0.00-0.30)
[2017-11-06] MEDS: predniSONE 10 MG TAB PO (10:11)
[2017-11-06 13:46] LABS: BEDSIDE GLUCOSE 122 MG/DL (80-115)
[2017-11-06] MEDS: METOPROLOL TART 12.5 MG PER 1/2 TAB PO ×2 (14:02→21:40)
[2017-11-06] MEDS: MOXIFLOXACIN HCL 400 MG in APPROPRIATE DILUENT 1 EA IV (14:03)
[2017-11-06] MEDS ORDERED: SLF 3 ML SYR IV (14:30)
[2017-11-06 16:53] LABS: BEDSIDE GLUCOSE 317 MG/DL (80-115)
[2017-11-06] MEDS: WARFARIN SOD 5 MG TAB PO (17:31)
[2017-11-06] MEDS: WARFARIN SOD 7.5 MG TAB PO (17:31)
[2017-11-06 20:32] LABS: BEDSIDE GLUCOSE 250 MG/DL (80-115)
[2017-11-06] MEDS: ROSUVASTATIN 10 MG TAB (CRESTOR) PO (21:39)
[2017-11-06] MEDS: PARoxetine 10MG TABLET PO (21:40)
[2017-11-06] MEDS: TAMSULOSIN 0.4 MG CAP PO (21:40)
[2017-11-06] MEDS: FINASTERIDE 5 MG TAB PO (21:40)
[2017-11-06] MEDS: SLF 3 ML SYR IV (21:41)
[2017-11-07] MEDS: IPRATROPIUM 0.5MG/ALBUTEROL 2.5MG INH SOL UD 3ML (DUONEB)(J7620) NEB ×7 (00:35→22:44)
[2017-11-07] MEDS: oxyCODONE 5MG TAB PO (02:35)
[2017-11-07] MEDS: SLF 3 ML SYR IV ×3 (05:46→22:10)
[2017-11-07] MEDS: LEVOTHYROXINE 75MCG TABLET (0.075MG) PO (05:46)
[2017-11-07] MEDS: MOXIFLOXACIN 400 MG TAB PO (06:00)
[2017-11-07 06:37] LABS: BASO % 0.4 % (0.0-1.0); EOS # 0.1 10^3/uL (0.0-0.50); EOS % 2.2 % (0.0-3.0); HEMATOCRIT 25.7 % (42.0-52.0); HEMOGLOBIN 8.2 g/dl (14.0-18.0); IMMATURE GRANULOCYTE % 0.7 % (0-0); LYMPH # 0.3 10^3/uL (1.5-4.5); LYMPH % 10.6 % (24.0-44.0); MEAN CORPUSCULAR HEMOGLOBIN 32.7 pg (27.0-33.0); MEAN CORPUSCULAR HGB CONC 31.9 g/dl (32.0-36.5); MEAN CORPUSCULAR VOLUME 102.4 fl (80.0-96.0); MONO # 0.2 10^3/uL (0.0-0.8); MONO % 5.9 % (0.0-5.0); NEUTROPHILS # 2.2 10^3/uL (1.8-7.7); NEUTROPHILS % 80.2 % (36.0-66.0); PLATELET COUNT, AUTOMATED 124 10^3/uL (150-450); RED BLOOD COUNT 2.51 10^6/uL (4.30-6.10); RED CELL DISTRIBUTION WIDTH 17.4 % (11.5-14.5); WHITE BLOOD COUNT 2.7 10^3/uL (4.0-10.0)
[2017-11-07 06:38] LABS: POSITIVE DIFF POS FLAG
[2017-11-07 07:00] LABS: INR 2.02; PROTHROMBIN TIME 23.6 SECONDS (12.4-14.5)
[2017-11-07 07:03] LABS: ALBUMIN/GLOBULIN RATIO 0.77 (1.00-1.93); ALKALINE PHOSPHATASE 63 U/L (45-117); ALT/SGPT 23 U/L (12-78); ANION GAP 8 MEQ/L (8-16); AST/SGOT 22 U/L (7-37); BILIRUBIN,TOTAL 0.3 MG/DL (0.2-1.0); BLOOD UREA NITROGEN 49 MG/DL (7-18); CALCIUM LEVEL 8.4 MG/DL (8.8-10.2); CARBON DIOXIDE LEVEL 31 MEQ/L (21-32); CHLORIDE LEVEL 98 MEQ/L (98-107); CREATININE FOR GFR 5.38 MG/DL (0.70-1.30); GLOMERULAR FILTRATION RATE 11.4 (>49); GLUCOSE, FASTING 214 MG/DL (70-100); MAGNESIUM LEVEL 2.4 MG/DL (1.8-2.4); POTASSIUM SERUM 4.7 MEQ/L (3.5-5.1); SODIUM LEVEL 137 MEQ/L (136-145); TOTAL PROTEIN 6.9 GM/DL (6.4-8.2)
[2017-11-07] MEDS: HumaLOG INSULIN (NovoLOG) PER UNIT SC ×6 (08:41→22:11)
[2017-11-07] MEDS: predniSONE 10 MG TAB PO (08:42)
[2017-11-07] MEDS: LEVEMIR (INSULIN DETEMIR) 1 UNITS/0.01ML SC ×2 (08:42→22:10)
[2017-11-07] MEDS: MORPHINE 15 MG SA TAB PO ×2 (08:44→22:08)
[2017-11-07] MEDS: METOPROLOL TART 12.5 MG PER 1/2 TAB PO ×2 (08:45→22:11)
[2017-11-07] MEDS: CYANOCOBALAMIN 500 MCG TAB PO (08:45)
[2017-11-07] MEDS: CALCITRIOL 0.25 MCG CAP (S0169) PO (08:45)
[2017-11-07] MEDS: (RENVELA) SEVELAMER **CARBONate** 800 MG TAB PO ×3 (08:45→16:55)
[2017-11-07] MEDS: guaiFENesin ER 600 MG TAB PO ×2 (08:45→22:09)
[2017-11-07] MEDS: ASPIRIN 81 MG ENTERIC TAB PO (08:45)
[2017-11-07] MEDS: MULTIVITAMINS/MINERALS THERAP 1 TAB PO (08:46)
[2017-11-07] MEDS: amLODIPine 5 MG TAB PO (08:46)
[2017-11-07 09:05] LABS: URIC ACID 4.9 MG/DL (3.5-7.2)
[2017-11-07 11:16] LABS: IRON (FE) 104 UG/DL (65-175); PERCENT SATURATION 59.4 % (19.7-50.0); TOTAL IRON BINDING CAPACITY 175 UG/DL (250-450)
[2017-11-07 11:54] LABS: BEDSIDE GLUCOSE 271 MG/DL (80-115)
[2017-11-07] MEDS: WARFARIN SOD 5 MG TAB PO (16:55)
[2017-11-07] MEDS: WARFARIN SOD 7.5 MG TAB PO (16:55)
[2017-11-07 17:21] LABS: BEDSIDE GLUCOSE 360 MG/DL (80-115)
[2017-11-07 21:26] LABS: BEDSIDE GLUCOSE 251 MG/DL (80-115)
[2017-11-07] MEDS: FINASTERIDE 5 MG TAB PO (22:06)
[2017-11-07] MEDS: MIRALAX *UNIT DOSE* 17GM PACKET PO (22:08)
[2017-11-07] MEDS: DOCUSATE SODIUM 100 MG CAP PO (22:08)
[2017-11-07] MEDS: ROSUVASTATIN 10 MG TAB (CRESTOR) PO (22:09)
[2017-11-07] MEDS: TAMSULOSIN 0.4 MG CAP PO (22:09)
[2017-11-07] MEDS: PARoxetine 10MG TABLET PO (22:09)
[2017-11-08] MEDS: IPRATROPIUM 0.5MG/ALBUTEROL 2.5MG INH SOL UD 3ML (DUONEB)(J7620) NEB ×5 (03:12→20:00)
[2017-11-08] MEDS: (RENVELA) SEVELAMER **CARBONate** 800 MG TAB PO ×3 (05:31→18:17)
[2017-11-08] MEDS: DOCUSATE SODIUM 100 MG CAP PO ×2 (05:31→21:38)
[2017-11-08] MEDS: DIGOXIN 0.125 MG TAB PO (05:32)
[2017-11-08] MEDS: ASPIRIN 81 MG ENTERIC TAB PO (05:32)
[2017-11-08] MEDS: METOPROLOL TART 12.5 MG PER 1/2 TAB PO ×2 (05:33→21:38)
[2017-11-08] MEDS: guaiFENesin ER 600 MG TAB PO ×2 (05:33→21:39)
[2017-11-08] MEDS: LEVOTHYROXINE 75MCG TABLET (0.075MG) PO (05:33)
[2017-11-08] MEDS: MOXIFLOXACIN 400 MG TAB PO (05:34)
[2017-11-08] MEDS: MULTIVITAMINS/MINERALS THERAP 1 TAB PO (05:34)
[2017-11-08] MEDS: CYANOCOBALAMIN 500 MCG TAB PO (05:34)
[2017-11-08] MEDS: predniSONE 10 MG TAB PO (05:34)
[2017-11-08] MEDS: amLODIPine 5 MG TAB PO (05:34)
[2017-11-08] MEDS: SLF 3 ML SYR IV ×3 (05:35→21:39)
[2017-11-08] MEDS: MORPHINE 15 MG SA TAB PO ×2 (05:35→21:39)
[2017-11-08] MEDS: CALCITRIOL 0.25 MCG CAP (S0169) PO (06:10)
[2017-11-08] MEDS: SALIVA SUBSTITUTE(MOUTHKOTE) BTL MT (06:11)
[2017-11-08 06:48] LABS: BASO % 0.2 % (0.0-1.0); EOS # 0.1 10^3/uL (0.0-0.50); EOS % 1.6 % (0.0-3.0); HEMATOCRIT 28.3 % (42.0-52.0); HEMOGLOBIN 9.4 g/dl (14.0-18.0); IMMATURE GRANULOCYTE % 0.9 % (0-0); LYMPH # 0.3 10^3/uL (1.5-4.5); MEAN CORPUSCULAR HEMOGLOBIN 34.2 pg (27.0-33.0); MEAN CORPUSCULAR HGB CONC 33.2 g/dl (32.0-36.5); MEAN CORPUSCULAR VOLUME 102.9 fl (80.0-96.0); MONO # 0.1 10^3/uL (0.0-0.8); MONO % 2.8 % (0.0-5.0); NEUTROPHILS # 3.7 10^3/uL (1.8-7.7); NEUTROPHILS % 87.5 % (36.0-66.0); PLATELET COUNT, AUTOMATED 152 10^3/uL (150-450); RED BLOOD COUNT 2.75 10^6/uL (4.30-6.10); RED CELL DISTRIBUTION WIDTH 16.7 % (11.5-14.5); WHITE BLOOD COUNT 4.3 10^3/uL (4.0-10.0)
[2017-11-08 06:57] LABS: INR 2.12; PROTHROMBIN TIME 24.5 SECONDS (12.4-14.5)
[2017-11-08 07:06] LABS: ALBUMIN 3.4 GM/DL (3.2-5.2); ALBUMIN/GLOBULIN RATIO 0.87 (1.00-1.93); ALKALINE PHOSPHATASE 75 U/L (45-117); ALT/SGPT 27 U/L (12-78); ANION GAP 10 MEQ/L (8-16); AST/SGOT 21 U/L (7-37); BILIRUBIN,TOTAL 0.3 MG/DL (0.2-1.0); BLOOD UREA NITROGEN 72 MG/DL (7-18); CALCIUM LEVEL 8.6 MG/DL (8.8-10.2); CARBON DIOXIDE LEVEL 30 MEQ/L (21-32); CHLORIDE LEVEL 99 MEQ/L (98-107); CREATININE FOR GFR 6.93 MG/DL (0.70-1.30); GLOMERULAR FILTRATION RATE 8.5 (>49); GLUCOSE, FASTING 144 MG/DL (70-100); MAGNESIUM LEVEL 2.6 MG/DL (1.8-2.4); POTASSIUM SERUM 4.5 MEQ/L (3.5-5.1); SODIUM LEVEL 139 MEQ/L (136-145); TOTAL PROTEIN 7.3 GM/DL (6.4-8.2)
[2017-11-08] MEDS: HumaLOG INSULIN (NovoLOG) PER UNIT SC ×5 (07:47→18:19)
[2017-11-08] MEDS: LEVEMIR (INSULIN DETEMIR) 1 UNITS/0.01ML SC ×2 (07:47→21:37)
[2017-11-08] MEDS: LIDOCAINE 1% SDV 5 ML VIAL SQ (14:30)
[2017-11-08] MEDS: HEPARIN 1,000 UNITS/ML 10ML VIAL (FOR RADIOLOGY& DIALYSIS ONLY) IV (14:30)
[2017-11-08] MEDS: HEPARIN 1,000 UNITS/ML 10ML VIAL (FOR RADIOLOGY& DIALYSIS ONLY) XX (14:30)
[2017-11-08 14:45] LABS: BEDSIDE GLUCOSE 256 MG/DL (80-115)
[2017-11-08 17:23] LABS: BEDSIDE GLUCOSE 268 MG/DL (80-115)
[2017-11-08] MEDS: WARFARIN SOD 7.5 MG TAB PO (18:17)
[2017-11-08] MEDS: WARFARIN SOD 5 MG TAB PO (18:17)
[2017-11-08 20:30] LABS: BEDSIDE GLUCOSE 241 MG/DL (80-115)
[2017-11-08] MEDS: MIRALAX *UNIT DOSE* 17GM PACKET PO (21:00)
[2017-11-08] MEDS: TAMSULOSIN 0.4 MG CAP PO (21:38)
[2017-11-08] MEDS: ROSUVASTATIN 10 MG TAB (CRESTOR) PO (21:38)
[2017-11-08] MEDS: FINASTERIDE 5 MG TAB PO (21:39)
[2017-11-08] MEDS: PARoxetine 10MG TABLET PO (21:39)
[2017-11-09] MEDS: IPRATROPIUM 0.5MG/ALBUTEROL 2.5MG INH SOL UD 3ML (DUONEB)(J7620) NEB ×4 (02:15→11:37)
[2017-11-09] MEDS: SLF 3 ML SYR IV (06:00)
[2017-11-09 06:11] LABS: BASO % 0.5 % (0.0-1.0); EOS # 0.2 10^3/uL (0.0-0.50); EOS % 4.5 % (0.0-3.0); HEMATOCRIT 27.9 % (42.0-52.0); HEMOGLOBIN 9.3 g/dl (14.0-18.0); IMMATURE GRANULOCYTE % 0.8 % (0-0); LYMPH # 0.4 10^3/uL (1.5-4.5); LYMPH % 10.3 % (24.0-44.0); MEAN CORPUSCULAR HEMOGLOBIN 33.8 pg (27.0-33.0); MEAN CORPUSCULAR HGB CONC 33.3 g/dl (32.0-36.5); MEAN CORPUSCULAR VOLUME 101.5 fl (80.0-96.0); MONO # 0.2 10^3/uL (0.0-0.8); MONO % 3.8 % (0.0-5.0); NEUTROPHILS # 3.2 10^3/uL (1.8-7.7); NEUTROPHILS % 80.1 % (36.0-66.0); PLATELET COUNT, AUTOMATED 153 10^3/uL (150-450); RED BLOOD COUNT 2.75 10^6/uL (4.30-6.10); RED CELL DISTRIBUTION WIDTH 16.9 % (11.5-14.5)
[2017-11-09 06:22] LABS: INR 2.56; PROTHROMBIN TIME 28.6 SECONDS (12.4-14.5)
[2017-11-09 06:29] LABS: ALBUMIN 3.4 GM/DL (3.2-5.2); ALBUMIN/GLOBULIN RATIO 0.92 (1.00-1.93); ALKALINE PHOSPHATASE 72 U/L (45-117); ALT/SGPT 24 U/L (12-78); ANION GAP 10 MEQ/L (8-16); AST/SGOT 19 U/L (7-37); BILIRUBIN,TOTAL 0.3 MG/DL (0.2-1.0); BLOOD UREA NITROGEN 51 MG/DL (7-18); CALCIUM LEVEL 8.5 MG/DL (8.8-10.2); CARBON DIOXIDE LEVEL 27 MEQ/L (21-32); CHLORIDE LEVEL 103 MEQ/L (98-107); CREATININE FOR GFR 5.12 MG/DL (0.70-1.30); GLOMERULAR FILTRATION RATE 12.1 (>49); GLUCOSE, FASTING 79 MG/DL (70-100); MAGNESIUM LEVEL 2.5 MG/DL (1.8-2.4); POTASSIUM SERUM 3.8 MEQ/L (3.5-5.1); SODIUM LEVEL 140 MEQ/L (136-145); TOTAL PROTEIN 7.1 GM/DL (6.4-8.2)
[2017-11-09] MEDS: LEVOTHYROXINE 75MCG TABLET (0.075MG) PO (06:41)
[2017-11-09] MEDS: HumaLOG INSULIN (NovoLOG) PER UNIT SC (07:58)
[2017-11-09] MEDS: (RENVELA) SEVELAMER **CARBONate** 800 MG TAB PO (08:52)
[2017-11-09] MEDS: CALCITRIOL 0.25 MCG CAP (S0169) PO (08:53)
[2017-11-09] MEDS: METOPROLOL TART 12.5 MG PER 1/2 TAB PO (08:53)
[2017-11-09] MEDS: DOCUSATE SODIUM 100 MG CAP PO (08:53)
[2017-11-09] MEDS: ASPIRIN 81 MG ENTERIC TAB PO (08:54)
[2017-11-09] MEDS: MORPHINE 15 MG SA TAB PO (08:54)
[2017-11-09] MEDS: guaiFENesin ER 600 MG TAB PO (08:54)
[2017-11-09] MEDS: MULTIVITAMINS/MINERALS THERAP 1 TAB PO (08:54)
[2017-11-09] MEDS: amLODIPine 5 MG TAB PO (08:55)
[2017-11-09] MEDS: CYANOCOBALAMIN 500 MCG TAB PO (08:55)
[2017-11-09] MEDS: LEVEMIR (INSULIN DETEMIR) 1 UNITS/0.01ML SC (08:55)
[2017-11-09] MEDS: predniSONE 10 MG TAB PO (08:55)
== END 2017-11-09 12:54 | disposition home or self-care (01) | DRG 205 ==
LOC: M MSPAV 11-07 16:44 → M ED 07:54 → M ED INP 11:37 → M PCU 15:31
PROC: 5A1D70Z Performance of Urinary Filtration, Intermittent, Less than 6 Hours Per Day (ICD-10-PCS; principal; 2017-11-07)
DX: J98.8 Other specified respiratory disorders (principal); N18.6 End stage renal disease; D61.818 Other pancytopenia; I48.3 Typical atrial flutter; I50.32 Chronic diastolic (congestive) heart failure; I13.2 Hypertensive heart and chronic kidney disease with heart failure and with stage 5 chronic kidney disease, or end stage renal disease; C91.41 Hairy cell leukemia, in remission; I47.1 Supraventricular tachycardia; J84.9 Interstitial pulmonary disease, unspecified; B97.4 Respiratory syncytial virus as the cause of diseases classified elsewhere; R09.02 Hypoxemia; G47.33 Obstructive sleep apnea (adult) (pediatric); Z79.01 Long term (current) use of anticoagulants; I25.10 Atherosclerotic heart disease of native coronary artery without angina pectoris; Z79.899 Other long term (current) drug therapy; Z79.82 Long term (current) use of aspirin; Z79.4 Long term (current) use of insulin; J44.9 Chronic obstructive pulmonary disease, unspecified; J06.9 Acute upper respiratory infection, unspecified; D63.1 Anemia in chronic kidney disease

== ENCOUNTER 2017-11-15 08:50 | Emergency (ER) | payer MEDICARE ==
[2017-11-15 10:13] LABS: BASO % 0.2 % (0.0-1.0); EOS # 0.1 10^3/uL (0.0-0.50); EOS % 2.6 % (0.0-3.0); HEMATOCRIT 26.5 % (42.0-52.0); HEMOGLOBIN 8.9 g/dl (14.0-18.0); IMMATURE GRANULOCYTE # 0.1 10^3/uL (0-0); LYMPH % 3.6 % (24.0-44.0); MEAN CORPUSCULAR HEMOGLOBIN 34.1 pg (27.0-33.0); MEAN CORPUSCULAR HGB CONC 33.6 g/dl (32.0-36.5); MEAN CORPUSCULAR VOLUME 101.5 fl (80.0-96.0); MONO # 0.2 10^3/uL (0.0-0.8); NEUTROPHILS # 4.4 10^3/uL (1.8-7.7); NEUTROPHILS % 89.6 % (36.0-66.0); PLATELET COUNT, AUTOMATED 149 10^3/uL (150-450); RED BLOOD COUNT 2.61 10^6/uL (4.30-6.10); RED CELL DISTRIBUTION WIDTH 16.5 % (11.5-14.5)
[2017-11-15 10:34] LABS: ANION GAP 7 MEQ/L (8-16); BLOOD UREA NITROGEN 40 MG/DL (7-18); CALCIUM LEVEL 7.8 MG/DL (8.8-10.2); CARBON DIOXIDE LEVEL 30 MEQ/L (21-32); CHLORIDE LEVEL 102 MEQ/L (98-107); CK-MB VALUE MASS 6.1 NG/ML (0.0-3.6); CPK CREATINE PHOSPHOKINASE 171 U/L (39-308); CREATININE FOR GFR 4.44 MG/DL (0.70-1.30); GLOMERULAR FILTRATION RATE 14.2 (>49); GLUCOSE, FASTING 77 MG/DL (70-100); MB/CK RELATIVE INDEX 3.56 (< OR =4); SODIUM LEVEL 139 MEQ/L (136-145); TROPONIN I 0.33 NG/ML (< 0.10)
[2017-11-15 11:04] LABS: LYMPH # 0.2 10^3/uL (1.5-4.5); POSITIVE DIFF POS FLAG
[2017-11-15 12:51] LABS: CK-MB VALUE MASS 6.1 NG/ML (0.0-3.6); CPK CREATINE PHOSPHOKINASE 170 U/L (39-308); MB/CK RELATIVE INDEX 3.58 (< OR =4); TROPONIN I 0.34 NG/ML (< 0.10)
[2017-11-15 16:35] LABS: CK-MB VALUE MASS 5.5 NG/ML (0.0-3.6); CPK CREATINE PHOSPHOKINASE 206 U/L (39-308); MB/CK RELATIVE INDEX 2.66 (< OR =4); TROPONIN I 0.32 NG/ML (< 0.10)
== END 2017-11-15 17:41 | disposition home or self-care (01) ==
LOC: M ED 08:50
DX: R07.9 Chest pain, unspecified (principal); R94.31 Abnormal electrocardiogram [ECG] [EKG]; C91.41 Hairy cell leukemia, in remission; E11.9 Type 2 diabetes mellitus without complications; E78.5 Hyperlipidemia, unspecified; N18.6 End stage renal disease; Z99.2 Dependence on renal dialysis; J84.9 Interstitial pulmonary disease, unspecified; G47.30 Sleep apnea, unspecified; I25.2 Old myocardial infarction; Z95.5 Presence of coronary angioplasty implant and graft; Z80.1 Family history of malignant neoplasm of trachea, bronchus and lung; Z79.82 Long term (current) use of aspirin; Z79.4 Long term (current) use of insulin; Z79.01 Long term (current) use of anticoagulants; Z79.899 Other long term (current) drug therapy
CPT/HCPCS: 71046

== ENCOUNTER → 2017-12-05 | Outpatient (CLI) | payer MEDICARE ==
[~2017-12-05] MED LIST changes: -ALBU17IN2 INH; -ALBU83IN INH; -ALLO100T PO; -AMLO5TAB2 PO; -ASPI81TA85 PO; -ASPI81TAEC PO; -B-122000 PO; -BENZ100C5 PO; -BISO10TA6 PO; -BISO5TAB5 PO; -CALC1TAB60 PO; -CALC600T60 PO; -CARV12.5 PO; -CLON-412 PO; -CO Q10CA PO; -COUM1TAB17 PO; -COUM7.5T PO; -CRES20TA PO; -DEMA20TA6 PO; -DIGO0.12 PO; -DILT30TA PO; -DOXY100T16 PO; -DRIS50002 PO; -FEBU40TA PO; -FENT50PA TD; -FINA5TAB2 PO; -FISH5CAP PO; -FLOM5CAP PO; -FURO80TA2 PO; -GABA-279 PO; -INSUH10VL SC; -INSULANT SC; +ISOVUE-300 61% 50ML VIAL (Q9967) As Ordered; -JANT5TAB PO; -LEVO25TA5 PO; -LEVO75TA34 PO; -LOSA100T36 PO; -LOVE0.6I2 SC; +MIDAZOLAM INJ 2 MG/2 ML VIAL (J2250) As Ordered; -MORP-38 PO; -MORP15TASA PO; -MULT1TAB8 PO; -NACCAP2 PO; -NITR4TASL SL; -OMEG100011 PO; -OXYC15TA76 PO; -PANT40TA2 PO; -PAXI10TA12 PO; -PERC10TA26 PO; -PRED10TA PO; -PRED10TA2 PO; -PREG50CA PO; -PROAAER10 INH; -RENV2TAB PO; -ROCA0.25 PO; -SENN1TAB10 PO; -TORS20TA2 PO; -VITA-182 PO; -VITA10002 PO; -VITA1DRO SL; -VITMTA PO; -WARF-21 PO; -WARF-22 PO; +fentaNYL 100 MCG/2 ML INJECTION (J3010) As Ordered
== END | disposition home or self-care (01) ==
LOC: M IRPRO 06:17
DX: T82.898A Other specified complication of vascular prosthetic devices, implants and grafts, initial encounter (principal); Z45.2 Encounter for adjustment and management of vascular access device; N18.6 End stage renal disease; Z99.2 Dependence on renal dialysis
CPT/HCPCS: 36901

== ENCOUNTER → 2018-02-27 | Outpatient (CLI) | payer MEDICARE | LOC: M PAIN 14:30 | DX: G89.29 Other chronic pain (principal); M12.9 Arthropathy, unspecified; M54.2 Cervicalgia; I48.92 Unspecified atrial flutter; E03.9 Hypothyroidism, unspecified; J44.9 Chronic obstructive pulmonary disease, unspecified; I50.9 Heart failure, unspecified; E78.00 Pure hypercholesterolemia, unspecified; I25.2 Old myocardial infarction; I11.0 Hypertensive heart disease with heart failure; F41.9 Anxiety disorder, unspecified; Z79.4 Long term (current) use of insulin; Z79.82 Long term (current) use of aspirin; Z79.01 Long term (current) use of anticoagulants; Z79.891 Long term (current) use of opiate analgesic; Z79.899 Other long term (current) drug therapy; Z95.5 Presence of coronary angioplasty implant and graft | CPT/HCPCS: G0463 ==

== ENCOUNTER → 2018-03-18 | Outpatient (CLI) | payer MEDICARE ==
[~2018-03-18] MED LIST changes: +LIDOCAINE 2% MDV 20 ML VIAL As Ordered
== END | disposition home or self-care (01) ==
LOC: M IRPRO 06:49
DX: T82.858A Stenosis of other vascular prosthetic devices, implants and grafts, initial encounter (principal); E11.22 Type 2 diabetes mellitus with diabetic chronic kidney disease; I13.2 Hypertensive heart and chronic kidney disease with heart failure and with stage 5 chronic kidney disease, or end stage renal disease; N18.6 End stage renal disease; I50.9 Heart failure, unspecified; G47.33 Obstructive sleep apnea (adult) (pediatric); E78.00 Pure hypercholesterolemia, unspecified; F41.9 Anxiety disorder, unspecified; E07.9 Disorder of thyroid, unspecified; I25.10 Atherosclerotic heart disease of native coronary artery without angina pectoris; J44.9 Chronic obstructive pulmonary disease, unspecified
CPT/HCPCS: 36902

== ENCOUNTER → 2018-05-01 | Outpatient (CLI) | payer MEDICARE | LOC: M PAIN 14:45 | DX: M12.9 Arthropathy, unspecified (principal); M54.2 Cervicalgia; G89.29 Other chronic pain; E11.9 Type 2 diabetes mellitus without complications; E03.9 Hypothyroidism, unspecified; J44.9 Chronic obstructive pulmonary disease, unspecified; E78.00 Pure hypercholesterolemia, unspecified; I25.2 Old myocardial infarction; I10 Essential (primary) hypertension; F41.9 Anxiety disorder, unspecified; Z79.01 Long term (current) use of anticoagulants; Z79.4 Long term (current) use of insulin; Z79.82 Long term (current) use of aspirin; Z79.891 Long term (current) use of opiate analgesic; Z79.899 Other long term (current) drug therapy; Z85.6 Personal history of leukemia; Z87.448 Personal history of other diseases of urinary system; Z86.79 Personal history of other diseases of the circulatory system | CPT/HCPCS: G0463 ==

== ENCOUNTER 2018-05-10 13:26 | Inpatient (IN) | payer MEDICARE ==
[2018-05-10 14:44] LABS: BASO % 0.2 % (0.0-1.0); EOS # 0.1 10^3/uL (0.0-0.50); EOS % 1.1 % (0.0-3.0); HEMATOCRIT 33.1 % (42.0-52.0); HEMOGLOBIN 10.4 g/dl (13.5-17.5); IMMATURE GRANULOCYTE % 0.2 % (0-3.0); LYMPH # 0.9 10^3/uL (1.5-4.5); LYMPH % 10.2 % (24.0-44.0); MEAN CORPUSCULAR HGB CONC 31.4 g/dl (32.0-36.5); MEAN CORPUSCULAR VOLUME 108.2 fl (80.0-96.0); MONO # 0.4 10^3/uL (0.0-0.8); MONO % 4.5 % (0.0-5.0); NEUTROPHILS % 83.8 % (36.0-66.0); PLATELET COUNT, AUTOMATED 149 10^3/uL (150-450); RED BLOOD COUNT 3.06 10^6/uL (4.30-6.10); RED CELL DISTRIBUTION WIDTH 16.5 % (11.5-14.5); WHITE BLOOD COUNT 8.4 10^3/uL (4.0-10.0)
[2018-05-10] MEDS: MORPHINE 4 MG/ML 1ML VIAL/SYRINGE (J2270) IV ×4 (14:56→22:07)
[2018-05-10 15:03] LABS: ALBUMIN 3.5 GM/DL (3.2-5.2); ALBUMIN/GLOBULIN RATIO 0.92 (1.00-1.93); ALKALINE PHOSPHATASE 76 U/L (45-117); ALT/SGPT 21 U/L (12-78); AMYLASE 35 U/L (25-115); ANION GAP 7 MEQ/L (8-16); AST/SGOT 15 U/L (7-37); BILIRUBIN,DIRECT 0.1 MG/DL (0.0-0.2); BILIRUBIN,TOTAL 0.5 MG/DL (0.2-1.0); BLOOD UREA NITROGEN 47 MG/DL (7-18); C REACTIVE PROTEIN QUANTITATIV 3.88 MG/DL (0.00-0.30); CALCIUM LEVEL 8.7 MG/DL (8.8-10.2); CARBON DIOXIDE LEVEL 33 MEQ/L (21-32); CHLORIDE LEVEL 97 MEQ/L (98-107); CPK CREATINE PHOSPHOKINASE 165 U/L (39-308); GLOMERULAR FILTRATION RATE 6.9 (>49); GLUCOSE, FASTING 54 MG/DL (70-100); LIPASE 138 U/L (73-393); MB/CK RELATIVE INDEX 2.42 (< OR =4); SODIUM LEVEL 137 MEQ/L (136-145); TOTAL PROTEIN 7.3 GM/DL (6.4-8.2); TROPONIN I 0.13 NG/ML (< 0.10)
[2018-05-10 15:03] LABS: LACTIC ACID SEPSIS PROTOCOL 2.5 MMOL/L (0.4-2.0)
[2018-05-10 15:08] LABS: CREATININE FOR GFR 8.28 MG/DL (0.70-1.30); POTASSIUM SERUM 5.5 MEQ/L (3.5-5.1)
[2018-05-10 15:10] LABS: KETONE, URINE AUTO RFX TRACE mg/dL (NEGATIVE); LEUKOCYTE ESTERASE UR AUTO RFX 1+ (NEGATIVE); NITRITE, URINE AUTO RFX NEGATIVE (NEGATIVE); RBC, URINE AUTO RFX 6 /HPF (0-3); SPECIFIC GRAVITY UR AUTO RFX 1.019 (1.002-1.035); SQUAM EPITHELIAL CELL UR AURFX 2 /HPF (0-6); WBC, URINE AUTO RFX 25 /HPF (0-3)
[2018-05-10 15:12] LABS: INR 1.44; PROTHROMBIN TIME 17.8 SECONDS (12.1-14.4)
[2018-05-10] MEDS: GASTROGRAFIN SOLUTION 30ML PO ×2 (15:25→15:55)
[2018-05-10] MEDS: NS 500 ML IV (17:11)
[2018-05-10] MEDS: DEXTROSE 50% 50 ML SYRINGE IV ×2 (17:11→20:35)
[2018-05-10 18:14] LABS: BEDSIDE GLUCOSE 87 MG/DL (80-115)
[2018-05-10 20:07] LABS: BEDSIDE GLUCOSE 58 MG/DL (80-115)
[2018-05-10] MEDS: D5W/0.9% SODIUM CHLORIDE 1,000 ML IV (20:35)
[2018-05-10] MEDS ORDERED: ACETAMINOPHEN TAB 650MG DOSE (2X325MG) PO (21:15)
[2018-05-10] MEDS ORDERED: ONDANSETRON 4MG/2ML VIAL (J2405) IV (21:15)
[2018-05-10] MEDS ORDERED: DEXTROSE 50% 50 ML SYRINGE IV (21:15)
[2018-05-10] MEDS ORDERED: GLUCOSE 4 GM CHEW TABLET PO (21:15)
[2018-05-10] MEDS ORDERED: GLUCAGON FOR INJ 1 MG VIAL (J1610) SC (21:15)
[2018-05-10 23:01] LABS: BEDSIDE GLUCOSE 109 MG/DL (80-115)
[2018-05-10 23:29] LABS: BEDSIDE GLUCOSE 93 MG/DL (80-115)
[2018-05-11] MEDS: MORPHINE 4 MG/ML 1ML VIAL/SYRINGE (J2270) IV ×3 (00:22→16:51)
[2018-05-11] MEDS: TAMSULOSIN 0.4 MG CAP PO ×2 (03:35→20:51)
[2018-05-11] MEDS: VITAMIN B COMPLEX/VIT C CAP PO ×2 (03:35→20:50)
[2018-05-11] MEDS: ATORVASTATIN 20 MG TAB PO ×2 (03:35→20:51)
[2018-05-11] MEDS: METOPROLOL TART 12.5 MG PER 1/2 TAB PO ×2 (03:35→20:51)
[2018-05-11] MEDS: PARoxetine 10MG TABLET PO ×2 (03:35→20:51)
[2018-05-11] MEDS: FINASTERIDE 5 MG TAB PO ×2 (03:35→20:53)
[2018-05-11] MEDS: oxyCODONE 5MG TAB PO ×2 (04:57→12:31)
[2018-05-11] MEDS: LEVOTHYROXINE 75MCG TABLET (0.075MG) PO (05:44)
[2018-05-11] MEDS: D5W/0.9% SODIUM CHLORIDE 1,000 ML IV (05:45)
[2018-05-11 06:10] LABS: INR 1.42; PROTHROMBIN TIME 17.6 SECONDS (12.1-14.4)
[2018-05-11 06:50] LABS: ANION GAP 11 MEQ/L (8-16); BLOOD UREA NITROGEN 56 MG/DL (7-18); CALCIUM LEVEL 8.2 MG/DL (8.8-10.2); CARBON DIOXIDE LEVEL 28 MEQ/L (21-32); CHLORIDE LEVEL 97 MEQ/L (98-107); GLOMERULAR FILTRATION RATE 6.2 (>49); GLUCOSE, FASTING 100 MG/DL (70-100); SODIUM LEVEL 136 MEQ/L (136-145); TROPONIN I 0.12 NG/ML (< 0.10)
[2018-05-11 06:52] LABS: CREATININE FOR GFR 9.11 MG/DL (0.70-1.30); POTASSIUM SERUM 5.4 MEQ/L (3.5-5.1)
[2018-05-11] MEDS: HumaLOG INSULIN (NovoLOG) PER UNIT SC ×4 (07:30→21:00)
[2018-05-11] MEDS: HumuLIN N INSULIN (NovoLIN N) PER UNIT SC ×2 (08:27→20:54)
[2018-05-11] MEDS: PANTOPRAZOLE 40MG TAB (PROTONIX) PO (09:05)
[2018-05-11] MEDS: ASPIRIN 81 MG ENTERIC TAB PO (09:06)
[2018-05-11] MEDS: VITAMIN D 1,000 INTERNATIONAL UNITS TABLET PO ×2 (09:06→20:51)
[2018-05-11] MEDS: MULTIVITAMINS/MINERALS THERAP 1 TAB PO (09:06)
[2018-05-11] MEDS: amLODIPine 5 MG TAB PO (09:06)
[2018-05-11] MEDS: CALCITRIOL 0.25 MCG CAP (S0169) PO (09:06)
[2018-05-11] MEDS: (RENVELA) SEVELAMER **CARBONate** 800 MG TAB PO ×3 (09:06→17:19)
[2018-05-11] MEDS: MORPHINE 15 MG SA TAB PO ×2 (09:06→20:53)
[2018-05-11] MEDS: metroNIDAZOLE 500 MG in APPROPRIATE DILUENT 1 EA IV ×2 (10:20→17:19)
[2018-05-11 12:14] LABS: BEDSIDE GLUCOSE 198 MG/DL (80-115)
[2018-05-11] MEDS: CIPROFLOXACIN 200 MG in APPROPRIATE DILUENT 1 EA IV (12:31)
[2018-05-11 16:45] LABS: BEDSIDE GLUCOSE 130 MG/DL (80-115)
[2018-05-11] MEDS: WARFARIN SOD 5 MG TAB PO (17:19)
[2018-05-11 20:30] LABS: BEDSIDE GLUCOSE 133 MG/DL (80-115)
[2018-05-12] MEDS: DOCUSATE SODIUM 100 MG CAP PO ×3 (01:34→20:48)
[2018-05-12] MEDS: MORPHINE 4 MG/ML 1ML VIAL/SYRINGE (J2270) IV ×2 (01:34→04:33)
[2018-05-12] MEDS: metroNIDAZOLE 500 MG in APPROPRIATE DILUENT 1 EA IV ×4 (01:34→18:00)
[2018-05-12 05:46] LABS: BEDSIDE GLUCOSE 98 MG/DL (80-115)
[2018-05-12 06:02] LABS: INR 1.35; PROTHROMBIN TIME 16.9 SECONDS (12.1-14.4)
[2018-05-12 06:05] LABS: ANION GAP 10 MEQ/L (8-16); BLOOD UREA NITROGEN 77 MG/DL (7-18); CALCIUM LEVEL 8.7 MG/DL (8.8-10.2); CARBON DIOXIDE LEVEL 28 MEQ/L (21-32); CHLORIDE LEVEL 98 MEQ/L (98-107); GLOMERULAR FILTRATION RATE 5.1 (>49); GLUCOSE, FASTING 106 MG/DL (70-100); SODIUM LEVEL 136 MEQ/L (136-145)
[2018-05-12 06:08] LABS: POTASSIUM SERUM 5.4 MEQ/L (3.5-5.1)
[2018-05-12] MEDS: MULTIVITAMINS/MINERALS THERAP 1 TAB PO (06:15)
[2018-05-12] MEDS: ASPIRIN 81 MG ENTERIC TAB PO (06:15)
[2018-05-12] MEDS: PANTOPRAZOLE 40MG TAB (PROTONIX) PO (06:15)
[2018-05-12] MEDS: VITAMIN D 1,000 INTERNATIONAL UNITS TABLET PO ×2 (06:17→20:48)
[2018-05-12] MEDS: LEVOTHYROXINE 75MCG TABLET (0.075MG) PO (06:17)
[2018-05-12] MEDS: amLODIPine 5 MG TAB PO (06:17)
[2018-05-12] MEDS: HumaLOG INSULIN (NovoLOG) PER UNIT SC ×4 (06:51→20:40)
[2018-05-12] MEDS: HumuLIN N INSULIN (NovoLIN N) PER UNIT SC ×2 (06:51→20:41)
[2018-05-12 07:24] LABS: BASO % 0.5 % (0.0-1.0); EOS # 0.1 10^3/uL (0.0-0.50); EOS % 2.7 % (0.0-3.0); HEMATOCRIT 29.3 % (42.0-52.0); HEMOGLOBIN 9.2 g/dl (13.5-17.5); LYMPH # 0.5 10^3/uL (1.5-4.5); LYMPH % 10.6 % (24.0-44.0); MEAN CORPUSCULAR HEMOGLOBIN 33.9 pg (27.0-33.0); MEAN CORPUSCULAR HGB CONC 31.4 g/dl (32.0-36.5); MEAN CORPUSCULAR VOLUME 108.1 fl (80.0-96.0); MONO # 0.2 10^3/uL (0.0-0.8); MONO % 4.5 % (0.0-5.0); NEUTROPHILS # 3.6 10^3/uL (1.8-7.7); NEUTROPHILS % 81.7 % (36.0-66.0); PLATELET COUNT, AUTOMATED 111 10^3/uL (150-450); RED BLOOD COUNT 2.71 10^6/uL (4.30-6.10); RED CELL DISTRIBUTION WIDTH 16.2 % (11.5-14.5); WHITE BLOOD COUNT 4.4 10^3/uL (4.0-10.0)
[2018-05-12] MEDS: (RENVELA) SEVELAMER **CARBONate** 800 MG TAB PO ×3 (07:45→18:10)
[2018-05-12] MEDS: MORPHINE 15 MG SA TAB PO ×2 (08:44→20:48)
[2018-05-12] MEDS ORDERED: DARBEPOETIN 100 MCG/0.5 ML *DIALYSIS* SYRINGE (J0882) IV (09:30)
[2018-05-12] MEDS: LIDOCAINE 1% SDV 5 ML VIAL SQ (11:15)
[2018-05-12] MEDS: HEPARIN 1,000 UNITS/ML 10ML VIAL (FOR RADIOLOGY& DIALYSIS ONLY) IV (11:15)
[2018-05-12 14:22] LABS: BEDSIDE GLUCOSE 97 MG/DL (80-115)
[2018-05-12] MEDS: MIRALAX *UNIT DOSE* 17GM PACKET PO (14:24)
[2018-05-12] MEDS: oxyCODONE 5MG TAB PO (14:34)
[2018-05-12] MEDS: CIPROFLOXACIN 200 MG in APPROPRIATE DILUENT 1 EA IV (15:49)
[2018-05-12 17:27] LABS: BEDSIDE GLUCOSE 212 MG/DL (80-115)
[2018-05-12] MEDS: WARFARIN SOD 7.5 MG TAB PO (18:10)
[2018-05-12 20:31] LABS: BEDSIDE GLUCOSE 156 MG/DL (80-115)
[2018-05-12] MEDS: TAMSULOSIN 0.4 MG CAP PO (20:47)
[2018-05-12] MEDS: ATORVASTATIN 20 MG TAB PO (20:47)
[2018-05-12] MEDS: VITAMIN B COMPLEX/VIT C CAP PO (20:47)
[2018-05-12] MEDS: FINASTERIDE 5 MG TAB PO (20:48)
[2018-05-12] MEDS: PARoxetine 10MG TABLET PO (20:48)
[2018-05-12 21:46] LABS: AMORPHOUS SEDIMENT RFX SMALL (NEGATIVE); KETONE, URINE AUTO RFX NEGATIVE (NEGATIVE); NITRITE, URINE AUTO RFX NEGATIVE (NEGATIVE); RBC, URINE AUTO RFX 3 /HPF (0-3); SPECIFIC GRAVITY UR AUTO RFX 1.015 (1.002-1.035); SQUAM EPITHELIAL CELL UR AURFX 1 /HPF (0-6); WBC, URINE AUTO RFX 5 /HPF (0-3)
[2018-05-12 21:48] LABS: LEUKOCYTE ESTERASE UR AUTO RFX TRACE (NEGATIVE)
[2018-05-13] MEDS: oxyCODONE 5MG TAB PO (00:03)
[2018-05-13] MEDS: metroNIDAZOLE 500 MG in APPROPRIATE DILUENT 1 EA IV ×2 (01:16→10:05)
[2018-05-13] MEDS: LEVOTHYROXINE 75MCG TABLET (0.075MG) PO (05:43)
[2018-05-13 05:48] LABS: BASO % 0.3 % (0.0-1.0); EOS # 0.1 10^3/uL (0.0-0.50); EOS % 3.4 % (0.0-3.0); HEMATOCRIT 27.1 % (42.0-52.0); IMMATURE GRANULOCYTE % 0.3 % (0-3.0); LYMPH # 0.3 10^3/uL (1.5-4.5); LYMPH % 10.2 % (24.0-44.0); MEAN CORPUSCULAR HEMOGLOBIN 34.9 pg (27.0-33.0); MEAN CORPUSCULAR HGB CONC 33.2 g/dl (32.0-36.5); MONO # 0.2 10^3/uL (0.0-0.8); MONO % 5.6 % (0.0-5.0); NEUTROPHILS # 2.6 10^3/uL (1.8-7.7); NEUTROPHILS % 80.2 % (36.0-66.0); PLATELET COUNT, AUTOMATED 109 10^3/uL (150-450); RED BLOOD COUNT 2.58 10^6/uL (4.30-6.10); WHITE BLOOD COUNT 3.2 10^3/uL (4.0-10.0)
[2018-05-13 06:03] LABS: ANION GAP 9 MEQ/L (8-16); BLOOD UREA NITROGEN 47 MG/DL (7-18); CALCIUM LEVEL 8.3 MG/DL (8.8-10.2); CARBON DIOXIDE LEVEL 28 MEQ/L (21-32); CHLORIDE LEVEL 99 MEQ/L (98-107); CREATININE FOR GFR 7.27 MG/DL (0.70-1.30); GLOMERULAR FILTRATION RATE 8.1 (>49); GLUCOSE, FASTING 144 MG/DL (70-100); SODIUM LEVEL 136 MEQ/L (136-145)
[2018-05-13 06:05] LABS: POTASSIUM SERUM 5.4 MEQ/L (3.5-5.1)
[2018-05-13 06:10] LABS: INR 1.33; PROTHROMBIN TIME 16.6 SECONDS (12.1-14.4)
[2018-05-13] MEDS: HumaLOG INSULIN (NovoLOG) PER UNIT SC (07:52)
[2018-05-13] MEDS: (RENVELA) SEVELAMER **CARBONate** 800 MG TAB PO (07:52)
[2018-05-13] MEDS: PANTOPRAZOLE 40MG TAB (PROTONIX) PO (08:38)
[2018-05-13] MEDS: CALCITRIOL 0.25 MCG CAP (S0169) PO (08:38)
[2018-05-13] MEDS: amLODIPine 5 MG TAB PO (08:38)
[2018-05-13] MEDS: HumuLIN N INSULIN (NovoLIN N) PER UNIT SC (08:38)
[2018-05-13] MEDS: MIRALAX *UNIT DOSE* 17GM PACKET PO (08:38)
[2018-05-13] MEDS: DOCUSATE SODIUM 100 MG CAP PO (08:39)
[2018-05-13] MEDS: MORPHINE 15 MG SA TAB PO (08:39)
[2018-05-13] MEDS: VITAMIN D 1,000 INTERNATIONAL UNITS TABLET PO (08:39)
[2018-05-13] MEDS: ASPIRIN 81 MG ENTERIC TAB PO (08:39)
[2018-05-13] MEDS: MULTIVITAMINS/MINERALS THERAP 1 TAB PO (08:39)
[2018-05-13] MEDS: WARFARIN SOD 5 MG TAB PO (10:05)
[2018-05-13 11:40] LABS: BEDSIDE GLUCOSE 179 MG/DL (80-115)
[2018-05-13] MEDS ORDERED: WARFARIN SOD 5 MG TAB PO (17:00)
== END 2018-05-13 12:00 | disposition home or self-care (01) | DRG 391 ==
LOC: M ED 13:26 → M ED INP 21:14 → M MSPAV 23:15
PROC: 5A1D70Z Performance of Urinary Filtration, Intermittent, Less than 6 Hours Per Day (ICD-10-PCS; principal; 2018-05-12)
DX: K52.9 Noninfective gastroenteritis and colitis, unspecified (principal); N18.6 End stage renal disease; D61.818 Other pancytopenia; I48.92 Unspecified atrial flutter; I50.32 Chronic diastolic (congestive) heart failure; I13.2 Hypertensive heart and chronic kidney disease with heart failure and with stage 5 chronic kidney disease, or end stage renal disease; N25.81 Secondary hyperparathyroidism of renal origin; D63.1 Anemia in chronic kidney disease; E87.5 Hyperkalemia; I25.10 Atherosclerotic heart disease of native coronary artery without angina pectoris; E78.5 Hyperlipidemia, unspecified; N40.0 Benign prostatic hyperplasia without lower urinary tract symptoms; G47.33 Obstructive sleep apnea (adult) (pediatric); E05.90 Thyrotoxicosis, unspecified without thyrotoxic crisis or storm; K80.20 Calculus of gallbladder without cholecystitis without obstruction; E11.9 Type 2 diabetes mellitus without complications; Z95.828 Presence of other vascular implants and grafts; Z98.49 Cataract extraction status, unspecified eye; Z95.5 Presence of coronary angioplasty implant and graft; Z79.82 Long term (current) use of aspirin; Z79.4 Long term (current) use of insulin; Z79.891 Long term (current) use of opiate analgesic; Z79.01 Long term (current) use of anticoagulants; Z79.899 Other long term (current) drug therapy; Z99.2 Dependence on renal dialysis; Z85.6 Personal history of leukemia

== ENCOUNTER 2018-07-15 15:37 | Emergency (ER) | payer MEDICARE ==
[2018-07-15] MEDS ORDERED: PROPOFOL 200 MG/20 ML VIAL As Ordered (15:45)
[2018-07-15] MEDS ORDERED: PROPOFOL 1,000 MG/100 ML VIAL As Ordered (15:46)
[2018-07-15] MEDS ORDERED: VECURONIUM BROMIDE 10 MG VIAL As Ordered (15:49)
[2018-07-15] MEDS: PROPOFOL 1,000 MG in APPROPRIATE DILUENT 1 EA IV ×2 (15:55→17:42)
[2018-07-15] MEDS: VECURONIUM BROMIDE 50 MG in D5W 50 ML IV (16:00)
[2018-07-15 16:11] LABS: ABG BASE EXCESS -3.8 (-2.0-2.0); ABG HCO3 20.8 MEQ/L (22.0-26.0); ABG O2 SATURATION 99.7 % (95.0-99.0); ABG PARTIAL PRESSURE CO2 35.4 mmHg (35.0-45.0); ABG PARTIAL PRESSURE O2 353.9 mmHg (75.0-100.0); ABG STANDARD HCO3 21.3 MEQ/L (22.0-26.0); ABG TOTAL CO2 21.9 MEQ/L (23.0-31.0); ABG pH (ARTERIAL) 7.387 UNITS (7.350-7.450)
[2018-07-15 16:16] LABS: BASO % 0.3 % (0.0-1.0); EOS # 0.1 10^3/uL (0.0-0.50); EOS % 0.8 % (0.0-3.0); HEMATOCRIT 27.4 % (42.0-52.0); HEMOGLOBIN 8.5 g/dl (13.5-17.5); IMMATURE GRANULOCYTE % 4.9 % (0-3.0); LYMPH # 1.4 10^3/uL (1.5-4.5); LYMPH % 18.9 % (24.0-44.0); MEAN CORPUSCULAR HEMOGLOBIN 33.5 pg (27.0-33.0); MEAN CORPUSCULAR VOLUME 107.9 fl (80.0-96.0); MONO # 0.3 10^3/uL (0.0-0.8); MONO % 3.4 % (0.0-5.0); NEUTROPHILS # 5.3 10^3/uL (1.8-7.7); NEUTROPHILS % 71.7 % (36.0-66.0); PLATELET COUNT, AUTOMATED 210 10^3/uL (150-450); RED BLOOD COUNT 2.54 10^6/uL (4.30-6.10); RED CELL DISTRIBUTION WIDTH 16.3 % (11.5-14.5); WHITE BLOOD COUNT 7.4 10^3/uL (4.0-10.0)
[2018-07-15 16:29] LABS: INR 1.97; PROTHROMBIN TIME 22.8 SECONDS (12.1-14.4)
[2018-07-15 16:30] LABS: PARTIAL THROMBOPLASTIN TIME 41.1 SECONDS (25.4-37.6)
[2018-07-15] MEDS: NS 500 ML IV (16:33)
[2018-07-15 16:46] LABS: ALBUMIN 2.9 GM/DL (3.2-5.2); ALBUMIN/GLOBULIN RATIO 0.85 (1.00-1.93); ALKALINE PHOSPHATASE 100 U/L (45-117); ALT/SGPT 319 U/L (12-78); ANION GAP 18 MEQ/L (8-16); AST/SGOT 243 U/L (7-37); BILIRUBIN,DIRECT < 0.1 MG/DL (0.0-0.2); BILIRUBIN,TOTAL 0.3 MG/DL (0.2-1.0); BLOOD UREA NITROGEN 57 MG/DL (7-18); CALCIUM LEVEL 8.1 MG/DL (8.8-10.2); CARBON DIOXIDE LEVEL 26 MEQ/L (21-32); CHLORIDE LEVEL 95 MEQ/L (98-107); CPK CREATINE PHOSPHOKINASE 541 U/L (39-308); CREATININE FOR GFR 8.63 MG/DL (0.70-1.30); FREE T4 0.98 NG/DL (0.76-1.46); GLOMERULAR FILTRATION RATE 6.6 (>49); GLUCOSE, FASTING 243 MG/DL (70-100); LIPASE 135 U/L (73-393); NT-PRO BNP 11629 PG/ML (<125); POTASSIUM SERUM 3.9 MEQ/L (3.5-5.1); SODIUM LEVEL 139 MEQ/L (136-145); TOTAL PROTEIN 6.3 GM/DL (6.4-8.2); TROPONIN I 3.16 NG/ML (< 0.10)
== END 2018-07-15 19:28 | disposition short-term general hospital (02) ==
LOC: M ED 15:37
DX: I21.4 Non-ST elevation (NSTEMI) myocardial infarction (principal); I48.91 Unspecified atrial fibrillation; I25.10 Atherosclerotic heart disease of native coronary artery without angina pectoris; E11.9 Type 2 diabetes mellitus without complications; E03.9 Hypothyroidism, unspecified; G47.33 Obstructive sleep apnea (adult) (pediatric); C91.41 Hairy cell leukemia, in remission; Z95.5 Presence of coronary angioplasty implant and graft; Z98.890 Other specified postprocedural states; Z79.4 Long term (current) use of insulin; Z88.8 Allergy status to other drugs, medicaments and biological substances; Z79.890 Hormone replacement therapy; Z79.82 Long term (current) use of aspirin; Z79.899 Other long term (current) drug therapy; Z79.01 Long term (current) use of anticoagulants
CPT/HCPCS: 71045